=== PATIENT | female | born 1950 | race Caucasian/White ===

== ENCOUNTER 2019-06-23 08:09 | Inpatient (IN) | payer MEDICARE, OTHER ==
[2019-06-23] MEDS ORDERED: NITROGLYCERIN-D5W PMX 50 MG in DEXTROSE/WATER 1 250ML.BAG IV ONE (08:25)
[2019-06-23] MEDS ORDERED: HEPARIN SODIUM,PORCINE 5,000 UNIT/ML 1 ML VIAL IV PRN (08:25)
[2019-06-23] MEDS ORDERED: HEPARIN SOD,PORK IN 0.45% NACL 25,000 UNIT in 0.45% NACL 1 250ML.BAG IV SCH (08:30)
--- NOTE | 2019-06-23 08:37 | ED ---
Chest Pain HPI - General Chief Complaint: Chest Pain Stated Complaint: Chest Pain Time Seen by Provider: 06/23/19 08:10 - History of Present Illness Initial Comments: He patient is a 69-year-old female who is a transfer from [facility]. She called EMS and went in there around 3:30 AM. She was complaining of shortness of breath. Reports that her symptoms are been present for the past several days. She has a history of asthma and COPD. Patient recently quit smoking a few months ago. At [facility] they found the patient had saturations in the 80s and was in congestive heart failure. Denies a previous history of CHF or any coronary disease. 12-lead EKG demonstrated concerning signs for an anterior lateral STEMI. She was given TNK-tPA. She is also started on heparin and nitro drip. Patient was placed on BiPAP for respiratory distress and given 60 mg of Lasix. 4 baby aspirins were also given to the patient. They ordered Levaquin on the patient because of an elevated white blood cell count however it was not administered to the patients. They did call her facility and spoke with Dr. Moreno. He reported that the patient's needed to be accepted by our valet attendant. Patient does arrive and I do contact the on- call valet attendant who is unaware of the patient's transfer. Review the patient's lab studies demonstrate a mag of 1.6, urinalysis shows rare bacteria. Troponin 1.2, sodium 141, potassium 4.4, chloride 104, CO2 22, creatinine 1.3 BNP, 1443, INR 0.9, d-dimer 2.9, platelets 297. Chest x-ray demonstrates findings consistent with early cardiac decompensation superimposed upon COPD. Patient arrives to me and is pain free. Appears comfortable on the BiPAP. Denies any fevers or chills. No nausea or vomiting. There are no alleviating, precipitating or modifying factors - Related Data Home Medications Medication Instructions Recorded Confirmed Bisoprolol Fumarate [Zebeta] 10 mg PO DAILY 06/23/19 06/23/19 Clopidogrel [Plavix] 75 mg PO DAILY 06/23/19 06/23/19 Insulin Aspart Protam & Aspart 30 unit SQ BID 06/23/19 06/23/19 [NovoLOG MIX 70-30 Flexpen] Losartan [Cozaar] 25 mg PO DAILY 06/23/19 06/23/19 Losartan [Cozaar] 50 mg PO BID 06/23/19 06/23/19 cloNIDine HCL [Catapres] 0.1 mg PO BID PRN 06/23/19 06/23/19 hydrALAZINE HCL [Apresoline] 25 mg PO DAILY 06/23/19 06/23/19 Allergies Allergy/AdvReac Type Severity Reaction Status Date / Time latex Allergy Rash/Hives Verified 06/23/19 16:34 Penicillins Allergy Rash/Hives Verified 06/23/19 08:41 Sulfa (Sulfonamide Allergy Swelling Verified 06/23/19 08:41 Antibiotics) Wool Allergy Itching Uncoded 06/23/19 16:34 Review of Systems ROS Statement: Those systems with pertinent positive or pertinent negative responses have been documented in the HPI. ROS Other: All systems not noted in ROS Statement are negative. EKG Findings - EKG Comments: EKG Findings:: EKG demonstrates normal sinus rhythm with ventricular rate of 83. ID interval 160. Distress 106. QTC of 542. There is deep inverted T waves in leads V3 through V6. Appears to be some ST elevation in 2, 3 and aVF. General Exam General appearance: alert, in no apparent distress Head exam: Present: atraumatic, normocephalic, normal inspection Eye exam: Present: normal appearance, PERRL, EOMI. Absent: scleral icterus, conjunctival injection, periorbital swelling ENT exam: Present: normal exam, mucous membranes moist Neck exam: Present: normal inspection. Absent: tenderness, meningismus, lymphadenopathy Respiratory exam: Present: rales, other (on Bipap). Absent: respiratory distress, wheezes, rhonchi, stridor Cardiovascular Exam: Present: regular rate, normal rhythm, normal heart sounds. Absent: systolic murmur, diastolic murmur, rubs, gallop, clicks GI/Abdominal exam: Present: soft, normal bowel sounds. Absent: distended, tenderness, guarding, rebound, rigid Extremities exam: Present: full ROM, normal capillary refill, pedal edema. Absent: tenderness, joint swelling, calf tenderness Back exam: Present: normal inspection Neurological exam: Present: alert, oriented X3, CN II-XII intact Psychiatric exam: Present: normal affect, normal mood Skin exam: Present: warm, dry, intact, normal color. Absent: rash Course Vital Signs 06/23/19 06/23/19 06/23/19 08:19 08:45 08:50 Temperature 97.8 F Pulse Rate 85 78 72 Respiratory 22 18 18 Rate Blood Pressure 153/95 159/89 176/93 O2 Sat by Pulse 98 98 95 Oximetry 06/23/19 06/23/19 06/23/19 09:00 09:05 09:10 Temperature Pulse Rate 78 78 75 Respiratory 18 18 18 Rate Blood Pressure 162/91 154/76 151/80 O2 Sat by Pulse 94 L 95 95 Oximetry 06/23/19 06/23/19 06/23/19 09:14 09:15 09:20 Temperature 98 F Pulse Rate 79 77 Respiratory 18 18 Rate Blood Pressure 159/88 167/100 O2 Sat by Pulse 95 95 Oximetry 06/23/19 06/23/19 06/23/19 09:30 09:35 09:40 Temperature Pulse Rate 75 75 74 Respiratory 18 18 18 Rate Blood Pressure 169/92 173/92 161/101 O2 Sat by Pulse 95 95 95 Oximetry 06/23/19 06/23/19 06/23/19 09:45 09:46 10:03 Temperature Pulse Rate 75 75 75 Respiratory 14 16 18 Rate Blood Pressure 169/95 162/97 175/110 O2 Sat by Pulse 95 95 96 Oximetry Chest Pain MDM - MDM Upon obtaining EMS prehospital report, I called the quality control lab technician at [phone] and they are unaware the patient. The patient is placed into trauma bay 1. I then talked Dr. Mcleod at [phone] and he is unaware of the patient's transfer. The patient is transferred to heparin and nitro drips on our pumps. We did complete a 12-lead EKG. Dr. Mcleod does present to the emergency room at 8:20 AM in order to evaluate the patient and states he will take the patient to [facility]. I did place bridging orders for the patient to go to the ICU. Discussed case with Dr. newman and Dr. Keith. As of 8:45 AM all of the patient's orders are placed in the computer and we are currently still awaiting the valet attendant take her to the catheterization lab Critical Care Time Critical Care Time: Yes Total Critical Care Time: 30 (mins) Disposition Clinical Impression: Chest pain, Congestive heart failure, Dependence on non-invasive ventilation, STEMI (ST elevation myocardial infarction) Disposition: ADMITTED IP TO THIS HOSP Condition: Serious Is patient prescribed a controlled substance at d/c from ED?: No Decision to Admit Reason: Admit from EC Decision Date: 06/23/19 Decision Time: 08:49
[2019-06-23] MEDS ORDERED: NALOXONE 0.4 MG/ML 1 ML VIAL IV PRN (08:53)
--- NOTE | 2019-06-23 09:49 | CONS ---
CONSULTATION Mrs. Llamas is a 69-year-old female who was transferred from [place] emergency room. Patient has a known history of hypertension, hyperlipidemia, chronic tobacco use and peripheral vessel disease who woke up this morning at 3 o'clock was acute dyspnea and chest discomfort. She was evaluated in the emergency room in [place], was found to have ST-segment elevation anteriorly with evidence off QS pattern. She received TN and was transferred to the emergency room at [facility]. She is awake, alert at this time on BiPAP. Denies any chest discomfort at this time. Denies any dizziness or palpitation. She feels that her discomfort is better. She has been having the discomfort on and off recently. She has no prior documented history of cardiac disease, yet she has peripheral disease and underwent stenting of her left lower extremity. She denies any PND, orthopnea. No peripheral edema. Her activity level is limited. She has a history of hypertension, diabetes. She has stopped smoking in March. MEDICATION: At home are not available at this time. REVIEW OF SYSTEMS: RESPIRATORY SYSTEM: She had dyspnea on exertion. She has wheezing and cough. GI SYSTEM: No recent GI bleeding. No peptic ulcer disease. SYSTEM: No dysuria or hematuria. NERVOUS SYSTEM: No history of stroke or seizure. PHYSICAL EXAMINATION: She is a 69-year-old female, alert, oriented, on BiPAP. Heart rate in the 80s. HEAD: Normocephalic. EYES: Sclerae nonicteric. NECK: No bruit. LUNGS: Clear to auscultation anteriorly. HEART: Regular rate and rhythm. S1, S2. No S3. Unable to appreciate murmur. ABDOMEN: Soft, obese, nontender. EXTREMITIES: No edema with decreased distal pulses. LAB DATA: From [place], revealed BUN and creatinine 26 and 1.3. Her NT proBNP is 1443. Troponin of 1.2, hemoglobin of 15.8. Her initial EKG showed ST-segment elevation anteriorly. Her repeat EKG at [facility] showed T-wave inversion in the anterior precordial leads. Her chest x-ray reported from [place] revealed evidence of COPD with early cardiac decompensation. IMPRESSION: 1. Acute anterior myocardial infarction, treated with thrombolytics with symptoms of heart failure. 2. Chronic tobacco use. 3. Hypertension. 4. Diabetes. 5. Peripheral vascular disease with recent percutaneous revascularization of her left lower extremity. 6. Obesity. RECOMMENDATION: From the cardiac standpoint, I would recommend to proceed with cardiac catheterization to assess the patency of her vessels and guide her treatment. The rational behind the procedures, risks, and complication were discussed with the patient who is in full understanding and agreement. Thank you for this consult. Will follow with you. JOHN / PARAG: [id number] /
[2019-06-23 09:53] LABS: Glucose,Whole Blood 338 mg/dL (75-99)
[2019-06-23] MEDS ORDERED: LIDOCAINE 1% INJ 10MG/ML (20 ML MDV) ONE (10:07)
[2019-06-23] MEDS ORDERED: SODIUM CHLORIDE 0.9% 500 ML 500 ML IV ONE (10:28)
[2019-06-23] MEDS ORDERED: SODIUM CHLORIDE 0.9% 1,000 ML IV ONE (10:28)
[2019-06-23] MEDS ORDERED: VERAPAMIL 2.5 MG/ML 2 ML AMP ONE (10:32)
[2019-06-23] MEDS ORDERED: fentaNYL (PF) 50 MCG/ML 2 ML AMP ONE (10:36)
[2019-06-23] MEDS ORDERED: fentaNYL (PF) 50 MCG/ML 2 ML AMP IVP ONE (10:40)
[2019-06-23] MEDS ORDERED: LIDOCAINE 1% INJ 10MG/ML (20 ML MDV) SQ ONE (10:45)
[2019-06-23] MEDS ORDERED: VERAPAMIL SYRINGE (5 MG/10 ML) INTRAARTER ONE (10:46)
[2019-06-23] MEDS ORDERED: NITROGLYCERIN 1000MCG/10ML SYRINGE INTRACORON ONE (10:58)
[2019-06-23] MEDS ORDERED: BIVALIRUDIN 250 MG in SODIUM CHLORIDE 0.9% 50 ML IV ONE (11:05)
[2019-06-23] MEDS ORDERED: BIVALIRUDIN BOLUS 250 MG/50 ML IV ONE (11:05)
[2019-06-23] MEDS ORDERED: CLOPIDOGREL 75 MG TAB ONE (11:15)
[2019-06-23] MEDS ORDERED: CLOPIDOGREL 75 MG TAB PO ONE (11:21)
[2019-06-23] MEDS ORDERED: IOPAMIDOL-370 125ML BTL INJ ONE ×2 (11:23)
[2019-06-23] MEDS ORDERED: ATROPINE SULFATE 0.1 MG/ML 10ML SYRINGE IV PRN (11:35)
[2019-06-23] MEDS ORDERED: RX INFO: IV CONTRAST WAS GIVEN 1 EACH MISC MISCELLANE PRN (11:35)
[2019-06-23] MEDS ORDERED: NITROGLYCERIN SL TABS 0.4 MG TAB SUBLINGUAL PRN (11:35)
[2019-06-23] MEDS ORDERED: MAG HYDROX/AL HYDROX/SIMETH 30 ML CUP PO PRN (11:35)
[2019-06-23] MEDS ORDERED: SODIUM CHLORIDE 0.9% 1,000 ML IV SCH (11:45)
[2019-06-23 12:04] LABS: Glucose,Whole Blood 367 mg/dL (75-99)
[2019-06-23] MEDS ORDERED: INSULIN NPH 300 UNIT/3 ML VIAL SQ ONE (13:00)
[2019-06-23 13:30] LABS: Glucose,Whole Blood 343 mg/dL (75-99)
--- NOTE | 2019-06-23 14:59 | XR ---
EXAMINATION TYPE: XR chest 1V portable DATE OF EXAM: 06/23/2019 COMPARISON: 06/23/2019 INDICATION: Short of breath TECHNIQUE: Single frontal view of the chest is obtained. FINDINGS: The heart size is normal. The pulmonary vasculature is normal. Perihilar and bibasilar infiltrates are present. This is more focal in the right lower lobe. Findings appear somewhat improved from recent comparison. IMPRESSION: 1. Clinical consideration for atypical pulmonary edema is recommended.
[2019-06-23 15:10] LABS: Glucose,Whole Blood 363 mg/dL (75-99)
[2019-06-23] MEDS ORDERED: IPRATROPIUM-ALBUTEROL 3 ML NEB INHALATION PRN (15:29)
--- NOTE | 2019-06-23 15:29 | P.CNPUL ---
History of Present Illness Consult date: 06/23/19 Requesting physician: Vikram Campbell Reason for consult: other (Acute ST elevation myocardial infarction) Chief complaint: Shortness of breath and chest pain History of present illness: This is a 69-year-old female with history of COPD, peripheral vessel occlusive disease, degenerative disc disease of the lumbar spine, [id number] smoker, quit smoking about 3 months ago. Patient is not O2 dependent, she is maintained on bronchodilators in the form of updrafts at home. Patient was seen early this morning at [facility] with sudden onset of dyspnea and chest discomfort. Upon initial evaluation in the ER, patient was found to have ST segment elevation anteriorly. She received TPAfor acute ST elevation myocardial infarction, and arrangements were made to transfer the patient to [facility]. She was seen by cardiology while she was in the ER, and she underwent cardiac catheterization./PTCA. Postoperatively patient was transferred to the intensive care unit, and I was asked to see her on consultation. She is presently on 4 L nasal cannula, she is asymptomatic, denies any chest pain, denies any cough, no wheezing, no fever no chills no hemoptysis. Patient is resting comfortably in the ICU. Initially when she presented to the ER, patient was on BiPAP. Chest x-ray post PTCA showed evidence of pulmonary edema. Patient will be treated as such. And she'll be receiving diuretics for her pulmonary edema, possible ischemic cardiomyopathy and LV dysfunction. Echocardiogram is pending. The cardiac catheterization report is also pending. Review of Systems Constitutional: Denies chills, Denies fever Eyes: denies blurred vision, denies pain Ears, nose, mouth and throat: Denies headache, Denies sore throat, Cardiovascular: As noted in HPI. Respiratory: Denies any cough wheezing shortness of breath at present. Presented initially with chest pain and shortness of breath Gastrointestinal: Denies abdominal pain, Denies diarrhea, Denies nausea, Denies vomiting Genitourinary: Denies dysuria, Denies hematuria Musculoskeletal: Has chronic low back pain Musculoskeletal: Chronic low back pain. Integumentary: Denies pruritus, Denies rash Neurological: Denies numbness, Denies weakness Psychiatric: Denies anxiety, Denies depression Endocrine: Denies fatigue, Denies weight change Past Medical History Past Medical History: Diabetes Mellitus, Hypertension History of Any Multi-Drug Resistant Organisms: None Reported Past Surgical History: Tonsillectomy Additional Past Surgical History / Comment(s): stent in left leg Past Psychological History: No Psychological Hx Reported Smoking Status: Former smoker Past Alcohol Use History: None Reported Past Drug Use History: None Reported Medications and Allergies Home Medications Medication Instructions Recorded Confirmed Type Bisoprolol Fumarate [Zebeta] 10 mg PO DAILY 06/23/19 06/23/19 History Clopidogrel [Plavix] 75 mg PO DAILY 06/23/19 06/23/19 History Insulin Aspart Protam & Aspart 30 unit SQ BID 06/23/19 06/23/19 History [NovoLOG MIX 70-30 Flexpen] Losartan [Cozaar] 25 mg PO DAILY 06/23/19 06/23/19 History Losartan [Cozaar] 50 mg PO BID 06/23/19 06/23/19 History cloNIDine HCL [Catapres] 0.1 mg PO BID PRN 06/23/19 06/23/19 History hydrALAZINE HCL [Apresoline] 25 mg PO DAILY 06/23/19 06/23/19 History Allergies Allergy/AdvReac Type Severity Reaction Status Date / Time Penicillins Allergy Rash/Hives Verified 06/23/19 08:41 Sulfa (Sulfonamide Allergy Swelling Verified 06/23/19 08:41 Antibiotics) Physical Exam Vitals: Vital Signs Temp Pulse Resp BP Pulse Ox 06/23/19 14:00 79 14 139/83 94 L 06/23/19 13:00 71 15 140/88 94 L 06/23/19 12:00 98 F 73 12 149/88 95 06/23/19 10:03 75 18 175/110 96 06/23/19 09:46 75 16 162/97 95 06/23/19 09:45 75 14 169/95 95 06/23/19 09:40 74 18 161/101 95 06/23/19 09:35 75 18 173/92 95 06/23/19 09:30 75 18 169/92 95 06/23/19 09:20 77 18 167/100 95 06/23/19 09:15 79 18 159/88 95 06/23/19 09:10 75 18 151/80 95 06/23/19 09:05 78 18 154/76 95 06/23/19 09:00 78 18 162/91 94 L 06/23/19 08:50 72 18 176/93 95 06/23/19 08:45 78 18 159/89 98 06/23/19 08:19 97.8 F 85 22 153/95 98 Intake and Output 06/23/19 06/23/19 06/23/19 06:59 14:59 22:59 Intake Total 668 Output Total 650 Balance 18 Intake: IV 543 Sodium Chloride 0.9% 1, 225 000 ml @ 75 mls/hr IV . [id number] [facility] Rx#:[id number] Oral 125 Output: Urine 650 Other: Voiding Method Indwelling Catheter Weight 77.564 kg ENERAL EXAM: Alert, pleasant, 69-year-old white female, on few liters nasal cannula, asymptomatic. HEAD: Normocephalic/atraumatic. EYES: Normal reaction of pupils, equal size. Conjunctiva pink, sclera white. NOSE: Clear with pink turbinates. THROAT: No erythema or exudates. NECK: No masses, no JVD, no thyroid enlargement, no adenopathy. CHEST: No chest wall deformity. Symmetrical expansion. Minimal fine crackles a t the bases. No rhonchi and no wheezes.. LUNGS: Equal air entry minimal crackles at the bases. CVS: Regular rate and rhythm, normal S1 and S2, no gallops, no murmurs, no rubs ABDOMEN: Obese, Soft, nontender. No hepatosplenomegaly, normal bowel sounds, no guarding or rigidity. EXTREMITIES: No clubbing, no edema, no cyanosis, 2+ pulses and upper and lower extremities. MUSCULOSKELETAL: Muscle strength and tone normal. SPINE: No scoliosis or deformity SKIN: No rashes CENTRAL NERVOUS SYSTEM: Alert and oriented -3. No focal deficits, tone is normal in all 4 extremities. PSYCHIATRIC: Alert and oriented -3. Appropriate affect. Intact judgment and insight. Results - Laboratory Findings Abnormal lab findings: Abnormal Labs 06/23/19 06/23/19 06/23/19 09:51 11:52 12:48 POC Glucose (mg/dL) 338 H 367 H Troponin I 3.060 H* 06/23/19 06/23/19 13:19 14:59 POC Glucose (mg/dL) 343 H 363 H Troponin I - Diagnostic Findings Chest x-ray: image reviewed (Chest x-ray is consistent with interstitial edema.) Assessment and Plan Assessment: Impression: 1 acute anterior myocardial infarction, initially treated with thrombolytics, and underwent PTCA by Dr. Mcleod. Stents were deployed., Final cardiac catheterization report and procedure is pending. 2 acute pulmonary edema secondary to ischemic cardiomyopathy and LV dysfunction is strongly suspected. 3 suspect moderate severe chronic obstructive pulmonary disease based on her smoking history. 4 chronic tobacco use, patient is at least an [id number] smoker, quit smoking 3 months ago. 5 benign essential hypertension 6 history of diabetes 7 history of peripheral vessel occlusive disease and previous revascularization of left lower extremity 8 obesity. Recommendation: Continue to monitor patient in the ICU. Continue aspirin atorvastatin Plavix nitroglycerin and beta blockers. Continue diuretics patient is presently on Lasix 20 mg IV push every 12 hours. Continue insulin as per protocol. Continue bronchodilators for COPD. Continue to monitor and control blood pressure Resume bronchodilators, no need for Solu-Medrol at this point. Follow-up chest x-ray in a.m., We'll continue to follow. Time with Patient: Greater than 30
[2019-06-23] MEDS: NITROGLYCERIN OINT 1 INCH/GM PACKET TOPICAL SCH ×2 (16:14→23:22)
[2019-06-23] MEDS: INSULIN ASPART (NovoLOG) 100 UNIT/ML VIAL SQ SCH ×4 (17:13→20:59)
[2019-06-23 17:17] LABS: Glucose,Whole Blood 376 mg/dL (75-99)
[2019-06-23 17:30] LABS: Basophils % (A) 0 %; Eosinophils # (A) 0.1 k/uL (0-0.7); Eosinophils % (A) 0 %; HCT 42.7 % (34.0-46.0); HGB 13.5 gm/dL (11.4-16.0); Lymphocytes # (A) 1.4 k/uL (1.0-4.8); Lymphocytes % (A) 9 %; MCH 32.5 pg (25.0-35.0); MCHC 31.7 g/dL (31.0-37.0); MCV 102.4 fL (80.0-100.0); Macrocytosis Slight; Mean Platelet Volume 8.5; Monocytes # (A) 0.4 k/uL (0-1.0); Monocytes % (A) 3 %; Neutrophils # (A) 13.5 k/uL (1.3-7.7); Neutrophils % (A) 88 %; Platelet Count 259 k/uL (150-450); RBC 4.17 m/uL (3.80-5.40); RDW 13.2 % (11.5-15.5); WBC 15.4 k/uL (3.8-10.6)
--- NOTE | 2019-06-23 17:37 | CC ---
CARDIAC CATHETERIZATION REPORT Mrs. Llamas is a 69-year-old female known history of hypertension, hyperlipidemia, diabetes mellitus, chronic tobacco use and peripheral vascular disease, who presented to [facility] with an acute anterior myocardial infarction, received TNK and was transferred to [facility]. On arrival, her breathing was better, but she was on BiPAP. Her EKG showed improvement in the ST elevation. In view of her presentation, recommendation made regarding cardiac catheterization. The procedures, risks and complications were discussed with the patient who is in full understanding and agreement. DESCRIPTION OF PROCEDURE: Patient was brought to [facility] in a fasting semisedated state. After receiving fentanyl and Benadryl and achieving moderate conscious sedated state. Using Xylocaine anesthesia and Seldinger technique, a 6-Slovenian sheath was introduced in the right radial artery. Selective right and left coronary angiography was performed using 5- Slovenian 3 and half bend right Indra catheter and a 6-Slovenian FL 3.5 guiding catheter. Images of the coronary arteries were performed. The 5-Slovenian right Indra was used to cross the aortic valve and left ventricular end-diastolic pressure was performed. Following that, angioplasty and stenting of the LAD was performed. Following the catheter and sheath were removed. Hemostasis was obtained with deployment of a TR band. There was no immediate complication. Patient was returned to her room in stable condition. Of note, the patient received intra-arterial verapamil. FINDING: FLUOROSCOPY: There is calcification involving all the coronary arteries. SELECTIVE CORONARY ANGIOGRAM: 1. LEFT MAIN: This is a short size vessel that bifurcates immediately to left anterior descending artery and left circumflex. Left main coronary artery has no evidence of high-grade stenosis. 2. LEFT ANTERIOR DESCENDING ARTERY: This is a large-sized vessel reaching toward the apex, tapers down distally giving rise to a large diagonal branch. In the proximal left anterior descending artery, at the takeoff of the diagonal branch, there is an 80% stenosis. Then after that, there is a tubular lesion of 80% to 90%. stenosis. The rest of the vessel has intimal disease without any evidence of high- grade stenosis. 3. LEFT CIRCUMFLEX: This is a nondominant vessel giving rise to a large obtuse marginal branch. The left circumflex has diffuse intimal disease of 30% to 40% without critical lesions. 4. RIGHT CORONARY ARTERY: This is a large dominant vessel bifurcating distally to PDA and posterolateral segment branches, calcified. The mid right coronary artery has an an area of stenosis of 50-60 percent at the bifurcation of the PDA and PLV. There is an 80 -90 percent stenosis involving the takeoff of the PDA. The rest of the vessel has no high-grade stenosis. LEFT VENTRICULOGRAM:: Left ventriculogram is not performed. HEMODYNAMICS: There was no gradient across the aortic valve. The left ventricle end-diastolic pressure was 32-36 mmHg. CONCLUSION: 1. Calcified coronary arteries. 2. Critical stenosis involving the LAD and a long segment. 3. Critical stenosis at the distal right coronary artery at the bifurcation of the PDA and PLV. 4. Mild to moderate disease in the left circumflex. 5. Elevated left ventricular end-diastolic pressure. RECOMMENDATION: In view of findings and anatomy, I recommend proceeding with angioplasty and stenting of the LAD. The procedure as well as risks and complication were discussed with the patient who is in full understanding and agreement. JOHN / PARAG: [id number] /
[2019-06-23 17:38] LABS: Calcium 9.4 mg/dL (8.4-10.2); Magnesium 1.4 mg/dL (1.6-2.3); Potassium 4.7 mmol/L (3.5-5.1)
--- NOTE | 2019-06-23 17:40 | PTCA ---
PERCUTANEOUSTRANS CORORONARY ANGIOGRAPHY Mrs. Llamas is a 69-year-old female with known history of hypertension, hyperlipidemia, diabetes mellitus and peripheral vascular disease who presented with evidence of an anterior myocardial infarction, received thrombolytics in [place] and was transferred for further evaluation. She underwent cardiac catheterization, was found to have critical stenosis involving the proximal and mid LAD. In view of that, recommendation was made regarding angioplasty and stenting. The procedure, its risks and complications were discussed with the patient, who was in full understanding and agreement. PROCEDURE: Using the 6-Danish FL3.5 guiding catheter, a 0.014 balanced medium-weight J-wire was advanced across the lesion, positioned distally. Subsequently a 2.75 x 18 mm Xience Shanti stent was deployed, post dilated at 16 atmospheres. After removing the balloon, another 2.75 x 15 mm Xience Shanti stent was deployed proximal to the first one and post dilated at 16 atmospheres. After the last inflation, after appropriate wait, the balloon and the guidewire were withdrawn back into the guiding catheter. Images were obtained and repeated. Those images revealed stable successful stenting. At that point, the guiding catheter, the balloon and the guidewire were removed. The sheath was removed. Hemostasis was obtained with deployment of a TR band. There was no immediate complication. Patient was returned to her room in stable condition. Of note, the patient received Angiomax per protocol and was continued on her Plavix. She had EKG changes as well as headache with the inflation that improved at the end of the procedure. RESULTS: Successful stenting of the proximal and mid LAD with reduction of stenosis from 80% to 0%. RECOMMENDATIONS: Patient will be continued on aspirin, Plavix, beta shawn and statin. Her renal function will be monitored closely. The patient will need to be evaluated regarding the right coronary artery lesion to undergo percutaneous revascularization when she is stabilized from this procedure. Those findings and recommendations were discussed with the patient and her family, who are in full understanding and agreement. Duration of procedure was 32 minutes. MMODL / IJN: [id number] /
[2019-06-23] MEDS ORDERED: Magnesium Replacement Protocol 1 EACH MISC MISCELLANE PRN (19:58)
[2019-06-23 20:43] LABS: Glucose,Whole Blood 348 mg/dL (75-99)
[2019-06-23] MEDS: INSULN ASP PRT/INSULIN ASPART 100 UNIT/ML 10 ML VIAL SQ SCH (20:57)
[2019-06-23] MEDS: ATORVASTATIN 80 MG TAB PO SCH (20:59)
[2019-06-23] MEDS: METOPROLOL TARTRATE 25 MG TAB PO SCH (20:59)
[2019-06-23] MEDS: LOSARTAN 50 MG TAB PO SCH (20:59)
[2019-06-23] MEDS: hydrALAZINE HCL 25 MG TAB PO SCH (20:59)
[2019-06-23] MEDS ORDERED: FUROSEMIDE 10 MG/ML 2 ML VIAL IV SCH (21:00)
[2019-06-23] MEDS: MAGNESIUM SULFATE-D5W PMX 1 GM in DEXTROSE/WATER 1 100ML.BAG IVPB SCH ×3 (21:00→23:22)
[2019-06-23] MEDS ORDERED: ZOLPIDEM 5 MG TAB PO PRN (21:00)
[2019-06-23 22:24] LABS: Hemoglobin A1C 9.8 % (4.0-6.0)
--- NOTE | 2019-06-24 00:24 | P.HPIM ---
History of Present Illness H&P Date: 06/23/19 Chief Complaint: Chest pain History of presenting complaint: This is a 69-year-old patient of Dr. Nagy. Chronic stable medical conditions include diabetes, hypertension, COPD, hypertension, hyperlipidemia, urinary incontinence obesity, patient initially presented [facility]. Patient started having chest pain. Short of breath. Did not feel well. Did not radia te to the neck or arm. A bit short of breath. No dizziness or lightheadedness. Patient found to have ST elevation acute IN. Transferred down here. Taken double the cardiac catheterization lab. Successful stenting to the proximal and mid LAD was done. Postprocedure patient ICU. Laying in bed. Not in distress. Patient states she stopped smoking 3 months ago. Review of systems: GEN.: Tired EYES: None HEENT: None NECK: None RESPIRATORY: Some shortness of breath and wheezing CARDIOVASCULAR: As above GASTROINTESTINAL: None GENITOURINARY: Urinary incontinence MUSCULOSKELETAL: Joint pains LYMPHATICS: None HEMATOLOGICAL: None PSYCHIATRY: None NEUROLOGICAL: None Past medical history to include: GERD, diabetes, COPD, hypertension, hyperlipidemia, urinary incontinence Social history: . Smoked about 2 packs a day for close to 60 years stopped about 3 months ago. No alcohol Family history: Reviewed, noncontributory to presentation Physical examination: VITAL SIGNS: 98, 74, 15, 123/62, 94% on 6 L GENERAL: BMI 31.3, laying in bed a bit tired. EYES: Pupils equal. Conjunctiva normal. HEENT: External appearance of nose and ears normal, oral cavity grossly normal. NECK: JVD not raised; masses not palpable. HEART: First and second heart sounds are normal; no edema. LUNGS: Respiratory rate normal; decreased breath sounds mild wheezing. ABDOMEN: Soft, nontender, liver spleen not palpable, no masses palpable. PSYCH: Alert and oriented x3; mood and affect normal. NEUROLOGICAL: Cranial nerves grossly intact; no facial asymmetry, power and sensation grossly intact. LYMPHATICS: No lymph nodes palpable in the axilla and neck INVESTIGATIONS, reviewed in the clinical context: EKG tracing personally reviewed by me-flipped T waves in anterior leads from here Chest x-ray film personally reviewed by me-cardiomegaly and pulmonary edema White count 15.4 hemoglobin 13.5 bun 37 and creatinine 1.16 Troponin 3.0, HbA1c 9.8 Accu-Cheks noted Assessment: -Acute ST elevation myocardial infarction -Acute pulmonary edema from above -COPD in a ex-smoker -GERD -Essential hypertension -Hyperlipidemia -Chronic urinary stress incontinence -Diabetes mellitus type 2, chronically on insulin, uncontrolled with hypoglycemia Plan: Patient home medications resumed. Patient currently on aspirin and Lipitor IV Lasix and Plavix.. 2-D echo pending. Novolin 70/30 be started. Care was discussed with the patient. Start patient on DuoNeb. And inhaled steroid. Patient was seen by Dr. Mcleod from cardiology. Past Medical History Past Medical History: Diabetes Mellitus, Hypertension History of Any Multi-Drug Resistant Organisms: None Reported Past Surgical History: Tonsillectomy Additional Past Surgical History / Comment(s): stent in left leg Past Anesthesia/Blood Transfusion Reactions: Previous Problems w/ Anesthesia Additional Past Anesthesia/Blood Transfusion Reaction / Comment(s): states "can only take Sodium Penethol" Past Psychological History: No Psychological Hx Reported Smoking Status: Former smoker Past Alcohol Use History: None Reported Past Drug Use History: None Reported Medications and Allergies Home Medications Medication Instructions Recorded Confirmed Type Bisoprolol Fumarate [Zebeta] 10 mg PO DAILY 06/23/19 06/23/19 History Clopidogrel [Plavix] 75 mg PO DAILY 06/23/19 06/23/19 History Insulin Aspart Protam & Aspart 30 unit SQ BID 06/23/19 06/23/19 History [NovoLOG MIX 70-30 Flexpen] Losartan [Cozaar] 25 mg PO DAILY 06/23/19 06/23/19 History Losartan [Cozaar] 50 mg PO BID 06/23/19 06/23/19 History cloNIDine HCL [Catapres] 0.1 mg PO BID PRN 06/23/19 06/23/19 History hydrALAZINE HCL [Apresoline] 25 mg PO DAILY 06/23/19 06/23/19 History Allergies Allergy/AdvReac Type Severity Reaction Status Date / Time latex Allergy Rash/Hives Verified 06/23/19 16:34 Penicillins Allergy Rash/Hives Verified 06/23/19 08:41 Sulfa (Sulfonamide Allergy Swelling Verified 06/23/19 08:41 Antibiotics) Wool Allergy Itching Uncoded 06/23/19 16:34 Physical Exam Vitals: Vital Signs Temp Pulse Resp BP Pulse Ox 06/23/19 23:00 71 12 132/70 94 L 12/05/19 22:00 69 16 143/75 94 L 06/23/19 21:00 77 16 132/66 93 L 06/23/19 20:53 93 L 06/23/19 20:00 98 F 74 15 123/62 94 L 06/23/19 19:41 11 L 06/23/19 19:00 70 11 L 125/60 94 L 06/23/19 18:00 80 12 147/82 94 L 06/23/19 17:00 78 19 147/82 94 L 06/23/19 16:01 98.8 F 77 19 160/86 95 06/23/19 15:33 22 06/23/19 15:00 80 22 148/72 94 L 06/23/19 14:00 79 14 139/83 94 L 06/23/19 13:00 71 15 140/88 94 L 06/23/19 12:00 98 F 73 12 149/88 95 06/23/19 10:03 75 18 175/110 96 06/23/19 09:46 75 16 162/97 95 06/23/19 09:45 75 14 169/95 95 06/23/19 09:40 74 18 161/101 95 06/23/19 09:35 75 18 173/92 95 06/23/19 09:30 75 18 169/92 95 06/23/19 09:20 77 18 167/100 95 06/23/19 09:15 79 18 159/88 95 06/23/19 09:14 98 F 06/23/19 09:10 75 18 151/80 95 06/23/19 09:05 78 18 154/76 95 06/23/19 09:00 78 18 162/91 94 L 06/23/19 08:50 72 18 176/93 95 06/23/19 08:45 78 18 159/89 98 06/23/19 08:19 97.8 F 85 22 153/95 98 Intake and Output 06/23/19 06/23/19 06/24/19 14:59 22:59 06:59 Intake Total 668 890 100 Output Total 650 1025 300 Balance 18 -135 -200 Intake: IV 543 650 100 Magnesium Sulfate-D5w Pmx 200 100 1 gm In Dextrose/Water 1 100ml.bag @ 100 mls/hr IVPB Q1H [facility] Rx#: [id number] Sodium Chloride 0.9% 1, 225 450 0 000 ml @ 50 mls/hr IV . Q20H [facility] Rx#:[id number] Oral 125 240 Output: Urine 650 1025 300 Other: Voiding Method Indwelling Catheter Indwelling Catheter Weight 77.564 kg Results CBC & Chem 7: 06/23/19 17:10 06/23/19 17:10 Labs: Abnormal Lab Results - Last 24 Hours (Table) 06/23/19 06/23/19 06/23/19 Range/Units 09:51 11:52 12:48 WBC (3.8-10.6) k/uL MCV (80.0-100.0) fL Neutrophils # (1.3-7.7) k/uL BUN (7-17) mg/dL Creatinine (0.52-1.04) mg/dL Glucose (74-99) mg/dL POC Glucose (mg/dL) 338 H 367 H (75-99) mg/dL Hemoglobin A1c (4.0-6.0) % Magnesium (1.6-2.3) mg/dL Troponin I 3.060 H* (0.000-0.034) ng/mL 06/23/19 06/23/19 06/23/19 Range/Units 12:48 13:19 14:59 WBC (3.8-10.6) k/uL MCV (80.0-100.0) fL Neutrophils # (1.3-7.7) k/uL BUN (7-17) mg/dL Creatinine (0.52-1.04) mg/dL Glucose (74-99) mg/dL POC Glucose (mg/dL) 343 H 363 H (75-99) mg/dL Hemoglobin A1c 9.8 H (4.0-6.0) % Magnesium (1.6-2.3) mg/dL Troponin I (0.000-0.034) ng/mL 06/23/19 06/23/19 06/23/19 Range/Units 17:07 17:10 17:10 WBC 15.4 H (3.8-10.6) k/uL MCV 102.4 H (80.0-100.0) fL Neutrophils # 13.5 H (1.3-7.7) k/uL BUN (7-17) mg/dL Creatinine (0.52-1.04) mg/dL Glucose (74-99) mg/dL POC Glucose (mg/dL) 376 H (75-99) mg/dL Hemoglobin A1c (4.0-6.0) % Magnesium (1.6-2.3) mg/dL Troponin I 3.710 H* (0.000-0.034) ng/mL 06/23/19 06/23/19 Range/Units 17:10 20:32 WBC (3.8-10.6) k/uL MCV (80.0-100.0) fL Neutrophils # (1.3-7.7) k/uL BUN 37 H (7-17) mg/dL Creatinine 1.16 H (0.52-1.04) mg/dL Glucose 376 H (74-99) mg/dL POC Glucose (mg/dL) 348 H (75-99) mg/dL Hemoglobin A1c (4.0-6.0) % Magnesium 1.4 L (1.6-2.3) mg/dL Troponin I (0.000-0.034) ng/mL Thrombosis Risk Factor Assmnt - Choose All That Apply Each Factor Represents 1 point: Acute IN, Obesity (BMI >25), Swollen legs (current) Each Risk Factor Represents 2 Points: Age 61-74 years Thrombosis Risk Factor Assessment Total Risk Factor Score: 5 Thrombosis Risk Factor Assessment Level: High Risk
[2019-06-24 05:01] LABS: HCT 39.4 % (34.0-46.0); HGB 13.1 gm/dL (11.4-16.0); MCH 33.7 pg (25.0-35.0); MCHC 33.3 g/dL (31.0-37.0); MCV 101.2 fL (80.0-100.0); Macrocytosis Slight; Mean Platelet Volume 9.7; Platelet Count 243 k/uL (150-450); RBC 3.89 m/uL (3.80-5.40); RDW 13.3 % (11.5-15.5); WBC 17.4 k/uL (3.8-10.6)
[2019-06-24 05:14] LABS: Calcium 9.6 mg/dL (8.4-10.2); Magnesium 2.5 mg/dL (1.6-2.3); Potassium 4.4 mmol/L (3.5-5.1)
[2019-06-24 06:54] LABS: Glucose,Whole Blood 246 mg/dL (75-99)
[2019-06-24] MEDS: INSULIN ASPART (NovoLOG) 100 UNIT/ML VIAL SQ SCH ×8 (07:00→20:57)
[2019-06-24] MEDS: ACETAMINOPHEN TAB 325 MG TAB PO PRN ×2 (07:00→19:08)
--- NOTE | 2019-06-24 08:15 | ECHOF ---
Referral Reason:mi MEASUREMENTS -------- HEIGHT: 157.5 cm WEIGHT: 77.6 kg BP: RVIDd: 3.2 cm (< 3.3) IVSd: 1.4 cm (0.6 - 1.1) LVIDd: 4.7 cm (3.9 - 5.3) LVPWd: 1.2 cm (0.6 - 1.1) IVSs: 1.7 cm LVIDs: 2.9 cm LVPWs: 1.8 cm LA Diam: 2.9 cm (2.7 - 3.8) LAESV Index (A-L): 17.92 ml/m Ao Diam: 2.5 cm (2.0 - 3.7) AV Cusp: 1.7 cm (1.5 - 2.6) MV EXCURSION: 17.245 mm (> 18.000) MV EF SLOPE: 82 mm/s (70 - 150) EPSS: 1.1 cm MV E Edmund: 0.74 m/s MV DecT: 164 ms MV A Edmund: 0.70 m/s MV E/A Ratio: 1.06 RAP: 5.00 mmHg RVSP: 47.46 mmHg TAPSE: 21.17 mm FINDINGS -------- Sinus rhythm. This was a technically adequate study. The left ventricular size is normal. There is moderate concentric left ventricular hypertrophy. O verall left ventricular systolic function is moderately impaired with, an EF between 35 - 40 %. Api gonzalo anterior LV wall motion is hypokinetic. Apical lateral LV wall motion is hypokinetic. Apica l inferior LV wall motion is hypokinetic. Apical septum LV wall motion is hypokinetic. The right ventricle is normal in size. Normal LA size by volume 22+/-6 ml/m2. The right atrium is normal in size. Interatrial and interventricular septum intact. There is mild aortic valve sclerosis. The mitral valve leaflets are mildly thickened. Mild mitral annular calcification present. Mild m itral regurgitation is present. Zebe-ot-zvchhysm tricuspid regurgitation present. There is moderate pulmonary hypertension. The r ight ventricular systolic pressure, as measured by Doppler, is 47.46mmHg. Trace/mild (physiologic) pulmonic regurgitation. The aortic root size is normal. Normal inferior vena cava with normal inspiratory collapse consistent with estimated right atrial pre ssure of 5 mmHg. There is no pericardial effusion. CONCLUSIONS -------- 1. Sinus rhythm. 2. This was a technically adequate study. 3. The left ventricular size is normal. 4. There is moderate concentric left ventricular hypertrophy. 5. Overall left ventricular systolic function is moderately impaired with, an EF between 35 - 40 %. 6. Apical anterior LV wall motion is hypokinetic. 7. Apical lateral LV wall motion is hypokinetic. 8. Apical inferior LV wall motion is hypokinetic. 9. Apical septum LV wall motion is hypokinetic. 10. The right ventricle is normal in size. 11. Normal LA size by volume 22+/-6 ml/m2. 12. The right atrium is normal in size. 13. Interatrial and interventricular septum intact. 14. There is mild aortic valve sclerosis. 15. The mitral valve leaflets are mildly thickened. 16. Mild mitral annular calcification present. 17. Mild mitral regurgitation is present. 18. Faga-xc-rxwqovke tricuspid regurgitation present. 19. There is moderate pulmonary hypertension. 20. The right ventricular systolic pressure, as measured by Doppler, is 47.46mmHg. 21. Trace/mild (physiologic) pulmonic regurgitation. 22. The aortic root size is normal. 23. Normal inferior vena cava with normal inspiratory collapse consistent with estimated right atrial pressure of 5 mmHg. 24. There is no pericardial effusion. DROSS SKIMMER: Pauline Prado RDCS
[2019-06-24] MEDS: METOPROLOL TARTRATE 25 MG TAB PO SCH ×2 (08:53→19:51)
[2019-06-24] MEDS: INSULN ASP PRT/INSULIN ASPART 100 UNIT/ML 10 ML VIAL SQ SCH ×3 (08:53→20:57)
[2019-06-24] MEDS: FUROSEMIDE 20 MG TAB PO SCH ×2 (08:53→16:18)
[2019-06-24] MEDS: hydrALAZINE HCL 25 MG TAB PO SCH ×2 (08:53→19:51)
[2019-06-24] MEDS: ASPIRIN 81 MG PO SCH (08:53)
[2019-06-24] MEDS: SPIRONOLACTONE 25 MG TAB PO SCH (08:53)
[2019-06-24] MEDS: CLOPIDOGREL 75 MG TAB PO SCH (08:53)
[2019-06-24] MEDS: LOSARTAN 50 MG TAB PO SCH ×2 (08:53→19:52)
[2019-06-24 09:03] LABS: Glucose,Whole Blood 290 mg/dL (75-99)
--- NOTE | 2019-06-24 10:09 | PN ---
PROGRESS NOTE Mrs Llamas is a 69-year-old female who presented yesterday with an acute anterior myocardial infarction, treated with TNK. Subsequently, underwent cardiac catheterization, was found to have critical stenosis in the mid LAD with critical stenosis in the distal right coronary artery, underwent stenting of the LAD. She is doing well this morning. She has no significant chest pain. Her breathing has been stable. She denies any dizziness or palpitation. She denies any nausea. Hemodynamically, she has been stable. She continues to be on aspirin once a day, Lipitor 80 mg daily, Plavix 75 mg daily, Lasix for 20 mg IV q.12 hours, Cozaar 50 mg twice a day, metoprolol tartrate 25 mg twice a day and nitro paste 1 inch q.8 hours. PHYSICAL EXAMINATION: Blood pressure 133/80 with a heart rate in the 60s. LUNGS: Decreased air exchange, no wheezes. HEART: Regular rate and rhythm. S1, S2. No S3. No rub. ABDOMEN: Soft, nontender, obese. Positive bowel sounds. No organomegaly. EXTREMITIES: No edema. Right radial pulse intact. LAB DATA: Revealed BUN and creatinine 39 and 1.02. Her peak troponin 3.71. Hemoglobin 13.1, white blood cell of 17.4. Her cholesterol is 203, LDL of 106. Her EKG shows T-wave inversion in the lateral precordial leads with evidence of anterior wall myocardial infarction. IMPRESSION: 1. Acute anterior myocardial infarction treated with thrombolytic subsequently stenting of the LAD. 2. Critical stenosis in the distal right coronary artery. 3. History of hypertension. 4. Hyperlipidemia. 5. Diabetes mellitus. 6. Peripheral vascular disease. 7. Chronic tobacco use. RECOMMENDATION: I will obtain echocardiogram with Doppler. I will switch her to oral diuretics. I will increase her level of activity, add spironolactone to her regimen. Patient would require revascularization of right coronary artery, but that depends on her status. That can be done during this admission or subsequent admission. MMODL / IJN: [id number] /
--- NOTE | 2019-06-24 10:11 | XR ---
EXAMINATION TYPE: XR chest 1V portable DATE OF EXAM: 06/24/2019 CLINICAL HISTORY: Difficulty breathing and CHF progress study. TECHNIQUE: Single AP portable frontal view of the chest is obtained. COMPARISON: Chest x-ray from one day earlier FINDINGS: Reticulonodular interstitial changes bilaterally remain present though improved from prior . No pleural effusion or pneumothorax is identified. No new focal airspace opacity. Cardiac silhouett e size is stable and mildly enlarged with atherosclerotic aorta. Overlying EKG leads. Cholecystectomy clips. Osseous structures intact. IMPRESSION: Improving bilateral interstitial edema and/or infiltrates. Suspect some background chroni c parenchymal change. Correlation with older outside x-ray would be beneficial. No new focal infiltra te.
--- NOTE | 2019-06-24 11:49 | P.PN ---
Subjective Progress Note Date: 06/24/19 Principal diagnosis: Acute ST elevation myocardial infarction This is a 69-year-old female with history of COPD, peripheral vessel occlusive disease, degenerative disc disease of the lumbar spine, 15-amaa-zbee smoker, quit smoking about 3 months ago. Patient is not O2 dependent, she is maintained on bronchodilators in the form of updrafts at home. Patient was seen early this morning at [facility] with sudden onset of dyspnea and chest discomfort. Upon initial evaluation in the ER, patient was found to have ST segment elevation anteriorly. She received TPAfor acute ST elevation myocardial infarction, and arrangements were made to transfer the patient to [facility]. She was seen by cardiology while she was in the ER, and she underwent cardiac catheterization./PTCA. Postoperatively patient was transferred to the intensive care unit, and I was asked to see her on consultation. She is presently on 4 L nasal cannula, she is asymptomatic, denies any chest pain, denies any cough, no wheezing, no fever no chills no hemoptysis. Patient is resting comfortably in the ICU. Initially when she presented to the ER, patient was on BiPAP. Chest x-ray post PTCA showed evidence of pulmonary edema. Patient will be treated as such. And she'll be receiving diuretics for her pulmonary edema, possible ischemic cardiomyopathy and LV dysfunction. Echocardiogram is pending. The cardiac catheterization report is also pending. Patient was reevaluated today on 06/24/2019, remains in the ICU, feeling better, no hemodynamic issues or cardiac arrhythmia overnight. Remains on few liters nasal cannula. Chest x-ray showed slight improvement in her bilateral interstitial edema. Remains on Lasix. Labs showed the PEEP cigar of 17.4 hemoglobin 13.1 electrolytes are normal BUN is 39 creatinine is 1.02 Lipid profile was noted. Patient is on multiple cardiac meds, diuretics, bronchodilators, and insulin. No chest pain no cough no wheezing no shortness of breath. No nausea no vomiting no abdominal pain. Echocardiogram showed impaired LV function ejection fraction of 35-40%. Yesterday the patient underwent successful stenting of proximal and mid LAD with reduction of stenosis from 80% to 0%. Patient continues to have a right coronary artery lesion, and plans to undergo again percutaneous revascularization in the near future. Jossy ent was noted to have 80-90% stenosis involving the takeoff of the PDA. Objective - Vital Signs Vital signs: Vital Signs Temp 98 F 06/24/19 08:00 Pulse 69 06/24/19 10:00 Resp 21 06/24/19 10:00 BP 134/70 06/24/19 10:00 Pulse Ox 95 06/24/19 10:00 Intake & Output 06/23/19 06/24/19 06/24/19 18:59 06:59 18:59 Intake Total 1208 975 195 Output Total 1100 1475 255 Balance 108 -500 -60 Weight 77.564 kg 80.9 kg Intake: IV 843 975 75 Magnesium Sulfate-D5w Pmx 300 0 1 gm In Dextrose/Water 1 100ml.bag @ 100 mls/hr IVPB Q1H [facility] Rx#: [id number] Sodium Chloride 0.9% 1, 525 675 75 000 ml @ 50 mls/hr IV . Q20H [facility] Rx#:[id number] Oral 365 120 Output: Urine 1100 1475 255 Other: Voiding Method Indwelling Catheter Indwelling Catheter - Exam GENERAL EXAM: Alert, pleasant, 69-year-old white female, on few liters nasal cannula, asymptomatic. HEAD: Normocephalic/atraumatic. EYES: Normal reaction of pupils, equal size. Conjunctiva pink, sclera white. NOSE: Clear with pink turbinates. THROAT: No erythema or exudates. NECK: No masses, no JVD, no thyroid enlargement, no adenopathy. CHEST: No chest wall deformity. Symmetrical expansion. Minimal fine crackles at the bases. No rhonchi and no wheezes.. LUNGS: Equal air entry minimal crackles at the bases. CVS: Regular rate and rhythm, normal S1 and S2, no gallops, no murmurs, no rubs ABDOMEN: Obese, Soft, nontender. No hepatosplenomegaly, normal bowel sounds, no guarding or rigidity. EXTREMITIES: No clubbing, no edema, no cyanosis, 2+ pulses and upper and lower extremities. MUSCULOSKELETAL: Muscle strength and tone normal. SPINE: No scoliosis or deformity SKIN: No rashes CENTRAL NERVOUS SYSTEM: Alert and oriented -3. No focal deficits, tone is normal in all 4 extremities. PSYCHIATRIC: Alert and oriented -3. Appropriate affect. Intact judgment and insight. - Labs CBC & Chem 7: 06/24/19 04:29 06/24/19 04:29 Labs: Abnormal Lab Results - Last 24 Hours (Table) 06/23/19 06/23/19 06/23/19 Range/Units 11:52 12:48 12:48 WBC (3.8-10.6) k/uL MCV (80.0-100.0) fL Neutrophils # (1.3-7.7) k/uL BUN (7-17) mg/dL Creatinine (0.52-1.04) mg/dL Glucose (74-99) mg/dL POC Glucose (mg/dL) 367 H (75-99) mg/dL Hemoglobin A1c 9.8 H (4.0-6.0) % Magnesium (1.6-2.3) mg/dL Troponin I 3.060 H* (0.000-0.034) ng/mL Triglycerides (<150) mg/dL Cholesterol (<200) mg/dL LDL Cholesterol, Calc (0-99) mg/dL HDL Cholesterol (40-60) mg/dL 06/23/19 06/23/19 06/23/19 Range/Units 13:19 14:59 17:07 WBC (3.8-10.6) k/uL MCV (80.0-100.0) fL Neutrophils # (1.3-7.7) k/uL BUN (7-17) mg/dL Creatinine (0.52-1.04) mg/dL Glucose (74-99) mg/dL POC Glucose (mg/dL) 343 H 363 H 376 H (75-99) mg/dL Hemoglobin A1c (4.0-6.0) % Magnesium (1.6-2.3) mg/dL Troponin I (0.000-0.034) ng/mL Triglycerides (<150) mg/dL Cholesterol (<200) mg/dL LDL Cholesterol, Calc (0-99) mg/dL HDL Cholesterol (40-60) mg/dL 06/23/19 06/23/19 06/23/19 Range/Units 17:10 17:10 17:10 WBC 15.4 H (3.8-10.6) k/uL MCV 102.4 H (80.0-100.0) fL Neutrophils # 13.5 H (1.3-7.7) k/uL BUN 37 H (7-17) mg/dL Creatinine 1.16 H (0.52-1.04) mg/dL Glucose 376 H (74-99) mg/dL POC Glucose (mg/dL) (75-99) mg/dL Hemoglobin A1c (4.0-6.0) % Magnesium 1.4 L (1.6-2.3) mg/dL Troponin I 3.710 H* (0.000-0.034) ng/mL Triglycerides (<150) mg/dL Cholesterol (<200) mg/dL LDL Cholesterol, Calc (0-99) mg/dL HDL Cholesterol (40-60) mg/dL 06/23/19 06/23/19 06/24/19 Range/Units 20:32 22:41 04:29 WBC (3.8-10.6) k/uL MCV (80.0-100.0) fL Neutrophils # (1.3-7.7) k/uL BUN 39 H (7-17) mg/dL Creatinine (0.52-1.04) mg/dL Glucose 245 H (74-99) mg/dL POC Glucose (mg/dL) 348 H (75-99) mg/dL Hemoglobin A1c (4.0-6.0) % Magnesium 2.5 H (1.6-2.3) mg/dL Troponin I 3.250 H* (0.000-0.034) ng/mL Triglycerides 179 H (<150) mg/dL Cholesterol 203 H (<200) mg/dL LDL Cholesterol, Calc 106 H (0-99) mg/dL HDL Cholesterol 61 H (40-60) mg/dL 06/24/19 06/24/19 06/24/19 Range/Units 04:29 06:43 08:52 WBC 17.4 H (3.8-10.6) k/uL MCV 101.2 H (80.0-100.0) fL Neutrophils # (1.3-7.7) k/uL BUN (7-17) mg/dL Creatinine (0.52-1.04) mg/dL Glucose (74-99) mg/dL POC Glucose (mg/dL) 246 H 290 H (75-99) mg/dL Hemoglobin A1c (4.0-6.0) % Magnesium (1.6-2.3) mg/dL Troponin I (0.000-0.034) ng/mL Triglycerides (<150) mg/dL Cholesterol (<200) mg/dL LDL Cholesterol, Calc (0-99) mg/dL HDL Cholesterol (40-60) mg/dL Assessment and Plan Assessment: Impression: 1 acute anterior myocardial infarction, initially treated with thrombolytics, and underwent PTCA by Dr. Mcleod. Stenting of LAD was successfully performed. On 06/23/2019. 2 acute pulmonary edema secondary to ischemic cardiomyopathy and LV dysfunction chest x-ray is improving, but not completely resolved, patient remains on diuretics. 3 suspect moderate severe chronic obstructive pulmonary disease based on her smoking history. 4 chronic tobacco use, patient is at least an [id number] smoker, quit smoking 3 months ago. 5 benign essential hypertension 6 history of diabetes 7 history of peripheral vessel occlusive disease and previous revascularization of left lower extremity 8 obesity. Recommendation:. Continue aspirin atorvastatin Plavix nitroglycerin and beta blockers. Continue diuretics patient is presently on Lasix 20 mg IV push every 12 hours. Continue insulin as per protocol. Continue bronchodilators for COPD. Continue to monitor and control blood pressure Resume bronchodilators, no need for Solu-Medrol at this point. Follow-up chest x-ray in a.m., Patient will be eventually scheduled for percutaneous revascularization of the RCA lesion described in her cardiac catheterization Consider transferring the patient to a cardiac monitored bed in the next 24 hours. We'll continue to follow Time with Patient: Less than 30
[2019-06-24 12:04] LABS: Glucose,Whole Blood 198 mg/dL (75-99)
--- NOTE | 2019-06-24 12:19 | CDI ---
Documentation Clarification Form Date: 06/24/2019 11:50:17 AM From: Damaris Madison RN CCDS Admit Date: 06/23/2019 8:53:00 AM Patient Name: Paola Llamas Visit Number: [id number] Discharge Date: ATTENTION: The Clinical Documentation Specialists (CDI) and [facility] Coding Staff appreciate your assistance in clarifying documentation. Please respond to the clarification below the line at the bottom and electronically sign. The CDI & [facility] Coding staff will review the response and follow-up if needed. Please note: Queries are made part of the Legal Health Record. If you have any questions, please contact the author of this message via ITS. Dr. Vikram Campbell The patient presented with the shortness of breath Per ED imp 06/23/2019 dependence on non-invasive ventilation History/Risk Factors: 69-year-old female presents to ED via EMS as transfer from [facility] for concerning signs of an anterior lateral STEMI Medical history COPD, DM, HTN Tobacco use: Quit 3 months ago CXR 06/23 Clinical consideration for atypical pulmonary edema is recommended CXR 06/24 Improving bilateral interstitial edema and or infiltrates. Clinical Indicators: Vital signs: 06/23 08:19 am on admission 153/95 85 97.8 22 98% bipap Lung/Breathing assessment:06/23 H & P Respiratory rate normal; decreased breath sounds mild wheezing Treatment: 06/23 Breathing tx Duonebs QID PRN; 06/23 Bipap on admission until 06/23 1255 140/88 71 15 94% 6L nasal cannula; 06/24/342 96% venti mask 15 liters fio2 50; 06/24/402 92% 4L nasal cannula 20 RR In your professional opinion, can you please clarify if these findings signify one of the following conditions? * Acute Respiratory Failure POA * Acute Respiratory Distress POA * Other Diagnosis, please specify * Unable to determine Specificity: If known, further specify (if known): With hypercapnia? (pCO2 >50 and pH <7.35) With hypoxia? (pO2 <60 mm Hg or SpO2 <91% on room air) (Last Query Form Revision: March 2019) Acute hypoxic respiratory failure, POA MTDD
--- NOTE | 2019-06-24 12:58 | CDI ---
Documentation Clarification Form Date: 06/24/2019 12:25:51 PM From: Damaris Madison RN CCDS Admit Date: 06/23/2019 8:53:00 AM Patient Name: Paola Llamas Visit Number: [id number] Discharge Date: ATTENTION: The Clinical Documentation Specialists (CDI) and [facility] Coding Staff appreciate your assistance in clarifying documentation. Please respond to the clarification below the line at the bottom and electronically sign. The CDI & [facility] Coding staff will review the response and follow-up if needed. Please note: Queries are made part of the Legal Health Record. If you have any questions, please contact the author of this message via ITS. Dr. Becca Mcleod CHF is documented in the ED impressions 06/23/2019 History/Risk Factors:69-year-old female presents to the ED via EMS as a transfer from [facility] for 12 lead EKG demonstrated concerning signs for an Anterior Lateral Stemi. Clinical Indicators: VS/Pulse OX: 153/95 85 97.8 Axillary 98% Bipap fio2 50 BNP: from ED report 06/23 1443 Echocardiogram Results:06/23/2019 moderate concentric left ventricular hypertrophy; overall left ventricular systolic function is moderately impaired with, an EF between 35% -40% Chest X Ray:06/23 atypical pulmonary edema 06/24 Improving bilateral interstitial edema and/or infiltrates Home Medications Cozaar 25mg po daily Cozaar 50mg po bid; Hydralazine 25mg po daily Treatment: 06/23 Given 60mg Lasix from [facility] 06/23 Lasix 20mg IV; 06/23 Lopressor 25mg po bid; 06/23 Cozaar 50mg po Bid; 06/23 Hydarlazine Hcl 25mg po bid; 06/24 Lasix 20 mg po bid; Spironolatone 25mg po daily; In your professional opinion, can you please clarify the acuity and type of CHF if known? * Acute Systolic Heart Failure: XXX * Acute Systolic & Diastolic Heart Failure: * CHF Ruled Out * Unable to Determine * Other, please specify (Last Revision: October 2017) MTDD
[2019-06-24 17:01] LABS: Glucose,Whole Blood 188 mg/dL (75-99)
--- NOTE | 2019-06-24 17:48 | PN ---
PROGRESS NOTE DATE OF SERVICE: 06/24/2019 This 69-year-old woman who was admitted with acute WC-vnnwqum-nwsbelgsb myocardial infarction underwent cardiac cath and stenting of the proximal and mid LAD with reduction of the stenosis from 80% to 0%. The patient is being closely monitored in the ICU. Dr. Lundberg and Cardiology are following the patient closely. The patient had presented with sudden onset of shortness of breath and VC-amonwvr-yamvkyofo myocardial infarction also. Chest x-ray showed evidence of pulmonary edema. Ischemic cardiomyopathy was also recommended. A 2D echo with Doppler showed ejection fraction about 35% to 40%. Troponin was found to be 3.25. ASSESSMENT: 1. Acute SH-twkqhds-jtkavwdnd myocardial infarction, status post cardiac catheterization and stenting of the left anterior descending coronary artery. 2. Acute pulmonary edema because of congestive heart failure, acute exacerbation, with acute systolic dysfunction, ejection fraction 35% to 40%. 3. Chronic obstructive pulmonary disease. 4. Gastroesophageal reflux disease. 5. Hypertension. 6. Hyperlipidemia. 7. Chronic urinary incontinence. 8. Diabetes mellitus, type 2. 9. Troponin up to 3.250. 10.Increased white count. 11.Obesity with body mass index of 32.6. RECOMMENDATIONS AND DISCUSSION: In this 69-year-old woman who presented with multiple complex medical issues, we will monitor the patient closely, continue the current medications, continue symptomatic treatment. Recommend continuing with diuretics. Continue with the antiplatelet agents. Closely follow with multiple consultants. Guarded prognosis because of multiple complex medical issues. Further recommendations to follow. The patient is being followed by Emily Ramesh in the outpatient setting. We will continue to monitor. MMODL / IJN: [id number] /
[2019-06-24] MEDS: ATORVASTATIN 80 MG TAB PO SCH (19:51)
[2019-06-24 20:52] LABS: Glucose,Whole Blood 207 mg/dL (75-99)
[2019-06-24] MEDS ORDERED: ATORVASTATIN 80 MG TAB PO SCH (21:00)
[2019-06-25 05:15] LABS: Basophils % (A) 0 %; Eosinophils # (A) 0.2 k/uL (0-0.7); Eosinophils % (A) 1 %; HCT 38.7 % (34.0-46.0); HGB 12.6 gm/dL (11.4-16.0); Lymphocytes % (A) 21 %; MCHC 32.6 g/dL (31.0-37.0); MCV 101.3 fL (80.0-100.0); Macrocytosis Slight; Mean Platelet Volume 9.4; Monocytes # (A) 0.8 k/uL (0-1.0); Monocytes % (A) 5 %; Neutrophils % (A) 70 %; Platelet Count 242 k/uL (150-450); RBC 3.82 m/uL (3.80-5.40); RDW 13.3 % (11.5-15.5); WBC 14.3 k/uL (3.8-10.6)
[2019-06-25 05:31] LABS: Calcium 9.2 mg/dL (8.4-10.2)
--- NOTE | 2019-06-25 06:22 | XR ---
EXAMINATION TYPE: XR chest 1V portable DATE OF EXAM: 06/25/2019 HISTORY: SOB. REFERENCE: Previous study dated 06/24/2019. FINDINGS: The heart is mildly enlarged. There are mild, diffuse increased markings. There is some baldo nting of the right CP angle. I could not exclude a small right-sided effusion. IMPRESSION: 1. CARDIOMEGALY. 2. I CANNOT EXCLUDE A SMALL RIGHT EFFUSION. 3. INCREASED MARKINGS, LIKELY CHRONIC.
[2019-06-25] MEDS: INSULIN ASPART (NovoLOG) 100 UNIT/ML VIAL SQ SCH ×8 (06:45→20:58)
[2019-06-25] MEDS: ACETAMINOPHEN TAB 325 MG TAB PO PRN ×3 (06:49→20:10)
[2019-06-25 06:55] LABS: Glucose,Whole Blood 149 mg/dL (75-99)
[2019-06-25] MEDS: ASPIRIN 81 MG PO SCH (08:52)
[2019-06-25] MEDS: SPIRONOLACTONE 25 MG TAB PO SCH (08:52)
[2019-06-25] MEDS: INSULN ASP PRT/INSULIN ASPART 100 UNIT/ML 10 ML VIAL SQ SCH ×3 (08:52→21:03)
[2019-06-25] MEDS: FUROSEMIDE 20 MG TAB PO SCH ×2 (08:52→15:56)
[2019-06-25] MEDS: LOSARTAN 50 MG TAB PO SCH ×2 (08:52→20:10)
[2019-06-25] MEDS: METOPROLOL TARTRATE 25 MG TAB PO SCH ×2 (08:52→20:10)
[2019-06-25] MEDS: CLOPIDOGREL 75 MG TAB PO SCH (08:52)
[2019-06-25] MEDS: hydrALAZINE HCL 25 MG TAB PO SCH ×2 (08:52→20:09)
--- NOTE | 2019-06-25 11:54 | P.PN ---
Subjective Progress Note Date: 06/25/19 Principal diagnosis: Acute ST elevation myocardial infarction This is a 69-year-old female with history of COPD, peripheral vessel occlusive disease, degenerative disc disease of the lumbar spine, 30-mrki-zvit smoker, quit smoking about 3 months ago. Patient is not O2 dependent, she is maintained on bronchodilators in the form of updrafts at home. Patient was seen early this morning at [facility] with sudden onset of dyspnea and chest discomfort. Upon initial evaluation in the ER, patient was found to have ST segment elevation anteriorly. She received TPAfor acute ST elevation myocardial infarction, and arrangements were made to transfer the patient to [facility]. She was seen by cardiology while she was in the ER, and she underwent cardiac catheterization./PTCA. Postoperatively patient was transferred to the intensive care unit, and I was asked to see her on consultation. She is presently on 4 L nasal cannula, she is asymptomatic, denies any chest pain, denies any cough, no wheezing, no fever no chills no hemoptysis. Patient is resting comfortably in the ICU. Initially when she presented to the ER, patient was on BiPAP. Chest x-ray post PTCA showed evidence of pulmonary edema. Patient will be treated as such. And she'll be receiving diuretics for her pulmonary edema, possible ischemic cardiomyopathy and LV dysfunction. Echocardiogram is pending. The cardiac catheterization report is also pending. Patient was reevaluated today on 06/24/2019, remains in the ICU, feeling better, no hemodynamic issues or cardiac arrhythmia overnight. Remains on few liters nasal cannula. Chest x-ray showed slight improvement in her bilateral interstitial edema. Remains on Lasix. Labs showed the PEEP cigar of 17.4 hemoglobin 13.1 electrolytes are normal BUN is 39 creatinine is 1.02 Lipid profile was noted. Patient is on multiple cardiac meds, diuretics, bronchodilators, and insulin. No chest pain no cough no wheezing no shortness of breath. No nausea no vomiting no abdominal pain. Echocardiogram showed impaired LV function ejection fraction of 35-40%. Yesterday the patient underwent successful stenting of proximal and mid LAD with reduction of stenosis from 80% to 0%. Patient continues to have a right coronary artery lesion, and plans to undergo again percutaneous revascularization in the near future. Jossy ent was noted to have 80-90% stenosis involving the takeoff of the PDA. Reevaluated today on 06/25/2019, patient remains in the ICU, she is feeling great. Slight shortness of breath, no cough no wheezing no chest pain no fever no chills no hemoptysis. No hemodynamic issues overnight, and no cardiac arrhythmia. Patient remains on diuretics. She is on few liters nasal cannula. WBC count is 14.3 hemoglobin is 12.6 and a close are normal renal profile is normal. Chest x-ray showed cardiomegaly, increase interstitial markings, there may be a component of mild interstitial edema. Objective - Vital Signs Vital signs: Vital Signs Temp 98.6 F 06/25/19 08:00 Pulse 84 06/25/19 10:00 Resp 10 L 06/25/19 10:00 BP 136/68 06/25/19 10:00 Pulse Ox 93 L 06/25/19 10:00 Intake & Output 06/24/19 06/25/19 06/25/19 18:59 06:59 18:59 Intake Total 655 220 340 Output Total 1320 1025 170 Balance -665 -805 170 Weight 84 kg Intake: IV 75 Magnesium Sulfate-D5w Pmx 0 1 gm In Dextrose/Water 1 100ml.bag @ 100 mls/hr IVPB Q1H [facility] Rx#: [id number] Sodium Chloride 0.9% 1, 75 000 ml @ 50 mls/hr IV . Q20H [facility] Rx#:[id number] Oral 580 220 340 Output: Urine 1320 1025 170 Other: Voiding Method Indwelling Catheter Indwelling Catheter Indwelling Catheter - Exam Physical Exam: Revealed a 69-year-old female in no distress. On few liters nasal cannula. Head: Atraumatic, normocephalic. HEENT:[Neck is supple.] [No neck masses.] [No thyromegaly.] [No JVD.] Chest: [Symmetrical chest expansion, crackles at the bases no rhonchi and no wheezes. Cardiac Exam: [Normal S1 and S2, no S3 gallop, no murmur.] Abdomen: [OB's, Soft, nontender, no megaly, no rebound, no guarding, normal bow el sounds.] Extremities: [No clubbing, trace of bipedal edema, no cyanosis.] Neurological Exam: [No focal neurologic deficit.] Alert and oriented 3 focal deficits. Psychiatric: Normal mood affect and normal mental status examination. Skin: No rashes. Lymphatics: No lymphadenopathy. - Labs CBC & Chem 7: 06/25/19 04:48 06/25/19 04:48 Labs: Abnormal Lab Results - Last 24 Hours (Table) 06/24/19 06/24/19 06/24/19 Range/Units 11:53 16:50 20:41 WBC (3.8-10.6) k/uL MCV (80.0-100.0) fL Neutrophils # (1.3-7.7) k/uL Carbon Dioxide (22-30) mmol/L BUN (7-17) mg/dL Glucose (74-99) mg/dL POC Glucose (mg/dL) 198 H 188 H 207 H (75-99) mg/dL 06/25/19 06/25/19 06/25/19 Range/Units 04:48 04:48 06:44 WBC 14.3 H (3.8-10.6) k/uL MCV 101.3 H (80.0-100.0) fL Neutrophils # 10.0 H (1.3-7.7) k/uL Carbon Dioxide 32 H (22-30) mmol/L BUN 33 H (7-17) mg/dL Glucose 127 H (74-99) mg/dL POC Glucose (mg/dL) 149 H (75-99) mg/dL Assessment and Plan Assessment: Impression: 1 acute anterior myocardial infarction, initially treated with thrombolytics, and underwent PTCA by Dr. Mcleod. Stenting of LAD was successfully performed. On 06/23/2019. 2 acute pulmonary edema secondary to ischemic cardiomyopathy and LV dysfunction chest x-ray is improving, hence we'll continue diuretics. 3 suspect moderate severe chronic obstructive pulmonary disease based on her smoking history. Continue bronchodilators. 4 chronic tobacco use, patient is at least an 88-rhro-wgqm smoker, quit smoking 3 months ago. 5 benign essential hypertension 6 history of diabetes 7 history of peripheral vessel occlusive disease and previous revascularization of left lower extremity 8 obesity. Recommendation:. Continue aspirin atorvastatin Plavix nitroglycerin and beta blockers. Continue diuretics patient is presently on Lasix 20 mg IV push every 12 hours. Continue to monitor her chest x-ray and overall pulmonary status. Continue insulin as per protocol. Continue bronchodilators for COPD. Continue to monitor and control blood pressure Resume bronchodilators, no need for Solu-Medrol at this point. Transferred patient today to a cardiac floor with monitor. We'll continue to follow. Time with Patient: Less than 30
[2019-06-25 12:03] LABS: Glucose,Whole Blood 173 mg/dL (75-99)
--- NOTE | 2019-06-25 12:47 | PN ---
PROGRESS NOTE This patient is status post anterior wall myocardial infarction and stent to the LAD. She is doing well. She is comfortably sitting in the bed. Denies any chest pain, shortness of breath. The patient's clinical panel and the lab tests are reviewed. Blood pressure is 149/83 mmHg. First and second heart sounds are normal. Lungs are clinically clear to auscultation and percussion. The patient's electrolytes are normal. Creatinine is 0.91. The patient's medications are reviewed. We will discontinue the Monge catheter and patient would be ambulated and will be transferred to the selective care unit. MMODL / IJN: [id number] /
[2019-06-25] MEDS ORDERED: ALPRAZolam 0.25 MG TAB PO PRN (15:11)
[2019-06-25] MEDS ORDERED: FUROSEMIDE 10 MG/ML 4 ML VIAL IV STA (15:13)
[2019-06-25] MEDS: PANTOPRAZOLE 40 MG TABLET PO SCH (15:56)
[2019-06-25 16:51] LABS: Glucose,Whole Blood 116 mg/dL (75-99)
--- NOTE | 2019-06-25 17:23 | PN ---
PROGRESS NOTE ADDENDUM: DATE OF SERVICE: 06/24/2019 PAST MEDICAL HISTORY: Reviewed. REVIEW OF SYSTEMS: CARDIOVASCULAR: As mentioned earlier. RESPIRATORY: As mentioned earlier. GI: As mentioned earlier. : No dysuria or retention. NERVOUS SYSTEM: No numbness or weakness. CURRENT MEDICATIONS: Reviewed and they are: 1. Tylenol 325 mg q.6h p.r.n. 2. Maalox. 3. DuoNeb q.i.d. and p.r.n. 4. Xanax. 5. Aspirin. 6. Lipitor. 7. Atropine. 8. Plavix. 9. Lasix. 10.Heparin. 11.Apresoline. 12.NovoLog 70/30. 13.Cozaar. 14.Lopressor. 15.Narcan. 16.Nitrostat. 17.Protonix. 18.Aldactone. 19.Ambien. Doses reviewed. PHYSICAL EXAM: Patient is alert, oriented x3. Pulse is 101, blood pressure 143/65, respirations 16, temperature 98.8, pulse ox 91% on 4 L. HEENT: Conjunctivae normal. Oral mucosa moist. NECK: No jugular venous distention. No lymph node enlargement. CARDIOVASCULAR: S1, S2. RESPIRATORY: Diminished breath sounds at the bases. A few scattered rhonchi and crackles. ABDOMEN: Soft, obese. LEGS: Bilateral leg edema. NERVOUS SYSTEM: No focal deficits. MMODL / IJN: [id number] /
--- NOTE | 2019-06-25 18:08 | PN ---
PROGRESS NOTE DATE OF SERVICE: 06/25/2019. This 69-year-old woman is admitted with ST segment elevation myocardial infarction, had cardiac catheterization and stenting of the LAD. RCA intervention is being planned later according to the staff. The ejection fraction was found to be 35-40 percent indicating acute systolic dysfunction with CHF. The patient is being diuresed at 40 mg p.o. b.i.d. Patient is complaining of generalized edema at this time. The troponin is found to be 3.5. Multiple consultants are following the patient. The patient is monitored in ICU. PAST MEDICAL HISTORY: Reviewed. REVIEW OF SYSTEMS: Cardiovascular system: No angina or palpitations, otherwise as mentioned earlier. Respiratory: As mentioned earlier. GI no nausea or vomiting. : No dysuria or hematuria. CURRENT MEDICATIONS: Reviewed and include: 1. Narcan 0.2 q.2 p.r.n. 2. Nitrostat 0.4 sublingual p.r.n. 3. Protonix 40 mg. 4. Aldactone. 5. Ambien. 6. NovoLog mix 70/30 30 and 10 units. 7. Magnesium. 8. Narcan. 9. Lasix 20 mg p.o. b.i.d. 10.Plavix. 11.Apresoline. Doses and are reviewed. PHYSICAL EXAM: Patient is alert and oriented times three. Pulse is 84. Blood pressure 136/60, respirations 10, temperature 98.1, pulse ox 93% on 2 L. HEENT is conjunctivae normal. Oral mucosa moist. NECK is jugular venous distention at the root of the neck. CARDIOVASCULAR system: Ejection systolic murmur. No S3. No S4. RESPIRATORY SYSTEM: Breath sounds diminished at the bases. A few scattered rhonchi and crackles. ABDOMEN: Soft, obese, nontender. LEGS: Minimal bilateral leg edema. NERVOUS SYSTEM: Higher functions as mentioned earlier. Moves all 4 limbs. No focal motor or sensory deficits. SKIN: No ulcer, rash or bleeding. JOINTS: No active deforming arthropathy. LABS: WBC 14.3 otherwise, hemoglobin 12.6. Sodium 130, potassium 4. ASSESSMENT: 1. Acute ST-segment elevation myocardial infarction status post cardiac catheterization and stenting of the LAD. 2. Acute pulmonary edema with congestive heart failure acute exacerbation with acute systolic dysfunction, ejection fraction 35-40 percent. 3. Chronic obstructive pulmonary disease. 4. Gastroesophageal reflux disease. 5. Hypertension. 6. Hyperlipidemia. 7. Chronic urine incontinence. 8. Diabetes mellitus type 2. 9. Troponin up to 3.250. 10.Increased WBC. 11.Obesity with body mass of 32.6. RECOMMENDATIONS AND DISCUSSION: In this 69-year-old woman who presented with multiple complex medical issues, we will monitor the patient closely, continue the current medications. Extra dose of Lasix. Monitor closely. Chest x-ray. Follow up chest x-ray. Fluid restriction 1200 mL per 24 hours. Two-D echo reviewed. I would also recommend a UA with micro. Elevated white count could be reactive in nature. Medications were reviewed. Discussed with staff. Discussed with the patient. Further recommendations to follow. Closely follow with Cardiology. Prognosis guarded. See orders for details. Continue antiplatelet agents and as well as Lipitor. Lipid panel is also found to be high. MMODL / IJN: [id number] / MTDD
[2019-06-25 18:20] LABS: Appearance,Urine Clear (Clear); Bacteria,Urine Occasional /hpf; Bilirubin,Urine Negative (Negative); Blood,Urine Negative (Negative); Color,Urine Light Yellow; Glucose,Urine (UA) Negative (Negative); Ketones,Urine Negative (Negative); Leukocyte Esterase,Urine Trace (Negative); Nitrite,Urine Positive (Negative); PH, Urine 7.5 (5.0-8.0); Protein,Urine Negative (Negative); RBC,Urine 1 /hpf (0-5); Specific Gravity,Urine 1.008 (1.001-1.035); Urobilinogen,Urine <2.0 mg/dL (<2.0); WBC,Urine 7 /hpf (0-5)
[2019-06-25] MEDS: ATORVASTATIN 80 MG TAB PO SCH (20:09)
[2019-06-25] MEDS: HEPARIN SODIUM,PORCINE 5,000 UNIT/ML 1 ML VIAL SQ SCH (20:10)
[2019-06-25 20:45] LABS: Glucose,Whole Blood 183 mg/dL (75-99)
[2019-06-26 05:07] LABS: Basophils # (A) 0.1 k/uL (0-0.2); Basophils % (A) 0 %; Eosinophils # (A) 0.1 k/uL (0-0.7); Eosinophils % (A) 1 %; HCT 40.8 % (34.0-46.0); HGB 13.3 gm/dL (11.4-16.0); Lymphocytes # (A) 3.1 k/uL (1.0-4.8); Lymphocytes % (A) 21 %; MCH 32.9 pg (25.0-35.0); MCHC 32.7 g/dL (31.0-37.0); MCV 100.7 fL (80.0-100.0); Mean Platelet Volume 9.4; Monocytes # (A) 0.8 k/uL (0-1.0); Monocytes % (A) 6 %; Neutrophils # (A) 10.3 k/uL (1.3-7.7); Neutrophils % (A) 70 %; Platelet Count 278 k/uL (150-450); RBC 4.05 m/uL (3.80-5.40); RDW 13.3 % (11.5-15.5); WBC 14.6 k/uL (3.8-10.6)
[2019-06-26 05:16] LABS: Potassium 3.9 mmol/L (3.5-5.1)
[2019-06-26] MEDS: INSULIN ASPART (NovoLOG) 100 UNIT/ML VIAL SQ SCH ×8 (06:37→20:52)
[2019-06-26] MEDS: PANTOPRAZOLE 40 MG TABLET PO SCH (06:37)
[2019-06-26 06:47] LABS: Glucose,Whole Blood 108 mg/dL (75-99)
--- NOTE | 2019-06-26 06:47 | XR ---
EXAMINATION TYPE: XR chest 1V portable DATE OF EXAM: 06/26/2019 HISTORY: chf. REFERENCE: Previous study dated 06/25/2019. FINDINGS: Heart size upper limits IMPRESSION: ROTATED STUDY DEMONSTRATING NO DEFINITE ACUTE ABNORMALITY.
[2019-06-26] MEDS: FUROSEMIDE 20 MG TAB PO SCH ×2 (09:36→16:48)
[2019-06-26] MEDS: INSULN ASP PRT/INSULIN ASPART 100 UNIT/ML 10 ML VIAL SQ SCH ×3 (09:36→20:59)
[2019-06-26] MEDS: METOPROLOL TARTRATE 25 MG TAB PO SCH ×2 (09:36→21:00)
[2019-06-26] MEDS: ASPIRIN 81 MG PO SCH (09:36)
[2019-06-26] MEDS: hydrALAZINE HCL 25 MG TAB PO SCH ×2 (09:36→21:01)
[2019-06-26] MEDS: CLOPIDOGREL 75 MG TAB PO SCH (09:37)
[2019-06-26] MEDS: HEPARIN SODIUM,PORCINE 5,000 UNIT/ML 1 ML VIAL SQ SCH ×2 (09:37→21:00)
[2019-06-26] MEDS: LOSARTAN 50 MG TAB PO SCH ×2 (09:37→21:00)
[2019-06-26] MEDS: SPIRONOLACTONE 25 MG TAB PO SCH (09:39)
--- NOTE | 2019-06-26 10:55 | P.PN ---
Subjective Progress Note Date: 06/26/19 Principal diagnosis: Acute ST elevation myocardial infarction This is a 69-year-old female with history of COPD, peripheral vessel occlusive disease, degenerative disc disease of the lumbar spine, 18-onqi-jlch smoker, quit smoking about 3 months ago. Patient is not O2 dependent, she is maintained on bronchodilators in the form of updrafts at home. Patient was seen early this morning at [facility] with sudden onset of dyspnea and chest discomfort. Upon initial evaluation in the ER, patient was found to have ST segment elevation anteriorly. She received TPAfor acute ST elevation myocardial infarction, and arrangements were made to transfer the patient to [facility]. She was seen by cardiology while she was in the ER, and she underwent cardiac catheterization./PTCA. Postoperatively patient was transferred to the intensive care unit, and I was asked to see her on consultation. She is presently on 4 L nasal cannula, she is asymptomatic, denies any chest pain, denies any cough, no wheezing, no fever no chills no hemoptysis. Patient is resting comfortably in the ICU. Initially when she presented to the ER, patient was on BiPAP. Chest x-ray post PTCA showed evidence of pulmonary edema. Patient will be treated as such. And she'll be receiving diuretics for her pulmonary edema, possible ischemic cardiomyopathy and LV dysfunction. Echocardiogram is pending. The cardiac catheterization report is also pending. Patient was reevaluated today on 06/24/2019, remains in the ICU, feeling better, no hemodynamic issues or cardiac arrhythmia overnight. Remains on few liters nasal cannula. Chest x-ray showed slight improvement in her bilateral interstitial edema. Remains on Lasix. Labs showed the PEEP cigar of 17.4 hemoglobin 13.1 electrolytes are normal BUN is 39 creatinine is 1.02 Lipid profile was noted. Patient is on multiple cardiac meds, diuretics, bronchodilators, and insulin. No chest pain no cough no wheezing no shortness of breath. No nausea no vomiting no abdominal pain. Echocardiogram showed impaired LV function ejection fraction of 35-40%. Yesterday the patient underwent successful stenting of proximal and mid LAD with reduction of stenosis from 80% to 0%. Patient continues to have a right coronary artery lesion, and plans to undergo again percutaneous revascularization in the near future. Jossy ent was noted to have 80-90% stenosis involving the takeoff of the PDA. Reevaluated today on 06/25/2019, patient remains in the ICU, she is feeling great. Slight shortness of breath, no cough no wheezing no chest pain no fever no chills no hemoptysis. No hemodynamic issues overnight, and no cardiac arrhythmia. Patient remains on diuretics. She is on few liters nasal cannula. WBC count is 14.3 hemoglobin is 12.6 and a close are normal renal profile is normal. Chest x-ray showed cardiomegaly, increase interstitial markings, there may be a component of mild interstitial edema. Reevaluated today on 06/26/2019, patient remains in the ICU, feeling great, no cough no wheezing no shortness of breath. Chest x-ray showed definite improvement in her pulmonary edema. Remains on Lasix. Patient is relatively asymptomatic. Denies any chest pain no fever no chills no hemoptysis. No nausea no vomiting no abdominal pain. WBC count is 14.6 hemoglobin is 13.3 F are normal renal profile is relatively normal BUN is 36 creatinine 1.0. Objective - Vital Signs Vital signs: Vital Signs Temp 97.6 F 06/26/19 08:00 Pulse 84 06/25/19 10:00 Resp 13 06/26/19 08:00 BP 140/70 06/26/19 08:00 Pulse Ox 95 06/26/19 08:00 Intake & Output 06/25/19 06/26/19 06/26/19 18:59 06:59 18:59 Intake Total 560 Output Total 420 250 Balance 140 -250 Weight 84.4 kg Intake: Oral 560 Output: Urine 420 250 Other: Voiding Method Bedside Commode Bedside Commode # Voids 2 2 - Exam Physical Exam: Revealed a 69-year-old female in no distress. On room air at present Head: Atraumatic, normocephalic. HEENT:[Neck is supple.] [No neck masses.] [No thyromegaly.] [No JVD.] Chest: [Symmetrical chest expansion, clear bilaterally no crackles or rhonchi or wheezes Cardiac Exam: [Normal S1 and S2, no S3 gallop, no murmur.] Abdomen: [OB's, Soft, nontender, no megaly, no rebound, no guarding, normal bowel sounds.] Extremities: [No clubbing, trace of bipedal edema, no cyanosis.] Neurological Exam: [No focal neurologic deficit.] Alert and oriented 3 focal deficits. Psychiatric: Normal mood affect and normal mental status examination. Skin: No rashes. Lymphatics: No lymphadenopathy. - Labs CBC & Chem 7: 06/26/19 04:38 06/26/19 04:38 Labs: Abnormal Lab Results - Last 24 Hours (Table) 06/25/19 06/25/19 06/25/19 Range/Units 11:52 16:39 17:00 WBC (3.8-10.6) k/uL MCV (80.0-100.0) fL Neutrophils # (1.3-7.7) k/uL Carbon Dioxide (22-30) mmol/L BUN (7-17) mg/dL POC Glucose (mg/dL) 173 H 116 H (75-99) mg/dL Urine Nitrite Positive H (Negative) Ur Leukocyte Esterase Trace H (Negative) Urine WBC 7 H (0-5) /hpf Urine Bacteria Occasional H (None) /hpf 06/25/19 06/26/19 06/26/19 Range/Units 20:33 04:38 04:38 WBC 14.6 H (3.8-10.6) k/uL MCV 100.7 H (80.0-100.0) fL Neutrophils # 10.3 H (1.3-7.7) k/uL Carbon Dioxide 31 H (22-30) mmol/L BUN 36 H (7-17) mg/dL POC Glucose (mg/dL) 183 H (75-99) mg/dL Urine Nitrite (Negative) Ur Leukocyte Esterase (Negative) Urine WBC (0-5) /hpf Urine Bacteria (None) /hpf 06/26/19 Range/Units 06:36 WBC (3.8-10.6) k/uL MCV (80.0-100.0) fL Neutrophils # (1.3-7.7) k/uL Carbon Dioxide (22-30) mmol/L BUN (7-17) mg/dL POC Glucose (mg/dL) 108 H (75-99) mg/dL Urine Nitrite (Negative) Ur Leukocyte Esterase (Negative) Urine WBC (0-5) /hpf Urine Bacteria (None) /hpf Assessment and Plan Assessment: Impression: 1 acute anterior myocardial infarction, initially treated with thrombolytics, and underwent Stenting of LAD was successfully performed. On 06/23/2019. 2 acute pulmonary edema secondary to ischemic cardiomyopathy and LV dysfunction chest x-ray is improving, hence we'll continue diuretics. 3 suspect moderate severe chronic obstructive pulmonary disease based on her smoking history. Continue bronchodilators. 4 chronic tobacco use, patient is at least an 81-vyaq-rbyn smoker, quit smoking 3 months ago. 5 benign essential hypertension 6 history of diabetes 7 history of peripheral vessel occlusive disease and previous revascularization of left lower extremity 8 obesity. Recommendation:. Continue aspirin atorvastatin Plavix nitroglycerin and beta blockers. Continue diuretics switch Lasix to 20 mg by mouth twice a day. Continue insulin as per protocol. Continue bronchodilators for COPD. Continue to monitor and control blood pressure Resume bronchodilators, no need for Solu-Medrol at this point. Consider transferring the patient to a monitor bed once into available. And possibly discharge planning when clear by cardiology. We'll continue to follow. Time with Patient: Less than 30
[2019-06-26 11:52] LABS: Glucose,Whole Blood 236 mg/dL (75-99)
--- NOTE | 2019-06-26 15:28 | PN ---
PROGRESS NOTE DATE OF SERVICE: 06/26/2019 This 69 -year-old woman was admitted with ST-segment elevation OK infarction, also had CHF acute exacerbation. The patient is on IV diuretics at this time. Most recent chest x-ray reviewed personally by done today showed still some features of CHF. Patient is still mildly short of breath. PAST MEDICAL HISTORY: Reviewed. REVIEW OF SYSTEMS: CARDIOVASCULAR: As mentioned earlier. RESPIRATORY: As mentioned earlier. GI no nausea or vomiting. no dysuria or hematuria. CENTRAL NERVOUS SYSTEM: No numbness or weakness. CURRENT MEDICATIONS: Reviewed and include: 1. Tylenol 320 q.6h p.r.n. 2. Maalox 30 mL q.4 p.r.n. 3. DuoNeb q.i.d. and p.r.n. 4. Xanax 0.5 t.i.d. 5. Aspirin 81 mg. 6. Lipitor 80 mg q.h.s. 7. Atrovent p.r.n. 8. Plavix 75 mg. 9. Lasix 20 mg p.o. b.i.d. 10.Heparin. 11.Apresoline 25 mg b.i.d. 12.NovoLog scale. 13.Cozaar. 14.Lopressor. 15.Narcan. 16.Protonix. 17.Aldactone. 18.Ambien. PHYSICAL EXAM: Patient is alert, oriented x3. Pulse is 90, blood pressure 140/70. Respirations 13, temperature 97.6, pulse ox 94% on room air. HEENT: Conjunctivae normal. Oral mucosa moist. NECK is no jugular venous distention. No carotid bruit. No lymph node enlargement. CARDIOVASCULAR system: S1, S2 muffled. No S3, no S4. RESPIRATORY: Breath sounds diminished in the bases. Bilateral scattered rhonchi and crackles. ABDOMEN: Soft, nontender. No mass palpable. LEGS: No edema. No swelling. NERVOUS SYSTEM: Higher functions as mentioned earlier. Moves all 4 limbs. No focal motor or sensory deficits. LYMPHATICS: No lymph nodes palpable in the neck, axillae or groin. SKIN: No ulcer, no rash and no bleeding. JOINTS: No active deforming arthropathy. LAB STUDIES: WBC 14.6, MCV 1.7. UA noted. ASSESSMENT: 1. Acute ST-segment elevation myocardial infarction status post cardiac catheterization and stenting of the left anterior descending coronary artery. 2. Acute pulmonary edema with congestive heart failure acute exacerbation, acute on chronic systolic dysfunction, ejection fraction 35-40 percent. 3. Chronic obstructive pulmonary disease. 4. Possible asymptomatic bacteriuria. 5. Gastroesophageal reflux disease. 6. Hypertension. 7. Hyperlipidemia. 8. Chronic urinary incontinence. 9. Diabetes mellitus type 2. 10.Troponin up to 3.250. 11.Increased WBC. 12.Obesity with body mass index of 32.6. 13.FULL CODE. RECOMMENDATIONS AND DISCUSSION: This 69-year-old woman who presented with multiple complex medical issues, we will monitor the patient closely, continue the current medications, management and symptomatic treatment. Otherwise, we will continue with IV diuretics. Monitor closely. Fluid and electrolytes balance closely. Continue the antiplatelet agents. Otherwise, continue to monitor. Guarded prognosis. Further recommendations to follow. See orders for details. MMODL / IJN: [id number] /
[2019-06-26 16:42] LABS: Glucose,Whole Blood 107 mg/dL (75-99)
[2019-06-26] MEDS: ACETAMINOPHEN TAB 325 MG TAB PO PRN (19:05)
[2019-06-26 20:24] LABS: Glucose,Whole Blood 86 mg/dL (75-99)
[2019-06-26] MEDS: ATORVASTATIN 80 MG TAB PO SCH (21:00)
[2019-06-27] MEDS: ACETAMINOPHEN TAB 325 MG TAB PO PRN ×2 (03:50→20:10)
[2019-06-27 06:11] LABS: Glucose,Whole Blood 145 mg/dL (75-99)
[2019-06-27] MEDS: INSULIN ASPART (NovoLOG) 100 UNIT/ML VIAL SQ SCH ×8 (06:50→21:08)
[2019-06-27] MEDS: PANTOPRAZOLE 40 MG TABLET PO SCH (06:50)
[2019-06-27 07:06] LABS: Basophils # (A) 0.1 k/uL (0-0.2); Basophils % (A) 0 %; Eosinophils # (A) 0.3 k/uL (0-0.7); Eosinophils % (A) 2 %; HCT 36.7 % (34.0-46.0); HGB 11.9 gm/dL (11.4-16.0); Lymphocytes # (A) 3.6 k/uL (1.0-4.8); Lymphocytes % (A) 29 %; MCH 32.5 pg (25.0-35.0); MCHC 32.4 g/dL (31.0-37.0); MCV 100.4 fL (80.0-100.0); Mean Platelet Volume 8.5; Monocytes # (A) 0.7 k/uL (0-1.0); Monocytes % (A) 5 %; Neutrophils # (A) 7.6 k/uL (1.3-7.7); Neutrophils % (A) 61 %; Platelet Count 235 k/uL (150-450); RBC 3.66 m/uL (3.80-5.40); RDW 13.2 % (11.5-15.5); WBC 12.3 k/uL (3.8-10.6)
[2019-06-27 07:17] LABS: Calcium 8.1 mg/dL (8.4-10.2); Potassium 3.8 mmol/L (3.5-5.1)
[2019-06-27] MEDS: METOPROLOL TARTRATE 25 MG TAB PO SCH ×2 (08:23→20:10)
[2019-06-27] MEDS: CLOPIDOGREL 75 MG TAB PO SCH (08:23)
[2019-06-27] MEDS: SPIRONOLACTONE 25 MG TAB PO SCH (08:23)
[2019-06-27] MEDS: LOSARTAN 50 MG TAB PO SCH ×2 (08:23→20:10)
[2019-06-27] MEDS: FUROSEMIDE 20 MG TAB PO SCH ×2 (08:23→16:44)
[2019-06-27] MEDS: ASPIRIN 81 MG PO SCH ×2 (08:23→15:00)
[2019-06-27] MEDS: INSULN ASP PRT/INSULIN ASPART 100 UNIT/ML 10 ML VIAL SQ SCH ×3 (08:24→21:08)
[2019-06-27] MEDS: HEPARIN SODIUM,PORCINE 5,000 UNIT/ML 1 ML VIAL SQ SCH ×2 (08:26→20:10)
[2019-06-27] MEDS: hydrALAZINE HCL 25 MG TAB PO SCH ×2 (08:26→17:10)
[2019-06-27 11:26] LABS: Glucose,Whole Blood 93 mg/dL (75-99)
--- NOTE | 2019-06-27 13:19 | PN ---
PROGRESS NOTE This patient came with acute anterior wall myocardial infarction and underwent stent to the LAD. The patient is doing better. Denies any chest pain or shortness of breath. The patient's blood pressure is 163/72 mmHg. First and second heart sounds are normal. Lungs are clinically clear to auscultation and percussion. Abdomen is negative. Discussed with the patient and patient would like to proceed with the stent to the RCA tomorrow. I will add amlodipine 5 mg daily and discontinue hydralazine. MMODL / IJN: [id number] /
[2019-06-27 13:41] VITALS: BMI 33.6
--- NOTE | 2019-06-27 14:23 | P.PN ---
Subjective This is a pleasant 69 years old female with past medical history of diabetes mellitus, hypertension, peripheral vascular disease, COPD, degenerative disc disease and low back pain, exudates smoker, quit 3 months ago. Present to [facility] with sudden dyspnea and chest discomfort. Patient was found to have metastatic me, she's been evaluated by cardiology team and underwent coronary angiogram of with stent placement in the LAD, also found to be in acute systolic heart failure with ejection fraction 35-40%, patient also been evaluated by pulmonary team. Patient was placed on a bronchodilator. She is also on insulin with hemoglobin A1c is 9.8%, currently she is on short acting insulin 4 units with meals as well as insulin 70:30 has 40 units in the morning and 30 units in the evening. Patient is on aspirin and Plavix. She states that her breathing is better, she denies chest pain. 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 Patient is counseled using her walker. We'll ask for physical therapy to evaluate her. Patient denies urinary symptoms. No dysuria or change in frequency. Vitas looks stable and she is saturating 97% on room air. She has mild leukocytosis which is improving and today is 12.3 K. Patient is not on antibiotics. Hemoglobin stable. Cardiology team are planning for cardiac angiogram tomorrow with a second stent placement Objective - Vital Signs Vital signs: Vital Signs Temp 98.2 F 06/27/19 04:00 Pulse 75 06/27/19 04:00 Resp 16 06/27/19 04:00 BP 158/77 06/27/19 04:00 Pulse Ox 94 L 06/27/19 04:00 Intake & Output 06/26/19 06/27/19 06/27/19 18:59 06:59 18:59 Intake Total 240 Output Total 200 Balance -200 240 Weight 83.5 kg Intake: Oral 240 Output: Urine 200 Other: Voiding Method Bedside Commode Bedside Commode # Voids 1 1 - Exam GENERAL: The patient is alert and oriented x3, not in any acute distress. Well developed, well nourished. HEENT: Pupils are round and equally reacting to light. EOMI. No scleral icterus. No conjunctival pallor. Normocephalic, atraumatic. No pharyngeal erythema. No thyromegaly. CARDIOVASCULAR: S1 and S2 present. No murmurs, rubs, or gallops. PULMONARY: Chest is clear to auscultation, no wheezing or crackles. ABDOMEN: Soft, nontender, nondistended, normoactive bowel sounds. No palpable organomegaly. MUSCULOSKELETAL: No joint swelling or deformity. EXTREMITIES: No cyanosis, clubbing, or pedal edema. NEUROLOGICAL: Gross neurological examination did not reveal any focal deficits. SKIN: No rashes. no petechiae. - Labs CBC & Chem 7: 06/27/19 05:57 06/27/19 05:57 Labs: Abnormal Lab Results - Last 24 Hours (Table) 06/26/19 06/26/19 06/27/19 Range/Units 11:42 16:41 05:57 WBC 12.3 H (3.8-10.6) k/uL RBC 3.66 L (3.80-5.40) m/uL MCV 100.4 H (80.0-100.0) fL BUN (7-17) mg/dL Glucose (74-99) mg/dL POC Glucose (mg/dL) 236 H 107 H (75-99) mg/dL Calcium (8.4-10.2) mg/dL 06/27/19 06/27/19 Range/Units 05:57 06:10 WBC (3.8-10.6) k/uL RBC (3.80-5.40) m/uL MCV (80.0-100.0) fL BUN 30 H (7-17) mg/dL Glucose 128 H (74-99) mg/dL POC Glucose (mg/dL) 145 H (75-99) mg/dL Calcium 8.1 L (8.4-10.2) mg/dL Assessment and Plan Assessment: None STEMI status post cardiac cath and stent placement in the LAD Acute and chronic systolic congestive heart failure with ejection fraction of 35-40% History of moderate to severe COPD, not in acute exacerbation currently Asymptomatic bacteriuria [place] walker, quit recently about 3 months ago Diabetes mellitus with poor glycemic control and hemoglobin A1c of 9.8% Mild leukocytosis, mostly reactive. Improving without antibiotics. Patient with no signs symptoms of infection Plan: This is a pleasant 69 years old female who presents with none STEMI and CHF. Continue with oral Lasix, continue with aspirin and Plavix and I counseled patient about the importance of adherence to therapy and she verbalized understanding and acceptance. Continue with insulin and monitor sugar. Patient states that she has an appointment with her PCP on July 05. Patient is recommended to follow-up with nonprofit manager for outpatient for poorly controlled diabetes. We'll check postvoid residual. Continue with mathematics technician recommendation, mathematics technician following the patient closely. Cardiology team are planning for cardiac angiogram tomorrow with a second stent placement Labs and medication were reviewed.. Continue same treatment. Continue with symptomatic treatment. Resume home medication. Monitor lytes and vitals. DVT and GI prophylaxis. Further recommendations of the clinical course of the patient DVT prophylaxis: Subcutaneous heparin GI Prophylaxis: PPI PT/OT: Pending Prognosis is guarded
--- NOTE | 2019-06-27 14:25 | P.PN ---
Subjective Progress Note Date: 06/27/19 Principal diagnosis: Acute ST elevated myocardial infarction This is a 69-year-old female with history of COPD, peripheral vessel occlusive disease, degenerative disc disease of the lumbar spine, [id number] smoker, quit smoking about 3 months ago. Patient is not O2 dependent, she is maintained on bronchodilators in the form of updrafts at home. Patient was seen early this morning at [facility] with sudden onset of dyspnea and chest discomfort. Upon initial evaluation in the ER, patient was found to have ST segment elevation anteriorly. She received TPAfor acute ST elevation myocardial infarction, and arrangements were made to transfer the patient to [facility]. She was seen by cardiology while she was in the ER, and she underwent cardiac catheterization./PTCA. Postoperatively patient was transferred to the intensive care unit, and I was asked to see her on consultation. She is presently on 4 L nasal cannula, she is asymptomatic, denies any chest pain, denies any cough, no wheezing, no fever no chills no hemoptysis. Patient is resting comfortably in the ICU. Initially when she presented to the ER, patient was on BiPAP. Chest x-ray post PTCA showed evidence of pulmonary edema. Patient will be treated as such. And she'll be receiving diuretics for her pulmonary edema, possible ischemic cardiomyopathy and LV dysfunction. Echocardiogram is pending. The cardiac catheterization report is also pending. Patient was reevaluated today on 06/24/2019, remains in the ICU, feeling better, no hemodynamic issues or cardiac arrhythmia overnight. Remains on few liters nasal cannula. Chest x-ray showed slight improvement in her bilateral interstitial edema. Remains on Lasix. Labs showed the PEEP cigar of 17.4 hemoglobin 13.1 electrolytes are normal BUN is 39 creatinine is 1.02 Lipid profile was noted. Patient is on multiple cardiac meds, diuretics, bronchodilators, and insulin. No chest pain no cough no wheezing no shortness of breath. No nausea no vomiting no abdominal pain. Echocardiogram showed impaired LV function ejection fraction of 35-40%. Yesterday the patient underwent successful stenting of proximal and mid LAD with reduction of stenosis from 80% to 0%. Patient continues to have a right coronary artery lesion, and plans to undergo again percutaneous revascularization in the near future. Jossy ent was noted to have 80-90% stenosis involving the takeoff of the PDA. Reevaluated today on 06/25/2019, patient remains in the ICU, she is feeling great. Slight shortness of breath, no cough no wheezing no chest pain no fever no chills no hemoptysis. No hemodynamic issues overnight, and no cardiac arrhythmia. Patient remains on diuretics. She is on few liters nasal cannula. WBC count is 14.3 hemoglobin is 12.6 and a close are normal renal profile is normal. Chest x-ray showed cardiomegaly, increase interstitial markings, there may be a component of mild interstitial edema. Reevaluated today on 06/26/2019, patient remains in the ICU, feeling great, no cough no wheezing no shortness of breath. Chest x-ray showed definite improvement in her pulmonary edema. Remains on Lasix. Patient is relatively asymptomatic. Denies any chest pain no fever no chills no hemoptysis. No nausea no vomiting no abdominal pain. WBC count is 14.6 hemoglobin is 13.3 F are normal renal profile is relatively normal BUN is 36 creatinine 1.0. On 06/27/2019 patient seen in follow-up on selective care unit, she is awake and alert, in no acute distress, denies any chest pain, denies any shortness of br eath, room air pulse ox is 95%, she is afebrile. Lung sounds are clear, no cough or congestion. No episodes of chest pain overnight, patient is being followed by cardiology, and she supposed to have possible stenting to her RCA tomorrow. Objective - Vital Signs Vital signs: Vital Signs Temp 98.3 F 06/27/19 11:58 Pulse 75 06/27/19 11:58 Resp 16 06/27/19 11:58 BP 163/72 06/27/19 11:58 Pulse Ox 95 06/27/19 11:58 Intake & Output 06/26/19 06/27/19 06/27/19 18:59 06:59 18:59 Intake Total 240 Output Total 200 Balance -200 240 Weight 83.5 kg 83.5 kg Intake: Oral 240 Output: Urine 200 Other: Voiding Method Bedside Commode Bedside Commode Bedside Commode # Voids 1 1 - Exam GENERAL EXAM: Alert, very pleasant, 69-year-old white female -year-old white female comfortable in no apparent distress. HEAD: Normocephalic/atraumatic. EYES: Normal reaction of pupils, equal size. Conjunctiva pink, sclera white. NOSE: Clear with pink turbinates. THROAT: No erythema or exudates. NECK: No masses, no JVD, no thyroid enlargement, no adenopathy. CHEST: No chest wall deformity. Symmetrical expansion. LUNGS: Equal air entry with no crackles, wheeze, rhonchi or dullness. CVS: Regular rate and rhythm, normal S1 and S2, no gallops, no murmurs, no rubs ABDOMEN: Soft, nontender. No hepatosplenomegaly, normal bowel sounds, no guarding or rigidity. EXTREMITIES: No clubbing, no edema, no cyanosis, 2+ pulses and upper and lower extremities. MUSCULOSKELETAL: Muscle strength and tone normal. SPINE: No scoliosis or deformity SKIN: No rashes CENTRAL NERVOUS SYSTEM: Alert and oriented -3. No focal deficits, tone is normal in all 4 extremities. PSYCHIATRIC: Alert and oriented -3. Appropriate affect. Intact judgment and insight. - Labs CBC & Chem 7: 06/27/19 05:57 06/27/19 05:57 Labs: Abnormal Lab Results - Last 24 Hours (Table) 06/26/19 06/27/19 06/27/19 Range/Units 16:41 05:57 05:57 WBC 12.3 H (3.8-10.6) k/uL RBC 3.66 L (3.80-5.40) m/uL MCV 100.4 H (80.0-100.0) fL BUN 30 H (7-17) mg/dL Glucose 128 H (74-99) mg/dL POC Glucose (mg/dL) 107 H (75-99) mg/dL Calcium 8.1 L (8.4-10.2) mg/dL 06/27/19 Range/Units 06:10 WBC (3.8-10.6) k/uL RBC (3.80-5.40) m/uL MCV (80.0-100.0) fL BUN (7-17) mg/dL Glucose (74-99) mg/dL POC Glucose (mg/dL) 145 H (75-99) mg/dL Calcium (8.4-10.2) mg/dL Assessment and Plan Plan: Assessment: 1 acute anterior myocardial infarction, initially treated with thrombolytics, an d underwent Stenting of LAD was successfully performed. On 06/23/2019. 2 acute pulmonary edema secondary to ischemic cardiomyopathy and LV dysfunction chest x-ray is improving, hence we'll continue diuretics. 3 suspect moderate severe chronic obstructive pulmonary disease based on her smoking history. Continue bronchodilators. 4 chronic tobacco use, patient is at least an [id number] smoker, quit smoking 3 months ago. 5 benign essential hypertension 6 history of diabetes 7 history of peripheral vessel occlusive disease and previous revascularization of left lower extremity 8 obesity. Plan: From pulmonary perspective patient is doing well, no worsening dyspnea, she is on room air, no complaints of chest pain, patient's plan to have RCA stenting tomorrow by cardiology, from pulmonary perspective she is doing well, she's been transitioned to oral Lasix, continue with nebulized bronchodilators. I performed a history & physical examination of the patient and discussed their management with my nurse practitioner, Lore Shore. I reviewed the nurse practitioner's note and agree with the documented findings and plan of care. Lung sounds are positive for clear breath sounds. The findings and the impression was discussed with the patient. I attest to the documentation by the nurse practitioner. Time with Patient: Less than 30
[2019-06-27] MEDS ORDERED: ALPRAZolam 0.25 MG TAB PO PRN (14:54)
[2019-06-27] MEDS ORDERED: NITROGLYCERIN SL TABS 0.4 MG TAB SUBLINGUAL PRN (14:54)
[2019-06-27] MEDS ORDERED: ALPRAZolam 0.5 MG TAB PO PRN (14:54)
[2019-06-27] MEDS ORDERED: SODIUM CHLORIDE 0.9% 1,000 ML in EMPTY BAG 1 BAG IV ONE (14:54)
[2019-06-27] MEDS: ATORVASTATIN 80 MG TAB PO SCH ×2 (15:00→20:10)
[2019-06-27 16:53] LABS: Glucose,Whole Blood 159 mg/dL (75-99)
--- NOTE | 2019-06-27 17:37 | PN ---
PROGRESS NOTE DATE OF SERVICE: 06/26/2019 Mrs. Llamas is status post anterior wall myocardial infarction with stent to the LAD. The patient's medical records were reviewed. The patient denies any chest discomfort or shortness of breath. Discussed with the patient regarding the further management with stent to the right coronary artery. Patient and family will decide. If they want to have it done, we will schedule for Thursday. Blood pressure is 155/70 mmHg. First and second heart sounds are normal. Lungs are clinically clear to auscultation and percussion. Continue the current medications. MMODL / IJN: [id number] /
[2019-06-27 20:38] LABS: Glucose,Whole Blood 227 mg/dL (75-99)
[2019-06-28 01:46] LABS: Glucose,Whole Blood 65 mg/dL (75-99)
[2019-06-28 01:46] LABS: Glucose,Whole Blood 57 mg/dL (75-99)
[2019-06-28 02:16] LABS: Glucose,Whole Blood 108 mg/dL (75-99)
[2019-06-28] MEDS: LOSARTAN 50 MG TAB PO SCH ×2 (05:51→20:34)
[2019-06-28] MEDS: hydrALAZINE HCL 25 MG TAB PO SCH (05:51)
[2019-06-28] MEDS: METOPROLOL TARTRATE 25 MG TAB PO SCH ×2 (05:51→20:34)
[2019-06-28] MEDS: CLOPIDOGREL 75 MG TAB PO SCH (05:52)
[2019-06-28] MEDS ORDERED: ASPIRIN 325 MG TAB PO ONE (06:00)
[2019-06-28] MEDS ORDERED: ATORVASTATIN 80 MG TAB PO ONE (06:00)
[2019-06-28 06:07] LABS: Glucose,Whole Blood 236 mg/dL (75-99)
[2019-06-28 06:35] LABS: Basophils # (A) 0.1 k/uL (0-0.2); Basophils % (A) 0 %; Eosinophils # (A) 0.1 k/uL (0-0.7); Eosinophils % (A) 1 %; HCT 37.8 % (34.0-46.0); HGB 12.6 gm/dL (11.4-16.0); Lymphocytes # (A) 2.8 k/uL (1.0-4.8); Lymphocytes % (A) 20 %; MCH 33.3 pg (25.0-35.0); MCHC 33.2 g/dL (31.0-37.0); MCV 100.2 fL (80.0-100.0); Mean Platelet Volume 9.8; Monocytes # (A) 0.5 k/uL (0-1.0); Monocytes % (A) 4 %; Neutrophils # (A) 10.5 k/uL (1.3-7.7); Neutrophils % (A) 75 %; Platelet Count 233 k/uL (150-450); RBC 3.77 m/uL (3.80-5.40); WBC 14.1 k/uL (3.8-10.6)
[2019-06-28 06:44] LABS: Calcium 8.8 mg/dL (8.4-10.2); Potassium 4.1 mmol/L (3.5-5.1)
[2019-06-28] MEDS ORDERED: fentaNYL (PF) 50 MCG/ML 2 ML AMP ONE (07:21)
[2019-06-28] MEDS ORDERED: LIDOCAINE 1% INJ 10MG/ML (20 ML MDV) ONE (07:21)
[2019-06-28] MEDS ORDERED: VERAPAMIL 2.5 MG/ML 2 ML AMP ONE (07:21)
[2019-06-28] MEDS: INSULIN ASPART (NovoLOG) 100 UNIT/ML VIAL SQ SCH ×8 (07:34→20:35)
[2019-06-28] MEDS: PANTOPRAZOLE 40 MG TABLET PO SCH (07:35)
[2019-06-28] MEDS ORDERED: fentaNYL (PF) 50 MCG/ML 2 ML AMP IV ONE (07:42)
[2019-06-28] MEDS ORDERED: IV FLUID CONTINUATION 550 ML IV ONE (07:43)
[2019-06-28] MEDS ORDERED: LIDOCAINE 1% INJ 10MG/ML (20 ML MDV) SQ ONE (07:46)
[2019-06-28] MEDS ORDERED: VERAPAMIL SYRINGE (5 MG/10 ML) INTRAARTER ONE (07:47)
[2019-06-28] MEDS ORDERED: BIVALIRUDIN BOLUS 250 MG/50 ML IV ONE (07:50)
[2019-06-28] MEDS ORDERED: BIVALIRUDIN 250 MG in SODIUM CHLORIDE 0.9% 50 ML IV ONE (07:50)
[2019-06-28] MEDS ORDERED: MIDAZOLAM 2 MG/2 ML VIAL IVP ONE (08:01)
[2019-06-28] MEDS: NITROGLYCERIN 1000MCG/10ML SYRINGE INTRACORON ONE ×2 (08:10→08:27)
[2019-06-28] MEDS ORDERED: IOPAMIDOL-370 125ML BTL INJ ONE (08:16)
[2019-06-28] MEDS ORDERED: IOPAMIDOL-370 100ML BTL INJ ONE ×2 (08:43→09:00)
[2019-06-28] MEDS ORDERED: ACETAMINOPHEN TAB 325 MG TAB PO STA (09:06)
[2019-06-28] MEDS ORDERED: NITROGLYCERIN SL TABS 0.4 MG TAB SUBLINGUAL PRN (09:13)
[2019-06-28] MEDS ORDERED: MAG HYDROX/AL HYDROX/SIMETH 30 ML CUP PO PRN (09:13)
[2019-06-28] MEDS ORDERED: RX INFO: IV CONTRAST WAS GIVEN 1 EACH MISC MISCELLANE PRN (09:13)
[2019-06-28] MEDS ORDERED: ATROPINE SULFATE 0.1 MG/ML 10ML SYRINGE IV PRN (09:13)
[2019-06-28] MEDS ORDERED: ZOLPIDEM 5 MG TAB PO PRN (09:13)
[2019-06-28] MEDS ORDERED: SODIUM CHLORIDE 0.9% 1,000 ML IV SCH (09:15)
[2019-06-28] MEDS: HEPARIN SODIUM,PORCINE 5,000 UNIT/ML 1 ML VIAL SQ SCH ×2 (09:27→20:34)
[2019-06-28] MEDS: SPIRONOLACTONE 25 MG TAB PO SCH (09:38)
[2019-06-28] MEDS: INSULN ASP PRT/INSULIN ASPART 100 UNIT/ML 10 ML VIAL SQ SCH ×3 (09:42→20:34)
[2019-06-28] MEDS: FUROSEMIDE 20 MG TAB PO SCH (09:59)
--- NOTE | 2019-06-28 10:33 | PTCA ---
PERCUTANEOUSTRANS CORORONARY ANGIOGRAPHY Mrs. Llamas is a 69-year-old female who presented recently with an acute anterior myocardial infarction underwent stenting of the LAD was found to have critical stenosis involving the bifurcation of the PDA as well as significant diffuse disease in the mid RCA. In view of that, recommendation was made regarding angioplasty and stenting. The procedure as well as the risks and the complications were discussed with the patient who is in full understanding and agreement. PROCEDURE: Patient was brought to recyclable products sorter in a fasting semi-sedated state after receiving fentanyl and Benadryl and achieving moderate conscious sedated state. Using Xylocaine anesthesia in the Seldinger technique, a 6-Swedish sheath was introduced in the right radial artery. Attempt to cannulate the right coronary ostium with 6-Swedish FR4 guiding catheter was unsuccessful that catheter was removed and a 6-Swedish AL 0.75 guiding catheter introduced in the system. After cannulating the ostium of the right coronary artery, a 0.014 balanced medium weight J-wire was advanced and positioned in the PLV. Subsequently attempt to advance a BMW wire in the PDA were unsuccessful. That wire was removed and a SuperCross with a 0.014 whisper J-wire was advanced. The wire was exchanged through the SuperCross to a long 0.014 BMW J. After removing the SuperCross, a 2.5 x 12 mm Trek balloon was advanced and one inflation in the PDA were performed. Following that, a 2.5 x 15 mm Xience Shanti stent was deployed, post dilated at 16 atmospheres. Following that, the wire and the PLV was withdrawn and readvanced through the struts of the stent and positioned in the distal PLV and subsequently a 2.5 x 12 mm NC Trek balloon was advanced and multiple inflations maximum of 12 atmospheres were done. Following that the balloon was removed and a 4.0 x 33 mm Xience Shanti stent was deployed proximal to the first one and post dilated at 16 atmospheres. Following that the balloon was removed and a 4.0 x 28 mm Xience Shanti stent was deployed proximal to the last one and post dilated at 18 atmospheres. After removing the balloon, the BMW J- wire was re-advanced in the PLV branch and a 2.75 x 12 mm NC Trek was advanced and one inflation at 10 atmospheres was done. Following that, the balloon was removed and a 2.5 x 12 mm NC Trek balloon was advanced in the PDA one inflation 12 atmospheres were done. Following that the balloon and the guidewire were withdrawn back in the guiding catheter. Images were obtained, repeated. Those images reveal stable successful stenting. At that point, the guiding catheter, the balloon and the guidewire were removed. The sheath was removed. Hemostasis was obtained with deployment of a TR band. There was no immediate complication. Patient was returned to her room in stable condition. Of note, the patient had chest discomfort and EKG changes with the inflation as well as headache with the inflation that resolved at the end of the procedure. RESULTS: 1. Successful stenting of the right PDA bifurcation with reduction of stenosis from 99% to 0%. 2. Successful stenting of a long segment of the mid RCA with reduction of stenosis from 70% to 0%. RECOMMENDATION: Patient will be continued on aspirin, Plavix, beta shawn, AUTUMN inhibitor and statin. The importance of dual antiplatelet treatment were discussed with the patient and her family and they are in full understanding and agreement. MMANNEL / ELIZABETHN: [id number] /
[2019-06-28 11:57] LABS: Glucose,Whole Blood 321 mg/dL (75-99)
--- NOTE | 2019-06-28 13:06 | P.PN ---
Subjective Progress Note Date: 06/28/19 Principal diagnosis: Acute ST segment elevation myocardial infarction This is a 69-year-old female with history of COPD, peripheral vessel occlusive disease, degenerative disc disease of the lumbar spine, [id number] smoker, quit smoking about 3 months ago. Patient is not O2 dependent, she is maintained on bronchodilators in the form of updrafts at home. Patient was seen early this morning at [facility] with sudden onset of dyspnea and chest discomfort. Upon initial evaluation in the ER, patient was found to have ST segment elevation anteriorly. She received TPAfor acute ST elevation myocardial infarction, and arrangements were made to transfer the patient to [facility]. She was seen by cardiology while she was in the ER, and she underwent cardiac catheterization./PTCA. Postoperatively patient was transferred to the intensive care unit, and I was asked to see her on consultation. She is presently on 4 L nasal cannula, she is asymptomatic, denies any chest pain, denies any cough, no wheezing, no fever no chills no hemoptysis. Patient is resting comfortably in the ICU. Initially when she presented to the ER, patient was on BiPAP. Chest x-ray post PTCA showed evidence of pulmonary edema. Patient will be treated as such. And she'll be receiving diuretics for her pulmonary edema, possible ischemic cardiomyopathy and LV dysfunction. Echocardiogram is pending. The cardiac catheterization report is also pending. Patient was reevaluated today on 06/24/2019, remains in the ICU, feeling better, no hemodynamic issues or cardiac arrhythmia overnight. Remains on few liters nasal cannula. Chest x-ray showed slight improvement in her bilateral interstitial edema. Remains on Lasix. Labs showed the PEEP cigar of 17.4 he moglobin 13.1 electrolytes are normal BUN is 39 creatinine is 1.02 Lipid profile was noted. Patient is on multiple cardiac meds, diuretics, bronchodilators, and insulin. No chest pain no cough no wheezing no shortness of breath. No nausea no vomiting no abdominal pain. Echocardiogram showed imp aired LV function ejection fraction of 35-40%. Yesterday the patient underwent successful stenting of proximal and mid LAD with reduction of stenosis from 80% to 0%. Patient continues to have a right coronary artery lesion, and plans to undergo again percutaneous revascularization in the near future. Patient was noted to have 80-90% stenosis involving the takeoff of the PDA. Reevaluated today on 06/25/2019, patient remains in the ICU, she is feeling great. Slight shortness of breath, no cough no wheezing no chest pain no fever no chills no hemoptysis. No hemodynamic issues overnight, and no cardiac arrhythmia. Patient remains on diuretics. She is on few liters nasal cannula. WBC count is 14.3 hemoglobin is 12.6 and a close are normal renal profile is normal. Chest x-ray showed cardiomegaly, increase interstitial markings, there may be a component of mild interstitial edema. Reevaluated today on 06/26/2019, patient remains in the ICU, feeling great, no cough no wheezing no shortness of breath. Chest x-ray showed definite improvement in her pulmonary edema. Remains on Lasix. Patient is relatively asymptomatic. Denies any chest pain no fever no chills no hemoptysis. No n ausea no vomiting no abdominal pain. WBC count is 14.6 hemoglobin is 13.3 F are normal renal profile is relatively normal BUN is 36 creatinine 1.0. On 06/27/2019 patient seen in follow-up on selective care unit, she is awake and alert, in no acute distress, denies any chest pain, denies any shortness of breath, room air pulse ox is 95%, she is afebrile. Lung sounds are clear, no cough or congestion. No episodes of chest pain overnight, patient is being followed by cardiology, and she supposed to have possible stenting to her RCA tomorrow. The patient is seen today 06/28/2019 in follow-up on the selective care unit. She is currently resting comfortably in bed. Awake and alert in no acute distress. She did undergo successful stenting of the right PDA bifurcation as well as stenting of the lung segment of the mid RCA. She is currently pain- free. Maintaining good O2 saturations in the upper 90s on 2 L/m per nasal cannula. Afebrile. Hemodynamically stable. White count 14.1. Hemoglobin 12.6. Creatinine 0.93. She is currently on Plavix and aspirin. Objective - Vital Signs Vital signs: Vital Signs Temp 97.9 F 06/28/19 09:58 Pulse 79 06/28/19 10:58 Resp 18 06/28/19 10:58 BP 140/63 06/28/19 10:58 Pulse Ox 98 06/28/19 10:58 Intake & Output 06/27/19 06/28/19 06/28/19 18:59 06:59 18:59 Intake Total 717 85 397 Balance 717 85 397 Weight 83.5 kg 83.4 kg Intake: IV 85 397 Sodium Chloride 0.9% 1, 85 200 000 ml @ 50 mls/hr IV . Q20H [facility] Rx#:[id number] Oral 717 Other: Voiding Method Bedside Commode # Voids 1 1 - Exam GENERAL EXAM: Alert, very pleasant, 69-year-old female patient. In no acute distress. HEAD: Normocephalic/atraumatic. EYES: Normal reaction of pupils, equal size. Conjunctiva pink, sclera white. NOSE: Clear with pink turbinates. THROAT: No erythema or exudates. NECK: No masses, no JVD, no thyroid enlargement, no adenopathy. CHEST: No chest wall deformity. Symmetrical expansion. LUNGS: Equal air entry with no crackles, wheeze, rhonchi or dullness. CVS: Regular rate and rhythm, normal S1 and S2, no gallops, no murmurs, no rubs ABDOMEN: Soft, nontender. No hepatosplenomegaly, normal bowel sounds, no guarding or rigidity. EXTREMITIES: No clubbing, no edema, no cyanosis, 2+ pulses and upper and lower extremities. MUSCULOSKELETAL: Muscle strength and tone normal. SPINE: No scoliosis or deformity SKIN: No rashes CENTRAL NERVOUS SYSTEM: No focal deficits, tone is normal in all 4 extremities. PSYCHIATRIC: Alert and oriented -3. Appropriate affect. Intact judgment and insight. - Labs CBC & Chem 7: 06/28/19 05:41 06/28/19 05:41 Labs: Abnormal Lab Results - Last 24 Hours (Table) 06/27/19 06/27/19 06/28/19 Range/Units 16:52 20:34 01:30 WBC (3.8-10.6) k/uL RBC (3.80-5.40) m/uL MCV (80.0-100.0) fL Neutrophils # (1.3-7.7) k/uL BUN (7-17) mg/dL Glucose (74-99) mg/dL POC Glucose (mg/dL) 159 H 227 H 57 L (75-99) mg/dL 06/28/19 06/28/19 06/28/19 Range/Units 01:44 02:01 05:41 WBC 14.1 H (3.8-10.6) k/uL RBC 3.77 L (3.80-5.40) m/uL MCV 100.2 H (80.0-100.0) fL Neutrophils # 10.5 H (1.3-7.7) k/uL BUN (7-17) mg/dL Glucose (74-99) mg/dL POC Glucose (mg/dL) 65 L 108 H (75-99) mg/dL 06/28/19 06/28/19 06/28/19 Range/Units 05:41 06:04 11:55 WBC (3.8-10.6) k/uL RBC (3.80-5.40) m/uL MCV (80.0-100.0) fL Neutrophils # (1.3-7.7) k/uL BUN 27 H (7-17) mg/dL Glucose 192 H (74-99) mg/dL POC Glucose (mg/dL) 236 H 321 H (75-99) mg/dL Assessment and Plan Assessment: Assessment: 1 acute anterior myocardial infarction, initially treated with thrombolytics, and underwent Stenting of LAD was successfully performed on 06/23/2019. She went back to the [employer] [facility] and had additional stenting today 06/28/2019 with additional stenting of the right PDA bifurcation and stenting of the lung segment of the mid RCA. 2 acute pulmonary edema secondary to ischemic cardiomyopathy and LV dysfunction chest x-ray is improving, hence we'll continue diuretics. 3 suspect moderate severe chronic obstructive pulmonary disease based on her smoking history. Continue bronchodilators. 4 chronic tobacco use, patient is at least an [id number] smoker, quit smoking 3 months ago. 5 benign essential hypertension 6 history of diabetes 7 history of peripheral vessel occlusive disease and previous revascularization of left lower extremity 8 obesity. Plan: The patient was seen and evaluated by Dr. Haider. She is stable from the pulmonary standpoint. We will see her on an as-needed basis. I, the cosigning physician, performed a history & physical examination of the patient. Lungs sounds are clear. Maintaining good O2 saturations in the 90s on 2 L/m per nasal cannula. I discussed the assessment and plan of care with my nurse practitioner, Alexia Gifford. I attest to the above note as dictated by her.
[2019-06-28] MEDS: ACETAMINOPHEN TAB 325 MG TAB PO PRN ×2 (13:27→18:30)
[2019-06-28] MEDS: hydrALAZINE HCL 50 MG TAB PO SCH ×2 (15:15→22:45)
[2019-06-28 17:22] LABS: Glucose,Whole Blood 226 mg/dL (75-99)
[2019-06-28 20:25] LABS: Glucose,Whole Blood 293 mg/dL (75-99)
--- NOTE | 2019-06-28 21:38 | P.PN ---
Progress Note - Text Progress Note Date: 06/28/19 Chief Complaint: Chest pain History of presenting complaint: This is a 69-year-old patient of Dr. Nagy. Chronic stable medical conditions include diabetes, hypertension, COPD, hypertension, hyperlipidemia, urinary incontinence obesity, patient initially presented [facility]. Patient started having chest pain. Short of breath. Did not feel well. Did not radiate to the neck or arm. A bit short of breath. No dizziness or lightheadedness. Patient found to have ST elevation acute NH. Transferred down here. Taken to the cardiac catheterization lab. Successful stenting to the proximal and mid LAD was done. stopped smoking 3 months ago. June 27 underwent stenting to the right PDA bifurcation and long segment of the mid RCA. Today-status post intervention to the right PDA and mid RCA. Postprocedure laying bed. Symptom-free. Tired. Breathing stable. Review of systems: Was done for constitutional, cardiovascular, GI, pulmonary. relevant finding as above Active Medications Acetaminophen (Tylenol Tab) 325 mg PO Q6HR PRN PRN Reason: Fever and/ or Pain Last Admin: 06/28/19 18:30 Dose: 325 mg Documented by: Al Hydroxide/Mg Hydroxide (Maalox) 30 ml PO Q4HR PRN PRN Reason: Heartburn Al Hydroxide/Mg Hydroxide (Maalox) 30 ml PO Q4HR PRN PRN Reason: Heartburn Albuterol/Ipratropium (Duoneb 0.5 Mg-3 Mg/3 Ml Soln) 3 ml INHALATION RT-QID PRN PRN Reason: Shortness Of Breath Or Wheezing Alprazolam (Xanax) 0.25 mg PO Q6HR PRN PRN Reason: Mild Anxiety Last Admin: 06/28/19 00:10 Dose: 0.25 mg Documented by: Alprazolam (Xanax) 0.5 mg PO Q6HR PRN PRN Reason: Moderate Anxiety Aspirin (Aspirin) 81 mg PO DAILY [facility] Last Admin: 06/27/19 15:00 Dose: Not Given Documented by: Atorvastatin Calcium (Lipitor) 80 mg PO HS [facility] Last Admin: 06/27/19 20:10 Dose: 80 mg Documented by: Atropine Sulfate (Atropine) 0.5 mg IV ONCE PRN PRN Reason: Symptomatic Bradycardia Atropine Sulfate (Atropine) 0.5 mg IV ONCE PRN PRN Reason: Symptomatic Bradycardia Clopidogrel Bisulfate (Plavix) 75 mg PO DAILY [facility] Last Admin: 06/28/19 05:52 Dose: 75 mg Documented by: Furosemide (Lasix) 20 mg PO DAILY [facility] Heparin Sodium (Porcine) (Heparin) 5,000 unit SQ Q12HR [facility] Last Admin: 06/28/19 20:34 Dose: 5,000 unit Documented by: Hydralazine HCl (Apresoline) 50 mg PO TID [facility] Last Admin: 06/28/19 15:15 Dose: 50 mg Documented by: Insulin Aspart (Novolog Mix 70-30 Vial) 30 unit SQ BID [facility] Last Admin: 06/28/19 20:34 Dose: 30 unit Documented by: Insulin Aspart (Novolog) 0 unit SQ ACHS [facility]; Protocol Last Admin: 06/28/19 20:35 Dose: 5 unit Documented by: Insulin Aspart (Novolog) 4 unit SQ ACHS [facility] Last Admin: 06/28/19 20:35 Dose: 4 unit Documented by: Insulin Aspart (Novolog Mix 70-30 Vial) 10 unit SQ AC-LUNCH [facility] Last Admin: 06/28/19 12:05 Dose: 10 unit Documented by: Losartan Potassium (Cozaar) 50 mg PO BID [facility] Last Admin: 06/28/19 20:34 Dose: 50 mg Documented by: Metoprolol Tartrate (Lopressor) 25 mg PO BID [facility] Last Admin: 06/28/19 20:34 Dose: 25 mg Documented by: Miscellaneous Information (Magnesium Per Protocol) 1 each MISCELLANE DAILY PRN; Protocol PRN Reason: Per Protocol Miscellaneous Information (Rx Info: Iv Contrast Was Given) 1 each MISCELLANE D AILY PRN PRN Reason: Per Protocol Stop: 06/30/19 09:13 Naloxone HCl (Narcan) 0.2 mg IV Q2M PRN PRN Reason: Opioid Reversal Nitroglycerin (Nitrostat) 0.4 mg SUBLINGUAL Q5M PRN PRN Reason: Chest Pain Nitroglycerin (Nitrostat) 0.4 mg SUBLINGUAL Q5M PRN PRN Reason: Chest Pain Pantoprazole Sodium (Protonix) 40 mg PO AC-BRKFST [facility] Last Admin: 06/28/19 07:35 Dose: Not Given Documented by: Spironolactone (Aldactone) 25 mg PO DAILY [facility] Last Admin: 06/28/19 09:38 Dose: 25 mg Documented by: Zolpidem Tartrate (Ambien) 5 mg PO HS PRN PRN Reason: Insomnia Zolpidem Tartrate (Ambien) 5 mg PO HS PRN PRN Reason: Insomnia Physical examination: VITAL SIGNS: 98.2, 87, 18, 152/67, 98% on 2 L GENERAL: Laying in bed, tired. EYES: Pupils equal. Conjunctiva normal. HEENT: External appearance of nose and ears normal, oral cavity grossly normal. NECK: JVD not raised; masses not palpable. HEART: First and second heart sounds are normal; no edema. LUNGS: Respiratory rate normal; decreased breath sounds mild wheezing. ABDOMEN: Soft, nontender, liver spleen not palpable, no masses palpable. PSYCH: Alert and oriented x3; mood and affect normal. INVESTIGATIONS, reviewed in the clinical context: White count 14.1 hemoglobin 12.6 creatinine 0.93 Previous testing EKG tracing personally reviewed by me-flipped T waves in anterior leads from here Chest x-ray film personally reviewed by me-cardiomegaly and pulmonary edema White count 15.4 hemoglobin 13.5 bun 37 and creatinine 1.16 Troponin 3.0, HbA1c 9.8 Accu-Cheks noted 2-D echo-moderate concentric left ventricle hypertrophy, EF 35-40%, multiple wall motion abnormalities Assessment: -Acute ST elevation myocardial infarction -Acute congestive heart failure from systolic dysfunction EF 35-40% from coronary artery disease -Hypertensive heart disease -stenting to the proximal and mid LAD was done. June 27 underwent stenting to the right PDA bifurcation and long segment of the mid RCA. -COPD in a ex-smoker -GERD -Essential hypertension -Hyperlipidemia -Chronic urinary stress incontinence -Diabetes mellitus type 2, chronically on insulin, uncontrolled with hyperglycemia - Plan: Continue current medication treatment plan. Care was discussed with the patient. Increase activity when okay by cardiology.
[2019-06-29] MEDS: ACETAMINOPHEN TAB 325 MG TAB PO PRN ×3 (00:35→18:25)
[2019-06-29 06:58] LABS: Calcium 8.9 mg/dL (8.4-10.2); Potassium 3.7 mmol/L (3.5-5.1)
[2019-06-29] MEDS: INSULIN ASPART (NovoLOG) 100 UNIT/ML VIAL SQ SCH ×8 (07:07→20:32)
[2019-06-29] MEDS: PANTOPRAZOLE 40 MG TABLET PO SCH (07:07)
[2019-06-29 07:08] LABS: Glucose,Whole Blood 123 mg/dL (75-99)
[2019-06-29] MEDS: METOPROLOL TARTRATE 25 MG TAB PO SCH ×2 (07:25→20:31)
[2019-06-29] MEDS: INSULN ASP PRT/INSULIN ASPART 100 UNIT/ML 10 ML VIAL SQ SCH ×3 (09:07→20:31)
[2019-06-29] MEDS: hydrALAZINE HCL 50 MG TAB PO SCH ×3 (09:08→23:27)
[2019-06-29] MEDS: HEPARIN SODIUM,PORCINE 5,000 UNIT/ML 1 ML VIAL SQ SCH ×2 (09:08→20:31)
[2019-06-29] MEDS: ASPIRIN 81 MG PO SCH (09:08)
[2019-06-29] MEDS: LOSARTAN 50 MG TAB PO SCH ×2 (09:08→20:32)
[2019-06-29] MEDS: CLOPIDOGREL 75 MG TAB PO SCH (09:08)
[2019-06-29] MEDS: FUROSEMIDE 20 MG TAB PO SCH (09:08)
[2019-06-29] MEDS: SPIRONOLACTONE 25 MG TAB PO SCH (09:08)
[2019-06-29 11:51] LABS: Glucose,Whole Blood 120 mg/dL (75-99)
--- NOTE | 2019-06-29 15:42 | P.PN ---
Subjective Progress Note Date: 06/29/19 This is a 69-year-old female with history of COPD, peripheral vessel occlusive disease, degenerative disc disease of the lumbar spine, [id number] smoker, quit smoking about 3 months ago. Patient is not O2 dependent, she is maintained on bronchodilators in the form of updrafts at home. Patient was seen early this morning at [facility] with sudden onset of dyspnea and chest discomfort. Upon initial evaluation in the ER, patient was found to have ST segment elevation anteriorly. She received TPAfor acute ST elevation myocardial infarction, and arrangements were made to transfer the patient to [facility]. Patient underwent successful stenting of the mid left anterior descending artery and subsequently angioplasty and stenting of the RCA were performed yesterday. Patient was seen and examined this morning, she states that she had a brief episode of chest tightness earlier, that seemed to be relieved with ambulating. I did go back and reexamine the patient later on in the day, symptom free after up ambulating. Hemodynamically she stable. Blood pressure 142/60 with a heart rate in the 70s, 95% on room air. Sodium 141, potassium 3.7, BUN 18 and creatinine 0.8. Objective - Vital Signs Vital signs: Vital Signs Temp 98.0 F 06/29/19 08:00 Pulse 75 06/29/19 12:00 Resp 14 06/29/19 12:00 BP 167/73 06/29/19 12:00 Pulse Ox 95 06/29/19 12:00 Intake & Output 06/28/19 06/29/19 06/29/19 18:59 06:59 18:59 Intake Total 757 480 Balance 757 480 Weight 84.5 kg Intake: IV 397 Sodium Chloride 0.9% 1, 200 000 ml @ 50 mls/hr IV . Q20H [facility] Rx#:[id number] Oral 360 480 Other: Voiding Method Toilet # Voids 1 1 - Exam PHYSICAL EXAMINATION: GENERAL: 69-year-old female in no acute distress at the time of my examination HEENT: Head is atraumatic, normocephalic. Pupils equal, round. Sclera anicteric. Conjunctiva are clear. Mucous membranes of the mouth are moist. Neck is supple. There is no elevated jugular venous pressure. No carotid bruit is heard. HEART EXAMINATION: Heart S1, S2 normal. No murmur or gallop heard. CHEST EXAMINATION: Lungs are clear to auscultation and precussion. No chest wall tenderness is noted on palpation or with deep breathing. ABDOMEN: Soft, nontender. Bowel sounds are heard. No organomegaly noted. EXTREMITIES: 2+ peripheral pulses with no evidence of peripheral edema and no calf tenderness noted. Right radial site clean and dry, good distal pulse. NEUROLOGIC patient is awake, alert and oriented 3 . . - Labs CBC & Chem 7: 06/28/19 05:41 06/29/19 06:05 Labs: Abnormal Lab Results - Last 24 Hours (Table) 06/28/19 06/28/19 06/29/19 Range/Units 17:20 20:24 06:05 BUN 18 H (7-17) mg/dL Glucose 103 H (74-99) mg/dL POC Glucose (mg/dL) 226 H 293 H (75-99) mg/dL 06/29/19 06/29/19 Range/Units 06:58 11:50 BUN (7-17) mg/dL Glucose (74-99) mg/dL POC Glucose (mg/dL) 123 H 120 H (75-99) mg/dL Assessment and Plan Plan: Assessment and plan 1 acute anterior myocardial infarction, initially treated with thrombolytics, and underwent Stenting of LAD was successfully performed on 06/23/2019. She went back to the [facility] and had additional stenting today 06/28/2019 with additional stenting of the right PDA bifurcation and stenting of the lung segment of the mid RCA. 2 acute pulmonary edema secondary to ischemic cardiomyopathy and LV dysfunction 3 suspect moderate severe chronic obstructive pulmonary disease based on her smoking history. 4 chronic tobacco use, patient is at least an [id number] smoker, quit smoking 3 months ago. 5 benign essential hypertension 6 history of diabetes 7 history of peripheral vessel occlusive disease and previous revascularization of left lower extremity 8 obesity. Plan From cardiology's perspective patient may be able to be discharged home today. We'll make her a follow-up appointment in the office post discharge. DNP note has been reviewed, I agree with a documented findings and plan of care. Patient was seen and examined.
[2019-06-29 16:56] LABS: Glucose,Whole Blood 92 mg/dL (75-99)
[2019-06-29 20:20] LABS: Glucose,Whole Blood 254 mg/dL (75-99)
[2019-06-29] MEDS: ATORVASTATIN 80 MG TAB PO SCH (20:31)
[2019-06-30 01:15] LABS: Glucose,Whole Blood 68 mg/dL (75-99)
[2019-06-30 01:34] LABS: Glucose,Whole Blood 104 mg/dL (75-99)
[2019-06-30] MEDS: ACETAMINOPHEN TAB 325 MG TAB PO PRN (01:41)
[2019-06-30 06:53] LABS: Glucose,Whole Blood 144 mg/dL (75-99)
[2019-06-30] MEDS: PANTOPRAZOLE 40 MG TABLET PO SCH (06:56)
[2019-06-30] MEDS: INSULIN ASPART (NovoLOG) 100 UNIT/ML VIAL SQ SCH ×2 (06:56)
[2019-06-30 06:58] VITALS: PULSE 83
[2019-06-30 07:36] VITALS: BP 124/76; RESP 14; TEMP 97.6
[2019-06-30] MEDS: CLOPIDOGREL 75 MG TAB PO SCH (08:36)
[2019-06-30] MEDS: SPIRONOLACTONE 25 MG TAB PO SCH (08:36)
[2019-06-30] MEDS: METOPROLOL TARTRATE 25 MG TAB PO SCH (08:37)
[2019-06-30] MEDS: hydrALAZINE HCL 50 MG TAB PO SCH (08:37)
[2019-06-30] MEDS: LOSARTAN 50 MG TAB PO SCH (08:38)
[2019-06-30] MEDS: INSULN ASP PRT/INSULIN ASPART 100 UNIT/ML 10 ML VIAL SQ SCH (08:38)
[2019-06-30] MEDS: FUROSEMIDE 20 MG TAB PO SCH (08:38)
[2019-06-30] MEDS: ASPIRIN 81 MG PO SCH (08:38)
[2019-06-30] MEDS: HEPARIN SODIUM,PORCINE 5,000 UNIT/ML 1 ML VIAL SQ SCH (08:39)
--- NOTE | 2019-07-03 23:58 | P.DS ---
Providers Date of admission: 06/23/19 08:53 Expected date of discharge: 06/30/19 Attending physician: Vikram Campbell Consults: 06/23/19 08:53 Consult Physician Stat Consulting Provider: Abundio Gregory Consult Reason/Comments: STEMI Do you want consulting provider notified?: Already Contacted 06/23/19 08:56 Consult Physician Stat Consulting Provider: Randell Lundberg Consult Reason/Comments: STEMI, NIVDRF Do you want consulting provider notified?: Already Contacted 06/23/19 11:35 Consult Physician Routine Consulting Provider: [facility] Consult Reason/Comments: Post Interventional patient Do you want consulting provider notified?: Already Contacted 06/28/19 09:13 Consult Physician Routine Consulting Provider: [facility] Consult Reason/Comments: Post Interventional patient Do you want consulting provider notified?: Already Contacted [facility] Course: Chief Complaint: Chest pain Hospital course: This is a 69-year-old patient of Dr. Nagy. Chronic stable medical conditions include diabetes, hypertension, COPD, hypertension, hyperlipidemia, urinary incontinence obesity, patient initially presented [facility]. Patient started having chest pain. Short of breath. Did not feel well. Did not radiate to the neck or arm. A bit short of breath. No dizziness or lightheadedness. Patient found to have ST elevation acute MN. Transferred down here. Taken to the cardiac catheterization lab. Successful stenting to the proximal and mid LAD was done. stopped smoking 3 months ago. June 27 underwent stenting to the right PDA bifurcation and long segment of the mid RCA. Today-doing better. Laying comfortably. No chest pain. No new issues. Consultants: [facility] -Dr. Schuster at all from pulmonary Physical examination: VITAL SIGNS: 98, 73, 16, 143/65, 95% room air GENERAL: Laying in bed, tired. EYES: Pupils equal. Conjunctiva normal. HEENT: External appearance of nose and ears normal, oral cavity grossly normal. NECK: JVD not raised; masses not palpable. HEART: First and second heart sounds are normal; no edema. LUNGS: Respiratory rate normal; decreased breath sounds mild wheezing. ABDOMEN: Soft, nontender, liver spleen not palpable, no masses palpable. PSYCH: Alert and oriented x3; mood and affect normal. INVESTIGATIONS, reviewed in the clinical context: Creatinine 0.89 Previous testing EKG tracing personally reviewed by -harsh T waves in anterior leads from here Chest x-ray film personally reviewed by me-cardiomegaly and pulmonary edema White count 15.4 hemoglobin 13.5 bun 37 and creatinine 1.16 Troponin 3.0, HbA1c 9.8 Accu-Cheks noted 2-D echo-moderate concentric left ventricle hypertrophy, EF 35-40%, multiple wall motion abnormalities Assessment: -Acute ST elevation myocardial infarction -Acute congestive heart failure from systolic dysfunction EF 35-40% from coronary artery disease -Hypertensive heart disease -stenting to the proximal and mid LAD was done. June 27 underwent stenting to the right PDA bifurcation and long segment of the mid RCA. -COPD in a ex-smoker -GERD -Essential hypertension -Hyperlipidemia -Chronic urinary stress incontinence -Diabetes mellitus type 2, chronically on insulin, uncontrolled with hyperglycemia - Disposition: Home Patient Condition at Discharge: Stable Plan - Discharge Summary Discharge Rx Participant: Yes New Discharge Prescriptions: New Spironolactone [Aldactone] 25 mg PO DAILY #30 tab hydrALAZINE HCL [Apresoline] 50 mg PO TID #90 tab Aspirin 81 mg PO DAILY chew Furosemide [Lasix] 20 mg PO DAILY #30 tab Atorvastatin [Lipitor] 80 mg PO HS #30 tab Metoprolol Tartrate [Lopressor] 25 mg PO BID #60 tab Nitroglycerin Sl Tabs [Nitrostat] 0.4 mg SUBLINGUAL Q5M PRN #25 tab PRN Reason: Chest Pain Insuln Asp Prt/Insulin Aspart [NovoLOG MIX 70-30 VIAL] 10 unit SQ AC-LUNCH vial Continue Clopidogrel [Plavix] 75 mg PO DAILY Losartan [Cozaar] 50 mg PO BID Insulin Aspart Protam & Aspart [NovoLOG MIX 70-30 Flexpen] 30 unit SQ BID Discontinued hydrALAZINE HCL [Apresoline] 25 mg PO DAILY cloNIDine HCL [Catapres] 0.1 mg PO BID PRN PRN Reason: SYSTOLIC BP >150 Bisoprolol Fumarate [Zebeta] 10 mg PO DAILY Losartan [Cozaar] 25 mg PO DAILY Discharge Medication List Clopidogrel [Plavix] 75 mg PO DAILY 06/23/19 [History] Insulin Aspart Protam & Aspart [NovoLOG MIX 70-30 Flexpen] 30 unit SQ BID 06/23/19 [History] Losartan [Cozaar] 50 mg PO BID 06/23/19 [History] Aspirin 81 mg PO DAILY chew 06/29/19 [Rx] Atorvastatin [Lipitor] 80 mg PO HS #30 tab 06/29/19 [Rx] Furosemide [Lasix] 20 mg PO DAILY #30 tab 06/29/19 [Rx] Insuln Asp Prt/Insulin Aspart [NovoLOG MIX 70-30 VIAL] 10 unit SQ AC-LUNCH vial 06/29/19 [Rx] Metoprolol Tartrate [Lopressor] 25 mg PO BID #60 tab 06/29/19 [Rx] Nitroglycerin Sl Tabs [Nitrostat] 0.4 mg SUBLINGUAL Q5M PRN #25 tab 06/29/19 [Rx] Spironolactone [Aldactone] 25 mg PO DAILY #30 tab 06/29/19 [Rx] hydrALAZINE HCL [Apresoline] 50 mg PO TID #90 tab 06/29/19 [Rx] Follow up Appointment(s)/Referral(s): Becca Mcleod MD [STAFF PHYSICIAN] - 07/06/19 2:45 pm (Thursday) Curtis Allen MD [REFERRING] - 08/18/19 1:30 pm (Marketing Account Executive, for your uncontrolled diabetes mellitus with hemoglobin A1c of 9.8% ) Christin Ingram NPC [REFERRING] - 07/05/19 10:00 am (Thursday) [facility], [NON-STAFF] - 1-2 Days Patient Instructions/Handouts: Heart Failure (DC), After Radial Heart Catheterization (GEN) Activity/Diet/Wound Care/Special Instructions: CARDIAC CATH 1. Support your puncture site by applying firm, steady pressure whenever you cough, laugh, sneeze or bear down to have a bowel movement (2-day restriction). 2. Watch for any excessive bruising, active bleeding, a firm knot forming under your skin, extreme tenderness and signs of infection (redness, swelling, fever). 3. Shower daily, do not soak puncture in a tub bath, jacuzzi, pool, owens etc. for 1 week. This is to prevent risk of infection. 4. Drink plenty of fluids the day of and day after your procedure to flush contrast dye out of your kidneys. 5. Take all medications as directed. Never stop any new medication without your physicians OK. 6. No driving for 2 days after procedure. 7. 10- pound weight lifting restriction for 1 week. 8. Low sodium/low fat diet. 9. Activity limited until follow up appointment with your presidential helicopter crew chief. In case of any problems, please call [facility], Trevon Caba @ [phone]. CHF 1. Weigh yourself every morning after you urinate. If you gain 2-3 pounds overnight or 5 pounds in one week, call your primary physician for guidance on your medications. Keep a log of your weights. 2. Avoid salt, or foods with hidden salt. Extra salt makes your heart work harder and traps the fluid in your body for longer. 3. Take all of your medications as directed, especially your water pills. NEVER skip a dose. 4. Elevate your legs when you are not up moving around to help with circulation and prevent swelling. 5. Call your physician if you notice any extra swelling in your legs, ankles, feet or abdomen, if you have a new dry cough, if your shortness of breath worsens with activity or at rest, or if you feel more fatigued. Discharge Disposition: HOME WITH HOME HEALTH SERVICES
== END 2019-06-30 09:27 | disposition home health service (06) | DRG 246 ==
LOC: SUPCPDRO 08:09 → EC 08:09 → 2SICU 08:53 → 3SCARD 06-26 15:17
PROVIDERS: ADMIT Hospitalist; ATTEND Hospitalist
PROC: B2111ZZ Fluoroscopy of Multiple Coronary Arteries using Low Osmolar Contrast (ICD-10-PCS; 2019-06-23)
PROC: 4A023N7 Measurement of Cardiac Sampling and Pressure, Left Heart, Percutaneous Approach (ICD-10-PCS; 2019-06-23)
PROC: 5A09457 Assistance with Respiratory Ventilation, 24-96 Consecutive Hours, Continuous Positive Airway Pressure (ICD-10-PCS; 2019-06-23)
PROC: 027035Z Dilation of Coronary Artery, One Artery with Two Drug-eluting Intraluminal Devices, Percutaneous Approach (ICD-10-PCS; principal; 2019-06-23 08:50)
PROC: 027136Z Dilation of Coronary Artery, Two Arteries with Three Drug-eluting Intraluminal Devices, Percutaneous Approach (ICD-10-PCS; 2019-06-28 07:30)
DX: I21.09 ST elevation (STEMI) myocardial infarction involving other coronary artery of anterior wall (principal); I50.23 Acute on chronic systolic (congestive) heart failure; J96.01 Acute respiratory failure with hypoxia; E11.51 Type 2 diabetes mellitus with diabetic peripheral angiopathy without gangrene; E11.649 Type 2 diabetes mellitus with hypoglycemia without coma; E11.65 Type 2 diabetes mellitus with hyperglycemia; E66.9 Obesity, unspecified; E78.5 Hyperlipidemia, unspecified; I11.0 Hypertensive heart disease with heart failure; I25.10 Atherosclerotic heart disease of native coronary artery without angina pectoris; I25.5 Ischemic cardiomyopathy; J44.9 Chronic obstructive pulmonary disease, unspecified; K21.9 Gastro-esophageal reflux disease without esophagitis; F17.200 Nicotine dependence, unspecified, uncomplicated; Z68.32 Body mass index [BMI] 32.0-32.9, adult; Z79.02 Long term (current) use of antithrombotics/antiplatelets; Z79.4 Long term (current) use of insulin; Z79.82 Long term (current) use of aspirin; Z79.899 Other long term (current) drug therapy; Z88.0 Allergy status to penicillin; Z88.2 Allergy status to sulfonamides
CPT/HCPCS: 71045; 80048; 80061; 81001; 83036; 83735; 84484; 85025; 85027; 85347; 93306; 93458; 94660; 96365; 96366; 99291; C1874

== ENCOUNTER 2019-09-20 23:27 | Inpatient (IN) | payer MEDICARE, OTHER ==
[2019-09-20] MEDS ORDERED: METOPROLOL TARTRATE 25 MG TAB PO STA (23:38)
[2019-09-20] MEDS ORDERED: ASPIRIN 81 MG PO STA (23:38)
[2019-09-20] MEDS ORDERED: NITROGLYCERIN SL TABS 0.4 MG TAB SUBLINGUAL PRN (23:38)
[2019-09-20] MEDS ORDERED: MORPHINE SULFATE 2 MG/ML SYRINGE IVP STA (23:38)
[2019-09-20] MEDS ORDERED: MORPHINE SULFATE 4 MG/ML SYRINGE IV PRN (23:38)
[2019-09-20] MEDS ORDERED: SODIUM CHLORIDE 0.9% 1,000 ML IV SCH (23:45)
[2019-09-20] MEDS ORDERED: hydrALAZINE HCL 20 MG/ML 1 ML VIAL IVP PRN (23:48)
--- NOTE | 2019-09-20 23:48 | ED ---
Recheck HPI - General Stated Complaint: High Blood Pressure Time Seen by Provider: 09/20/19 23:33 Source: patient, EMS, RN notes reviewed, old records reviewed Mode of arrival: EMS Limitations: no limitations - History of Present Illness Initial Comments: This is a 69-year-old female DF for evaluation of 2 issues today both chest pain and high blood pressure. Patient is a transfer from [facility] where she presented today for some chest pain occasional headache and was noted to have significantly elevated blood pressure. She hasn't taken her blood pressure medication without difficulty. Patient admits to being at this hospital a few months ago where she had noted STEMI diagnosis with she thinks was 5 stents placed. MD Complaint: other (Patient does have elevated blood pressure although is improved patient was on blood pressure medication and route) -: unknown Returns Today for: other (Patient was seen at outside hospital for chest pain, patient's chest pain is resolved no chest pain currently but occasionally does get some chest pain) Symptoms Since Prior Visit: worsening pain (Patient sent here for worsening pain worsening blood pressure) Context: called for abnormal lab result Associated Symptoms: none Treatments Prior to Arrival: other medications (Patient surgery on blood pressure medications prior to transfer) - Related Data Home Medications Medication Instructions Recorded Confirmed Clopidogrel [Plavix] 75 mg PO DAILY 06/23/19 06/23/19 Insulin Aspart Protam & Aspart 30 unit SQ BID 06/23/19 06/23/19 [NovoLOG MIX 70-30 Flexpen] Losartan [Cozaar] 50 mg PO BID 06/23/19 06/23/19 Previous Rx's Medication Instructions Recorded Aspirin 81 mg PO DAILY chew 06/29/19 Atorvastatin [Lipitor] 80 mg PO HS #30 tab 06/29/19 Furosemide [Lasix] 20 mg PO DAILY #30 tab 06/29/19 Insuln Asp Prt/Insulin Aspart 10 unit SQ AC-LUNCH vial 06/29/19 [NovoLOG MIX 70-30 VIAL] Metoprolol Tartrate [Lopressor] 25 mg PO BID #60 tab 06/29/19 Nitroglycerin Sl Tabs [Nitrostat] 0.4 mg SUBLINGUAL Q5M PRN #25 tab 06/29/19 Spironolactone [Aldactone] 25 mg PO DAILY #30 tab 06/29/19 hydrALAZINE HCL [Apresoline] 50 mg PO TID #90 tab 06/29/19 Allergies Allergy/AdvReac Type Severity Reaction Status Date / Time latex Allergy Rash/Hives Verified 06/23/19 16:34 Penicillins Allergy Rash/Hives Verified 06/23/19 08:41 Sulfa (Sulfonamide Allergy Swelling Verified 06/23/19 08:41 Antibiotics) Wool Allergy Itching Uncoded 06/23/19 16:34 Review of Systems ROS Statement: Those systems with pertinent positive or pertinent negative responses have been documented in the HPI. ROS Other: All systems not noted in ROS Statement are negative. Past Medical History Past Medical History: Diabetes Mellitus, Hypertension History of Any Multi-Drug Resistant Organisms: None Reported Past Surgical History: Cholecystectomy, Tonsillectomy Additional Past Surgical History / Comment(s): stent in left leg, 5 stents placed in jun 2019, back surgery. Past Anesthesia/Blood Transfusion Reactions: Previous Problems w/ Anesthesia Additional Past Anesthesia/Blood Transfusion Reaction / Comment(s): states "can only take Sodium Penethol" Past Psychological History: No Psychological Hx Reported Smoking Status: Former smoker Past Alcohol Use History: None Reported Past Drug Use History: None Reported General Exam Limitations: no limitations General appearance: alert, in no apparent distress Head exam: Present: atraumatic, normocephalic, normal inspection Eye exam: Present: normal appearance, PERRL, EOMI. Absent: scleral icterus, conjunctival injection, periorbital swelling ENT exam: Present: normal exam, mucous membranes moist Neck exam: Present: normal inspection. Absent: tenderness, meningismus, lymphadenopathy Respiratory exam: Present: normal lung sounds bilaterally. Absent: respiratory distress, wheezes, rales, rhonchi, stridor Cardiovascular Exam: Present: regular rate, normal rhythm, normal heart sounds. Absent: systolic murmur, diastolic murmur, rubs, gallop, clicks GI/Abdominal exam: Present: soft, normal bowel sounds. Absent: distended, tenderness, guarding, rebound, rigid Extremities exam: Present: normal inspection, full ROM, normal capillary refill. Absent: tenderness, pedal edema, joint swelling, calf tenderness Back exam: Present: normal inspection Neurological exam: Present: alert, oriented X3, CN II-XII intact Psychiatric exam: Present: normal affect, normal mood Skin exam: Present: warm, dry, intact, normal color. Absent: rash Course Vital Signs 09/20/19 23:35 Temperature 98.3 F Pulse Rate 100 Respiratory 18 Rate Blood Pressure 157/77 O2 Sat by Pulse 97 Oximetry - Reevaluation(s) Reevaluation #1: 09/20/19 23:46 Medical record transferring paperwork are reviewed Reevaluation #2: 09/20/19 23:46 Did speak with transferring physician prior to transfer Reevaluation #3: 09/20/19 23:46 Patient blood pressure significantly improved here in the ER currently 150s over 70s - Consultations Consultation #1: Spoke with [facility] were agreeable for admission Medical Decision Making - Medical Decision Making 69 female DF for evaluation patient presents today for evaluation regards to hypertension and hypertensive urgency history of significant heart disease with stent placement. Patient is to be admitted for evaluation and treatment Disposition Clinical Impression: Chest pain, Hypertensive urgency Disposition: ADMITTED IP TO THIS HOSP Condition: Fair Is patient prescribed a controlled substance at d/c from ED?: No Referrals: Amadou Nagy MD [Primary Care Provider] - 1-2 days
[2019-09-21 06:14] LABS: Glucose,Whole Blood 203 mg/dL (75-99)
[2019-09-21 06:19] LABS: Cholesterol 85 mg/dL (<200); HDL Cholesterol 42 mg/dL (40-60); LDL Cholesterol,Calculated 17 mg/dL (0-99); Triglycerides 130 mg/dL (<150)
[2019-09-21] MEDS ORDERED: ALPRAZolam 0.5 MG TAB PO PRN (08:44)
[2019-09-21] MEDS ORDERED: ATORVASTATIN 80 MG TAB PO STA (08:44)
[2019-09-21] MEDS ORDERED: ASPIRIN 325 MG TAB PO STA (08:44)
[2019-09-21] MEDS ORDERED: SODIUM CHLORIDE 0.9% 1,000 ML in EMPTY BAG 1 BAG IV ONE (08:44)
[2019-09-21] MEDS ORDERED: NITROGLYCERIN SL TABS 0.4 MG TAB SUBLINGUAL PRN (08:44)
[2019-09-21] MEDS ORDERED: ALPRAZolam 0.25 MG TAB PO PRN (08:44)
[2019-09-21] MEDS ORDERED: ASPIRIN 325 MG TAB PO SCH (09:00)
[2019-09-21] MEDS ORDERED: METOPROLOL TARTRATE 50 MG TAB PO SCH (09:00)
--- NOTE | 2019-09-21 09:06 | CONS ---
CONSULTATION Mrs. Llamas is a 69-year-old female who was transferred from [facility] for further cardiac evaluation. The patient has a known history of coronary artery disease, status post anterior wall myocardial infarction in June of 2019. Subsequently, underwent cardiac catheterization and received 2 stents to the mid LAD. She was found to have significant obstructive disease in the right coronary artery, underwent stenting of the distal ostial PDA and the mid RCA. She has been doing relatively well. Yesterday, she was in cardiac rehab and was complaining of headache, a flushing in the face and mild chest discomfort. She was subsequently transferred to . She is pain free at the time of my evaluation. She noted her blood pressure was elevated yesterday. The patient has a prior history of smoking, diabetes, hyperlipidemia, and peripheral vascular disease and prior percutaneous revascularization. She has stopped smoking since March. Patient has intermittent claudication in the past with stenting of her left lower extremity. MEDICATION: Her medications at home included metformin, hydralazine 50 mg 3 times a day, spironolactone, Actos, metoprolol tartrate 25 mg twice a day, Cozaar 50 mg twice a day, insulin, Lasix 20 mg daily, Plavix 75 mg daily, Lipitor 80 mg daily, and aspirin 81 mg daily. REVIEW OF SYSTEMS: RESPIRATORY SYSTEM: She has history of dyspnea on exertion. No recent wheezing or cough. GI SYSTEM: No recent GI bleed. No peptic ulcer disease. SYSTEM: No dysuria or hematuria. NERVOUS SYSTEM: No stroke or seizure. PHYSICAL EXAMINATION: She is a 69-year-old female, alert, oriented, in no apparent distress. Blood pressure 138/50 with the heart rate in the 60s. HEAD: Normocephalic. EYES: Sclerae nonicteric. NECK: Good carotid upstroke. No bruit. No jugular venous distention. LUNGS: Clear to auscultation. HEART: Regular rate and rhythm. S1, S2. No S3 with systolic ejection murmur. No diastolic murmur. No rub. ABDOMEN: Soft, nontender. EXTREMITIES: No significant edema. Decreased distal pulses. LAB DATA: Lab data at [facility] revealed a troponin of 1.7. Her cholesterol is 85, LDL of 17. Her EKG revealed a sinus mechanism, normal axis and intervals, poor R progression with nonspecific ST-T wave changes. Her lab data from [place] showed a troponin 0.018. Magnesium 1.4. Hemoglobin of 12. BUN of 32, creatinine 1.1. IMPRESSION: 1. Non ST-segment elevation myocardial infarction. The patient with stenting of the RCA and to the LAD in June of last year in a setting of an anterior wall myocardial infarction. 2. History of hypertension. 3. Hyperlipidemia. 4. Diabetes mellitus. 5. Prior history of smoking. 6. Peripheral vascular disease. RECOMMENDATION: I will resume her oral medication. I would obtain echocardiogram and Doppler. Patient had a prior history of cardiomyopathy. I will proceed with coronary angiography to further assess her status and guide her treatment. The rationale behind the procedure as well risks and complications were discussed with the patient who is in full understanding and agreement. Thank you for this consult. Will follow with you. JOHN / PARAG: [id number] /
[2019-09-21] MEDS: METOPROLOL TARTRATE 25 MG TAB PO SCH ×2 (09:21→21:43)
[2019-09-21] MEDS: SPIRONOLACTONE 25 MG TAB PO SCH (09:21)
[2019-09-21] MEDS: CLOPIDOGREL 75 MG TAB PO SCH (09:22)
[2019-09-21] MEDS: hydrALAZINE HCL 50 MG TAB PO SCH ×3 (09:22→21:43)
[2019-09-21] MEDS: LOSARTAN 50 MG TAB PO SCH ×2 (09:22→21:43)
[2019-09-21 11:40] LABS: Glucose,Whole Blood 208 mg/dL (75-99)
--- NOTE | 2019-09-21 11:42 | ECHOF ---
Referral Reason:mi MEASUREMENTS -------- HEIGHT: 154.9 cm WEIGHT: 78.9 kg BP: RVIDd: 2.6 cm (< 3.3) IVSd: 1.5 cm (0.6 - 1.1) LVIDd: 4.6 cm (3.9 - 5.3) LVPWd: 1.3 cm (0.6 - 1.1) IVSs: 2.2 cm LVIDs: 2.3 cm LVPWs: 2.2 cm LAESV Index (A-L): 25.16 ml/m Ao Diam: 2.7 cm (2.0 - 3.7) AV Cusp: 1.5 cm (1.5 - 2.6) LA Diam: 3.3 cm (2.7 - 3.8) MV EXCURSION: 12.148 mm (> 18.000) MV EF SLOPE: 58 mm/s (70 - 150) EPSS: 0.5 cm MV E Edmund: 1.28 m/s MV DecT: 232 ms MV A Edmund: 0.73 m/s MV E/A Ratio: 1.75 AV maxP.15 mmHg AV meanP.80 mmHg RAP: 5.00 mmHg RVSP: 12.43 mmHg FINDINGS -------- Sinus rhythm. This was a technically good study. The left ventricular size is normal. There is moderate concentric left ventricular hypertrophy. O verall left ventricular systolic function is normal with, an EF between 55 - 60 %. Normal LAP Grade 1 Diastolic Dysfunction. The right ventricle is normal in size. The left atrial size is normal. Normal LA size by volume 22+/-6 ml/m2. The right atrial size is normal. Aortic valve is trileaflet and is mildly thickened. Peak/mean gradient across the Aortic Valve is 1 4.15mmHg / 8.80mmHg. The mitral valve is normal. The mitral valve leaflets are mildly thickened. Mild mitral regurgita tion is present. The tricuspid valve appears structurally normal. Mild tricuspid regurgitation present. Right vent ricular systolic pressure is normal at < 35 mmHg. There is no pulmonic regurgitation present. The aortic root size is normal. Normal inferior vena cava with normal inspiratory collapse consistent with estimated right atrial pre ssure of 5 mmHg. There is no pericardial effusion. CONCLUSIONS -------- 1. Sinus rhythm. 2. This was a technically good study. 3. The left ventricular size is normal. 4. There is moderate concentric left ventricular hypertrophy. 5. Overall left ventricular systolic function is normal with, an EF between 55 - 60 %. 6. Normal LAP Grade 1 Diastolic Dysfunction. 7. The right ventricle is normal in size. 8. The left atrial size is normal. 9. Normal LA size by volume 22+/-6 ml/m2. 10. The right atrial size is normal. 11. Aortic valve is trileaflet and is mildly thickened. 12. Peak/mean gradient across the Aortic Valve is 14.15mmHg / 8.80mmHg. 13. The mitral valve is normal. 14. The mitral valve leaflets are mildly thickened. 15. Mild mitral regurgitation is present. 16. The tricuspid valve appears structurally normal. 17. Mild tricuspid regurgitation present. 18. Right ventricular systolic pressure is normal at < 35 mmHg. 19. There is no pulmonic regurgitation present. 20. The aortic root size is normal. 21. Normal inferior vena cava with normal inspiratory collapse consistent with estimated right atrial pressure of 5 mmHg. 22. There is no pericardial effusion. RN CAMP: Cecilia Dye RDCS
--- NOTE | 2019-09-21 12:09 | P.HPIM ---
History of Present Illness This is a pleasant 69 years old female with past medical history of diabetes mellitus and hypertension, coronary artery disease status post 2 stents, peripheral vascular disease status post stents in the left lower extremity, she is a patient of Dr. Amadou Nagy, she was transferred from [facility] for chest pain and headache, when she was noted to be hypertensive On the presentation her blood pressure was 137/67, however earlier this morning was 170/60, heart rate 65. At [facility] her sodium was 140, potassium 3.9, creatinine 1.1, AST 34, ALT is 14 slightly elevated, bilirubin is normal 0.3, CK is 195, troponin 0.018 and 0.013, proBNP is 390 which is slightly elevated, doubly BC is 11.7 K, and methylamine 12, platelets 357 EKG showing normal sinus rhythm at 80 bpm, with T- wave inversion in V4-V6 and lead II, 3 and aVF another EKG shows sinus tachycardia at 1:15, UA is no suspicious of infection. INR is 1.0 chest x-ray report showing no parenchymal infiltrate, pneumothorax or pleural effusion by radiologist report On presentation her troponin was elevated 1.7, triglyceride 1:30, glucose 203 Telecommunications Technician already evaluated the patient here and recommended echocardiogram and coronary geography Review of Systems CONSTITUTIONAL: No fever, no malaise, no fatigue. HEENT: No recent visual problems or hearing problems. Denied any sore throat. CARDIOVASCULAR: No orthopnea, PND, no palpitations, no syncope. PULMONARY: No shortness of breath, no cough, no hemoptysis. GASTROINTESTINAL: No diarrhea, no nausea, no vomiting, no abdominal pain. Normoactive bowel sounds. NEUROLOGICAL: No headaches, no weakness, no numbness. HEMATOLOGICAL: Denies any bleeding or petechiae. GENITOURINARY: Denies any burning micturition, frequency, or urgency. MUSCULOSKELETAL/RHEUMATOLOGICAL: Denies any joint pain, swelling, or any muscle pain. ENDOCRINE: Denies any polyuria or polydipsia. Past Medical History Past Medical History: Diabetes Mellitus, Hypertension History of Any Multi-Drug Resistant Organisms: None Reported Past Surgical History: Cholecystectomy, Tonsillectomy Additional Past Surgical History / Comment(s): stent in left leg, 5 stents placed in jun 2019, back surgery. Past Anesthesia/Blood Transfusion Reactions: Previous Problems w/ Anesthesia Additional Past Anesthesia/Blood Transfusion Reaction / Comment(s): states "can only take Sodium Penethol" Past Psychological History: No Psychological Hx Reported Smoking Status: Former smoker Past Alcohol Use History: None Reported Past Drug Use History: None Reported Medications and Allergies Home Medications Medication Instructions Recorded Confirmed Type Clopidogrel [Plavix] 75 mg PO DAILY 06/23/19 09/21/19 History Losartan [Cozaar] 50 mg PO BID 06/23/19 09/21/19 History Aspirin 81 mg PO DAILY chew 06/29/19 09/21/19 Rx Atorvastatin [Lipitor] 80 mg PO HS #30 tab 06/29/19 09/21/19 Rx Furosemide [Lasix] 20 mg PO DAILY #30 tab 06/29/19 09/21/19 Rx Nitroglycerin Sl Tabs [Nitrostat] 0.4 mg SUBLINGUAL Q5M PRN #25 tab 06/29/19 09/21/19 Rx Spironolactone [Aldactone] 25 mg PO DAILY #30 tab 06/29/19 09/21/19 Rx hydrALAZINE HCL [Apresoline] 50 mg PO TID #90 tab 06/29/19 09/21/19 Rx Insuln Asp Prt/Insulin Aspart 10 unit SQ AC-TID 09/21/19 09/21/19 History [NovoLOG MIX 70-30 VIAL] Loratadine [Claritin] 10 mg PO HS 09/21/19 09/21/19 History Metoprolol Tartrate [Lopressor] 25 mg PO BID 09/21/19 09/21/19 History Montelukast Sodium [Singulair] 10 mg PO HS 09/21/19 09/21/19 History Pioglitazone [Actos] 15 mg PO DAILY 09/21/19 09/21/19 History metFORMIN HCL ER [Glucophage Xr] 500 mg PO BID-W/MEALS 09/21/19 09/21/19 History Allergies Allergy/AdvReac Type Severity Reaction Status Date / Time latex Allergy Rash/Hives Verified 09/21/19 08:15 Penicillins Allergy Rash/Hives Verified 09/21/19 08:15 Sulfa (Sulfonamide Allergy Swelling Verified 09/21/19 08:15 Antibiotics) wool Allergy Itching Verified 09/21/19 08:16 Physical Exam Vitals: Vital Signs Temp Pulse Pulse Resp BP BP Pulse Ox 09/21/19 08:00 97.5 F L 65 16 170/60 95 09/21/19 06:49 138/58 09/21/19 04:00 97.6 F 63 16 137/67 100 09/21/19 02:13 94 L 09/21/19 00:30 98.0 F 76 18 161/68 94 L 09/21/19 00:10 91 18 130/72 97 09/20/19 23:35 98.3 F 100 18 157/77 97 Intake and Output 09/20/19 09/21/19 09/21/19 22:59 06:59 14:59 Intake Total 700 Balance 700 Intake: Intake, IV Titration 700 Amount Sodium Chloride 0.9% 1, 700 000 ml @ 100 mls/hr IV . Q10H [place] Rx#:[id number] Other: # Voids 1 Weight 79 kg GENERAL: The patient is alert and oriented x3, not in any acute distress. Well developed, well nourished. HEENT: Pupils are round and equally reacting to light. EOMI. No scleral icterus. No conjunctival pallor. Normocephalic, atraumatic. No pharyngeal erythema. No thyromegaly. CARDIOVASCULAR: S1 and S2 present. No murmurs, rubs, or gallops. PULMONARY: Chest is clear to auscultation, no wheezing or crackles. ABDOMEN: Soft, nontender, nondistended, normoactive bowel sounds. No palpable organomegaly. MUSCULOSKELETAL: No joint swelling or deformity. EXTREMITIES: No cyanosis, clubbing, or pedal edema. NEUROLOGICAL: Gross neurological examination did not reveal any focal deficits. SKIN: No rashes. No petechiae Results Labs: Abnormal Lab Results - Last 24 Hours (Table) 09/21/19 09/21/19 Range/Units 05:51 06:12 POC Glucose (mg/dL) 203 H (75-99) mg/dL Troponin I 1.730 H* (0.000-0.034) ng/mL Thrombosis Risk Factor Assmnt - Choose All That Apply Any of the Below Risk Factors Present?: No Other Risk Factors: Yes Each Risk Factor Represents 2 Points: Age 61-74 years Thrombosis Risk Factor Assessment Total Risk Factor Score: 2 Thrombosis Risk Factor Assessment Level: Low Risk Assessment and Plan Assessment: Chest pain, rule out cardiac causes, with elevated troponin. Hypertensive urgency Diabetes mellitus History ocoronary artery disease status post 2 stents peripheral vascular disease status post stents in the left lower extremity Plan: this is a pleasant 69 years old female who presents with coronary artery disease and elevated troponin and hypertensive urgency, resume her blood pressure medication and keep monitoring. Telecommunications Technician recommended echocardiogram and coronary angiogram today at 1 PM Labs and medication were reviewed.. Continue same treatment. Continue with symptomatic treatment. Resume home medication. Monitor lytes and vitals. DVT and GI prophylaxis. Further recommendations of the clinical course of the patient DVT prophylaxis: Subcutaneous heparin GI Prophylaxis: Pepcid Prognosis is guarded
[2019-09-21] MEDS ORDERED: LIDOCAINE 1% INJ 10MG/ML (20 ML MDV) ONE (14:51)
[2019-09-21] MEDS ORDERED: VERAPAMIL 2.5 MG/ML 2 ML AMP ONE (14:52)
[2019-09-21] MEDS ORDERED: fentaNYL (PF) 50 MCG/ML 2 ML AMP ONE (14:57)
[2019-09-21 14:58] LABS: Glucose,Whole Blood 206 mg/dL (75-99)
[2019-09-21] MEDS ORDERED: LIDOCAINE 1% INJ 10MG/ML (20 ML MDV) SQ ONE (15:00)
[2019-09-21] MEDS ORDERED: IV FLUID CONTINUATION 600 ML IV ONE (15:00)
[2019-09-21] MEDS ORDERED: fentaNYL (PF) 50 MCG/ML 2 ML AMP IV ONE (15:00)
[2019-09-21] MEDS ORDERED: VERAPAMIL SYRINGE (5 MG/10 ML) INTRAARTER ONE (15:02)
[2019-09-21] MEDS ORDERED: MIDAZOLAM 2 MG/2 ML VIAL IV ONE (15:03)
[2019-09-21] MEDS ORDERED: NITROGLYCERIN SL TABS 0.4 MG TAB SUBLINGUAL ONE ×2 (15:05→15:06)
[2019-09-21] MEDS ORDERED: HEPARIN SODIUM 1,000 UN/ML (10ML VL) ONE (15:13)
[2019-09-21] MEDS ORDERED: HEPARIN SODIUM 1,000 UN/ML (10ML VL) IV ONE (15:14)
[2019-09-21] MEDS ORDERED: IOPAMIDOL-370 125ML BTL INJ ONE (15:18)
[2019-09-21] MEDS ORDERED: IOPAMIDOL-370 50ML BTL INJ ONE (15:18)
[2019-09-21] MEDS ORDERED: amLODIPine 5 MG TAB ONE (15:20)
[2019-09-21] MEDS ORDERED: amLODIPine 5 MG TAB PO ONE (15:21)
[2019-09-21] MEDS ORDERED: RX INFO: IV CONTRAST WAS GIVEN 1 EACH MISC MISCELLANE PRN (15:37)
[2019-09-21] MEDS ORDERED: SODIUM CHLORIDE 0.9% 1,000 ML IV SCH (15:45)
[2019-09-21 16:00] LABS: Glucose,Whole Blood 208 mg/dL (75-99)
[2019-09-21] MEDS: PIOGLITAZONE 15 MG TAB PO SCH (16:02)
[2019-09-21] MEDS: INSULN ASP PRT/INSULIN ASPART 100 UNIT/ML 10 ML VIAL SQ SCH ×2 (16:09→17:49)
[2019-09-21] MEDS: ISOSORBIDE MONONITRATE ER 30 MG TAB.ER.24H PO SCH (16:09)
[2019-09-21 17:11] LABS: Glucose,Whole Blood 323 mg/dL (75-99)
--- NOTE | 2019-09-21 18:06 | CC ---
CARDIAC CATHETERIZATION REPORT Mrs. Llamas is a 69-year-old female with known history of coronary artery disease status post anterior myocardial infarction in June of 2019, status post stenting of the LAD and subsequently to the right coronary artery, who presented with an episode of hypertension, cardiac rehab with mild chest discomfort and mild troponin elevation. There was no acute ST-segment changes. In view of that, recommendation made regarding cardiac catheterization. The procedure, as well as risks and complications were discussed with the patient who is in full understanding and agreement. PROCEDURE DETAILS: Patient was brought to the labor relations director in a fasting semi-sedated state after receiving fentanyl and Benadryl and achieving moderate conscious sedated state. Using Xylocaine anesthesia and Seldinger technique, a 6-Ugandan sheath was introduced in the right radial artery. Selective right and left coronary angiography were performed using 5- Ugandan 3 and half bend right and left Indra catheter. Multiple views of the coronary arteries including hemiaxial views were obtained. Following that, 5-Ugandan tight pigtail catheter was introduced in the left ventricle and a 30-degree BARBER view of the left ventricle was obtained. Following that, catheter and sheath were removed. Hemostasis was obtained with deployment of a TR band. There was no immediate complication. Patient was returned to her room in stable condition. Of note, the patient received 4500 units of intravenous heparin as well as intra-arterial verapamil. SELECTIVE CORONARY ANGIOGRAM: LEFT MAIN: This is a nonexisting vessel that bifurcates immediately to 2 ostium of the left circumflex into the LAD. LEFT ANTERIOR DESCENDING CORONARY ARTERY: This vessel is a large-sized vessel reaching toward the apex, tapers down the distal third. The ostium of the LAD has a 20% plaque. There is calcification proximally. The stented segment in the LAD is patent. There is no evidence of in-stent restenosis. It gives rise to a diagonal branch of moderate caliber that has no evidence of high-grade stenosis. LEFT CIRCUMFLEX: This is a nondominant vessel giving rise to a large obtuse marginal branch. The left circumflex has mild intimal disease in the obtuse marginal branch of 30%. There was no evidence of high-grade stenosis. RIGHT CORONARY ARTERY: This is a large dominant vessel bifurcating distally into PDA and posterolateral segment and branches. The stented segment in the mid, distal as well as the PDA are patent. There is a 40% to 50% plaque in the PLV that is a jailed branch. The rest of the vessel has no high-grade stenosis. LEFT VENTRICULOGRAM: Left ventriculogram was performed in 30-degree BARBER view and revealed normal left ventricular size and systolic function. Ejection fraction is 60%. There was no significant mitral regurgitation. HEMODYNAMICS: There was no gradient across the aortic valve. The left ventricular end-diastolic pressure was 16 mmHg. CONCLUSION: 1. Patent stent of the LAD and the right coronary artery. 2. Mild triple-vessel coronary artery disease. 3. Preserved left ventricular size and systolic function. RECOMMENDATIONS: In view of the findings and anatomy, I have recommend continued medical therapy with aggressive coronary risk modifications that has been initiated. Those findings and recommendations were discussed with the patient and her family who are in full understanding and agreement. DURATION OF PROCEDURE: 23 minutes. JOHN / PARAG: [id number] /
[2019-09-21] MEDS ORDERED: ATORVASTATIN 80 MG TAB PO SCH (21:00)
[2019-09-21] MEDS ORDERED: ATORVASTATIN 40 MG TAB PO SCH (21:00)
[2019-09-21] MEDS ORDERED: MONTELUKAST 10 MG TAB PO SCH (21:00)
[2019-09-21 21:39] LABS: Glucose,Whole Blood 278 mg/dL (75-99)
[2019-09-21] MEDS: FAMOTIDINE 20 MG/2 ML VIAL IV SCH (21:43)
[2019-09-21] MEDS: INSULIN ASPART (NovoLOG) 100 UNIT/ML VIAL SQ SCH (22:05)
[2019-09-21 23:38] LABS: Glucose,Whole Blood 260 mg/dL (75-99)
[2019-09-22 06:22] LABS: Glucose,Whole Blood 196 mg/dL (75-99)
[2019-09-22] MEDS: INSULIN ASPART (NovoLOG) 100 UNIT/ML VIAL SQ SCH ×2 (06:37→12:10)
[2019-09-22 06:47] LABS: HCT 33.7 % (34.0-46.0); HGB 10.7 gm/dL (11.4-16.0); MCHC 31.6 g/dL (31.0-37.0); MCV 101.2 fL (80.0-100.0); Platelet Count 309 k/uL (150-450); RBC 3.33 m/uL (3.80-5.40)
[2019-09-22] MEDS: INSULN ASP PRT/INSULIN ASPART 100 UNIT/ML 10 ML VIAL SQ SCH ×2 (07:01→12:10)
[2019-09-22 07:13] LABS: Calcium 9.5 mg/dL (8.4-10.2); Magnesium 1.9 mg/dL (1.6-2.3)
[2019-09-22 07:27] LABS: Potassium 4.1 mmol/L (3.5-5.1)
[2019-09-22] MEDS ORDERED: ASPIRIN 81 MG PO SCH (09:00)
[2019-09-22] MEDS: CLOPIDOGREL 75 MG TAB PO SCH (09:20)
[2019-09-22] MEDS: ISOSORBIDE MONONITRATE ER 30 MG TAB.ER.24H PO SCH (09:20)
[2019-09-22] MEDS: METOPROLOL TARTRATE 25 MG TAB PO SCH (09:20)
[2019-09-22] MEDS: FAMOTIDINE 20 MG/2 ML VIAL IV SCH (09:20)
[2019-09-22] MEDS: SPIRONOLACTONE 25 MG TAB PO SCH (09:20)
[2019-09-22] MEDS: hydrALAZINE HCL 50 MG TAB PO SCH (09:20)
[2019-09-22] MEDS: LOSARTAN 50 MG TAB PO SCH (09:20)
[2019-09-22] MEDS: PIOGLITAZONE 15 MG TAB PO SCH (09:20)
[2019-09-22 10:21] VITALS: RESP 20; TEMP 97.5
--- NOTE | 2019-09-22 10:26 | PN ---
PROGRESS NOTE Mrs. Llamas is a 69-year-old female with a history of coronary artery disease, status post stenting of the LAD and the right coronary artery in June, who presented with elevation of blood pressure and mild troponin elevation. She underwent cardiac catheterization yesterday and it revealed no evidence of significant progression of disease. She is feeling well this morning. Her breathing is stable. She denies any dizziness or palpitation. She denies any nausea. She continued to be on aspirin once a day, Lipitor 40 mg daily, Plavix 75 mg daily, hydralazine 50 mg 3 times a day, losartan 50 mg twice a day, isosorbide mononitrate 30 mg daily, insulin, and spironolactone 25 mg daily. PHYSICAL EXAMINATION: Blood pressure 126/60 with the heart rate in the 70s. LUNGS: Clear. HEART: Regular rate and rhythm. S1, S2. No S3 with systolic murmur. No diastolic murmur. ABDOMEN: Soft, nontender. EXTREMITIES: No edema. Right radial pulse intact. LAB DATA: Lab data revealed BUN and creatinine 17 and 0.85, hemoglobin of 10.7. IMPRESSION: 1. Hypertension under better control. 2. History of coronary artery disease with resolution of the cardiomyopathy. 3. [id number] myocardial infarction with no evidence of progression of disease could be worsened by the hypertension on presentation. 4. Hypertension, under better control. 5. Diabetes. 6. Hyperlipidemia. 7. Prior history of smoking. 8. History of peripheral vascular disease. RECOMMENDATION: From the cardiac standpoint, I will decrease the dose of her hydralazine to 25 mg 3 times a day. Continue rest of her medical regimen. She should be able to be discharged home today and followed as an outpatient. MMODL / IJN: [id number] /
[2019-09-22 11:42] LABS: Glucose,Whole Blood 186 mg/dL (75-99)
[2019-09-22 11:49] VITALS: BP 137/63; PULSE 61
--- NOTE | 2019-09-22 13:16 | CDI ---
Documentation Clarification Form Date: 09/22/2019 12:48:24 PM From: Damaris Madison RN CCDS Admit Date: 09/20/2019 11:40:00 PM Patient Name: Paola Llamas Visit Number: [id number] Discharge Date: ATTENTION: The Clinical Documentation Specialists (CDI) and [facility] Coding Staff appreciate your assistance in clarifying documentation. Please respond to the clarification below the line at the bottom and electronically sign. The CDI & [facility] Coding staff will review the response and follow-up if needed. Please note: Queries are made part of the Legal Health Record. If you have any questions, please contact the author of this message via ITS. Dr. Becca Mcleod Non-ST segment elevation myocardial infarction is documented in the Cardiology Consult on 09/20 History/Risk Factors:69-year-old female presents to ED via EMS as a transfer from [facility] for chest pain, headache, elevated blood pressure, Labs before transfer Troponin 0.018, 0.013 and BNP 390 Clinical Indicators: Your Progress Note 3/5 Non-ST elevation myocardial infarction with no evidence of progression of the disease could be worsened by the hypertension on presentation. Lab findings: 09/20 Troponin 1.730 Your Progress Note / Cardiac catheterization yesterday and it revealed no evidence of significant progression of disease Vital Signs: 3 157/77 100 98.3 18 97% 2L nasal cannula Treatment: 3 Aspirin x1, Lopressor x1, Morphine Iv x1, Nitrostat, Cardiac / Catheterization In your professional opinion, can you please clarify the Non-ST elevation Myocardial Infarction? * Type II NSTEMI (please specify underlying etiology) _htn * NSTEMI Ruled Out * Other, please specify * Unable to determine (Last Revision: October 2017) MTDD
[2019-09-22] MEDS ORDERED: hydrALAZINE HCL 10 MG TAB PO SCH (16:00)
[2019-09-22 18:53] LABS: Hemoglobin A1C 8.3 % (4.0-6.0)
--- NOTE | 2019-09-26 09:02 | CDI ---
Documentation Clarification Form Date: 09/26/19 From: Cintia Stafford CCS Phone: If you have a question about this query, please contact Vero Aguilar, Antisubmarine Weapons Officer at [phone] between 8am and 5pm. Admit Date: 09/20/19 Discharge Date: 09/22/19 Patient Name: Paola Epperson Visit Number: [id number] ATTENTION: The Clinical Documentation Specialists (CDI) and [facility] Coding Staff appreciate your assistance in clarifying documentation. Please respond to the clarification below the line at the bottom and electronically sign. The CDI & [facility] Coding staff will review the response and follow-up if needed. Please note: Queries are made part of the Legal Health Record. If you have any questions, please contact the author of this message via ITS. Dear Dr. Maguire, Cardiomyopathy is documented in the Consult, PN. History/Risk Factors: CAD, HTN, DM, PVD Clinical indicators: Type II [place] Radiology Reports: Echocardiogram: There is moderate concentric left ventricular hypertrophy. Overall left ventricular systolic function is normal with, an EF between 55 - 60 %. Mild mitral regurgitation is present. Mild tricuspid regurgitation present. Treatment: Lasix 20 mg PO daily, Aspirin 325 mg PO daily, Lopressor 50 mg PO BID Consults: Shani In your professional opinion, can you please clarify the type of cardiomyopathy and underlying cause if known? Congenital Dilated Hypertrophic Ischemic Cardiomyopathy resolved Secondary, please indicate underlying cause if known Other, please specify Unable to determine Unable to determine ,refer to sandblaster stone please MTDD
--- NOTE | 2019-09-27 11:25 | P.DS ---
Providers Date of admission: 09/20/19 23:40 Attending physician: Erasmo Waldron Consults: 09/20/19 23:38 Consult Physician Urgent Consulting Provider: Becca Mcloed Consult Reason/Comments: cp Do you want consulting provider notified?: Yes Primary care physician: Amadou Nagy [place] [facility] Course: Diagnoses: None STEMI With cardiac cath on 09/20 showing patent stent of the LAD, and mild triple-vessel disease Hypertensive urgency, better controlled blood pressure upon discharge Diabetes mellitus History ocoronary artery disease status post 2 stents peripheral vascular disease status post stents in the left lower extremity Hospital course: This is a pleasant 69 years old female with past medical history of diabetes mellitus and hypertension, coronary artery disease status post 2 stents, peripheral vascular disease status post stents in the left lower extremity, she is a patient of Dr. Amadou Nagy, she was transferred from [facility] for chest pain and headache, when she was noted to be hypertensive, Her blood pressure is controlled after starting her medication and on the morning of discharge was 139/57. Patient is status post cardiac cath on 09/20 showing patent LAD stent and mild triple-vessel coronary artery disease with preserved ejection fraction at 60%. On the day of discharge patient denies chest pain or dyspnea, no headache, no weakness or numbness, no nausea vomiting, she started in the 12th. No fever Patient was cleared for discharge by cardiology team. On the day of discharge resume her home medication, adjust her blood pressure medication including decreasing the dose of hydralazine from 50 down to 25 mg 3 times a day. Problems and management plan were discussed with the patient and he verbalized understanding and acceptance Patient was found stable and can be discharged home however he needs follow-up as an outpatient. Patient was instructed to follow up with PCP Dr. Amadou Nagy within one week and patient agrees, and with her sugarcane planter Dr. Mcleod on 10/05 and she agrees with the appointments and time Gen: patient is a AAOx3, no distress CVS: S1-S2, RRR, no murmur Lungs: B/L CTA, no wheezing Abdomen: soft, no distention, no tenderness, positive bowel sounds Extremity: no leg edema or induration Time spent more than 35 minutes Patient Condition at Discharge: Fair Plan - Discharge Summary Discharge Rx Participant: No New Discharge Prescriptions: No Action Clopidogrel [Plavix] 75 mg PO DAILY Losartan [Cozaar] 50 mg PO BID Spironolactone [Aldactone] 25 mg PO DAILY #30 tab hydrALAZINE HCL [Apresoline] 50 mg PO TID #90 tab Aspirin 81 mg PO DAILY chew Furosemide [Lasix] 20 mg PO DAILY #30 tab Atorvastatin [Lipitor] 80 mg PO HS #30 tab Nitroglycerin Sl Tabs [Nitrostat] 0.4 mg SUBLINGUAL Q5M PRN #25 tab PRN Reason: Chest Pain Insuln Asp Prt/Insulin Aspart [NovoLOG MIX 70-30 VIAL] 10 unit SQ AC-TID Montelukast Sodium [Singulair] 10 mg PO HS Loratadine [Claritin] 10 mg PO HS Pioglitazone [Actos] 15 mg PO DAILY Metoprolol Tartrate [Lopressor] 25 mg PO BID metFORMIN HCL ER [Glucophage Xr] 500 mg PO BID-W/MEALS Discharge Medication List Clopidogrel [Plavix] 75 mg PO DAILY 06/23/19 [History] Losartan [Cozaar] 50 mg PO BID 06/23/19 [History] Aspirin 81 mg PO DAILY chew 06/29/19 [Rx] Atorvastatin [Lipitor] 80 mg PO HS #30 tab 06/29/19 [Rx] Furosemide [Lasix] 20 mg PO DAILY #30 tab 06/29/19 [Rx] Nitroglycerin Sl Tabs [Nitrostat] 0.4 mg SUBLINGUAL Q5M PRN #25 tab 06/29/19 [Rx ] Spironolactone [Aldactone] 25 mg PO DAILY #30 tab 06/29/19 [Rx] hydrALAZINE HCL [Apresoline] 50 mg PO TID #90 tab 06/29/19 [Rx] Insuln Asp Prt/Insulin Aspart [NovoLOG MIX 70-30 VIAL] 10 unit SQ AC-TID 09/21/19 [History] Loratadine [Claritin] 10 mg PO HS 09/21/19 [History] Metoprolol Tartrate [Lopressor] 25 mg PO BID 09/21/19 [History] Montelukast Sodium [Singulair] 10 mg PO HS 09/21/19 [History] Pioglitazone [Actos] 15 mg PO DAILY 09/21/19 [History] metFORMIN HCL ER [Glucophage Xr] 500 mg PO BID-W/MEALS 09/21/19 [History] Follow up Appointment(s)/Referral(s): Becca Mcleod MD [STAFF PHYSICIAN] - 10/06/19 3:30 pm (Please keep previous appointment. ) Amadou Nagy MD [Primary Care Provider] - 1-2 days Patient Instructions/Handouts: Heart Healthy Diet (DC), After Radial Heart Catheterization (GEN)
--- NOTE | 2019-09-29 11:24 | CDI ---
Documentation Clarification Form Date: 09/29/19 From: Cintia Stafford CCS Phone: If you have a question about this query, please contact Vero Aguilar, Workforce Management Analyst at [phone] between 8am and 5pm. Admit Date: 09/20/19 Discharge Date: 09/22/19 Patient Name: Paola Epperson Visit Number: [id number] ATTENTION: The Clinical Documentation Specialists (CDI) and [facility] Coding Staff appreciate your assistance in clarifying documentation. Please respond to the clarification below the line at the bottom and electronically sign. The CDI & [facility] Coding staff will review the response and follow-up if needed. Please note: Queries are made part of the Legal Health Record. If you have any questions, please contact the author of this message via ITS. Dear Dr. Mcleod, Cardiomyopathy is documented in the Consult, PN. History/Risk Factors: CAD, HTN, DM, PVD Clinical indicators: Type II [place] Radiology Reports: Echocardiogram: There is moderate concentric left ventricular hypertrophy. Overall left ventricular systolic function is normal with, an EF between 55 - 60 %. Mild mitral regurgitation is present. Mild tricuspid regurgitation present. Treatment: Lasix 20 mg PO daily, Aspirin 325 mg PO daily, Lopressor 50 mg PO BID Consults: Shani In your professional opinion, can you please clarify the type of cardiomyopathy and underlying cause if known? Congenital Dilated Hypertrophic Ischemic Cardiomyopathy resolved xxx Secondary, please indicate underlying cause if known Other, please specify Unable to determine MTDD
== END 2019-09-22 13:38 | disposition home or self-care (01) | DRG 282 ==
LOC: EC 23:27 → 3SCARD 23:40
PROVIDERS: ADMIT Hospitalist; ATTEND Hospitalist
PROC: B2111ZZ Fluoroscopy of Multiple Coronary Arteries using Low Osmolar Contrast (ICD-10-PCS; 2019-09-21)
PROC: B2151ZZ Fluoroscopy of Left Heart using Low Osmolar Contrast (ICD-10-PCS; 2019-09-21)
PROC: 4A023N7 Measurement of Cardiac Sampling and Pressure, Left Heart, Percutaneous Approach (ICD-10-PCS; principal; 2019-09-21 11:15)
DX: I16.0 Hypertensive urgency (principal); I21.A1 Myocardial infarction type 2; E11.51 Type 2 diabetes mellitus with diabetic peripheral angiopathy without gangrene; I25.10 Atherosclerotic heart disease of native coronary artery without angina pectoris; R00.0 Tachycardia, unspecified; I10 Essential (primary) hypertension; E78.5 Hyperlipidemia, unspecified; I25.2 Old myocardial infarction; Z79.02 Long term (current) use of antithrombotics/antiplatelets; Z79.4 Long term (current) use of insulin; Z79.899 Other long term (current) drug therapy; Z79.82 Long term (current) use of aspirin; Z91.048 Other nonmedicinal substance allergy status; Z95.5 Presence of coronary angioplasty implant and graft; Z90.49 Acquired absence of other specified parts of digestive tract; Z98.890 Other specified postprocedural states; Z87.891 Personal history of nicotine dependence; Z95.820 Peripheral vascular angioplasty status with implants and grafts; Z91.040 Latex allergy status; Z88.0 Allergy status to penicillin; Z88.2 Allergy status to sulfonamides
CPT/HCPCS: 80048; 80061; 83036; 83735; 84484; 85027; 93306; 93458; 96361; 96374; 99285

== ENCOUNTER 2022-10-17 10:00 | Day surgery (SDC) | payer MEDICARE, OTHER ==
[~2022-10-17 10:00] MED LIST: ALPRAZolam 0.25 MG TAB PO PRN; ALPRAZolam 0.5 MG TAB PO PRN; ASPIRIN 325 MG TAB PO ONE; ATORVASTATIN 80 MG TAB PO ONE; HEPARIN SODIUM,PORCINE 10,000 UNIT in SODIUM CHLORIDE 0.9% 1,000 ML IRRIGATION PRN; HEPARIN SODIUM,PORCINE 2,500 UNIT in SODIUM CHLORIDE 0.9% 250 ML IRRIGATION PRN; NITROGLYCERIN SL TABS 0.4 MG TAB SUBLINGUAL PRN; SODIUM CHLORIDE 0.9% 1,000 ML in EMPTY BAG 1 BAG IV ONE
[2022-10-17] MEDS: SODIUM CHLORIDE 0.9% 1,000 ML in EMPTY BAG 1 BAG IV SCH ×2 (10:30→17:53)
[2022-10-17 10:42] LABS: Glucose,Whole Blood 203 mg/dL (70-110)
[2022-10-17] MEDS ORDERED: INSULIN ASPART (NovoLOG) 100 UNIT/ML VIAL SQ ONE (10:45)
[2022-10-17] MEDS ORDERED: VERAPAMIL 2.5 MG/ML 2 ML AMP ONE (11:47)
[2022-10-17] MEDS ORDERED: HEPARIN SODIUM 1,000 UN/ML (10ML VL) ONE (12:00)
[2022-10-17] MEDS ORDERED: fentaNYL (PF) 50 MCG/ML 2 ML AMP ONE (12:00)
[2022-10-17] MEDS ORDERED: fentaNYL (PF) 50 MCG/1 ML VIAL IVP ONE (12:27)
[2022-10-17] MEDS ORDERED: LIDOCAINE 1% INJ 10MG/ML (30 ML VIAL-PF) SQ ONE (12:31)
[2022-10-17] MEDS ORDERED: VERAPAMIL SYRINGE (5 MG/10 ML) INTRAARTER ONE (12:32)
[2022-10-17] MEDS: HEPARIN SODIUM 1,000 UN/ML (10ML VL) IV ONE ×3 (12:37→14:02)
[2022-10-17] MEDS ORDERED: CLOPIDOGREL 75 MG TAB ONE (12:49)
[2022-10-17] MEDS ORDERED: HEPARIN SODIUM 1,000 UN/ML (10ML VL) IV ONE (12:51)
[2022-10-17] MEDS ORDERED: MIDAZOLAM 2 MG/2 ML VIAL IV ONE (12:52)
[2022-10-17] MEDS ORDERED: CLOPIDOGREL 75 MG TAB PO ONE (12:54)
[2022-10-17] MEDS ORDERED: IOPAMIDOL-370 125ML BTL INJ ONE (13:11)
[2022-10-17] MEDS ORDERED: hydrALAZINE HCL 20 MG/ML 1 ML VIAL ONE (13:16)
[2022-10-17] MEDS ORDERED: hydrALAZINE HCL 20 MG/ML 1 ML VIAL IV ONE (13:20)
[2022-10-17] MEDS ORDERED: amLODIPine 5 MG TAB PO STA (13:24)
[2022-10-17] MEDS ORDERED: IOPAMIDOL-370 100ML BTL INJ ONE ×2 (13:42→13:57)
[2022-10-17] MEDS ORDERED: amLODIPine 5 MG TAB PO ONE (14:03)
[2022-10-17] MEDS ORDERED: MAG HYDROX/AL HYDROX/SIMETH 30 ML CUP PO PRN (14:09)
[2022-10-17] MEDS ORDERED: ATROPINE SULFATE 0.1 MG/ML 10ML SYRINGE IV PRN (14:09)
[2022-10-17] MEDS ORDERED: ZOLPIDEM 5 MG TAB PO PRN (14:09)
[2022-10-17] MEDS ORDERED: RX INFO: IV CONTRAST WAS GIVEN 1 EACH MISC MISCELLANE PRN (14:09)
[2022-10-17] MEDS ORDERED: NITROGLYCERIN SL TABS 0.4 MG TAB SUBLINGUAL PRN (14:09)
[2022-10-17] MEDS ORDERED: SODIUM CHLORIDE 0.9% 1,000 ML in EMPTY BAG 1 BAG IV SCH (14:15)
[2022-10-17] MEDS ORDERED: ACETAMINOPHEN TAB 325 MG TAB PO PRN (14:44)
[2022-10-17] MEDS ORDERED: DEXTROSE 50% SYRINGE 50 ML IVP PRN ×2 (15:43)
[2022-10-17] MEDS: hydrALAZINE HCL 25 MG TAB PO SCH ×2 (16:06→22:57)
[2022-10-17 17:14] LABS: Glucose,Whole Blood 448 mg/dL (70-110)
[2022-10-17] MEDS: INSULN ASP PRT/INSULIN ASPART 100 UNIT/ML 10 ML VIAL SQ SCH (17:41)
[2022-10-17] MEDS: INSULIN ASPART (NovoLOG) 100 UNIT/ML VIAL SQ SCH ×2 (17:43→20:56)
[2022-10-17] MEDS: METOPROLOL TARTRATE 25 MG TAB PO SCH (20:48)
[2022-10-17] MEDS: LOSARTAN 50 MG TAB PO SCH (20:48)
[2022-10-17 20:54] LABS: Glucose,Whole Blood 424 mg/dL (70-110)
[2022-10-17] MEDS ORDERED: ATORVASTATIN 80 MG TAB PO SCH (21:00)
[2022-10-18 06:24] LABS: African American GFR (CKD) 54 (>60 ml/min/1.73 sqM); Anion Gap 11 mmol/L; Blood Urea Nitrogen 38 mg/dL (7-17); Carbon Dioxide 27 mmol/L (22-30); Chloride 99 mmol/L (98-107); Glucose 109 mg/dL (74-99); Non-African American GFR(CKD) 47 (>60 ml/min/1.73 sqM); Sodium 137 mmol/L (137-145)
[2022-10-18] MEDS: INSULIN ASPART (NovoLOG) 100 UNIT/ML VIAL SQ SCH (06:32)
[2022-10-18 06:34] LABS: Glucose,Whole Blood 136 mg/dL (70-110)
[2022-10-18] MEDS: SODIUM CHLORIDE 0.9% 1,000 ML in EMPTY BAG 1 BAG IV SCH (06:34)
[2022-10-18 07:55] VITALS: BP 141/75; PULSE 74; RESP 17; TEMP 97.8
[2022-10-18] MEDS: INSULN ASP PRT/INSULIN ASPART 100 UNIT/ML 10 ML VIAL SQ SCH (08:22)
[2022-10-18] MEDS: LOSARTAN 50 MG TAB PO SCH (08:22)
--- NOTE | 2022-10-18 08:22 | P.PN ---
Subjective Progress Note Date: 10/18/22 PROGRESS NOTE The patient is a 72-year-old female with a known history of CAD who presented with symptoms of progressive dyspnea and had an abnormal MPI. She underwent cardiac catheterization and was found to have critical stenosis involving the PLV ostium. She underwent stenting of the PLV and distal RCA. She's feeling well this morning, she denies any chest discomfort, dizziness or palpitations. She denies any nausea or vomiting. Hemodynamically she is stable. She has no further headache which has been her anginal symptoms. Medications: Aspirin, Plavix 75 g daily, Apresoline 50 mg 3 times a day, Lipitor 80 mg daily, metoprolol 25 mg twice a day, losartan 50 mg twice a day, isosorbide mononitrate 30 mg daily, insulin, Aldactone 25 mg daily, metformin,Jardiance PHYSICAL EXAMINATION: Blood pressure 134/80 heart rate 70 LUNGS: [Clear to auscultation] HEART: [Regular rate and rhythm, S1, S2. No S3. systolic ejection murmur] ABDOMEN: [Soft, nontender, no organomegaly] EXTREMETIES: [No edema, right radial pulse intact] LAB: Sinus mechanism with no acute ST segment changes, BUN 38, creatinine 1.15 IMPRESSION: 1. Status post stenting of the PLV and distal RCA 2. Known history of multivessel disease 3. Hypertension 4. Hyperlipidemia 5. Diabetes mellitus PLAN: 1. Continue present therapy 2. Discharged home today 3. And follow-up in the office next week 4. Depending on her progress further recommendations will be made Objective - Vital Signs Vital signs: Vital Signs Temp 97.8 F 10/18/22 07:00 Pulse 74 10/18/22 07:00 Resp 17 10/18/22 07:00 BP 141/75 10/18/22 07:00 Pulse Ox 100 10/18/22 07:00 FiO2 Intake & Output 10/17/22 10/18/22 10/18/22 18:59 06:59 18:59 Intake Total 325 Balance 325 Weight 81.4 kg Intake: IV 325 Other: # Voids 1 - Labs CBC & Chem 7: 10/18/22 04:47 Labs: Abnormal Lab Results - Last 24 Hours (Table) 10/17/22 10/17/22 10/17/22 Range/Units 10:30 17:11 20:51 BUN (7-17) mg/dL Creatinine (0.52-1.04) mg/dL Glucose (74-99) mg/dL POC Glucose (mg/dL) 203 H 448 H 424 H (70-110) mg/dL 10/18/22 10/18/22 Range/Units 04:47 06:32 BUN 38 H (7-17) mg/dL Creatinine 1.15 H (0.52-1.04) mg/dL Glucose 109 H (74-99) mg/dL POC Glucose (mg/dL) 136 H (70-110) mg/dL
[2022-10-18] MEDS: METOPROLOL TARTRATE 25 MG TAB PO SCH (08:23)
[2022-10-18] MEDS: hydrALAZINE HCL 25 MG TAB PO SCH (08:23)
--- NOTE | 2022-10-18 08:40 | P.CARDCATH ---
Date of Procedure: 10/17/22 Description of Procedure: Cardiac Catheterization: The patient is a 72-year-old female with a history of CAD, multivessel stenting, hypertension, hyperlipidemia and diabetes who presented with symptoms of dyspnea and had an abnormal MPI. Recommendations were made regarding cardiac catheterization, the risks and the complications were discussed with the patient who is in full understanding and agreement. Procedure Description: Patient was brought to cath lab manager in fasting semi-sedated state after receiving Fentanyl and Benadryl achieiving moderate conscious sedated state. Using Xylocaine Anesthesia and Seldinger technique, a 6-[place] sheath was introduced in the right radial artery . Subsequently, selective coronary angiography was performed using a 5-[place]ayan 3.5 bend Indra catheter. Multiple views of the coronary artery including hemiaxial views were obtained. The 5-[place] pigtail catheter was used to cross the aortic valve and LVEDP was calculated. PCI: Attempted to cannulate the right coronary ostium using a 0.75 AL guiding catheter was unsuccessful, that catheter was exchanged to a 6-[place] 4 bend right Indra guiding catheter, after cannulating the right coronary ostium a 0.014 BMW J-wire is positioned in the distal PLV and subsequently another wire 0.014 BMW J was positioned in the distal PDA. A 2.5 x 12 mm Treck was advanced and when inflation and the PLV ostium was performed subsequently a 3.0X12 mm Xience. Stent was deployed and dilated at 16 bob, after removing the balloon and inflation at the bifurcation using the 2.5 x 12 mm balloon was done, subsequently a 3.0 x 12 mm NC Treck was advanced and when inflation at the bifurcation was performed. After removing the balloon a 3.0 x 15 mm Xience joanna point stent was deployed at the bifurcation into the PDA and postdilated with 3.25 x 12 mm NC Treck balloon. After the last inflation and after removing the wire images were obtained that revealed stable successful stenting. Following that, catheter and sheath were removed. Hemostasis was obtained with deployment of TR band . There was no immediate complication. Patient was returned to room in stable condition. Of note, the patient received a total of 8500 units of intravenous heparin as well as intra-arterial verapamil. She received an oral loading dose of clopidogrel and her ACT was monitored. She had headache with the inflation that resolved at the end of the procedure Findings: Fluoroscopy: Calcifications of the coronary arteries was noted Left main: This is a short almost nonexistent vessel that bifurcates into the LAD and left circumflex, the left main has no high-grade stenosis. LAD: This is a large size vessel, reaching to the apex giving rise to a large diagonal branch. The LAD tapers down distally. The stented segment in the LAD is patent with mild in-stent restenosis. The first diagonal branch has a 50-60% stenosis proximally, the rest of the vessel has no high-grade stenosis Left circumflex: This is a nondominant vessel giving rise to a large obtuse marginal branch. The left circumflex extending into the obtuse marginal branch has intimal disease of 50-60% with no progression since 2019 RCA: This is a large dominant vessel, bifurcating into PDA and PLV. The stented segment in the mid and distal RCA are patent. The ostium of the PLV has a 99% stenosis and 70% in the distal right coronary artery prior to the bifurcation Left Ventriculogram: Not performed Hemodynamics: There was no gradient across the aortic valve, LVEDP was 12-16 mmHg Conclusion: 1. Calcified coronary arteries 2. Critical stenosis in the ostium of the PLV 3. Moderate in the diagonal branch and obtuse marginal branch with no progression of disease since 2020 4. Patent stent in the mid RCA and LAD 5. Successful stenting of the distal RCA and the ostium of the PLV with reduction of stenosis from 99% to less than 5% Recommendations: The patient will continue on aspirin and clopidogrel for 6 months without any disruption in addition to aggressive coronary risks modifications. The findings and the recommendations were discussed with the patient and the family and they were in full understanding and agreement. Duration of sedation is 85 minutes.
[2022-10-18] MEDS ORDERED: SPIRONOLACTONE 25 MG TAB PO SCH (09:00)
[2022-10-18] MEDS ORDERED: ISOSORBIDE MONONITRATE ER 30 MG TAB.ER.24H PO SCH (09:00)
[2022-10-18] MEDS ORDERED: DAPAGLIFLOZIN PROPANEDIOL 5 MG TABLET PO SCH (09:00)
[2022-10-18] MEDS ORDERED: CLOPIDOGREL 75 MG TAB PO SCH (09:00)
[2022-10-18] MEDS ORDERED: ASPIRIN 81 MG PO SCH (09:00)
== END 2022-10-18 11:20 | disposition home or self-care (01) ==
LOC: CATHCVL 10:00 → 6NMEDSUR 14:05 → CATHCVL 10-18 11:20
PROVIDERS: ATTEND Internal Medicine Interventional Cardiology
DX: I25.10 Atherosclerotic heart disease of native coronary artery without angina pectoris (principal); E11.9 Type 2 diabetes mellitus without complications; E78.5 Hyperlipidemia, unspecified; I10 Essential (primary) hypertension; I25.119 Atherosclerotic heart disease of native coronary artery with unspecified angina pectoris; Z79.4 Long term (current) use of insulin; Z79.82 Long term (current) use of aspirin; Z79.84 Long term (current) use of oral hypoglycemic drugs; Z79.899 Other long term (current) drug therapy; Z95.5 Presence of coronary angioplasty implant and graft
CPT/HCPCS: 93458; 80048; 83036; J2250; J0360; J2001; J1644; Q9967 ×2; J3010

== ENCOUNTER 2022-12-09 17:36 | Inpatient (IN) | payer MEDICARE, OTHER ==
[2022-12-09] MEDS ORDERED: NITROGLYCERIN SL TABS 0.4 MG TAB SUBLINGUAL PRN ×2 (19:38→22:24)
[2022-12-09] MEDS ORDERED: ASPIRIN 81 MG PO STA (19:38)
--- NOTE | 2022-12-09 19:42 | ED ---
General Adult HPI - General Chief complaint: Recheck/Abnormal Lab/Rx Stated complaint: arm pain Time Seen by Provider: 12/09/22 17:50 Source: patient, family, RN notes reviewed, old records reviewed (Records from [facility]) Mode of arrival: EMS Limitations: no limitations - History of Present Illness Initial comments: Patient is a pleasant 72-year-old female presenting to the emergency Department with left arm pain. Patient did go to [facility] for the symptoms and was diagnosed with non-ST elevation myocardial infarction. Patient states she had similar symptoms years ago also with heart attack. Patient denies ever having chest discomfort. Patient states he may have been a little bit sweaty earlier. No nausea. No dyspnea. Patient currently symptom-free. - Related Data Home Medications Medication Instructions Recorded Confirmed Losartan [Cozaar] 50 mg PO BID 06/23/19 10/15/22 Insuln Asp Prt/Insulin Aspart 35 unit SQ AC-TID 09/21/19 10/15/22 [NovoLOG MIX 70-30 VIAL] Metoprolol Tartrate [Lopressor] 25 mg PO BID 09/21/19 10/15/22 metFORMIN HCL ER [Glucophage XR] 500 mg PO BID-W/MEALS 09/21/19 10/15/22 Empagliflozin [Jardiance] 10 mg PO DAILY 10/15/22 10/15/22 Unk Otc Allergy Med 1 tab PO DAILY 10/15/22 10/15/22 k [employer] 1 tab PO DAILY 10/15/22 10/15/22 hydrALAZINE HCL [Apresoline] 50 mg PO TID 10/15/22 10/15/22 Previous Rx's Medication Instructions Recorded Aspirin 81 mg PO DAILY chew 06/29/19 Atorvastatin [Lipitor] 80 mg PO HS #30 tab 06/29/19 Furosemide [Lasix] 20 mg PO DAILY #30 tab 06/29/19 Nitroglycerin Sl Tabs [Nitrostat] 0.4 mg SUBLINGUAL Q5M PRN #25 tab 06/29/19 Spironolactone [Aldactone] 25 mg PO DAILY #30 tab 06/29/19 Isosorbide Mononitrate ER [Imdur] 30 mg PO DAILY #30 tab.er.24h 09/22/19 Clopidogrel [Plavix] 75 mg PO DAILY #90 tab 10/18/22 Allergies Allergy/AdvReac Type Severity Reaction Status Date / Time latex Allergy Rash/Hives Verified 12/09/22 17:42 Penicillins Allergy Rash/Hives Verified 12/09/22 17:42 Sulfa (Sulfonamide Allergy Swelling Verified 12/09/22 17:42 Antibiotics) wool Allergy Itching Verified 12/09/22 17:42 Review of Systems ROS Statement: Those systems with pertinent positive or pertinent negative responses have been documented in the HPI. ROS Other: All systems not noted in ROS Statement are negative. Constitutional: Denies: fever Eyes: Denies: eye pain ENT: Denies: ear pain Respiratory: Denies: cough Cardiovascular: Reports: as per HPI Endocrine: Denies: fatigue Gastrointestinal: Denies: abdominal pain Genitourinary: Denies: dysuria Musculoskeletal: Denies: back pain Past Medical History Past Medical History: Chest Pain / Angina, COPD, Diabetes Mellitus, Hyperlipidemia, Hypertension, Myocardial Infarction ([place]), Osteoarthritis (OA), Vascular Disorder Additional Past Medical History / Comment(s): SOB with exertion, neuropathy, . arthritis in back and hands, lower leg pain Last Myocardial Infarction Date:: 2018 History of Any Multi-Drug Resistant Organisms: None Reported Past Surgical History: Cholecystectomy, Heart Catheterization With Stent, Hysterectomy, Tonsillectomy Additional Past Surgical History / Comment(s): stent in left leg, 5 stents placed in jun 2019, back surgery. Past Anesthesia/Blood Transfusion Reactions: Previous Problems w/ Anesthesia Additional Past Anesthesia/Blood Transfusion Reaction / Comment(s): states "can only take Sodium Penethol" Date of Last Stent Placement:: 2018 Past Psychological History: No Psychological Hx Reported Smoking Status: Former smoker - Past Family History Mother Additional Family Medical History / Comment(s): nervous break down. General Exam Limitations: no limitations General appearance: alert, in no apparent distress Head exam: Present: normocephalic Eye exam: Present: normal appearance Neck exam: Present: normal inspection Respiratory exam: Present: normal lung sounds bilaterally Cardiovascular Exam: Present: regular rate, normal rhythm, normal heart sounds Expanded Peripheral pulses: 2+: Radial (R), Radial (L), Dorsalis Pedis (R), Dorsalis Pedis (L) GI/Abdominal exam: Present: soft. Absent: tenderness Extremities exam: Present: normal inspection. Absent: pedal edema, calf tenderness Neurological exam: Present: alert Psychiatric exam: Present: normal affect, normal mood Skin exam: Present: normal color Course Vital Signs 12/09/22 17:39 Temperature 98.8 F Pulse Rate 104 H Respiratory 16 Rate Blood Pressure 184/93 O2 Sat by Pulse 93 L Oximetry Medical Decision Making - Medical Decision Making Was pt. sent in by a medical professional or institution (, PA, INFORMATION TECHNOLOGY INTERN, urgent care, hospital, or group home...) When possible be specific @ -Patient was sent from [facility] Did you speak to anyone other than the patient for history (EMS, parent, family, police, friend...)? What history was obtained from this source @ -To family members are present and helps provide history including history of [facility] and previous cardiac history Did you review nursing and triage notes (agree or disagree)? Why? @ -I reviewed and agree with nursing and triage notes Were old charts reviewed (outside hosp., previous admission, EMS record, old EKG, old radiological studies, urgent care reports/EKG's, group home records)? Report findings @ -I did review chart from [facility] Differential Diagnosis (chest pain, altered mental status, abdominal pain women, abdominal pain men, vaginal bleeding, weakness, fever, dyspnea, syncope, headache, dizziness, GI bleed, back pain, seizure, CVA, palpatations, mental health)? @ -Differential Chest Pain: Stable Angina, Unstable Angina, STEMI, NSTEMI Aortic Dissection, Pneumothorax, Musculoskeletal, Esophageal Spasm GERD, Cholecystitis, Pancreatitis, Zoster, this is not meant to be an all-inclusive list. EKG interpreted by me (3pts min.). @ - X-rays interpreted by me (1pt min.). @ - CT interpreted by me (1pt min.). @ -None done U/S interpreted by me (1pt. min.). @ -None done What testing was considered but not performed or refused? (CT, X-rays, U/S, labs)? Why? @ -None What meds were considered but not given or refused? Why? @ -None Did you discuss the management of the patient with other professionals (professionals i.e. , BECKY, INFORMATION TECHNOLOGY INTERN, lab, RT, psych nurse, social media content manager, coiled tubing supervisor, teacher, medical information officer, porter sample case)? Give summary @ -Case was discussed with Dr. Campbell, who will admit covering Dr. Nagy Was smoking cessation discussed for >3mins.? @ -No Was critical care preformed (if so, how long)? @ -31 minutes critical care time Were there social determinants of health that impacted care today? How? (Homelessness, low income, unemployed, alcoholism, drug addiction, transportation, low edu. Level, literacy, decrease access to med. care, prison, rehab)? @ -No Was there de-escalation of care discussed even if they declined (Discuss DNR or withdrawal of care, Hospice)? DNR status @ -No What co-morbidities impacted this encounter? (DM, HTN, Smoking, COPD, CAD, Cancer, CVA, ARF, Chemo, Hep., AIDS, mental health diagnosis, sleep apnea, morbid obesity)? @ -None Was patient admitted / discharged? Hospital course, mention meds given and route, prescriptions, significant lab abnormalities, going to OR and other pertinent info. @ -Patient and family are made aware of results and reviewed report from [facility]. They're also made aware of plan. Heparin will be continued. Patient will be admitted with cardiac consult Undiagnosed new problem with uncertain prognosis? @ -No Drug Therapy requiring intensive monitoring for toxicity (Heparin, Nitro, Insulin, Cardizem)? @ -Patient on heparin drip to need monitoring Were any procedures done? @ -No Diagnosis/symptom? @ -Non-ST elevation myocardial infarction Acute, or Chronic, or Acute on Chronic? @ -Acute Uncomplicated (without systemic symptoms) or Complicated (systemic symptoms)? @ -default Side effects of treatment? @ -No Exacerbation, Progression, or Severe Exacerbation? @ -No Poses a threat to life or bodily function? How? (Chest pain, [place], [place], pneumonia, PE, COPD, DKA, ARF, appy, cholecystitis, CVA, Diverticulitis, Homicidal, Suicidal, threat to staff... and all critical care pts) @ -No Critical Care Time Critical Care Time: Yes Total Critical Care Time: 31 Disposition Clinical Impression: NSTEMI (non-ST elevated myocardial infarction) Disposition: ADMITTED IP TO THIS [facility] Condition: Serious Is patient prescribed a controlled substance at d/c from ED?: No Referrals: Amadou Nagy MD [Primary Care Provider] - 1-2 days Time of Disposition: 19:42
[2022-12-09] MEDS ORDERED: ACETAMINOPHEN TAB 500 MG TAB PO PRN (22:24)
[2022-12-09] MEDS ORDERED: DEXTROSE 50% SYRINGE 50 ML IVP PRN ×2 (22:25)
[2022-12-09] MEDS: HEPARIN SOD,PORK IN 0.45% NACL 25,000 UNIT in 0.45% NACL 1 250ML.BAG IV SCH (22:27)
[2022-12-09] MEDS ORDERED: INSULIN DETEMIR (LEVEMIR) 100 UNIT/ML SYR SQ SCH (22:30)
--- NOTE | 2022-12-09 22:31 | P.HPIM ---
History of Present Illness H&P Date: 12/09/22 Chief Complaint: Left arm pain This is a 72-year-old patient of Dr. Nagy. Chronic stable medical conditions include diabetes, hypertension, COPD, hypertension, hyperlipidemia, urinary incontinence , CAD with stent This patient was transferred in from [facility]. Patient started having a severe headache this morning. More than usual. Pain mainly in the frontal area. Didn't felt a bit funny in the left arm. No chest pain. No much help with Tylenol. Headache lasts about 3-4 hours. Patient has not had a eye tested for a few years. No nausea vomiting. In October of this year patient underwent cardiac catheterization by Dr. moscoso. Was found to have calcified coronary arteries. Underwent successful stenting of the distal RCA and the ostium of the PLV. At [facility] to some troponin positive. Hence patient was sent in town here for further cardiology evaluation. Patient headache since then has resolved. Review of systems: GEN.: Tired EYES: Baseline slight bloody vision HEENT: As above NECK: None RESPIRATORY: CARDIOVASCULAR: As above GASTROINTESTINAL: None GENITOURINARY: Urinary incontinence MUSCULOSKELETAL: Joint pains LYMPHATICS: None HEMATOLOGICAL: None PSYCHIATRY: None NEUROLOGICAL: None Past medical history to include: GERD, diabetes, COPD, hypertension, hyperlipidemia, urinary incontinence, CAD with stent Social history: . Smoked about 2 packs a day for close to 60 years stopped in 2019. No alcohol Physical examination: VITAL SIGNS: 98.8, 104, 16, 180/93, 93% room air GENERAL: BMI 34, sitting up in bed awake but in distress EYES: Pupils equal. Conjunctiva normal. HEENT: External appearance of nose and ears normal, oral cavity grossly normal. NECK: JVD not raised; masses not palpable. HEART: First and second heart sounds are normal; no edema. LUNGS: Respiratory rate normal; decreased breath sounds ABDOMEN: Soft, nontender, liver spleen not palpable, no masses palpable. PSYCH: Alert and oriented x3; mood and affect normal. NEUROLOGICAL: Cranial nerves grossly intact; no facial asymmetry, power and sensation grossly intact. LYMPHATICS: No lymph nodes palpable in the axilla and neck INVESTIGATIONS, reviewed in the clinical context: Blood work from [facility]: White count 10.7 hemoglobin 14.2 platelets 21 sodium 137 potassium 3.9 and 63 creatinine 1.4 sodium 155 Troponin I 0.353, 0.108, less than 0.012 EKG tracing personally reviewed by me-normal sinus rhythm. Nonspecific T and T- wave changes. Assessment and plan: -Acute non-ST elevation myocardial infarction, the patient on CAD. Patient had a stent placed in October Dr. Mcleod IV heparin. Aspirin. Cardiology has been consulted -CAD with prior stents Plavix, aspirin and Lopressor -Hypertensive heart disease -COPD in a ex-smoker Albuterol when necessary -GERD Pepcid when necessary -Essential hypertension Cozaar, Lopressor, hydralazine -Hyperlipidemia Lipitor -Chronic urinary stress incontinence -Diabetes mellitus type 2, chronically on insulin, uncontrolled with hyperglycemia Hold oral hypoglycemic. Follow Accu-Cheks. Levemir 20 units subcu daily at bedtime IV heparin. Home medications resumed. Cardiology has been consulted. 2-D echo. Discussed with patient. Patient to get her eyes and a prescription tested outpatient Past Medical History Past Medical History: Chest Pain / Angina, COPD, Diabetes Mellitus, Hyperlipidemia, Hypertension, Myocardial Infarction ([place]), Osteoarthritis (OA), Vascular Disorder Additional Past Medical History / Comment(s): SOB with exertion, neuropathy, . arthritis in back and hands, lower leg pain Last Myocardial Infarction Date:: 2018 History of Any Multi-Drug Resistant Organisms: None Reported Past Surgical History: Cholecystectomy, Heart Catheterization With Stent, Hysterectomy, Tonsillectomy Additional Past Surgical History / Comment(s): stent in left leg, 5 stents placed in jun 2019, back surgery. Past Anesthesia/Blood Transfusion Reactions: Previous Problems w/ Anesthesia Additional Past Anesthesia/Blood Transfusion Reaction / Comment(s): states "can only take Sodium Penethol" Date of Last Stent Placement:: 2018 Past Psychological History: No Psychological Hx Reported Smoking Status: Former smoker - Past Family History Mother Additional Family Medical History / Comment(s): nervous break down. Medications and Allergies Home Medications Medication Instructions Recorded Confirmed Type Losartan [Cozaar] 50 mg PO BID 06/23/19 12/09/22 History Aspirin 81 mg PO DAILY chew 06/29/19 12/09/22 Rx Furosemide [Lasix] 20 mg PO DAILY #30 tab 06/29/19 12/09/22 Rx Nitroglycerin Sl Tabs [Nitrostat] 0.4 mg SUBLINGUAL Q5M PRN #25 tab 06/29/19 12/09/22 Rx Spironolactone [Aldactone] 25 mg PO DAILY #30 tab 06/29/19 12/09/22 Rx Metoprolol Tartrate [Lopressor] 50 mg PO BID 09/21/19 12/09/22 History metFORMIN HCL ER [Glucophage XR] 1,000 mg PO DAILY 09/21/19 12/09/22 History Isosorbide Mononitrate ER [Imdur] 30 mg PO DAILY #30 tab.er.24h 09/22/19 12/09/22 Rx Clopidogrel [Plavix] 75 mg PO DAILY #90 tab 10/18/22 12/09/22 Rx Acetaminophen Tab [Tylenol Tab] 500 mg PO Q6H PRN 12/09/22 12/09/22 History Atorvastatin [Lipitor] 80 mg PO DAILY 12/09/22 12/09/22 History Empagliflozin [Jardiance] 25 mg PO DAILY 12/09/22 12/09/22 History Insulin NPH Hum/Reg Insulin Hm 35 units SQ AC-TID PRN 12/09/22 12/09/22 History [Novolin 70-30 Flexpen] hydrALAZINE HCL [Apresoline] 50 mg PO BID 12/09/22 12/09/22 History hydroCHLOROthiazide [Hydrodiuril] 25 mg PO DAILY 12/09/22 12/09/22 History Allergies Allergy/AdvReac Type Severity Reaction Status Date / Time latex Allergy Rash/Hives Verified 12/09/22 19:43 Penicillins Allergy Rash/Hives Verified 12/09/22 19:43 Sulfa (Sulfonamide Allergy Swelling Verified 12/09/22 19:43 Antibiotics) wool Allergy Itching Verified 12/09/22 19:43 Physical Exam Vitals: Vital Signs Temp Pulse Resp BP Pulse Ox 12/09/22 17:39 98.8 F 104 H 16 184/93 93 L Intake and Output 12/09/22 12/09/22 12/09/22 06:59 14:59 22:59 Other: Weight 81.647 kg Results Labs: Abnormal Lab Results - Last 24 Hours (Table) 12/09/22 Range/Units 20:55 Troponin I 1.360 H* (0.000-0.034) ng/mL
[2022-12-09 22:45] LABS: Glucose,Whole Blood 219 mg/dL (70-110)
[2022-12-09] MEDS: INSULIN ASPART (NovoLOG) 100 UNIT/ML VIAL SQ SCH (23:00)
[2022-12-09] MEDS: METOPROLOL TARTRATE 50 MG TAB PO SCH (23:01)
[2022-12-09] MEDS: hydrALAZINE HCL 50 MG TAB PO SCH (23:01)
[2022-12-09] MEDS: LOSARTAN 50 MG TAB PO SCH (23:01)
[2022-12-10] MEDS: HEPARIN SOD,PORK IN 0.45% NACL 25,000 UNIT in 0.45% NACL 1 250ML.BAG IV SCH ×2 (03:46→20:56)
[2022-12-10] MEDS: INSULIN ASPART (NovoLOG) 100 UNIT/ML VIAL SQ SCH ×3 (06:01→16:57)
[2022-12-10 06:04] LABS: Glucose,Whole Blood 190 mg/dL (70-110)
[2022-12-10 08:36] LABS: Basophils # (A) 0.1 k/uL (0-0.2); Basophils % (A) 1 %; Eosinophils # (A) 0.1 k/uL (0-0.7); Eosinophils % (A) 1 %; HCT 46.7 % (34.0-46.0); HGB 15.2 gm/dL (11.4-16.0); Lymphocytes # (A) 2.3 k/uL (1.0-4.8); Lymphocytes % (A) 23 %; MCH 32.6 pg (25.0-35.0); MCHC 32.6 g/dL (31.0-37.0); MCV 100.1 fL (80.0-100.0); Mean Platelet Volume 9.4; Monocytes # (A) 0.6 k/uL (0-1.0); Monocytes % (A) 6 %; Neutrophils % (A) 68 %; Platelet Count 292 k/uL (150-450); RBC 4.67 m/uL (3.80-5.40); RDW 13.3 % (11.5-15.5); WBC 10.3 k/uL (3.8-10.6)
[2022-12-10 08:40] LABS: Potassium 4.6 mmol/L (3.5-5.1)
[2022-12-10 08:41] LABS: African American GFR (CKD) 48 (>60 ml/min/1.73 sqM); Anion Gap 11 mmol/L; Blood Urea Nitrogen 51 mg/dL (7-17); Calcium 9.8 mg/dL (8.4-10.2); Carbon Dioxide 25 mmol/L (22-30); Chloride 103 mmol/L (98-107); Glucose 217 mg/dL (74-99); Non-African American GFR(CKD) 42 (>60 ml/min/1.73 sqM); Sodium 139 mmol/L (137-145)
[2022-12-10] MEDS ORDERED: hydroCHLOROthiazide 25 MG TAB PO SCH (09:00)
[2022-12-10] MEDS ORDERED: ASPIRIN 325 MG TAB PO SCH (09:00)
[2022-12-10] MEDS: ASPIRIN 81 MG PO SCH (09:04)
[2022-12-10] MEDS: hydrALAZINE HCL 50 MG TAB PO SCH ×2 (09:05→20:54)
[2022-12-10] MEDS: ISOSORBIDE MONONITRATE ER 30 MG TAB.ER.24H PO SCH (09:05)
[2022-12-10] MEDS: ATORVASTATIN 80 MG TAB PO SCH (09:05)
[2022-12-10] MEDS: LOSARTAN 50 MG TAB PO SCH ×2 (09:05→20:54)
[2022-12-10] MEDS: CLOPIDOGREL 75 MG TAB PO SCH (09:05)
[2022-12-10] MEDS: METOPROLOL TARTRATE 50 MG TAB PO SCH ×2 (09:05→20:54)
[2022-12-10] MEDS: SPIRONOLACTONE 25 MG TAB PO SCH (09:05)
--- NOTE | 2022-12-10 09:10 | P.CRDCN ---
History of Present Illness Consult date: 12/10/22 History of present illness: History of present illness: This is a 72 year old female patient of Dr. Mcleod with past medical history of coronary artery disease with recent cardiac catheterization on 10/18 revealed calcified coronary arteries, critical stenosis in the ostium of the PLB, moderate disease in the diagonal branch and OM branch with no progression since 2019 and patent stent in the mid RCA and LAD. Patient underwent successful stenting of the distal RCA and the ostium of the PLB at that time. Patient has had follow-up in the office. Note the patient is not on a beta shawn and was stable at that time. Patient states that she developed a headache and took some Tylenol which did not help and also had some tingling in her left arm and didn't feel right in general. She denies having any discomfort in her chest. She states with her first myocardial infarction she also had a headache was similar in nature to when she developed. She denies having any left arm discomfort or tingling at this time. She states she has had a little shortness of breath. She has a history of ischemic cardiomyopathy with EF of 35%, diabetes, hypertension, dyslipidemia, peripheral vascular disease, carotid stenosis left. She quit smoking 3 years ago. Patient was initially seen at [facility] transferred to [facility]. Patient was started on a heparin drip and she is found 80 her breakfast this morning. She is agreeable to undergo cardiac catheterization. EKG sinus rhythm with ST depression in inferior lateral leads Troponins were elevated at [facility]. Repeat troponins 1.36 and 1.35. BUN 51 creatinine 1.28. Blood sugar 217. Hemoglobin 15.2, platelet count 292, WBC 10.3. Home cardiac medications: Aspirin 81 mg daily, atorvastatin 80 mg daily, Plavix 75 mg daily, Lasix 20 mg daily, hydralazine 50 mg twice daily, hydrochlorot hiazide 25 mg daily, Imdur 30 mild grams daily, losartan 50 mg twice daily, Lopressor 50 mg twice daily, Nitrostat as needed, spironolactone 25 mg daily, Jardiance 0.5 mg daily Echocardiogram 04/2022 revealed EF of 52%, mild MR, RVSP 41 mmHg. Carotid duplex 10/14/2022 reveals moderate disease in the left ICA Review Of Systems: At the time of my evaluation: Constitutional: No fever, no chills. No weakness, fatigue or lethargy. EENT: No headache. No dizziness. Lungs: No shortness of breath, cough, no sputum production. No wheezing. Cardiovascular: No chest pain, no lower extremity edema. No palpitations. No paroxysmal nocturnal dyspnea. No orthopnea. No lightheadedness or dizziness. No syncopal episodes. Abdominal: No abdominal pain. No nausea, vomiting. No diarrhea. No constip ation. No bloody or tarry stools. Genitourinary: No dysuria.. No urinary retention. Musculoskeletal: No myalgias. No muscle weakness, no frequent falls. No back pain. No neck pain. Integumentary: No wounds. No rash. No unusual bruising. Neurologic: No aphasia. No facial droop. No change in mentation. No head injury. No headache. Physical examination: Gen: This is a 72 year old obese female. She is found sitting in a chair and appears to be in no acute distress. VS: reviewed HEENT: Head is atraumatic, normocephalic. Pupils equal, round. Sclerae is anicteric. LUNGS: Clear to auscultation. No wheezes or rhonchi. No intercostal retractions. HEART: Regular rate and rhythm. 2/6 systolic murmur at the base ABDOMEN: Soft No tenderness. EXTREMITIES: No pedal edema. No calf tenderness. NEUROLOGICAL: Patient is awake, alert and oriented x3. Assessment: Non-ST elevated myocardial infarction with abnormal EKG Headache History of coronary artery disease with most recent stenting of the distal RCA and ostium of the PLV on 10/18/2022 Ischemic cardiomyopathy Hypertension Hyperlipidemia Diabetes Chronic kidney disease stage III Peripheral vascular disease Moderate left ICA stenosis Remote history of tobacco use Plan: Continue patient's home cardiac medications Continue patient on heparin drip Obtain 2-D echocardiogram and Doppler study to assess cardiac structure and function Will discuss case with Dr. Mcleod regarding cardiac catheterization Further recommendations to follow based upon clinical course Thank you kindly for this consultation. Nurse practitioner note has been reviewed, I agree with documented findings and plan of care. Patient was seen and examined. Past Medical History Past Medical History: Chest Pain / Angina, COPD, Diabetes Mellitus, Hyperlipidemia, Hypertension, Myocardial Infarction (DC), Osteoarthritis (OA), Vascular Disorder Additional Past Medical History / Comment(s): SOB with exertion, neuropathy, arthritis in back and hands, lower leg pain Last Myocardial Infarction Date:: 2018 History of Any Multi-Drug Resistant Organisms: None Reported Past Surgical History: Cholecystectomy, Heart Catheterization With Stent, Hysterectomy, Tonsillectomy Additional Past Surgical History / Comment(s): stent in left leg, 5 stents placed in jun 2019, back surgery, 2 stents placed in October 2022 Past Anesthesia/Blood Transfusion Reactions: Previous Problems w/ Anesthesia Additional Past Anesthesia/Blood Transfusion Reaction / Comment(s): states "can only take Sodium Penethol" Date of Last Stent Placement:: 2018 Past Psychological History: No Psychological Hx Reported Smoking Status: Former smoker Past Alcohol Use History: None Reported Additional Past Alcohol Use History / Comment(s): Quit smoking 3 yrs ago, smoked 2 ppd Past Drug Use History: None Reported - Past Family History Mother Additional Family Medical History / Comment(s): nervous break down. Medications and Allergies Home Medications Medication Instructions Recorded Confirmed Type Losartan [Cozaar] 50 mg PO BID 06/23/19 12/09/22 History Aspirin 81 mg PO DAILY chew 06/29/19 12/09/22 Rx Furosemide [Lasix] 20 mg PO DAILY #30 tab 06/29/19 12/09/22 Rx Nitroglycerin Sl Tabs [Nitrostat] 0.4 mg SUBLINGUAL Q5M PRN #25 tab 06/29/19 12/09/22 Rx Spironolactone [Aldactone] 25 mg PO DAILY #30 tab 06/29/19 12/09/22 Rx Metoprolol Tartrate [Lopressor] 50 mg PO BID 09/21/19 12/09/22 History metFORMIN HCL ER [Glucophage XR] 1,000 mg PO DAILY 09/21/19 12/09/22 History Isosorbide Mononitrate ER [Imdur] 30 mg PO DAILY #30 tab.er.24h 09/22/19 12/09/22 Rx Clopidogrel [Plavix] 75 mg PO DAILY #90 tab 10/18/22 12/09/22 Rx Acetaminophen Tab [Tylenol Tab] 500 mg PO Q6H PRN 12/09/22 12/09/22 History Atorvastatin [Lipitor] 80 mg PO DAILY 12/09/22 12/09/22 History Empagliflozin [Jardiance] 25 mg PO DAILY 12/09/22 12/09/22 History Insulin NPH Hum/Reg Insulin Hm 35 units SQ AC-TID PRN 12/09/22 12/09/22 History [Novolin 70-30 Flexpen] hydrALAZINE HCL [Apresoline] 50 mg PO BID 12/09/22 12/09/22 History hydroCHLOROthiazide [Hydrodiuril] 25 mg PO DAILY 12/09/22 12/09/22 History Allergies Allergy/AdvReac Type Severity Reaction Status Date / Time latex Allergy Rash/Hives Verified 12/09/22 19:43 Penicillins Allergy Rash/Hives Verified 12/09/22 19:43 Sulfa (Sulfonamide Allergy Swelling Verified 12/09/22 19:43 Antibiotics) wool Allergy Itching Verified 12/09/22 19:43 Physical Exam Vitals: Vital Signs Temp Pulse Pulse Resp BP BP Pulse Ox 12/10/22 06:08 105/65 12/10/22 03:30 69 20 12/10/22 03:00 97.8 F 69 20 108/69 92 L 12/09/22 23:36 101 H 16 167/81 96 12/09/22 17:39 98.8 F 104 H 16 184/93 93 L Intake and Output 12/09/22 12/10/22 12/10/22 22:59 06:59 14:59 Intake Total 52.093 Balance 52.093 Intake: Intake, IV Titration 52.093 Amount Heparin Sod,Pork in 0.45% 52.093 NaCl 25,000 unit In 0.45 % NaCl 1 250ml.bag @ 12 UNITS/KG/HR 9.798 mls/hr IV .Q24H [facility] Rx#: [id number] Other: Voiding Method Toilet # Voids 1 Weight 81.647 kg 78.8 kg Results 12/10/22 08:03 12/10/22 07:28 Cardiac Enzymes 12/09/22 12/09/22 Range/Units 20:55 23:51 Troponin I 1.360 H* 1.350 H* (0.000-0.034) ng/mL Coagulation 12/09/22 12/10/22 Range/Units 20:49 02:29 APTT 25.9 38.7 H (22.0-30.0) sec Current Medications Generic Name Dose Route Start Last Admin Trade Name Freq PRN Reason Stop Dose Admin Acetaminophen 500 mg 12/09/22 22:24 Acetaminophen Tab 500 Mg Tab PO Q6H PRN Pain or Fever > 100.5 Aspirin 325 mg 12/10/22 09:00 Aspirin 325 Mg Tab PO DAILY [facility] Aspirin 81 mg 12/10/22 09:00 Aspirin 81 Mg PO DAILY [facility] Atorvastatin Calcium 80 mg 12/10/22 09:00 Atorvastatin 80 Mg Tab PO DAILY [facility] Clopidogrel Bisulfate 75 mg 12/10/22 09:00 Clopidogrel 75 Mg Tab PO DAILY [facility] Dapagliflozin 10 mg 12/10/22 09:00 Dapagliflozin Propanediol 10 Mg Tablet PO DAILY [facility] Dextrose/Water 25 ml 12/09/22 22:25 Dextrose 50% Syringe 50 Ml IVP PER PROTOCOL PRN Hypoglycemia Protocol Dextrose/Water 50 ml 12/09/22 22:25 Dextrose 50% Syringe 50 Ml IVP PER PROTOCOL PRN Hypoglycemia Protocol Hydralazine HCl 50 mg 12/09/22 22:30 12/09/22 23:01 Hydralazine Hcl 50 Mg Tab PO 50 mg BID [facility] Administration Hydrochlorothiazide 25 mg 12/10/22 09:00 Hydrochlorothiazide 25 Mg Tab PO DAILY [facility] Heparin Sodium/Sodium Chloride 250 mls @ 9.798 mls/hr 12/09/22 19:45 12/10/22 03:46 25,000 unit/ Sodium Chloride IV 14 units/kg/hr .Q24H [facility] 11.431 mls/hr Administration Protocol 12 UNITS/KG/HR Insulin Aspart 0 unit 12/09/22 22:30 12/10/22 06:01 Insulin Aspart (Novolog) 100 Unit/Ml Vial SQ 3 unit AC-TID [facility] Administration Protocol Insulin Detemir 12 unit 12/09/22 22:30 12/09/22 23:01 Insulin Detemir (Levemir) 100 Unit/Ml Syr SQ 12 unit HS [facility] Administration Isosorbide Mononitrate 30 mg 12/10/22 09:00 Isosorbide Mononitrate Er 30 Mg Tab.Er.24h PO DAILY [facility] Losartan Potassium 50 mg 12/09/22 22:30 12/09/22 23:01 Losartan 50 Mg Tab PO 50 mg BID [facility] Administration Metoprolol Tartrate 50 mg 12/09/22 22:30 12/09/22 23:01 Metoprolol Tartrate 50 Mg Tab PO 50 mg BID [facility] Administration Nitroglycerin 0.4 mg 12/09/22 19:38 Nitroglycerin Sl Tabs 0.4 Mg Tab SUBLINGUAL Q5M PRN Chest Pain Nitroglycerin 0.4 mg 12/09/22 22:24 Nitroglycerin Sl Tabs 0.4 Mg Tab SUBLINGUAL Q5M PRN Chest Pain Spironolactone 25 mg 12/10/22 09:00 Spironolactone 25 Mg Tab PO DAILY [facility] Intake and Output 12/09/22 12/10/22 12/10/22 22:59 06:59 14:59 Intake Total 52.093 Balance 52.093 Intake: Intake, IV Titration 52.093 Amount Heparin Sod,Pork in 0.45% 52.093 NaCl 25,000 unit In 0.45 % NaCl 1 250ml.bag @ 12 UNITS/KG/HR 9.798 mls/hr IV .Q24H [facility] Rx#: [id number] Other: Voiding Method Toilet # Voids 1 Weight 81.647 kg 78.8 kg
[2022-12-10] MEDS ORDERED: ASPIRIN 81 MG PO STA (09:57)
[2022-12-10] MEDS ORDERED: NITROGLYCERIN SL TABS 0.4 MG TAB SUBLINGUAL PRN ×2 (09:57→14:33)
[2022-12-10] MEDS ORDERED: ATORVASTATIN 80 MG TAB PO STA (09:57)
[2022-12-10] MEDS ORDERED: ALPRAZolam 0.5 MG TAB PO PRN ×2 (09:57→14:33)
[2022-12-10] MEDS ORDERED: ALPRAZolam 0.25 MG TAB PO PRN ×2 (09:57→14:33)
--- NOTE | 2022-12-10 11:06 | P.PN ---
Progress Note - Text Progress Note Date: 12/10/22 Chief Complaint: Left arm pain This is a 72-year-old patient of Dr. Nagy. Chronic stable medical conditions include diabetes, hypertension, COPD, hypertension, hyperlipidemia, urinary incontinence , CAD with stent This patient was transferred in from [facility]. Patient started having a severe headache this morning. More than usual. Pain mainly in the frontal area. Didn't felt a bit funny in the left arm. No chest pain. No much help with Tylenol. Headache lasts about 3-4 hours. Patient has not had a eye tested for a few years. No nausea vomiting. In October of this year patient underwent cardiac catheterization by Dr. moscoso. Was found to have calcified coronary arteries. Underwent successful stenting of the distal RCA and the ostium of the PLV. At [facility] to some troponin positive. Hence patient was sent in town here for further cardiology evaluation. Patient headache since then has resolved. Patient ruled in for an acute non-Q wave [place]. IV heparin. December 10: Sitting up in a chair. Tired. No chest pain. IV heparin. Pending decision from cardiology about possible cardiac cath. Active Medications Acetaminophen (Acetaminophen Tab 500 Mg Tab) 500 mg PO Q6H PRN PRN Reason: Pain or Fever > 100.5 Alprazolam (Alprazolam 0.25 Mg Tab) 0.25 mg PO Q6HR PRN PRN Reason: Mild Anxiety Alprazolam (Alprazolam 0.5 Mg Tab) 0.5 mg PO Q6HR PRN PRN Reason: Moderate Anxiety Aspirin (Aspirin 81 Mg) 81 mg PO DAILY [facility] Last Admin: 12/10/22 09:04 Dose: 81 mg Atorvastatin Calcium (Atorvastatin 80 Mg Tab) 80 mg PO DAILY [facility] Last Admin: 12/10/22 09:05 Dose: 80 mg Clopidogrel Bisulfate (Clopidogrel 75 Mg Tab) 75 mg PO DAILY [facility] Last Admin: 12/10/22 09:05 Dose: 75 mg Dapagliflozin (Dapagliflozin Propanediol 10 Mg Tablet) 10 mg PO DAILY [facility] Dextrose/Water (Dextrose 50% Syringe 50 Ml) 25 ml IVP PER PROTOCOL PRN; Protocol PRN Reason: Hypoglycemia Dextrose/Water (Dextrose 50% Syringe 50 Ml) 50 ml IVP PER PROTOCOL PRN; Protocol PRN Reason: Hypoglycemia Hydralazine HCl (Hydralazine Hcl 50 Mg Tab) 50 mg PO BID [facility] Last Admin: 12/10/22 09:05 Dose: 50 mg Hydrochlorothiazide (Hydrochlorothiazide 25 Mg Tab) 25 mg PO DAILY [facility] Last Admin: 12/10/22 09:05 Dose: 25 mg Heparin Sodium/Sodium Chloride (25,000 unit/ Sodium Chloride) 250 mls @ 9.798 mls/hr IV .Q24H [facility]; Protocol Last Admin: 12/10/22 03:46 Dose: 14 units/kg/hr, 11.431 mls/hr Heparin Sodium (Porcine) 10, (000 unit/ Sodium Chloride) 1,001 mls @ 999 mls/hr IRRIGATION ONCE PRN PRN Reason: INTRA-OP Stop: 12/11/22 23:00 Heparin Sodium (Porcine) 2,500 (unit/ Sodium Chloride) 250.5 mls @ 250 mls/hr IRRIGATION ONCE PRN PRN Reason: INTRA-OP Stop: 12/11/22 23:00 Insulin Aspart (Insulin Aspart (Novolog) 100 Unit/Ml Vial) 0 unit SQ AC-TID [facility]; Protocol Last Admin: 12/10/22 06:01 Dose: 3 unit Insulin Detemir (Insulin Detemir (Levemir) 100 Unit/Ml Syr) 12 unit SQ HS [facility] Last Admin: 12/09/22 23:01 Dose: 12 unit Isosorbide Mononitrate (Isosorbide Mononitrate Er 30 Mg Tab.Er.24h) 30 mg PO DAILY [facility] Last Admin: 12/10/22 09:05 Dose: 30 mg Losartan Potassium (Losartan 50 Mg Tab) 50 mg PO BID [facility] Last Admin: 12/10/22 09:05 Dose: 50 mg Metoprolol Tartrate (Metoprolol Tartrate 50 Mg Tab) 50 mg PO BID [facility] Last Admin: 12/10/22 09:05 Dose: 50 mg Nitroglycerin (Nitroglycerin Sl Tabs 0.4 Mg Tab) 0.4 mg SUBLINGUAL Q5M PRN PRN Reason: Chest Pain Nitroglycerin (Nitroglycerin Sl Tabs 0.4 Mg Tab) 0.4 mg SUBLINGUAL Q5M PRN PRN Reason: Chest Pain Nitroglycerin (Nitroglycerin Sl Tabs 0.4 Mg Tab) 0.4 mg SUBLINGUAL Q5M PRN PRN Reason: Chest Pain Spironolactone (Spironolactone 25 Mg Tab) 25 mg PO DAILY [facility] Last Admin: 12/10/22 09:05 Dose: 25 mg Past medical history to include: GERD, diabetes, COPD, hypertension, hyperlipidemia, urinary incontinence, CAD with stent Social history: . Smoked about 2 packs a day for close to 60 years stopped in 2019. No alcohol Physical examination: VITAL SIGNS: 97.5, 78, 18, 11 8 x 72, 91% room air GENERAL: BMI 34, sitting up in a chair, tired EYES: Pupils equal. Conjunctiva normal. HEENT: External appearance of nose and ears normal, oral cavity grossly normal. NECK: JVD not raised; masses not palpable. HEART: First and second heart sounds are normal; no edema. LUNGS: Respiratory rate normal; decreased breath sounds ABDOMEN: Soft, nontender, liver spleen not palpable, no masses palpable. PSYCH: Alert and oriented x3; mood and affect normal. INVESTIGATIONS, reviewed in the clinical context: December 10: White count 10.3 hemoglobin 15.2 platelets 292. Troponin I: 1.3 Blood work from [facility]: White count 10.7 hemoglobin 14.2 platelets 21 sodium 137 potassium 3.9 and 63 creatinine 1.4 sodium 155 Troponin I 0.353, 0.108, less than 0.012 EKG tracing personally reviewed by me-normal sinus rhythm. Nonspecific T and T- wave changes. Assessment and plan: -Acute non-ST elevation myocardial infarction, the patient on CAD. Patient had a stent placed in October Dr. Mcleod IV heparin. Aspirin. Being followed by cardiology -IV heparin monitoring Follow PTT -CAD with prior stents Plavix, aspirin and Lopressor -Hypertensive heart disease -COPD in a ex-smoker Albuterol when necessary -GERD Pepcid when necessary -Essential hypertension Cozaar, Lopressor, hydralazine -Hyperlipidemia Lipitor -Chronic urinary stress incontinence -Diabetes mellitus type 2, chronically on insulin, uncontrolled with hyperglycemia Hold oral hypoglycemic. Follow Accu-Cheks. Increase Levemir 18 from 12 units subcu daily at bedtime Discussed with patient
[2022-12-10 11:20] LABS: Glucose,Whole Blood 286 mg/dL (70-110)
--- NOTE | 2022-12-10 12:01 | CA ---
Transthoracic Echo Report Name: Paola Llamas Age: 72 Gender: F : 1950 Exam Date: 12/10/2022 08:26 Exam Location: [place] [facility] Ht (in): 61 Wt (lb): 173 Ordering Physician: Vikram Campbell MD Attending/Referring Phys: Boat Operator Abhi Soto Procedure CPT: Indications: acute CO Cardiac Hx: Technical Quality: Fair Contrast 1: Total Dose (mL): Contrast 2: Total Dose (mL): MEASUREMENTS (Male / Female) Normal Values 2D ECHO LV Diastolic Diameter PLAX 3.9 cm 4.2 - 5.9 / 3.9 - 5.3 cm LV Systolic Diameter PLAX 2.6 cm IVS Diastolic Thickness 1.5 cm 0.6 - 1.0 / 0.6 - 0.9 cm LVPW Diastolic Thickness 1.0 cm 0.6 - 1.0 / 0.6 - 0.9 cm LV Relative Wall Thickness 0.6 RV Internal Dim ED PLAX 2.1 cm LVOT Diameter 1.8 cm Aortic Root Diameter 2.7 cm LA Systolic Diameter LX 2.3 cm 3.0 - 4.0 / 2.7 - 3.8 cm LV Diastolic Volume MOD BP 27.6 cm??? 67 - 155 / 56 - 104 cm??? LV Systolic Volume MOD BP 10.1 cm??? 22 - 58 / 19 - 49 cm??? LV Ejection Fraction MOD BP 63.5 % >= 55 % LV Diastolic Volume MOD 4C 29.1 cm??? LV Systolic Volume MOD 4C 11.4 cm??? LV Ejection Fraction MOD 4C 60.9 % LV Diastolic Length 4C 5.4 cm LV Systolic Length 4C 4.6 cm LV Diastolic Volume MOD 2C 25.8 cm??? LV Systolic Volume MOD 2C 8.4 cm??? LV Ejection Fraction MOD 2C 67.4 % LV Diastolic Length 2C 5.6 cm LV Systolic Length 2C 5.0 cm LA Volume 24.0 cm??? 18 - 58 / 22 - 52 cm??? DOPPLER Mitral E Point Velocity 111.8 cm/s Mitral A Point Velocity 35.0 cm/s Mitral E to A Ratio 3.2 MV Deceleration Time 155.4 ms MV E' Velocity 6.2 cm/s Mitral E to MV E' Ratio 18.0 TR Peak Velocity 125.8 cm/s TR Peak Gradient 6.3 mmHg FINDINGS Left Ventricle Mild concentric left ventricular hypertrophy. Left ventricular ejection fraction is estimated at 55-60 %. Right Ventricle Normal right ventricular size. Right Atrium Normal right atrial size. Left Atrium Normal left atrial size. Mitral Valve Structurally normal mitral valve. Trace MR. Aortic Valve Mild AV Sclerosis. No aortic valve stenosis or regurgitation. Tricuspid Valve Tricuspid valve not well visualized. No tricuspid regurgitation. Pulmonic Valve Pulmonic valve not well visualized. No pulmonic regurgitation. Pericardium Normal pericardium. Aorta Normal size aortic root and proximal ascending aorta. CONCLUSIONS Normal left ventricular size and systolic function with mild concentric LVH. Mild mitral and tricuspid insufficiency. Aortic valve sclerosis without significant restriction. No pericardial effusion. No pulmonary hypertension Previewed by: Dr. Luisana Downing MD (Electronically Signed) Final Date: 10 Dec 2022 12:00
[2022-12-10] MEDS: DAPAGLIFLOZIN PROPANEDIOL 10 MG TABLET PO SCH (12:12)
[2022-12-10 14:37] VITALS: BMI 32.8
[2022-12-10 16:18] LABS: Glucose,Whole Blood 238 mg/dL (70-110)
[2022-12-10 16:30] LABS: Chol/HDL Ratio 2.31 Ratio; LDL Cholesterol,Calculated 29.6 mg/dL (0.0-131.0)
[2022-12-10 20:14] LABS: Glucose,Whole Blood 233 mg/dL (70-110)
[2022-12-10] MEDS: INSULIN DETEMIR (LEVEMIR) 100 UNIT/ML SYR SQ SCH (20:54)
[2022-12-11] MEDS ORDERED: ATORVASTATIN 80 MG TAB PO ONE (05:00)
[2022-12-11] MEDS ORDERED: ASPIRIN 325 MG TAB PO ONE (05:00)
[2022-12-11 05:22] LABS: Glucose,Whole Blood 185 mg/dL (70-110)
[2022-12-11] MEDS ORDERED: VERAPAMIL 2.5 MG/ML 2 ML AMP ONE (06:03)
[2022-12-11] MEDS ORDERED: IV FLUID CONTINUATION 1,000 ML IV ONE (06:20)
[2022-12-11] MEDS ORDERED: fentaNYL (PF) 50 MCG/ML 2 ML AMP ONE (06:36)
[2022-12-11] MEDS: INSULIN ASPART (NovoLOG) 100 UNIT/ML VIAL SQ SCH ×4 (06:41→17:01)
[2022-12-11] MEDS ORDERED: fentaNYL (PF) 50 MCG/ML 2 ML AMP IV ONE (06:42)
[2022-12-11] MEDS ORDERED: LIDOCAINE 1% INJ 10MG/ML (5 ML VIAL-PF) SQ ONE (06:42)
[2022-12-11] MEDS ORDERED: VERAPAMIL SYRINGE (5 MG/10 ML) INTRAARTER ONE (06:45)
[2022-12-11] MEDS ORDERED: HEPARIN SODIUM 1,000 UN/ML (10ML VL) ONE (06:49)
[2022-12-11] MEDS: MIDAZOLAM 2 MG/2 ML VIAL IV ONE ×2 (06:49→07:22)
[2022-12-11] MEDS: HEPARIN SODIUM 1,000 UN/ML (10ML VL) IV ONE ×2 (06:50→07:02)
[2022-12-11] MEDS ORDERED: HEPARIN SODIUM,PORCINE 2,500 UNIT in SODIUM CHLORIDE 0.9% 250 ML IRRIGATION PRN ×4 (07:00)
[2022-12-11] MEDS ORDERED: HEPARIN SODIUM,PORCINE 10,000 UNIT in SODIUM CHLORIDE 0.9% 1,000 ML IRRIGATION PRN ×4 (07:00)
[2022-12-11] MEDS ORDERED: IOPAMIDOL-370 100ML BTL INJ ONE ×3 (07:23→08:41)
[2022-12-11] MEDS ORDERED: METOPROLOL TARTRATE 5 MG/5 ML VIAL IVP ONE ×2 (07:25→07:30)
[2022-12-11 07:27] LABS: Calcium 8.7 mg/dL (8.4-10.2); Potassium 3.9 mmol/L (3.5-5.1)
[2022-12-11] MEDS ORDERED: CLOPIDOGREL 75 MG TAB ONE (07:40)
[2022-12-11] MEDS ORDERED: CLOPIDOGREL 75 MG TAB PO ONE (07:42)
[2022-12-11] MEDS ORDERED: NITROGLYCERIN 1000MCG/10ML SYRINGE INTRACORON ONE (08:30)
[2022-12-11] MEDS ORDERED: TIROFIBAN BOLUS 12.5MG/250 ML BAG IV ONE (08:40)
[2022-12-11] MEDS ORDERED: TIROFIBAN 12.5MG-250ML NS 250 ML IV ONE (08:41)
[2022-12-11] MEDS ORDERED: MAG HYDROX/AL HYDROX/SIMETH 30 ML CUP PO PRN (08:57)
[2022-12-11] MEDS ORDERED: RX INFO: IV CONTRAST WAS GIVEN 1 EACH MISC MISCELLANE PRN (08:57)
[2022-12-11] MEDS ORDERED: NITROGLYCERIN SL TABS 0.4 MG TAB SUBLINGUAL PRN (08:57)
[2022-12-11] MEDS ORDERED: ZOLPIDEM 5 MG TAB PO PRN (08:57)
[2022-12-11] MEDS ORDERED: ATROPINE SULFATE 0.1 MG/ML 10ML SYRINGE IV PRN (08:57)
[2022-12-11] MEDS ORDERED: TIROFIBAN 12.5MG-250ML NS 250 ML IV SCH (09:00)
--- NOTE | 2022-12-11 09:09 | P.CARDCATH ---
Date of Procedure: 12/11/22 Description of Procedure: Cardiac Catheterization: The patient is a 72-year-old female with known history of hypertension, hyperlipidemia, diabetes mellitus and chronic tobacco use who underwent stenting of the PDA in September 2022. She had prior history of multivessel stenting and presented with headache which is her anginal pain with mild troponin elevation. She was evaluated by Dr. Pandey. Recommendations were made regarding cardiac catheterization, the risks and the complications were discussed with the patient who is in full understanding and agreement. Procedure Description: Patient was brought to [facility] in fasting semi-sedated state after receiving Fentanyl and Benadryl achieiving moderate conscious sedated state. Using Xylocaine Anesthesia and Seldinger technique, a 6-Guatemalan sheath was introduced in the right radial artery . Subsequently, selective coronary angiography was performed using a 5-Guatemalan 3.5 bend Indra catheter. Multiple views of the coronary artery including hemiaxial views were obtained. The right Indra catheter was used to cross the aortic valve and LVEDP was calculated. PCI: 6-Guatemalan FR4 guiding catheter was introduced and after cannulating the right coronary ostium a 0.014 BMW J-wire was positioned in the distal PDA. Cannulating the right PLV was difficult using multiple approach and subsequently was successful using a 0.014 whisper J-wire a fine cross catheter. Subsequent to the wire was exchanged to a BMW J-wire. A 2.5 x 12 mm Treck balloon was advanced and inflation and the PLV at 8 bob was done. Subsequently a 2.5 x 12 mm balloon was advanced to the PDA positioned distally and a 3.0 x 15 mm Xience joanna point stent wouldn't advance in the PDA at the bifurcation and inflated and deployed at 16 bob. The 2.5 x 12 mm balloon was withdrawn to the bifurcation and one inflation at 10 bob was done. Subsequently a 3.0 x 12 mm NC Treck balloon was advanced in the PLV and one inflation at 10 bob was done. Attempt to advanced a balloon into the PDA was unsuccessful at that point the wire was withdrawn and the wire was reintroduced to the distal PDA. A 1.5 x 12 mm mini Treck balloon was advanced and inflation at 10 bob were done subsequently the balloon was removed and a 3.5 x 12 mm NC Treck balloon was advanced and inflation at 10 bob were done. The wire was reintroduced into the PLV but there was inability to advance the balloon. The patient had headache with the inflations that improved at the end of the procedure. She had EKG changes. Her EKG changes improved. Following that, catheter and sheath were removed. Hemostasis was obtained with deployment of TR band . There was no immediate complication. Patient was returned to room in stable condition. Of note, the patient received a total of 7500 units of intravenous heparin as well as intra- arterial verapamil. She was continued on clopidogrel. Her headache was getting better addendum to procedure. Her ACT was monitored. She received Aggrastat. Findings: Fluoroscopy: Calcification was noted Left main: This is a short sized vessel that bifurcated into LAD and left circumflex, left main has no stenosis LAD: The stented segment in the mid LAD is patent. There is a 50-60% stenosis in the first diagonal branch. There is no progression of disease compared to last cardiac catheterization Left circumflex: This is a nondominant vessel giving rest to 2 obtuse marginal branch, has intimal disease but no high-grade stenosis RCA: This is a large dominant vessel pain PDA and PLV. The stented segment in the mid and distal RCA patent. The flow into the PDA is brisk. There is a 99% stenosis at the ostium of the PLV Left Ventriculogram: Not performed Hemodynamics: There was no gradient across the aortic valve, LVEDP was 18-20 mmHg Conclusion: 1. Calcified coronary arteries 2. Moderate disease in the LAD with patent stent 3. Mild disease in the left circumflex 4. Significant stenosis at the ostium of the right PLV 5. Successful stenting of the ostium of the PLV with haziness. Recommendations: The patient will continue on aspirin and Plavix for 12 months. She will continue on Aggrastat for 12 hours. Aggressive coronary risk modification will be continued. The findings and the recommendations were discussed with the patient and the family and they were in full understanding and agreement. Duration of sedation is 114 minutes.
[2022-12-11] MEDS: CLOPIDOGREL 75 MG TAB PO SCH (09:13)
[2022-12-11] MEDS: ASPIRIN 81 MG PO SCH (09:13)
[2022-12-11] MEDS: SPIRONOLACTONE 25 MG TAB PO SCH (09:24)
[2022-12-11] MEDS: DAPAGLIFLOZIN PROPANEDIOL 10 MG TABLET PO SCH (09:24)
[2022-12-11] MEDS: hydrALAZINE HCL 50 MG TAB PO SCH ×2 (09:24→20:24)
[2022-12-11] MEDS: METOPROLOL TARTRATE 50 MG TAB PO SCH ×2 (09:24→20:24)
[2022-12-11] MEDS: ISOSORBIDE MONONITRATE ER 30 MG TAB.ER.24H PO SCH (09:24)
[2022-12-11] MEDS: ATORVASTATIN 80 MG TAB PO SCH (09:24)
[2022-12-11] MEDS: LOSARTAN 50 MG TAB PO SCH ×2 (09:26→20:24)
[2022-12-11 09:33] LABS: Basophils # (A) 0.1 k/uL (0-0.2); Basophils % (A) 1 %; Eosinophils # (A) 0.2 k/uL (0-0.7); Eosinophils % (A) 1 %; HCT 43.9 % (34.0-46.0); Hypochromasia Slight; Lymphocytes # (A) 1.9 k/uL (1.0-4.8); Lymphocytes % (A) 15 %; MCV 103.1 fL (80.0-100.0); Macrocytosis Slight; Monocytes # (A) 0.5 k/uL (0-1.0); Monocytes % (A) 4 %; Neutrophils # (A) 9.7 k/uL (1.3-7.7); Neutrophils % (A) 78 %; Platelet Count 262 k/uL (150-450); RBC 4.25 m/uL (3.80-5.40); WBC 12.4 k/uL (3.8-10.6)
[2022-12-11 11:21] LABS: Glucose,Whole Blood 385 mg/dL (70-110)
--- NOTE | 2022-12-11 12:53 | XR ---
EXAMINATION TYPE: XR chest 2V DATE OF EXAM: 12/11/2022 COMPARISON: 06/26/2019 HISTORY: 72-year-old female low saturations on room air TECHNIQUE: PA and lateral views FINDINGS: Heart normal size. Mild atherosclerotic arch calcifications. Diffuse interstitial density has increas ed. Mild patchy bibasilar densities. No pleural effusion or traci consolidation. IMPRESSION: COPD. Interstitial changes have developed in the interval. Consider bronchitis, asthma, atypical pneu monias, or mild pulmonary vascular congestion.
--- NOTE | 2022-12-11 16:22 | P.PN ---
Progress Note - Text Progress Note Date: 12/11/22 Chief Complaint: Left arm pain This is a 72-year-old patient of Dr. Nagy. Chronic stable medical conditions include diabetes, hypertension, COPD, hypertension, hyperlipidemia, urinary incontinence , CAD with stent This patient was transferred in from [facility]. Patient started having a severe headache this morning. More than usual. Pain mainly in the frontal area. Didn't felt a bit funny in the left arm. No chest pain. No much help with Tylenol. Headache lasts about 3-4 hours. Patient has not had a eye tested for a few years. No nausea vomiting. In October of this year patient underwent cardiac catheterization by Dr. moscoso. Was found to have calcified coronary arteries. Underwent successful stenting of the distal RCA and the ostium of the PLV. At [facility] to some troponin positive. Hence patient was sent in town here for further cardiology evaluation. Patient headache since then has resolved. Patient ruled in for an acute non-Q wave MD. IV heparin. December 10: Sitting up in a chair. Tired. No chest pain. IV heparin. Pending decision from cardiology about possible cardiac cath. December 11: Patient underwent cardiac catheterization this morning. Successful stenting of the ostium of the PLV with haziness. More details and Dr. Mcleod's cath noted. Up in a chair. Tired. Breathing stable. Active Medications Acetaminophen (Acetaminophen Tab 500 Mg Tab) 500 mg PO Q6H PRN PRN Reason: Pain or Fever > 100.5 Al Hydroxide/Mg Hydroxide (Mag Hydrox/Al Hydrox/Simeth 30 Ml Cup) 30 ml PO Q4HR PRN PRN Reason: Heartburn Alprazolam (Alprazolam 0.25 Mg Tab) 0.25 mg PO Q6HR PRN PRN Reason: Mild Anxiety Alprazolam (Alprazolam 0.5 Mg Tab) 0.5 mg PO Q6HR PRN PRN Reason: Moderate Anxiety Alprazolam (Alprazolam 0.25 Mg Tab) 0.25 mg PO Q6HR PRN PRN Reason: Mild Anxiety Alprazolam (Alprazolam 0.5 Mg Tab) 0.5 mg PO Q6HR PRN PRN Reason: Moderate Anxiety Aspirin (Aspirin 81 Mg) 81 mg PO DAILY [facility] Last Admin: 12/11/22 09:13 Dose: Not Given Atorvastatin Calcium (Atorvastatin 80 Mg Tab) 80 mg PO DAILY [facility] Last Admin: 12/11/22 09:24 Dose: 80 mg Atropine Sulfate (Atropine Sulfate 0.1 Mg/Ml 10ml Syringe) 0.5 mg IV ONCE PRN PRN Reason: Symptomatic Bradycardia Clopidogrel Bisulfate (Clopidogrel 75 Mg Tab) 75 mg PO DAILY [facility] Last Admin: 12/11/22 09:13 Dose: Not Given Dapagliflozin (Dapagliflozin Propanediol 10 Mg Tablet) 10 mg PO DAILY [facility] Last Admin: 12/11/22 09:24 Dose: 10 mg Dextrose/Water (Dextrose 50% Syringe 50 Ml) 25 ml IVP PER PROTOCOL PRN; Protocol PRN Reason: Hypoglycemia Dextrose/Water (Dextrose 50% Syringe 50 Ml) 50 ml IVP PER PROTOCOL PRN; Protocol PRN Reason: Hypoglycemia Hydralazine HCl (Hydralazine Hcl 50 Mg Tab) 50 mg PO BID [facility] Last Admin: 12/11/22 09:24 Dose: 50 mg Heparin Sodium/Sodium Chloride (25,000 unit/ Sodium Chloride) 250 mls @ 9.798 mls/hr IV .Q24H [facility]; Protocol Last Admin: 12/10/22 20:56 Dose: 14 units/kg/hr, 11.431 mls/hr Heparin Sodium (Porcine) 10, (000 unit/ Sodium Chloride) 1,001 mls @ 999 mls/hr IRRIGATION ONCE PRN PRN Reason: INTRA-OP Stop: 12/11/22 23:00 Heparin Sodium (Porcine) 2,500 (unit/ Sodium Chloride) 250.5 mls @ 250 mls/hr IRRIGATION ONCE PRN PRN Reason: INTRA-OP Stop: 12/11/22 23:00 Heparin Sodium (Porcine) 10, (000 unit/ Sodium Chloride) 1,001 mls @ 999 mls/hr IRRIGATION ONCE PRN PRN Reason: INTRA-OP Stop: 12/11/22 23:00 Heparin Sodium (Porcine) 2,500 (unit/ Sodium Chloride) 250.5 mls @ 250 mls/hr IRRIGATION ONCE PRN PRN Reason: INTRA-OP Stop: 12/11/22 23:00 Tirofiban/Sodium Chloride (Aggrastat 12.5 Mg/250 Ml Ns) 250 mls @ 7.092 mls/hr IV .Q24H [facility] Stop: 12/11/22 18:00 Last Admin: 12/11/22 09:17 Dose: 7.092 mls/hr Insulin Aspart (Insulin Aspart (Novolog) 100 Unit/Ml Vial) 0 unit SQ AC-TID [facility]; Protocol Last Admin: 12/11/22 11:24 Dose: 10 unit Insulin Detemir (Insulin Detemir (Levemir) 100 Unit/Ml Syr) 18 unit SQ HS [facility] Last Admin: 12/10/22 20:54 Dose: 18 unit Isosorbide Mononitrate (Isosorbide Mononitrate Er 30 Mg Tab.Er.24h) 30 mg PO DAILY [facility] Last Admin: 12/11/22 09:24 Dose: 30 mg Losartan Potassium (Losartan 50 Mg Tab) 50 mg PO BID [facility] Last Admin: 12/11/22 09:26 Dose: 50 mg Metoprolol Tartrate (Metoprolol Tartrate 50 Mg Tab) 50 mg PO BID [facility] Last Admin: 12/11/22 09:24 Dose: 50 mg Miscellaneous Information (Rx Info: Iv Contrast Was Given 1 Each Misc) 1 each MISCELLANE DAILY PRN PRN Reason: Per Protocol Stop: 12/13/22 08:57 Nitroglycerin (Nitroglycerin Sl Tabs 0.4 Mg Tab) 0.4 mg SUBLINGUAL Q5M PRN PRN Reason: Chest Pain Nitroglycerin (Nitroglycerin Sl Tabs 0.4 Mg Tab) 0.4 mg SUBLINGUAL Q5M PRN PRN Reason: Chest Pain Nitroglycerin (Nitroglycerin Sl Tabs 0.4 Mg Tab) 0.4 mg SUBLINGUAL Q5M PRN PRN Reason: Chest Pain Nitroglycerin (Nitroglycerin Sl Tabs 0.4 Mg Tab) 0.4 mg SUBLINGUAL Q5M PRN PRN Reason: Chest Pain Nitroglycerin (Nitroglycerin Sl Tabs 0.4 Mg Tab) 0.4 mg SUBLINGUAL Q5M PRN PRN Reason: Chest Pain Spironolactone (Spironolactone 25 Mg Tab) 25 mg PO DAILY [facility] Last Admin: 12/11/22 09:24 Dose: 25 mg Zolpidem Tartrate (Zolpidem 5 Mg Tab) 5 mg PO HS PRN PRN Reason: Insomnia Past medical history to include: GERD, diabetes, COPD, hypertension, hyperlipidemia, urinary incontinence, CAD with stent Social history: . Smoked about 2 packs a day for close to 60 years stopped in 2019. No alcohol Physical examination: VITAL SIGNS: 98.2, 73, 18, 99.61, 91% on 2 L GENERAL: BMI 34, sitting up in a chair, tired EYES: Pupils equal. Conjunctiva normal. HEENT: External appearance of nose and ears normal, oral cavity grossly normal. NECK: JVD not raised; masses not palpable. HEART: First and second heart sounds are normal; no edema. LUNGS: Respiratory rate normal; decreased breath sounds ABDOMEN: Soft, nontender, liver spleen not palpable, no masses palpable. PSYCH: Alert and oriented x3; mood and affect normal. INVESTIGATIONS, reviewed in the clinical context: December 11: White count 12.4 hemoglobin 14 platelets 262 BUN 52 creatinine 1.45 December 10: White count 10.3 hemoglobin 15.2 platelets 292. Troponin I: 1.3 Blood work from [facility]: White count 10.7 hemoglobin 14.2 platelets 21 sodium 137 potassium 3.9 and 63 creatinine 1.4 sodium 155 Troponin I 0.353, 0.108, less than 0.012 EKG tracing personally reviewed by me-normal sinus rhythm. Nonspecific T and T- wave changes. Previous labs: Creatinine 1.15 in 10/18/2022 Assessment and plan: -Acute non-ST elevation myocardial infarction, the patient on CAD. Successful stenting of the ostium of the PLV with haziness-by Dr. Mcleod -IV heparin monitoring discontinued Follow PTT -CAD with prior stents Plavix, aspirin and Lopressor -Hypertensive heart disease -COPD in a ex-smoker Albuterol when necessary -GERD Pepcid when necessary -Essential hypertension Cozaar, Lopressor, hydralazine -Hyperlipidemia Lipitor -Suspect chronic kidney disease stage III from nephrosclerosis and diabetic nephropathy Creatinine 1.154 and 10/18/2022. -Chronic urinary stress incontinence -Diabetes mellitus type 2, chronically on insulin, uncontrolled with hyperglycemia Hold oral hypoglycemic. Follow Accu-Cheks. Levemir 18 f units subcu daily at bedtime Discussed with patient. Continue current medications. Status post stent placement today. Repeat BMP in the morning.
[2022-12-11 16:29] LABS: Glucose,Whole Blood 285 mg/dL (70-110)
[2022-12-11 19:53] LABS: Glucose,Whole Blood 272 mg/dL (70-110)
[2022-12-11] MEDS: INSULIN DETEMIR (LEVEMIR) 100 UNIT/ML SYR SQ SCH (20:24)
[2022-12-11] MEDS ORDERED: INSULIN ASPART (NovoLOG) 100 UNIT/ML VIAL SQ ONE (21:00)
[2022-12-12 05:52] LABS: Glucose,Whole Blood 219 mg/dL (70-110)
[2022-12-12 08:34] LABS: Basophils # (A) 0.1 k/uL (0-0.2); Basophils % (A) 1 %; Eosinophils # (A) 0.2 k/uL (0-0.7); Eosinophils % (A) 2 %; HCT 34.2 % (34.0-46.0); HGB 10.9 gm/dL (11.4-16.0); Lymphocytes # (A) 2.3 k/uL (1.0-4.8); Lymphocytes % (A) 25 %; MCH 32.8 pg (25.0-35.0); MCHC 31.9 g/dL (31.0-37.0); MCV 102.7 fL (80.0-100.0); Macrocytosis Slight; Mean Platelet Volume 9.2; Monocytes # (A) 0.5 k/uL (0-1.0); Monocytes % (A) 5 %; Neutrophils # (A) 6.1 k/uL (1.3-7.7); Neutrophils % (A) 65 %; Platelet Count 212 k/uL (150-450); RBC 3.34 m/uL (3.80-5.40); RDW 13.4 % (11.5-15.5)
[2022-12-12] MEDS: INSULN ASP PRT/INSULIN ASPART 100 UNIT/ML 10 ML VIAL SQ PRN ×2 (08:35→12:15)
[2022-12-12] MEDS: LOSARTAN 50 MG TAB PO SCH ×2 (08:37→21:39)
[2022-12-12] MEDS: hydrALAZINE HCL 50 MG TAB PO SCH ×2 (08:37→21:39)
[2022-12-12] MEDS: ATORVASTATIN 80 MG TAB PO SCH (08:38)
[2022-12-12] MEDS: FUROSEMIDE 10 MG/ML 2 ML VIAL IV SCH ×2 (08:39→21:38)
[2022-12-12] MEDS: METOPROLOL TARTRATE 50 MG TAB PO SCH ×2 (08:39→21:39)
[2022-12-12] MEDS: ISOSORBIDE MONONITRATE ER 30 MG TAB.ER.24H PO SCH (08:39)
[2022-12-12] MEDS: CLOPIDOGREL 75 MG TAB PO SCH (08:39)
[2022-12-12] MEDS: ASPIRIN 81 MG PO SCH (08:39)
[2022-12-12] MEDS: metFORMIN 500 MG TAB PO SCH ×2 (08:39→21:39)
[2022-12-12] MEDS: SPIRONOLACTONE 25 MG TAB PO SCH (08:39)
[2022-12-12] MEDS: DAPAGLIFLOZIN PROPANEDIOL 10 MG TABLET PO SCH (08:39)
[2022-12-12 08:42] LABS: WBC 9.4 k/uL (3.8-10.6)
[2022-12-12 08:47] LABS: Calcium 8.7 mg/dL (8.4-10.2); Potassium 4.1 mmol/L (3.5-5.1)
[2022-12-12 11:28] LABS: Glucose,Whole Blood 218 mg/dL (70-110)
--- NOTE | 2022-12-12 11:42 | P.PN ---
Progress Note - Text Progress Note Date: 12/12/22 Chief Complaint: Left arm pain This is a 72-year-old patient of Dr. Nagy. Chronic stable medical conditions include diabetes, hypertension, COPD, hypertension, hyperlipidemia, urinary incontinence , CAD with stent This patient was transferred in from [facility]. Patient started having a severe headache this morning. More than usual. Pain mainly in the frontal area. Didn't felt a bit funny in the left arm. No chest pain. No much help with Tylenol. Headache lasts about 3-4 hours. Patient has not had a eye tested for a few years. No nausea vomiting. In October of this year patient underwent cardiac catheterization by Dr. moscoso. Was found to have calcified coronary arteries. Underwent successful stenting of the distal RCA and the ostium of the PLV. At [facility] to some troponin positive. Hence patient was sent in town here for further cardiology evaluation. Patient headache since then has resolved. Patient ruled in for an acute non-Q wave [place]. IV heparin. December 10: Sitting up in a chair. Tired. No chest pain. IV heparin. Pending decision from cardiology about possible cardiac cath. December 11: Patient underwent cardiac catheterization this morning. Successful stenting of the ostium of the PLV with haziness. More details and Dr. Mcleod's cath noted. Up in a chair. Tired. Breathing stable. December 12: Patient is being. Short of breath. Requiring oxygen. Cartilage he felt patient wasn't fluid overload. Given IV Lasix. Creatinine went up from 1.28 from admission to 1.56. Could be contrast-induced nephropathy. Consult nephrology. Discussed with patient. Active Medications Acetaminophen (Acetaminophen Tab 500 Mg Tab) 500 mg PO Q6H PRN PRN Reason: Pain or Fever > 100.5 Al Hydroxide/Mg Hydroxide (Mag Hydrox/Al Hydrox/Simeth 30 Ml Cup) 30 ml PO Q4HR PRN PRN Reason: Heartburn Alprazolam (Alprazolam 0.25 Mg Tab) 0.25 mg PO Q6HR PRN PRN Reason: Mild Anxiety Alprazolam (Alprazolam 0.5 Mg Tab) 0.5 mg PO Q6HR PRN PRN Reason: Moderate Anxiety Aspirin (Aspirin 81 Mg) 81 mg PO DAILY [facility] Last Admin: 12/12/22 08:39 Dose: 81 mg Atorvastatin Calcium (Atorvastatin 80 Mg Tab) 80 mg PO DAILY [facility] BY [facility] Last Admin: 12/12/22 08:38 Dose: 80 mg Atropine Sulfate (Atropine Sulfate 0.1 Mg/Ml 10ml Syringe) 0.5 mg IV ONCE PRN PRN Reason: Symptomatic Bradycardia Clopidogrel Bisulfate (Clopidogrel 75 Mg Tab) 75 mg PO DAILY [facility] Last Admin: 12/12/22 08:39 Dose: 75 mg Dapagliflozin (Dapagliflozin Propanediol 10 Mg Tablet) 10 mg PO DAILY [facility] Last Admin: 12/12/22 08:39 Dose: 10 mg Dextrose/Water (Dextrose 50% Syringe 50 Ml) 25 ml IVP PER PROTOCOL PRN; Protocol PRN Reason: Hypoglycemia Dextrose/Water (Dextrose 50% Syringe 50 Ml) 50 ml IVP PER PROTOCOL PRN; Protocol PRN Reason: Hypoglycemia Furosemide (Furosemide 10 Mg/Ml 2 Ml Vial) 20 mg IV Q12HR REPLACED BY [facility] Last Admin: 12/12/22 08:39 Dose: 20 mg Hydralazine HCl (Hydralazine Hcl 50 Mg Tab) 50 mg PO BID [facility]PLACED BY [facility] Last Admin: 12/12/22 08:37 Dose: Not Given Heparin Sodium/Sodium Chloride (25,000 unit/ Sodium Chloride) 250 mls @ 9.798 mls/hr IV .Q24H REPLACED BY [facility]; Protocol Last Admin: 12/10/22 20:56 Dose: 14 units/kg/hr, 11.431 mls/hr Insulin Aspart (Insuln Asp Prt/Insulin Aspart 100 Unit/Ml 10 Ml Vial) 35 unit SQ AC-TID PRN PRN Reason: HIGH BLOOD SUGAR Last Admin: 12/12/22 08:35 Dose: 35 unit Isosorbide Mononitrate (Isosorbide Mononitrate Er 30 Mg Tab.Er.24h) 30 mg PO DAILY [facility]PL[facility] BY [facility] Last Admin: 12/12/22 08:39 Dose: 30 mg Losartan Potassium (Losartan 50 Mg Tab) 50 mg PO BID REPLACED BY [facility] Last Admin: 12/12/22 08:37 Dose: Not Given Metformin HCl (Metformin 500 Mg Tab) 500 mg PO BID REPLACED BY [facility] Last Admin: 12/12/22 08:39 Dose: 500 mg Metoprolol Tartrate (Metoprolol Tartrate 50 Mg Tab) 50 mg PO BID REPLACED BY [facility] Last Admin: 12/12/22 08:39 Dose: 50 mg Miscellaneous Information (Rx Info: Iv Contrast Was Given 1 Each Misc) 1 each MISCELLANE DAILY PRN PRN Reason: Per Protocol Stop: 12/13/22 08:57 Nitroglycerin (Nitroglycerin Sl Tabs 0.4 Mg Tab) 0.4 mg SUBLINGUAL Q5M PRN PRN Reason: Chest Pain Spironolactone (Spironolactone 25 Mg Tab) 25 mg PO DAILY [facility] Last Admin: 12/12/22 08:39 Dose: 25 mg Zolpidem Tartrate (Zolpidem 5 Mg Tab) 5 mg PO HS PRN PRN Reason: Insomnia Past medical history to include: GERD, diabetes, COPD, hypertension, hyperlipidemia, urinary incontinence, CAD with stent Social history: . Smoked about 2 packs a day for close to 60 years stopped in 2019. No alcohol Physical examination: VITAL SIGNS: 7.6, 77, 16, 102/64, 89% room air GENERAL: BMI 34, sitting up in a chair, EYES: Pupils equal. Conjunctiva normal. HEENT: External appearance of nose and ears normal, oral cavity grossly normal. NECK: JVD not raised; masses not palpable. HEART: First and second heart sounds are normal; no edema. LUNGS: Respiratory rate normal; decreased breath sounds ABDOMEN: Soft, nontender, liver spleen not palpable, no masses palpable. PSYCH: Alert and oriented x3; mood and affect normal. INVESTIGATIONS, reviewed in the clinical context: 2-D echocardiogram: EF 55-60%. December 12: WBC 9.4 hemoglobin 10.9 platelets 212 potassium 4.1 BUN 61 Krishen 1.56 proBNP 3230 December 11: White count 12.4 hemoglobin 14 platelets 262 BUN 52 creatinine 1.45 December 10: White count 10.3 hemoglobin 15.2 platelets 292. Troponin I: 1.3 Blood work from [facility]: White count 10.7 hemoglobin 14.2 platelets 21 sodium 137 potassium 3.9 and 63 creatinine 1.4 sodium 155 Troponin I 0.353, 0.108, less than 0.012 EKG tracing personally reviewed by me-normal sinus rhythm. Nonspecific T and T- wave changes. Previous labs: Creatinine 1.15 in 10/18/2022 Assessment and plan: -Acute non-ST elevation myocardial infarction, the patient on CAD. Successful stenting of the ostium of the PLV with haziness-by Dr. Mcleod -Probable acute congestive heart exacerbation from diastolic dysfunction. EF 50 -60% Lasix 20 mg IV every 12 started by cardiology. -Acute kidney injury suspect contrast-induced nephropathy. RWA. Consult nephrology. -IV heparin monitoring: discontinued Follow PTT -CAD with prior stents Plavix, aspirin and Lopressor -Hypertensive heart disease -COPD in a ex-smoker Albuterol when necessary -GERD Pepcid when necessary -Essential hypertension Cozaar, Lopressor, hydralazine -Hyperlipidemia Lipitor -Suspect chronic kidney disease stage III from nephrosclerosis and diabetic nephropathy Creatinine 1.154 and 10/18/2022. Order UA and renal ultrasound -Chronic urinary stress incontinence -Diabetes mellitus type 2, chronically on insulin, uncontrolled with hyperglycemia Hold oral hypoglycemic. Follow Accu-Cheks. Levemir 18 f units subcu daily at bedtime IV Lasix per cardiology. Follow labs. UA and renal ultrasound. Discussed with patient.
--- NOTE | 2022-12-12 12:57 | US ---
EXAMINATION TYPE: US kidneys/renal and bladder DATE OF EXAM: 12/12/2022 COMPARISON: NONE CLINICAL INDICATION: Female, 72 years old with history of Evaluated for CK D; EXAM MEASUREMENTS: Right Kidney: 9.8 x 3.9 x 3.8 cm Left Kidney: 9.9 x 4.6 x 5.2 cm Right Kidney: No hydronephrosis or masses seen Left Kidney: No hydronephrosis or masses seen Bladder: not seen, inpatient had just voided before exam There is no evidence for hydronephrosis at this point in time. Cortical medullary differentiation is maintained bilaterally. No nephrolithiasis is seen. No masses are identified. Bladder is empty and thus suboptimally evaluated. IMPRESSION: No hydronephrosis is seen bilaterally.
[2022-12-12 14:50] LABS: Appearance,Urine Clear (Clear); Bilirubin,Urine Negative (Negative); Blood,Urine Negative (Negative); Color,Urine Light Yellow; Glucose,Urine (UA) 4+ (Negative); Ketones,Urine Negative (Negative); Leukocyte Esterase,Urine Negative (Negative); Nitrite,Urine Negative (Negative); Protein,Urine Negative (Negative); Specific Gravity,Urine 1.014 (1.001-1.035); Urobilinogen,Urine <2.0 mg/dL (<2.0)
--- NOTE | 2022-12-12 15:48 | P.PN ---
Subjective Progress Note Date: 12/12/22 History of present illness: This is a 72 year old female patient of Dr. Mcleod with past medical history of coronary artery disease with recent cardiac catheterization on 10/18 revealed calcified coronary arteries, critical stenosis in the ostium of the PLB, moderate disease in the diagonal branch and OM branch with no progression since 2019 and patent stent in the mid RCA and LAD. Patient underwent successful stenting of the distal RCA and the ostium of the PLB at that time. Patient has had follow-up in the office. Note the patient is not on a beta shawn and was stable at that time. Patient states that she developed a headache and took some Tylenol which did not help and also had some tingling in her left arm and didn't feel right in general. She denies having any discomfort in her chest. She states with her first myocardial infarction she also had a headache was similar in nature to when she developed. She denies having any left arm discomfort or tingling at this time. She states she has had a little shortness of breath. She has a history of ischemic cardiomyopathy with EF of 35%, diabetes, hypertension, dyslipidemia, peripheral vascular disease, carotid stenosis left. She quit smoking 3 years ago. Patient was initially seen at [facility] transferred to [facility]. Patient was started on a heparin drip and she is found 80 her breakfast this morning. She is agreeable to undergo cardiac catheterization. EKG sinus rhythm with ST depression in inferior lateral leads Troponins were elevated at [facility]. Repeat troponins 1.36 and 1.35. BUN 51 creatinine 1.28. Blood sugar 217. Hemoglobin 15.2, platelet count 292, WBC 10.3. Home cardiac medications: Aspirin 81 mg daily, atorvastatin 80 mg daily, Plavix 75 mg daily, Lasix 20 mg daily, hydralazine 50 mg twice daily, hydrochlorothiazide 25 mg daily, Imdur 30 mild grams daily, losartan 50 mg twice daily, Lopressor 50 mg twice daily, Nitrostat as needed, spironolactone 25 mg daily, Jardiance 0.5 mg daily Echocardiogram 04/2022 revealed EF of 52%, mild MR, RVSP 41 mmHg. Carotid duplex 10/14/2022 reveals moderate disease in the left ICA 12/12 Patient denies VELAZQUEZ, no chest pain, no shortness of breath. She is on Lasix IV bid. Echocardiogram reveals normal LV size and systolic function with mild concentric LVH. Mild mitral and tricuspid insuffiency. Aortic valve sclerosis without significant restriction. No pericardial effusion. No pulmonary HTN. Yesterday, patient underwent cardiac catheterization with Dr. Mcleod which revealed calcified coronary arteries, moderate disease in the LAD with patent stent, mild disease in the left circumflex, significant stenosis at the ostium of the right PLV, successful stenting of the ostium of the PLV with haziness. Physical examination: Gen: This is a 72 year old obese female. She is found sitting in a chair and appears to be in no acute distress. VS: reviewed HEENT: Head is atraumatic, normocephalic. Pupils equal, round. Sclerae is anicteric. LUNGS: Clear to auscultation. No wheezes or rhonchi. No intercostal retractions. HEART: Regular rate and rhythm. 2/6 systolic murmur at the base ABDOMEN: Soft No tenderness. EXTREMITIES: No pedal edema. No calf tenderness. NEUROLOGICAL: Patient is awake, alert and oriented x3. Assessment: Non-ST elevated myocardial infarction s/p stent of the ostium of the PLV. Headache History of coronary artery disease with most recent stenting of the distal RCA and ostium of the PLV on 10/18/2022 Ischemic cardiomyopathy Hypertension Hyperlipidemia Diabetes Chronic kidney disease stage III Peripheral vascular disease Moderate left ICA stenosis Remote history of tobacco use Plan: Continue patient's home cardiac medications Continue IV Lasix one more day. Further recommendations to follow based upon clinical course At time of discharge, patient to follow up with Dr. Mcleod in one week. Nurse practitioner note has been reviewed, I agree with documented findings and plan of care. Patient was seen and examined. Objective - Vital Signs Vital signs: Vital Signs Temp 98 F 12/12/22 04:00 Pulse 59 L 12/12/22 04:00 Resp 18 12/12/22 04:15 BP 105/61 12/12/22 04:00 Pulse Ox 92 L 12/12/22 08:04 FiO2 Intake & Output 12/11/22 12/12/22 12/12/22 18:59 06:59 18:59 Intake Total 570 Balance 570 Weight 78.8 kg Intake: Oral 570 Other: Voiding Method Toilet Toilet # Voids 1 0 - Labs CBC & Chem 7: 12/12/22 07:19 12/12/22 07:19 Labs: Abnormal Lab Results - Last 24 Hours (Table) 12/11/22 12/11/22 12/11/22 Range/Units 09:17 11:18 16:20 WBC 12.4 H (3.8-10.6) k/uL MCV 103.1 H (80.0-100.0) fL Neutrophils # 9.7 H (1.3-7.7) k/uL POC Glucose (mg/dL) 385 H 285 H (70-110) mg/dL 12/11/22 12/12/22 Range/Units 19:52 05:45 WBC (3.8-10.6) k/uL MCV (80.0-100.0) fL Neutrophils # (1.3-7.7) k/uL POC Glucose (mg/dL) 272 H 219 H (70-110) mg/dL
[2022-12-12 16:38] LABS: Glucose,Whole Blood 89 mg/dL (70-110)
[2022-12-12 20:10] LABS: Glucose,Whole Blood 169 mg/dL (70-110)
[2022-12-13 06:17] LABS: Glucose,Whole Blood 137 mg/dL (70-110)
[2022-12-13] MEDS: SPIRONOLACTONE 25 MG TAB PO SCH (08:45)
[2022-12-13] MEDS: FUROSEMIDE 10 MG/ML 2 ML VIAL IV SCH (08:45)
[2022-12-13] MEDS: ATORVASTATIN 80 MG TAB PO SCH (08:45)
[2022-12-13] MEDS: hydrALAZINE HCL 50 MG TAB PO SCH ×2 (08:45→22:14)
[2022-12-13] MEDS: DAPAGLIFLOZIN PROPANEDIOL 10 MG TABLET PO SCH (08:45)
[2022-12-13] MEDS: ISOSORBIDE MONONITRATE ER 30 MG TAB.ER.24H PO SCH (08:45)
[2022-12-13] MEDS: LOSARTAN 50 MG TAB PO SCH ×2 (08:45→22:14)
[2022-12-13] MEDS: CLOPIDOGREL 75 MG TAB PO SCH (08:45)
[2022-12-13] MEDS: metFORMIN 500 MG TAB PO SCH ×2 (08:45→22:15)
[2022-12-13] MEDS: METOPROLOL TARTRATE 50 MG TAB PO SCH ×2 (08:45→22:14)
[2022-12-13] MEDS: ASPIRIN 81 MG PO SCH (08:45)
[2022-12-13 08:48] LABS: Calcium 9.2 mg/dL (8.4-10.2); Potassium 4.4 mmol/L (3.5-5.1)
--- NOTE | 2022-12-13 09:44 | P.NPCON ---
History of Present Illness - Reason for Consult Consult date: 12/13/22 acute renal failure - Chief Complaint Acute AL - History of Present Illness This is a 72-year-old female admitted with acute AL and seen in consultation because of acute kidney injury and chronic kidney disease She was recently stented in October. She came in again with chest pain. And had a cardiac catheterization on 12/11/2022 2 days ago. Currently she is pain-free. No shortness of breath. Feels good and wants to be discharged home. No dizziness nausea vomiting. No sweating. Vital signs are stable blood pressure 108/68, 111/68 slightly low, heart rate in the 60s afebrile Urine output recorded at thousand cc. Her creatinine was 0.85 on 09/22/2019. 1.15 and 10/18/2022 1.28 on admission on 12/10/2022 and went up to 1.56 yesterday and is down to 1.48 this morning. She is known with diabetes coronary artery disease COPD Past Medical History Past Medical History: Chest Pain / Angina, COPD, Diabetes Mellitus, Hyperlipidemia, Hypertension, Myocardial Infarction (AL), Osteoarthritis (OA), Vascular Disorder Additional Past Medical History / Comment(s): SOB with exertion, neuropathy, arthritis in back and hands, lower leg pain Last Myocardial Infarction Date:: 2018 History of Any Multi-Drug Resistant Organisms: None Reported Past Surgical History: Cholecystectomy, Heart Catheterization With Stent, Hysterectomy, Tonsillectomy Additional Past Surgical History / Comment(s): stent in left leg, [address] d in jun 2019, back surgery, 2 stents placed in October 2022 Past Anesthesia/Blood Transfusion Reactions: Previous Problems w/ Anesthesia Additional Past Anesthesia/Blood Transfusion Reaction / Comment(s): states "can only take Sodium Penethol" Date of Last Stent Placement:: 2018 Past Psychological History: No Psychological Hx Reported Smoking Status: Former smoker Past Alcohol Use History: None Reported Additional Past Alcohol Use History / Comment(s): Quit smoking 3 yrs ago, smoked 2 ppd Past Drug Use History: None Reported - Past Family History Mother Additional Family Medical History / Comment(s): nervous break down. Medications and Allergies Home Medications Medication Instructions Recorded Confirmed Type Losartan [Cozaar] 50 mg PO BID 06/23/19 12/09/22 History Aspirin 81 mg PO DAILY chew 06/29/19 12/09/22 Rx Furosemide [Lasix] 20 mg PO DAILY #30 tab 06/29/19 12/09/22 Rx Nitroglycerin Sl Tabs [Nitrostat] 0.4 mg SUBLINGUAL Q5M PRN #25 tab 06/29/19 12/09/22 Rx Spironolactone [Aldactone] 25 mg PO DAILY #30 tab 06/29/19 12/09/22 Rx Metoprolol Tartrate [Lopressor] 50 mg PO BID 09/21/19 12/09/22 History metFORMIN HCL ER [Glucophage XR] 1,000 mg PO DAILY 09/21/19 12/09/22 History Isosorbide Mononitrate ER [Imdur] 30 mg PO DAILY #30 tab.er.24h 09/22/19 12/09/22 Rx Clopidogrel [Plavix] 75 mg PO DAILY #90 tab 10/18/22 12/09/22 Rx Acetaminophen Tab [Tylenol Tab] 500 mg PO Q6H PRN 12/09/22 12/09/22 History Atorvastatin [Lipitor] 80 mg PO DAILY 12/09/22 12/09/22 History Empagliflozin [Jardiance] 25 mg PO DAILY 12/09/22 12/09/22 History Insulin NPH Hum/Reg Insulin Hm 35 units SQ AC-TID PRN 12/09/22 12/09/22 History [Novolin 70-30 Flexpen] hydrALAZINE HCL [Apresoline] 50 mg PO BID 12/09/22 12/09/22 History hydroCHLOROthiazide [Hydrodiuril] 25 mg PO DAILY 12/09/22 12/09/22 History Allergies Allergy/AdvReac Type Severity Reaction Status Date / Time latex Allergy Rash/Hives Verified 12/09/22 19:43 Penicillins Allergy Rash/Hives Verified 12/09/22 19:43 Sulfa (Sulfonamide Allergy Swelling Verified 12/09/22 19:43 Antibiotics) wool Allergy Itching Verified 12/09/22 19:43 Physical Exam Vitals: Vital Signs Temp Pulse Resp BP Pulse Ox 12/13/22 04:00 97.4 F L 62 18 111/68 97 12/13/22 02:00 67 12/12/22 23:21 97.6 F 67 18 108/68 97 12/12/22 19:56 98.4 F 77 16 129/65 97 12/12/22 15:56 74 16 106/61 95 12/12/22 11:18 56 L 15 105/58 89 L Intake and Output 12/12/22 12/13/22 12/13/22 22:59 06:59 14:59 Intake Total 730 0 Output Total 200 200 Balance 530 -200 0 Intake: IV 10 Invasive Line 1 10 Oral 720 0 Output: Urine 200 200 Other: Voiding Method Toilet Toilet Weight 79.6 kg Exams awake alert oriented comfortable on room air. HEENT exam no JVP neck is supple no facial asymmetry Lungs clear to auscultation good air entry Heart sounds unremarkable Abdomen soft nontender slightly protuberant Extremity exam was no edema Neurologically awake alert oriented Results - Lab Results Most recent lab results Calcium 9.2 mg/dL (8.4-10.2) 12/13/22 07:55 12/12/22 07:19 12/13/22 07:55 Assessment and Plan Assessment: Impression 1. Acute kidney injury secondary to acute AL possibly related to cardiac catheterization additionally, resolving with creatinine coming down from 1.56- 1.48 2. Chronic kidney disease, stage IIIB G4 in the 30s, urinalysis proteinuria, etiology therefore is nephrosclerosis no evidence of diabetic nephropathy. right kidney 9.8 (9.9 cm on ultrasound dated 12/12/2022 yesterday. 3. Acute AL status post stent in October 2022 and repeat cardiac cath 12/11/2022, recommendation is for aggressive medical management 4. Hemoglobin went down of from 14-10.9, we will watch for right now.. Recommendation 1. Patient may be discharged but he'll need to be followed up in the office, creatinine is trending down. 2. She is on renal protective medication with Aldactone, as well as losartan which should suffice for right now as she has no proteinuria. 3. Watch for hyperkalemia because of the 2 potassium sparing medications
[2022-12-13 11:31] LABS: Glucose,Whole Blood 293 mg/dL (70-110)
--- NOTE | 2022-12-13 12:21 | P.PN ---
Subjective Progress Note Date: 12/13/22 The patient is a 72-year-old female who follows in the office with Dr. Mcleod. She presented to the emergency room with headache as well as tingling in her left arm. She overall felt unwell, however denies any chest pain or chest pressure. She was ruled in for non-ST elevated myocardial infarction and t herefore was taken for coronary angiogram. She was found to have significant stenosis at the ostium of the right PLV with haziness. Successful stenting by Dr. Mcleod. The patient was interviewed and examined sitting up in her recliner chair. She states that she does get a little dizzy and lightheaded if she stands too abruptly, but otherwise overall feels well. She states she's had improvement in her symptoms since her initial admission. No chest pain or chest pressure overnight. GENERAL: Well-appearing, well-nourished and in no acute distress. NECK: Supple without JVD or thyromegaly. LUNGS: Breath sounds diminished to auscultation bilaterally. Respiration equal and unlabored. No wheezes, rales or rhonchi. HEART: Regular rate and rhythm. Soft systolic murmur. No rubs or gallops. S1 and S2 heard. EXTREMITIES: Normal range of motion, no edema. No clubbing or cyanosis. Peripheral pulses intact and strong. TELEMETRY: Sinus rhythm IMPRESSION: Non-ST elevated myocardial infarction Status post stenting of the ostium of the PLV History of coronary artery disease with recent stenting of the distal RCA and ostium of PLV Ischemic cardiomyopathy Hypertension Hyperlipidemia Diabetes Chronic kidney disease Peripheral vascular disease PLAN: Transition patient to oral diuretics Continue all other cardiac medications Patient may be discharged from the cardiac standpoint I am dictating on behalf of Dr Eleazar Hill's history/physical and assessment/plan. Objective - Vital Signs Vital signs: Vital Signs Temp 97.1 F L 12/13/22 08:00 Pulse 70 12/13/22 08:00 Resp 18 12/13/22 08:00 BP 141/91 12/13/22 08:00 Pulse Ox 95 12/13/22 08:00 FiO2 Intake & Output 12/12/22 12/13/22 12/13/22 18:59 06:59 18:59 Intake Total 830 10 0 Output Total 600 400 Balance 230 -390 0 Weight 79.6 kg Intake: IV 10 Invasive Line 1 10 Oral 830 0 Output: Urine 600 400 Other: Voiding Method Toilet Toilet Toilet # Voids 1 - Labs CBC & Chem 7: 12/12/22 07:19 12/13/22 07:55 Labs: Abnormal Lab Results - Last 24 Hours (Table) 12/12/22 12/12/22 12/13/22 Range/Units 12:59 20:09 06:15 Sodium (137-145) mmol/L BUN (7-17) mg/dL Creatinine (0.52-1.04) mg/dL Glucose (74-99) mg/dL POC Glucose (mg/dL) 169 H 137 H (70-110) mg/dL Urine Glucose (UA) 4+ H (Negative) 12/13/22 12/13/22 Range/Units 07:55 11:29 Sodium 135 L (137-145) mmol/L BUN 59 H (7-17) mg/dL Creatinine 1.48 H (0.52-1.04) mg/dL Glucose 172 H (74-99) mg/dL POC Glucose (mg/dL) 293 H (70-110) mg/dL Urine Glucose (UA) (Negative)
[2022-12-13] MEDS: INSULN ASP PRT/INSULIN ASPART 100 UNIT/ML 10 ML VIAL SQ SCH ×3 (12:25→16:56)
[2022-12-13 12:52] LABS: HCT 35.8 % (34.0-46.0); HGB 11.5 gm/dL (11.4-16.0); Hypochromasia Slight; MCH 33.6 pg (25.0-35.0); MCHC 32.1 g/dL (31.0-37.0); MCV 104.6 fL (80.0-100.0); Macrocytosis Slight; Mean Platelet Volume 9.5; Platelet Count 247 k/uL (150-450); RBC 3.43 m/uL (3.80-5.40); RDW 13.1 % (11.5-15.5); WBC 11.5 k/uL (3.8-10.6)
[2022-12-13 14:40] LABS: Glucose,Whole Blood 337 mg/dL (70-110)
[2022-12-13 16:16] LABS: Glucose,Whole Blood 276 mg/dL (70-110)
--- NOTE | 2022-12-13 17:33 | P.PN ---
Subjective Progress Note Date: 12/13/22 72-year-old patient of Dr. Nagy. Chronic stable medical conditions include diabetes, hypertension, COPD, hypertension, hyperlipidemia, urinary incontinence , CAD with stent This patient was transferred in from [facility]. Patient started having a severe headache this morning. More than usual. Pain mainly in the frontal area. Didn't felt a bit funny in the left arm. No chest pain. No much help with Tylenol. Headache lasts about 3-4 hours. Patient has not had a eye tested for a few years. No nausea vomiting. In October of this year patient underwent cardiac catheterization by Dr. moscoso. Was found to have calcified coronary arteries. Underwent successful stenting of the distal RCA and the ostium of the PLV. At [facility] to some troponin positive. Hence patient was sent in town here for further cardiology evaluation. Patient headache since then has resolved. Patient ruled in for an acute non-Q wave MT. IV heparin. December 10: Sitting up in a chair. Tired. No chest pain. IV heparin. Pending decision from cardiology about possible cardiac cath. December 11: Patient underwent cardiac catheterization this morning. Successful stenting of the ostium of the PLV with haziness. More details and Dr. Mcleod's cath noted. Up in a chair. Tired. Breathing stable. December 12: Patient is being. Short of breath. Requiring oxygen. Cartilage he felt patient wasn't fluid overload. Given IV Lasix. Creatinine went up from 1.28 from admission to 1.56. Could be contrast-induced nephropathy. Consult nephrology. Discussed with patient. Objective - Vital Signs Vital signs: Vital Signs Temp 97.1 F L 12/13/22 08:00 Pulse 66 12/13/22 14:00 Resp 18 12/13/22 14:00 BP 114/63 12/13/22 12:00 Pulse Ox 93 L 12/13/22 12:00 FiO2 Intake & Output 12/12/22 12/13/22 12/13/22 18:59 06:59 18:59 Intake Total 830 10 240 Output Total 600 400 Balance 230 -390 240 Weight 79.6 kg Intake: IV 10 Invasive Line 1 10 Oral 830 240 Output: Urine 600 400 Other: Voiding Method Toilet Toilet Toilet # Voids 1 - Exam PHYSICAL EXAMINATION: GENERAL: The patient is alert and oriented x3, not in any acute distress. Well developed, well nourished. HEENT: Pupils are round and equally reacting to light. EOMI. No scleral icterus. No conjunctival pallor. Normocephalic, atraumatic. No pharyngeal erythema. No thyromegaly. CARDIOVASCULAR: S1 and S2 present. No murmurs, rubs, or gallops. PULMONARY: Chest is clear to auscultation, no wheezing or crackles. ABDOMEN: Soft, nontender, nondistended, normoactive bowel sounds. No palpable organomegaly. MUSCULOSKELETAL: No joint swelling or deformity. EXTREMITIES: No cyanosis, clubbing, or pedal edema. NEUROLOGICAL: Gross neurological examination did not reveal any focal deficits. SKIN: No rashes. - Labs CBC & Chem 7: 12/13/22 07:55 12/13/22 07:55 Labs: Abnormal Lab Results - Last 24 Hours (Table) 12/12/22 12/13/22 12/13/22 Range/Units 20:09 06:15 07:55 WBC (3.8-10.6) k/uL RBC (3.80-5.40) m/uL MCV (80.0-100.0) fL Sodium 135 L (137-145) mmol/L BUN 59 H (7-17) mg/dL Creatinine 1.48 H (0.52-1.04) mg/dL Glucose 172 H (74-99) mg/dL POC Glucose (mg/dL) 169 H 137 H (70-110) mg/dL 12/13/22 12/13/22 12/13/22 Range/Units 07:55 11:29 14:39 WBC 11.5 H (3.8-10.6) k/uL RBC 3.43 L (3.80-5.40) m/uL MCV 104.6 H (80.0-100.0) fL Sodium (137-145) mmol/L BUN (7-17) mg/dL Creatinine (0.52-1.04) mg/dL Glucose (74-99) mg/dL POC Glucose (mg/dL) 293 H 337 H (70-110) mg/dL 12/13/22 Range/Units 16:13 WBC (3.8-10.6) k/uL RBC (3.80-5.40) m/uL MCV (80.0-100.0) fL Sodium (137-145) mmol/L BUN (7-17) mg/dL Creatinine (0.52-1.04) mg/dL Glucose (74-99) mg/dL POC Glucose (mg/dL) 276 H (70-110) mg/dL Assessment and Plan Assessment: 1. Acute non-ST elevation myocardial infarction, the patient on CAD. Successful stenting of the ostium of the PLV with haziness-by Dr. Mcleod 2. Probable acute congestive heart exacerbation from diastolic dysfunction. EF 50-60% Lasix 20 mg IV every 12 started by cardiology. 3. Acute kidney injury suspect contrast-induced nephropathy. RWA. Consult nephrology. -IV heparin monitoring: discontinued Follow PTT 4. CAD with prior stents Plavix, aspirin and Lopressor 5. Hypertensive heart disease 6. COPD in a ex-smoker Albuterol when necessary 7. Essential hypertension Cozaar, Lopressor, hydralazine 8. Hyperlipidemia Lipitor 9. Suspect chronic kidney disease stage III from nephrosclerosis and diabetic nephropathy Creatinine 1.154 and 10/18/2022. Order UA and renal ultrasound 10. Diabetes mellitus type 2, chronically on insulin, uncontrolled with hyperglycemia Hold oral hypoglycemic. Follow Accu-Cheks. Levemir 18 f units subcu daily at bedtime Disposition; patient has a drop in hemoglobin from 14 down to 8.0; we will monitor CBC closely to ensure stability -- Possible discharge in next 24 hours if hemoglobin remains stable
[2022-12-13 19:54] LABS: Glucose,Whole Blood 241 mg/dL (70-110)
[2022-12-14 05:47] LABS: Glucose,Whole Blood 101 mg/dL (70-110)
[2022-12-14] MEDS: INSULN ASP PRT/INSULIN ASPART 100 UNIT/ML 10 ML VIAL SQ SCH ×2 (07:08→12:35)
[2022-12-14 08:32] LABS: HGB 10.6 gm/dL (11.4-16.0); MCH 32.4 pg (25.0-35.0); MCHC 32.2 g/dL (31.0-37.0); MCV 100.7 fL (80.0-100.0); Macrocytosis Slight; Mean Platelet Volume 9.2; Platelet Count 255 k/uL (150-450); RBC 3.28 m/uL (3.80-5.40); RDW 13.3 % (11.5-15.5); WBC 10.1 k/uL (3.8-10.6)
[2022-12-14] MEDS: CLOPIDOGREL 75 MG TAB PO SCH (08:33)
[2022-12-14] MEDS: hydrALAZINE HCL 50 MG TAB PO SCH (08:33)
[2022-12-14] MEDS: DAPAGLIFLOZIN PROPANEDIOL 10 MG TABLET PO SCH (08:34)
[2022-12-14] MEDS: ISOSORBIDE MONONITRATE ER 30 MG TAB.ER.24H PO SCH (08:34)
[2022-12-14] MEDS: LOSARTAN 50 MG TAB PO SCH (08:34)
[2022-12-14] MEDS: ASPIRIN 81 MG PO SCH (08:34)
[2022-12-14] MEDS: METOPROLOL TARTRATE 50 MG TAB PO SCH (08:34)
[2022-12-14] MEDS: ATORVASTATIN 80 MG TAB PO SCH (08:34)
[2022-12-14] MEDS: SPIRONOLACTONE 25 MG TAB PO SCH (08:34)
[2022-12-14] MEDS: metFORMIN 500 MG TAB PO SCH (08:34)
--- NOTE | 2022-12-14 08:48 | P.PN ---
Subjective Progress Note Date: 12/14/22 Principal diagnosis: This is a 72-year-old male seen in consultation because of acute kidney injury after acute UT. Patient also has chronic kidney disease. Recently stented in A pril came in again with chest pain and had another cardiac cath on 12/11/2022. Her creatinine was 0.85 on 09/22/2019, 1.15 on 10/18/2022 and on admission was 1.28 went up to 1.56, post cardiac catheterization and is down to 1.48 as of yesterday. Labs today are pending. This morning she is feeling much better has no complaints at all no chest pain dizziness shortness of breath. Able to walk. She wants to go home Objective - Vital Signs Vital signs: Vital Signs Temp 97.4 F L 12/14/22 04:00 Pulse 70 12/14/22 07:40 Resp 20 12/14/22 07:40 BP 136/67 12/14/22 04:00 Pulse Ox 92 L 12/14/22 05:05 FiO2 Intake & Output 12/13/22 12/14/22 12/14/22 18:59 06:59 18:59 Intake Total 720 Balance 720 Intake: Oral 720 Other: Voiding Method Toilet Toilet Toilet Awake alert oriented HEENT exam no JVP neck is supple Lungs clear to auscultation good air entry Heart sounds unremarkable Abdomen soft nontender Extremity examination was no edema Neurologically awake alert oriented. - Labs CBC & Chem 7: 12/14/22 08:01 12/13/22 07:55 Labs: Abnormal Lab Results - Last 24 Hours (Table) 12/13/22 12/13/22 12/13/22 Range/Units 07:55 07:55 11:29 WBC 11.5 H (3.8-10.6) k/uL RBC 3.43 L (3.80-5.40) m/uL Hgb (11.4-16.0) gm/dL Hct (34.0-46.0) % MCV 104.6 H (80.0-100.0) fL Sodium 135 L (137-145) mmol/L BUN 59 H (7-17) mg/dL Creatinine 1.48 H (0.52-1.04) mg/dL Glucose 172 H (74-99) mg/dL POC Glucose (mg/dL) 293 H (70-110) mg/dL 12/13/22 12/13/22 12/13/22 Range/Units 14:39 16:13 19:44 WBC (3.8-10.6) k/uL RBC (3.80-5.40) m/uL Hgb (11.4-16.0) gm/dL Hct (34.0-46.0) % MCV (80.0-100.0) fL Sodium (137-145) mmol/L BUN (7-17) mg/dL Creatinine (0.52-1.04) mg/dL Glucose (74-99) mg/dL POC Glucose (mg/dL) 337 H 276 H 241 H (70-110) mg/dL 12/14/22 Range/Units 08:01 WBC (3.8-10.6) k/uL RBC 3.28 L (3.80-5.40) m/uL Hgb 10.6 L (11.4-16.0) gm/dL Hct 33.0 L (34.0-46.0) % MCV 100.7 H (80.0-100.0) fL Sodium (137-145) mmol/L BUN (7-17) mg/dL Creatinine (0.52-1.04) mg/dL Glucose (74-99) mg/dL POC Glucose (mg/dL) (70-110) mg/dL Assessment and Plan Assessment: Impression 1. Acute kidney injury secondary to acute UT possibly related to cardiac cat heterization additionally, resolving with creatinine coming down from 1.56-1.48 as of yesterday last today are pending 2. Chronic kidney disease, stage IIIB G4 in the 30s, urinalysis proteinuria, et iology therefore is nephrosclerosis no evidence of diabetic nephropathy. right kidney 9.8 (9.9 cm on ultrasound dated 12/12/2022 yesterday. 3. Acute UT status post stent in October 2022 and repeat cardiac cath 12/11/2022, recommendation is for aggressive medical management 4. Hemoglobin went down of from 14- down to 10.6 this morning, we will watch for right now.. Recommendation 1. Patient may be discharged but he'll need to be followed up in the office, creatinine is trending down. 2. She is on renal protective medication with Aldactone, as well as losartan which should suffice for right now as she has no proteinuria. 3. Watch for hyperkalemia because of the 2 potassium sparing medications
[2022-12-14] MEDS ORDERED: FUROSEMIDE 20 MG TAB PO SCH (09:00)
[2022-12-14 09:34] VITALS: RESP 18; TEMP 97
[2022-12-14 11:35] LABS: Glucose,Whole Blood 89 mg/dL (70-110)
[2022-12-14 12:37] VITALS: BP 107/54; PULSE 60
[2022-12-14 12:59] LABS: Glucose,Whole Blood 161 mg/dL (70-110)
== END 2022-12-14 16:04 | disposition home or self-care (01) | DRG 246 ==
LOC: EC 17:36 → 3SCARD 19:39
PROVIDERS: ADMIT Hospitalist; ATTEND Hospitalist
PROC: 4A023N7 Measurement of Cardiac Sampling and Pressure, Left Heart, Percutaneous Approach (ICD-10-PCS; principal; 2022-12-11 06:30)
PROC: 027034Z Dilation of Coronary Artery, One Artery with Drug-eluting Intraluminal Device, Percutaneous Approach (ICD-10-PCS; principal; 2022-12-11 06:30)
PROC: B2111ZZ Fluoroscopy of Multiple Coronary Arteries using Low Osmolar Contrast (ICD-10-PCS; 2022-12-11 06:30)
DX: I21.4 Non-ST elevation (NSTEMI) myocardial infarction (principal); I50.33 Acute on chronic diastolic (congestive) heart failure; J93.9 Pneumothorax, unspecified; N17.9 Acute kidney failure, unspecified; I13.0 Hypertensive heart and chronic kidney disease with heart failure and stage 1 through stage 4 chronic kidney disease, or unspecified chronic kidney disease; N18.32 Chronic kidney disease, stage 3b; I25.10 Atherosclerotic heart disease of native coronary artery without angina pectoris; Z87.891 Personal history of nicotine dependence; E11.22 Type 2 diabetes mellitus with diabetic chronic kidney disease; E11.51 Type 2 diabetes mellitus with diabetic peripheral angiopathy without gangrene; E11.649 Type 2 diabetes mellitus with hypoglycemia without coma; E78.5 Hyperlipidemia, unspecified; M19.041 Primary osteoarthritis, right hand; F41.9 Anxiety disorder, unspecified; M47.9 Spondylosis, unspecified; J44.9 Chronic obstructive pulmonary disease, unspecified; M19.042 Primary osteoarthritis, left hand; G47.00 Insomnia, unspecified; I25.2 Old myocardial infarction; I25.5 Ischemic cardiomyopathy; I65.22 Occlusion and stenosis of left carotid artery; K21.9 Gastro-esophageal reflux disease without esophagitis; N39.3 Stress incontinence (female) (male); Z95.828 Presence of other vascular implants and grafts; Z79.02 Long term (current) use of antithrombotics/antiplatelets; Z79.4 Long term (current) use of insulin; Z79.82 Long term (current) use of aspirin; Z79.84 Long term (current) use of oral hypoglycemic drugs; Z79.899 Other long term (current) drug therapy; Z95.5 Presence of coronary angioplasty implant and graft; Z28.310 Unvaccinated for COVID-19; Z28.21 Immunization not carried out because of patient refusal; Z88.0 Allergy status to penicillin; Z88.2 Allergy status to sulfonamides; Z91.040 Latex allergy status
CPT/HCPCS: 71046; 76770; 80048; 80061; 81003; 83036; 83880; 84484; 85025; 85027; 85730; 92921; 93005; 93306; 93458; 94760; 96365; 96366; 99291

== ENCOUNTER 2022-12-17 22:19 | Inpatient (IN) | payer MEDICARE, OTHER ==
[2022-12-17] MEDS ORDERED: HEPARIN SODIUM 1,000 UN/ML (10ML VL) IV PRN (22:31)
[2022-12-17] MEDS: HEPARIN SOD,PORK IN 0.45% NACL 25,000 UNIT in 0.45% NACL 1 250ML.BAG IV SCH (23:13)
[2022-12-17 23:38] LABS: Albumin 4.6 g/dL (3.5-5.0); Calcium 10.3 mg/dL (8.4-10.2); Magnesium 2.3 mg/dL (1.6-2.3); Potassium 3.9 mmol/L (3.5-5.1); Total Bilirubin 0.5 mg/dL (0.2-1.3); Total Protein 7.5 g/dL (6.3-8.2)
[2022-12-17 23:54] LABS: Basophils # (A) 0.1 k/uL (0-0.2); Basophils % (A) 1 %; Eosinophils # (A) 0.3 k/uL (0-0.7); Eosinophils % (A) 3 %; HCT 38.6 % (34.0-46.0); HGB 12.6 gm/dL (11.4-16.0); Lymphocytes # (A) 2.7 k/uL (1.0-4.8); Lymphocytes % (A) 24 %; MCH 32.6 pg (25.0-35.0); MCHC 32.7 g/dL (31.0-37.0); MCV 99.7 fL (80.0-100.0); Mean Platelet Volume 9.4; Monocytes # (A) 0.6 k/uL (0-1.0); Monocytes % (A) 5 %; Neutrophils # (A) 7.2 k/uL (1.3-7.7); Neutrophils % (A) 65 %; Platelet Count 386 k/uL (150-450); RBC 3.87 m/uL (3.80-5.40); RDW 13.4 % (11.5-15.5)
[2022-12-17 23:58] LABS: Prothrombin Time 10.5 sec (9.0-12.0)
[2022-12-18 00:08] LABS: Partial Thromboplastin Time 74.9 sec (22.0-30.0)
[2022-12-18] MEDS ORDERED: NALOXONE 0.4 MG/ML 1 ML VIAL IV PRN (00:24)
--- NOTE | 2022-12-18 00:24 | ED ---
General Adult HPI - General Chief complaint: Headache Stated complaint: Hypertension, Headache Time Seen by Provider: 12/17/22 22:21 Source: patient Mode of arrival: EMS Limitations: no limitations - History of Present Illness Initial comments: This is a 72-year-old female who was sent into the emergency Department as a transfer patient from [facility]. The patient was sent in for NSTEMI after the patient was found to have increasing troponin levels. The patient did state that she had a stent placed by Dr. Mcleod last Thursday but she did not have any chest pain. The patient actually presented to the emergency department at the outside facility for a headache. The patient was [facility] troponin levels on a heparin drip. On arrival, the patient was pleasant, without any acute pain or distress noted. The patient denied any chest pain or shortness of breath. The patient was resting in bed comfortable B. - Related Data Home Medications Medication Instructions Recorded Confirmed Losartan [Cozaar] 50 mg PO BID 06/23/19 12/09/22 Metoprolol Tartrate [Lopressor] 50 mg PO BID 09/21/19 12/09/22 metFORMIN HCL ER [Glucophage XR] 1,000 mg PO DAILY 09/21/19 12/09/22 Acetaminophen Tab [Tylenol] 500 mg PO Q6H PRN 12/09/22 12/09/22 Atorvastatin [Lipitor] 80 mg PO DAILY 12/09/22 12/09/22 Empagliflozin [Jardiance] 25 mg PO DAILY 12/09/22 12/09/22 Insulin NPH Hum/Reg Insulin Hm 35 units SQ AC-TID PRN 12/09/22 12/09/22 [Novolin 70-30 Flexpen] hydrALAZINE HCL [Apresoline] 50 mg PO BID 12/09/22 12/09/22 hydroCHLOROthiazide [Hydrodiuril] 25 mg PO DAILY 12/09/22 12/09/22 Previous Rx's Medication Instructions Recorded Aspirin 81 mg PO DAILY chew 06/29/19 Furosemide [Lasix] 20 mg PO DAILY #30 tab 06/29/19 Nitroglycerin Sl Tabs [Nitrostat] 0.4 mg SUBLINGUAL Q5M PRN #25 tab 06/29/19 Spironolactone [Aldactone] 25 mg PO DAILY #30 tab 06/29/19 Isosorbide Mononitrate ER [Imdur] 30 mg PO DAILY #30 tab.er.24h 09/22/19 Clopidogrel [Plavix] 75 mg PO DAILY #90 tab 10/18/22 Allergies Allergy/AdvReac Type Severity Reaction Status Date / Time latex Allergy Rash/Hives Verified 12/09/22 19:43 Penicillins Allergy Rash/Hives Verified 12/09/22 19:43 Sulfa (Sulfonamide Allergy Swelling Verified 12/09/22 19:43 Antibiotics) wool Allergy Itching Verified 12/09/22 19:43 Review of Systems ROS Statement: Those systems with pertinent positive or pertinent negative responses have been documented in the HPI. ROS Other: All systems not noted in ROS Statement are negative. Past Medical History Past Medical History: Chest Pain / Angina, COPD, Diabetes Mellitus, Hyperlipidemia, Hypertension, Myocardial Infarction (CT), Osteoarthritis (OA), Vascular Disorder Additional Past Medical History / Comment(s): SOB with exertion, neuropathy, arthritis in back and hands, lower leg pain Last Myocardial Infarction Date:: 2018 History of Any Multi-Drug Resistant Organisms: None Reported Past Surgical History: Cholecystectomy, Heart Catheterization With Stent, Hysterectomy, Tonsillectomy Additional Past Surgical History / Comment(s): stent in left leg, 5 stents placed in jun 2019, back surgery, 2 stents placed in October 2022 Past Anesthesia/Blood Transfusion Reactions: Previous Problems w/ Anesthesia Additional Past Anesthesia/Blood Transfusion Reaction / Comment(s): states "can only take Sodium Penethol" Date of Last Stent Placement:: 2018 Past Psychological History: No Psychological Hx Reported Smoking Status: Former smoker Past Alcohol Use History: None Reported Past Drug Use History: None Reported - Past Family History Mother Additional Family Medical History / Comment(s): nervous break down. General Exam Limitations: no limitations General appearance: alert, in no apparent distress Head exam: Present: atraumatic, normocephalic, normal inspection Eye exam: Present: normal appearance, PERRL Pupils: Present: normal accommodation ENT exam: Present: normal exam, normal oropharynx, mucous membranes moist Neck exam: Present: normal inspection, full ROM Respiratory exam: Present: normal lung sounds bilaterally Cardiovascular Exam: Present: regular rate, normal rhythm, normal heart sounds GI/Abdominal exam: Present: soft, normal bowel sounds Extremities exam: Present: normal inspection, full ROM Back exam: Present: normal inspection, full ROM Neurological exam: Present: alert, oriented X3, CN II-XII intact Psychiatric exam: Present: normal affect, normal mood Skin exam: Present: warm, dry Course Vital Signs 12/17/22 23:52 Pulse Rate 74 Respiratory 18 Rate Blood Pressure 154/67 O2 Sat by Pulse 94 L Oximetry EKG Findings - EKG Comments: EKG Findings:: An EKG was obtained and was interpreted by myself showing a rate of 77, PA interval 156, QRS duration of 112 and QTC of 491. This EKG showed a normal sinus rhythm with no ST segment elevation or depression noted. Medical Decision Making - Medical Decision Making Was pt. sent in by a medical professional or institution (, BECKY, FRONT OFFICE DIRECTOR, urgent care, hospital, or [facility]...) When possible be specific @ -Yes, transferred from [facility] Emergency Department for NSTEMI Did you speak to anyone other than the patient for history (EMS, parent, family, police, friend...)? What history was obtained from this source @ -No Did you review nursing and triage notes (agree or disagree)? Why? @ -Yes, I reviewed the outside facility emergency department records including laboratory workup and imaging that was performed. Were old charts reviewed (outside hosp., previous admission, EMS record, old EKG, old radiological studies, urgent care reports/EKG's, m[facility]p records)? Report findings @ -No old charts were reviewed Differential Diagnosis (chest pain, altered mental status, abdominal pain women, abdominal pain men, vaginal bleeding, weakness, fever, dyspnea, syncope, headache, dizziness, GI bleed, back pain, seizure, CVA, palpatations, mental health)? @ -NSTEMI,ACS, pneumonia EKG interpreted by me (3pts min.). @ -As above X-rays interpreted by me (1pt min.). @ -None CT interpreted by me (1pt min.). @ -None done U/S interpreted by me (1pt. min.). @ -None done What testing was considered but not performed or refused? (CT, X-rays, U/S, labs)? Why? @ -None What meds were considered but not given or refused? Why? @ -None Did you discuss the management of the patient with other professionals (professionals i.e. , PA, FRONT OFFICE DIRECTOR, lab, RT, psych nurse, nursing home social worker, simulation software engineer, teacher, workers' compensation hearings officer, casey saw operator)? Give summary @ -Yes, admitting physician was contacted regarding admission. Was smoking cessation discussed for >3mins.? @ -No Was critical care preformed (if so, how long)? @ -No Were there social determinants of health that impacted care today? How? (Homelessness, low income, unemployed, alcoholism, drug addiction, transportation, low edu. Level, literacy, decrease access to med. care, mcfp, rehab)? @ -No Was there de-escalation of care discussed even if they declined (Discuss DNR or withdrawal of care, Hospice)? DNR status @ -No What co-morbidities impacted this encounter? (DM, HTN, Smoking, COPD, CAD, Cancer, CVA, ARF, Chemo, Hep., AIDS, mental health diagnosis, sleep apnea, mor bid obesity)? @ -Previous cardiac stenting, hypertension, diabetes Was patient admitted / discharged? Hospital course, mention meds given and route, prescriptions, significant lab abnormalities, going to OR and other pertinent info. @ -The patient was seen and evaluated emergency department. Physical exam, the patient was resting in bed without any acute distress. The patient was arty started on heparin at the outside facility and was continued on this. Laboratory workup was obtained to have a repeat troponin here. Due to the patient's NSTEMI on heparin, the patient will be admitted for further workup and evaluation with cardiology on consult. The patient was agreeable to this plan and was admitted in stable condition. Undiagnosed new problem with uncertain prognosis? @ -No Drug Therapy requiring intensive monitoring for toxicity (Heparin, Nitro, Insulin, Cardizem)? @ -Heparin Were any procedures done? @ -No Diagnosis/symptom? @ -NSTEMI Acute, or Chronic, or Acute on Chronic? @ -Acute Uncomplicated (without systemic symptoms) or Complicated (systemic symptoms)? @ -Complicated Side effects of treatment? @ -No Exacerbation, Progression, or Severe Exacerbation? @ -No Poses a threat to life or bodily function? How? (Chest pain, USA, CT, pneumonia, PE, COPD, DKA, ARF, appy, cholecystitis, CVA, Diverticulitis, Homicidal, Suicidal, threat to staff... and all critical care pts) @ -Yes, continued NSTEMI and ACS can lead to permanent damage and possible . - Lab Data Result diagrams: 12/17/22 22:35 12/17/22 22:35 Lab Results 12/17/22 12/17/22 12/17/22 Range/Units 22:35 22:35 22:35 WBC 11.0 H (3.8-10.6) k/uL RBC 3.87 (3.80-5.40) m/uL Hgb 12.6 (11.4-16.0) gm/dL Hct 38.6 (34.0-46.0) % MCV 99.7 (80.0-100.0) fL MCH 32.6 (25.0-35.0) pg MCHC 32.7 (31.0-37.0) g/dL RDW 13.4 (11.5-15.5) % Plt Count 386 (150-450) k/uL MPV 9.4 Neutrophils % 65 % Lymphocytes % 24 % Monocytes % 5 % Eosinophils % 3 % Basophils % 1 % Neutrophils # 7.2 (1.3-7.7) k/uL Lymphocytes # 2.7 (1.0-4.8) k/uL Monocytes # 0.6 (0-1.0) k/uL Eosinophils # 0.3 (0-0.7) k/uL Basophils # 0.1 (0-0.2) k/uL PT 10.5 (9.0-12.0) sec INR 1.0 (<1.2) APTT 74.9 H (22.0-30.0) sec Sodium 138 (137-145) mmol/L Potassium 3.9 (3.5-5.1) mmol/L Chloride 101 (98-107) mmol/L Carbon Dioxide 24 (22-30) mmol/L Anion Gap 13 mmol/L BUN 47 H (7-17) mg/dL Creatinine 1.32 H (0.52-1.04) mg/dL Est GFR (CKD-EPI)AfAm 46 (>60 ml/min/1.73 sqM) Est GFR (CKD-EPI)NonAf 40 (>60 ml/min/1.73 sqM) Glucose 110 H (74-99) mg/dL Calcium 10.3 H (8.4-10.2) mg/dL Magnesium 2.3 (1.6-2.3) mg/dL Total Bilirubin 0.5 (0.2-1.3) mg/dL AST 52 H (14-36) U/L ALT 26 (4-34) U/L Alkaline Phosphatase 93 (38-126) U/L Total Protein 7.5 (6.3-8.2) g/dL Albumin 4.6 (3.5-5.0) g/dL Disposition Clinical Impression: NSTEMI (non-ST elevated myocardial infarction) Disposition: ADMITTED IP TO THIS [facility] Condition: Stable Is patient prescribed a controlled substance at d/c from ED?: No Referrals: Amadou Nagy MD [Primary Care Provider] - 1-2 days Time of Disposition: 22:40 Decision to Admit Reason: Admit from EC Decision Date: 12/17/22 Decision Time: 22:40
[2022-12-18] MEDS: NITROGLYCERIN-D5W PMX 50 MG in DEXTROSE/WATER 1 250ML.BAG IV SCH (04:08)
[2022-12-18 06:03] LABS: Glucose,Whole Blood 134 mg/dL (70-110)
[2022-12-18 06:25] LABS: Basophils # (A) 0.1 k/uL (0-0.2); Basophils % (A) 1 %; Eosinophils # (A) 0.3 k/uL (0-0.7); Eosinophils % (A) 3 %; HCT 40.4 % (34.0-46.0); HGB 12.8 gm/dL (11.4-16.0); Lymphocytes # (A) 2.2 k/uL (1.0-4.8); Lymphocytes % (A) 19 %; MCH 32.5 pg (25.0-35.0); MCHC 31.7 g/dL (31.0-37.0); MCV 102.5 fL (80.0-100.0); Macrocytosis Slight; Monocytes # (A) 0.7 k/uL (0-1.0); Monocytes % (A) 6 %; Neutrophils % (A) 70 %; Platelet Count 364 k/uL (150-450); RBC 3.94 m/uL (3.80-5.40); RDW 13.4 % (11.5-15.5); WBC 11.5 k/uL (3.8-10.6)
[2022-12-18] MEDS ORDERED: ACETAMINOPHEN TAB 500 MG TAB PO PRN (10:18)
[2022-12-18] MEDS ORDERED: NITROGLYCERIN SL TABS 0.4 MG TAB SUBLINGUAL PRN ×2 (10:18→11:01)
[2022-12-18] MEDS ORDERED: DEXTROSE 50% SYRINGE 50 ML IVP PRN ×2 (10:20)
[2022-12-18] MEDS ORDERED: ALPRAZolam 0.25 MG TAB PO PRN (11:01)
[2022-12-18] MEDS ORDERED: ALPRAZolam 0.5 MG TAB PO PRN (11:01)
--- NOTE | 2022-12-18 11:12 | P.CRDCN ---
History of Present Illness History of present illness: HISTORY OF PRESENT ILLNESS: This is a 72-year-old female with a past medical history significant for very artery disease with previous stenting, hypertension, hyperlipidemia, diabetes, peripheral vascular disease, and former nicotine dependence. Patient follows in the office with Dr. Mcleod. We have been asked to see the patient in consultation for elevated troponins. Patient examined at the bedside. Patient recently underwent cardiac catheterization on 12/11/2022 with PCI of the ostium of the PLV. Patient states yesterday she developed a headache and pain in her left arm which was her symptoms with her previous stenting. She reports feeling nauseated. She denies any shortness of breath or diaphoresis. She states that she took 1 nitro at home it helped the pain. She states by the time she presented to [facility], the pain was resolved. Patient's troponins resulted at 0.1 and 0.679 [facility]. Repeat troponins resulted at 4.570 and 4.380. She was started on IV heparin and IV nitro. * EKG reveals sinus mechanism with no signs of acute ischemia * Laboratory data: WBC 11.5. Hemoglobin 12.8. Platelet count 364. Sodium 138. Potassium 3.9. BUN 47. Creatinine 1.32. * Current home cardiac medications include hydralazine 50 mg twice a day, spironolactone 25 mg daily, metoprolol tartrate 25 mg twice a day, losartan 50 mg twice a day, Imdur 30 mg daily, Lasix 20 mg daily, Plavix 75 mg daily, Lipitor 80 mg daily, aspirin 81 mg daily * Most recent echocardiogram obtained on 12/10/2022 revealing ejection fraction 55-60%, trace MR REVIEW OF SYSTEMS: At the time of my exam: CONSTITUTIONAL: Denies fever or chills. HEENT: Denies blurred vision, vision changes, or eye pain. Denies hemoptysis CARDIOVASCULAR: Denies chest pain. Denies orthopnea. Denies PND. Denies palpitations RESPIRATORY: Denies shortness of breath. GASTROINTESTINAL: Denies abdominal pain. Denies nausea or vomiting. HEMATOLOGIC: Denies bleeding disorders. GENITOURINARY: Denies any blood in urine. SKIN: Denies pruitis. Denies rash. PHYSICAL EXAM: VITAL SIGNS: Reviewed. GENERAL: Well-developed in no acute distress. HEENT: Head is normocephalic. Pupils are equal, round. Sclerae anicteric. Mucous membranes of the mouth are moist. Neck supple. No JVD or thyromegaly LUNGS: Respirations even and unlabored. Lungs essentially clear to auscultation bilaterally. HEART: Regular rate and rhythm. S1 and S2 heard. systolic murmur noted ABDOMEN: Soft. Nondistended. Nontender. EXTREMITIES: Normal range of motion. No clubbing or cyanosis. Peripheral pulses intact. No lower extremity edema NEUROLOGIC: Awake and alert. Oriented x 3. ASSESSMENT: Headache with left arm pain Non-STEMI Coronary artery disease with recent stenting of the ostium of the PLV, 12/11/2022 Hypertension Hyperlipidemia Diabetes Peripheral vascular disease Chronic kidney disease Former nicotine dependence PLAN: Resume home cardiac medications Continue IV heparin and IV Nitro NPO at midnight Patient to undergo cardiac catheterization tomorrow Further recommendations pending patient course Nurse practitioner note has been reviewed by physician. Signing provider agrees with the documented findings, assessment, and plan of care. Past Medical History Past Medical History: Chest Pain / Angina, COPD, Diabetes Mellitus, Hyperlipidemia, Hypertension, Myocardial Infarction (NM), Osteoarthritis (OA), Vascular Disorder Additional Past Medical History / Comment(s): SOB with exertion, neuropathy, arthritis in back and hands, lower leg pain Last Myocardial Infarction Date:: 2018 History of Any Multi-Drug Resistant Organisms: None Reported Past Surgical History: Cholecystectomy, Heart Catheterization With Stent, Hysterectomy, Tonsillectomy Additional Past Surgical History / Comment(s): stent in left leg, 5 stents placed in jun 2019, back surgery, 2 stents placed in October 2022, 2 stents in November 2022 Past Anesthesia/Blood Transfusion Reactions: Previous Problems w/ Anesthesia Additional Past Anesthesia/Blood Transfusion Reaction / Comment(s): states "can only take Sodium Penethol" Date of Last Stent Placement:: 2022 Past Psychological History: No Psychological Hx Reported Smoking Status: Former smoker Past Alcohol Use History: None Reported Additional Past Alcohol Use History / Comment(s): Quit smoking 3 yrs ago, smoked 2 ppd Past Drug Use History: None Reported Additional Drug Use History / Comment(s): cbd gummies used occasionally, pt aware not to use 24 hrs before procedure - Past Family History Mother Additional Family Medical History / Comment(s): nervous break down. Medications and Allergies Home Medications Medication Instructions Recorded Confirmed Type Losartan [Cozaar] 50 mg PO BID 06/23/19 12/18/22 History Aspirin 81 mg PO DAILY chew 06/29/19 12/18/22 Rx Furosemide [Lasix] 20 mg PO DAILY #30 tab 06/29/19 12/18/22 Rx Nitroglycerin Sl Tabs [Nitrostat] 0.4 mg SUBLINGUAL Q5M PRN #25 tab 06/29/19 12/18/22 Rx Spironolactone [Aldactone] 25 mg PO DAILY #30 tab 06/29/19 12/18/22 Rx Metoprolol Tartrate [Lopressor] 25 mg PO BID 09/21/19 12/18/22 History metFORMIN HCL ER [Glucophage XR] 1,000 mg PO DAILY 09/21/19 12/18/22 History Isosorbide Mononitrate ER [Imdur] 30 mg PO DAILY #30 tab.er.24h 09/22/19 12/18/22 Rx Clopidogrel [Plavix] 75 mg PO DAILY #90 tab 10/18/22 12/18/22 Rx Acetaminophen Tab [Tylenol] 500 mg PO Q6H PRN 12/09/22 12/18/22 History Atorvastatin [Lipitor] 80 mg PO DAILY 12/09/22 12/18/22 History Empagliflozin [Jardiance] 25 mg PO DAILY 12/09/22 12/18/22 History Insulin NPH Hum/Reg Insulin Hm 35 units SQ AC-TID PRN 12/09/22 12/18/22 History [Novolin 70-30 Flexpen] hydrALAZINE HCL [Apresoline] 50 mg PO BID 12/09/22 12/18/22 History hydroCHLOROthiazide [Hydrodiuril] 25 mg PO DAILY 12/09/22 12/18/22 History Allergies Allergy/AdvReac Type Severity Reaction Status Date / Time latex Allergy Rash/Hives Verified 12/18/22 08:20 Penicillins Allergy Rash/Hives Verified 12/18/22 08:20 Sulfa (Sulfonamide Allergy Swelling Verified 12/18/22 08:20 Antibiotics) wool Allergy Itching Verified 12/18/22 08:20 Physical Exam Vitals: Vital Signs Temp Pulse Pulse Resp BP BP Pulse Ox 12/18/22 08:00 97.4 F L 85 18 126/73 93 L 06/01/23 06:10 115/68 12/18/22 05:15 83 128/71 94 L 12/18/22 04:55 79 133/72 91 L 12/18/22 04:40 89 126/72 92 L 12/18/22 04:25 73 134/74 92 L 12/18/22 04:10 75 157/82 94 L 12/18/22 04:00 98.3 F 82 18 143/67 94 L 12/18/22 02:50 98.3 F 82 18 143/67 94 L 12/17/22 23:52 74 18 154/67 94 L Intake and Output 12/17/22 12/18/22 12/18/22 22:59 06:59 14:59 Intake Total 115.969 Balance 115.969 Intake: IV 10 Invasive Line 2 10 Intake, IV Titration 105.969 Amount Heparin Sod,Pork in 0.45% 105.969 NaCl 25,000 unit In 0.45 % NaCl 1 250ml.bag @ 18 UNITS/KG/HR 14.288 mls/hr IV .[id number] [facility] Rx#: [id number] Other: Voiding Method Toilet # Voids 1 Weight 79.379 kg 76.7 kg Results 12/18/22 05:45 12/17/22 22:35 Cardiac Enzymes 12/17/22 12/17/22 12/18/22 Range/Units 22:35 22:35 03:22 AST 52 H (14-36) U/L Troponin I 4.570 H* 4.380 H* (0.000-0.034) ng/mL Coagulation 12/17/22 12/18/22 Range/Units 22:35 05:45 PT 10.5 (9.0-12.0) sec APTT 74.9 H 89.4 H (22.0-30.0) sec CBC 12/17/22 12/18/22 Range/Units 22:35 05:45 WBC 11.0 H 11.5 H (3.8-10.6) k/uL RBC 3.87 3.94 (3.80-5.40) m/uL Hgb 12.6 12.8 (11.4-16.0) gm/dL Hct 38.6 40.4 (34.0-46.0) % Plt Count 386 364 (150-450) k/uL Comprehensive Metabolic Panel 12/17/22 Range/Units 22:35 Sodium 138 (137-145) mmol/L Potassium 3.9 (3.5-5.1) mmol/L Chloride 101 (98-107) mmol/L Carbon Dioxide 24 (22-30) mmol/L BUN 47 H (7-17) mg/dL Creatinine 1.32 H (0.52-1.04) mg/dL Glucose 110 H (74-99) mg/dL Calcium 10.3 H (8.4-10.2) mg/dL AST 52 H (14-36) U/L ALT 26 (4-34) U/L Alkaline Phosphatase 93 (38-126) U/L Total Protein 7.5 (6.3-8.2) g/dL Albumin 4.6 (3.5-5.0) g/dL Current Medications Generic Name Dose Route Start Last Admin Trade Name Freq PRN Reason Stop Dose Admin Heparin Sodium (Porcine) 0 unit 12/17/22 22:31 Heparin Sodium 1,000 Un/Ml (10ml Vl) IV PER PROTOCOL PRN Low PTT Protocol Heparin Sodium/Sodium Chloride 250 mls @ 14.288 mls/hr 12/17/22 22:45 12/18/22 06:38 25,000 unit/ Sodium Chloride IV 16 units/kg/hr .[id number] [facility] 12.701 mls/hr Titration Protocol 18 UNITS/KG/HR Nitroglycerin/Dextrose 50 mg/ 250 mls @ 1.5 mls/hr 12/18/22 03:30 12/18/22 04:08 IV Solution IV 5 mcg/min .Q24H [place] 1.5 mls/hr Administration Protocol 5 MCG/MIN Naloxone HCl 0.2 mg 12/18/22 00:24 Naloxone 0.4 Mg/Ml 1 Ml Vial IV Q2M PRN Opioid Reversal Intake and Output 12/17/22 12/18/22 12/18/22 22:59 06:59 14:59 Intake Total 115.969 Balance 115.969 Intake: IV 10 Invasive Line 2 10 Intake, IV Titration 105.969 Amount Heparin Sod,Pork in 0.45% 105.969 NaCl 25,000 unit In 0.45 % NaCl 1 250ml.bag @ 18 UNITS/KG/HR 14.288 mls/hr IV .[id number] [facility] Rx#: [id number] Other: Voiding Method Toilet # Voids 1 Weight 79.379 kg 76.7 kg 12/18/22 05:45 12/17/22 22:35
[2022-12-18 11:49] LABS: Glucose,Whole Blood 335 mg/dL (70-110)
[2022-12-18] MEDS: INSULIN ASPART (NovoLOG) 100 UNIT/ML VIAL SQ SCH ×2 (12:22→16:59)
[2022-12-18] MEDS: INSULIN DETEMIR (LEVEMIR) 100 UNIT/ML SYR SQ SCH (12:22)
[2022-12-18 16:50] LABS: Glucose,Whole Blood 190 mg/dL (70-110)
[2022-12-18] MEDS: HEPARIN SOD,PORK IN 0.45% NACL 25,000 UNIT in 0.45% NACL 1 250ML.BAG IV SCH (17:07)
--- NOTE | 2022-12-18 20:17 | P.HPIM ---
History of Present Illness H&P Date: 12/18/22 Chief Complaint: Left arm pain This is a 72-year-old patient of Dr. Nagy. Chronic stable medical conditions include diabetes, hypertension, COPD, hypertension, hyperlipidemia, urinary incontinence , CAD with stent Was just in the hospital from December 09 through December 14. Presented with some chest pain and headaches. In October of this year patient underwent cardiac catheterization by Dr. Mcleod. Was found to have calcified coronary arteries. Underwent successful stenting of the distal RCA and the ostium of the PLV. Patient referred acute non-Q wave [place]. December 11: cardiac catheterization - Successful stenting of the ostium of the PLV with haziness. Patient now gives presents yesterday starting of headache about 11 AM. Persisting. Also left arm pain. Presented to the ER. No dizziness no lightheadedness. No shortness of breath. Patient will return for acute [place] with the troponin peak at 4.5. Patient IV heparin. Plan for cardiac catheterization. Currently sitting up in a chair eating her meal. Review of systems: GEN.: Tired EYES: Baseline slight bloody vision HEENT: As above NECK: None RESPIRATORY: CARDIOVASCULAR: As above GASTROINTESTINAL: None GENITOURINARY: Urinary incontinence MUSCULOSKELETAL: Joint pains LYMPHATICS: None HEMATOLOGICAL: None PSYCHIATRY: None NEUROLOGICAL: None Past medical history to include: GERD, diabetes, COPD, hypertension, hyperlipidemia, urinary incontinence, CAD with stent Social history: . Smoked about 2 packs a day for close to 60 years stopped in 2019. No alcohol Physical examination: VITAL SIGNS: 97.4, 95, 18, 126/73, 93% room air GENERAL: BMI 31.9, sitting up in a chair, eating EYES: Pupils equal. Conjunctiva normal. HEENT: External appearance of nose and ears normal, oral cavity grossly normal. NECK: JVD not raised; masses not palpable. HEART: First and second heart sounds are normal; no edema. LUNGS: Respiratory rate normal; decreased breath sounds ABDOMEN: Soft, nontender, liver spleen not palpable, no masses palpable. PSYCH: Alert and oriented x3; mood and affect normal. NEUROLOGICAL: Cranial nerves grossly intact; no facial asymmetry, power and sensation grossly intact. LYMPHATICS: No lymph nodes palpable in the axilla and neck INVESTIGATIONS, reviewed in the clinical context: WBC 11.5 hemoglobin 12.8 platelets 364 sodium 138 potassium 3.9 BUN 47 creatinine 1.3 to EKG tracing personally reviewed by me-no sinus rhythm. Flipped T waves in inferolateral leads Previous investigations: 2-D echocardiogram [12/10/2022]: EF 55-60%. December 06: BUN 65 creatinine 1.49 Renal ultrasound: Unremarkable Creatinine 1.15 in 10/18/2022 Assessment and plan: -Acute non-ST elevation myocardial infarction, with known CAD. December 11, Successful stenting of the ostium of the PLV with haziness-by Dr. Mcleod. For further intervention per cardiology -Chronic congestive heart exacerbation from diastolic dysfunction. EF 50-60% Lasix 20 mg and Cozaar -Acute kidney injury suspect contrast-induced nephropathy per recent cardiac catheterization. Better. Creatinine is come down from 1.49-1.3 -IV heparin monitoring: Follow PTT -CAD with prior stents Plavix, aspirin and Lopressor -Hypertensive heart disease -COPD in a ex-smoker Albuterol when necessary -GERD Pepcid when necessary -Essential hypertension Cozaar, Lopressor, hydralazine -Hyperlipidemia Lipitor -Suspect chronic kidney disease stage III from nephrosclerosis and diabetic nephropathy Creatinine 1.154 - 10/18/2022. UA unremarkable. Renal ultrasound unremarkable. -Chronic urinary stress incontinence -Diabetes mellitus type 2, chronically on insulin, uncontrolled with hyperglycemia Hold oral hypoglycemic. Follow Accu-Cheks. Levemir 15 units subcu daily I Discussed with patient. Cardiac catheterization tomorrow. Past Medical History Past Medical History: Chest Pain / Angina, COPD, Diabetes Mellitus, Hyperlipidemia, Hypertension, Myocardial Infarction (OH), Osteoarthritis (OA), Vascular Disorder Additional Past Medical History / Comment(s): SOB with exertion, neuropathy, arthritis in back and hands, lower leg pain Last Myocardial Infarction Date:: 2018 History of Any Multi-Drug Resistant Organisms: None Reported Past Surgical History: Cholecystectomy, Heart Catheterization With Stent, Hysterectomy, Tonsillectomy Additional Past Surgical History / Comment(s): stent in left leg, 5 stents placed in jun 2019, back surgery, 2 stents placed in October 2022, 2 stents in November 2022 Past Anesthesia/Blood Transfusion Reactions: Previous Problems w/ Anesthesia Additional Past Anesthesia/Blood Transfusion Reaction / Comment(s): states "can only take Sodium Penethol" Date of Last Stent Placement:: 2022 Past Psychological History: No Psychological Hx Reported Smoking Status: Former smoker Past Alcohol Use History: None Reported Additional Past Alcohol Use History / Comment(s): Quit smoking 3 yrs ago, smoked 2 ppd Past Drug Use History: None Reported Additional Drug Use History / Comment(s): cbd gummies used occasionally, pt aware not to use 24 hrs before procedure - Past Family History Mother Additional Family Medical History / Comment(s): nervous break down. Medications and Allergies Home Medications Medication Instructions Recorded Confirmed Type Losartan [Cozaar] 50 mg PO BID 06/23/19 12/18/22 History Aspirin 81 mg PO DAILY chew 06/29/19 12/18/22 Rx Furosemide [Lasix] 20 mg PO DAILY #30 tab 06/29/19 12/18/22 Rx Nitroglycerin Sl Tabs [Nitrostat] 0.4 mg SUBLINGUAL Q5M PRN #25 tab 06/29/19 12/18/22 Rx Spironolactone [Aldactone] 25 mg PO DAILY #30 tab 06/29/19 12/18/22 Rx Metoprolol Tartrate [Lopressor] 25 mg PO BID 09/21/19 12/18/22 History metFORMIN HCL ER [Glucophage XR] 1,000 mg PO DAILY 09/21/19 12/18/22 History Isosorbide Mononitrate ER [Imdur] 30 mg PO DAILY #30 tab.er.24h 09/22/19 12/18/22 Rx Clopidogrel [Plavix] 75 mg PO DAILY #90 tab 10/18/22 12/18/22 Rx Acetaminophen Tab [Tylenol] 500 mg PO Q6H PRN 12/09/22 12/18/22 History Atorvastatin [Lipitor] 80 mg PO DAILY 12/09/22 12/18/22 History Empagliflozin [Jardiance] 25 mg PO DAILY 12/09/22 12/18/22 History Insulin NPH Hum/Reg Insulin Hm 35 units SQ AC-TID PRN 12/09/22 12/18/22 History [Novolin 70-30 Flexpen] hydrALAZINE HCL [Apresoline] 50 mg PO BID 12/09/22 12/18/22 History hydroCHLOROthiazide [Hydrodiuril] 25 mg PO DAILY 12/09/22 12/18/22 History Allergies Allergy/AdvReac Type Severity Reaction Status Date / Time latex Allergy Rash/Hives Verified 12/18/22 08:20 Penicillins Allergy Rash/Hives Verified 12/18/22 08:20 Sulfa (Sulfonamide Allergy Swelling Verified 12/18/22 08:20 Antibiotics) wool Allergy Itching Verified 12/18/22 08:20 Physical Exam Vitals: Vital Signs Temp Pulse Pulse Resp BP BP Pulse Ox 12/18/22 09:42 85 12/18/22 08:00 97.4 F L 85 18 126/73 93 L 12/18/22 06:10 115/68 12/18/22 05:15 83 128/71 94 L 12/18/22 04:55 79 133/72 91 L 12/18/22 04:40 89 126/72 92 L 12/18/22 04:25 73 134/74 92 L 12/18/22 04:10 75 157/82 94 L 12/18/22 04:00 98.3 F 82 18 143/67 94 L 12/18/22 02:50 98.3 F 82 18 143/67 94 L 12/17/22 23:52 74 18 154/67 94 L Intake and Output 12/17/22 12/18/22 12/18/22 22:59 06:59 14:59 Intake Total 115.969 10 Balance 115.969 10 Intake: IV 10 10 Invasive Line 2 10 10 Intake, IV Titration 105.969 Amount Heparin Sod,Pork in 0.45% 105.969 NaCl 25,000 unit In 0.45 % NaCl 1 250ml.bag @ 18 UNITS/KG/HR 14.288 mls/hr IV .[id number] [facility] Rx#: [id number] Other: Voiding Method Toilet Toilet # Voids 1 Weight 79.379 kg 76.7 kg Results CBC & Chem 7: 12/18/22 05:45 12/17/22 22:35 Labs: Abnormal Lab Results - Last 24 Hours (Table) 12/17/22 12/17/22 12/17/22 Range/Units 22:35 22:35 22:35 WBC 11.0 H (3.8-10.6) k/uL MCV (80.0-100.0) fL Neutrophils # (1.3-7.7) k/uL APTT (22.0-30.0) sec BUN 47 H (7-17) mg/dL Creatinine 1.32 H (0.52-1.04) mg/dL Glucose 110 H (74-99) mg/dL POC Glucose (mg/dL) (70-110) mg/dL Calcium 10.3 H (8.4-10.2) mg/dL AST 52 H (14-36) U/L Troponin I 4.570 H* (0.000-0.034) ng/mL 12/17/22 12/18/22 12/18/22 Range/Units 22:35 03:22 05:45 WBC (3.8-10.6) k/uL MCV (80.0-100.0) fL Neutrophils # (1.3-7.7) k/uL APTT 74.9 H 89.4 H (22.0-30.0) sec BUN (7-17) mg/dL Creatinine (0.52-1.04) mg/dL Glucose (74-99) mg/dL POC Glucose (mg/dL) (70-110) mg/dL Calcium (8.4-10.2) mg/dL AST (14-36) U/L Troponin I 4.380 H* (0.000-0.034) ng/mL 12/18/22 12/18/22 Range/Units 05:45 06:01 WBC 11.5 H (3.8-10.6) k/uL MCV 102.5 H (80.0-100.0) fL Neutrophils # 8.0 H (1.3-7.7) k/uL APTT (22.0-30.0) sec BUN (7-17) mg/dL Creatinine (0.52-1.04) mg/dL Glucose (74-99) mg/dL POC Glucose (mg/dL) 134 H (70-110) mg/dL Calcium (8.4-10.2) mg/dL AST (14-36) U/L Troponin I (0.000-0.034) ng/mL Thrombosis Risk Factor Assmnt - Choose All That Apply Any of the Below Risk Factors Present?: Yes Each Factor Represents 1 point: Abnormal pulmonary function (COPD), Obesity (BMI >25) Other Risk Factors: Yes Each Risk Factor Represents 2 Points: Age 61-74 years Thrombosis Risk Factor Assessment Total Risk Factor Score: 4 Thrombosis Risk Factor Assessment Level: Moderate Risk
[2022-12-18 20:23] LABS: Glucose,Whole Blood 213 mg/dL (70-110)
[2022-12-18] MEDS: METOPROLOL TARTRATE 25 MG TAB PO SCH (20:47)
[2022-12-18] MEDS: LOSARTAN 50 MG TAB PO SCH (20:47)
[2022-12-18] MEDS: SODIUM CHLORIDE 0.9% 1,000 ML in EMPTY BAG 1 BAG IV SCH (23:15)
[2022-12-19] MEDS: NITROGLYCERIN-D5W PMX 50 MG in DEXTROSE/WATER 1 250ML.BAG IV SCH (04:05)
[2022-12-19] MEDS ORDERED: ATORVASTATIN 80 MG TAB PO ONE (05:00)
[2022-12-19] MEDS ORDERED: ASPIRIN 325 MG TAB PO ONE (05:00)
[2022-12-19] MEDS: ASPIRIN 81 MG PO SCH (05:36)
[2022-12-19 06:08] LABS: Glucose,Whole Blood 175 mg/dL (70-110)
[2022-12-19] MEDS: INSULIN ASPART (NovoLOG) 100 UNIT/ML VIAL SQ SCH ×3 (06:09→17:12)
[2022-12-19] MEDS: CLOPIDOGREL 75 MG TAB PO SCH (06:34)
[2022-12-19] MEDS: LOSARTAN 50 MG TAB PO SCH (06:34)
[2022-12-19] MEDS: METOPROLOL TARTRATE 25 MG TAB PO SCH ×2 (06:34→21:11)
[2022-12-19] MEDS ORDERED: HEPARIN SODIUM,PORCINE 2,500 UNIT in SODIUM CHLORIDE 0.9% 250 ML IRRIGATION PRN (07:00)
[2022-12-19] MEDS ORDERED: HEPARIN SODIUM,PORCINE 10,000 UNIT in SODIUM CHLORIDE 0.9% 1,000 ML IRRIGATION PRN (07:00)
[2022-12-19 07:33] LABS: Calcium 9.7 mg/dL (8.4-10.2)
[2022-12-19 07:36] LABS: Potassium 5.5 mmol/L (3.5-5.1)
[2022-12-19] MEDS ORDERED: VERAPAMIL 2.5 MG/ML 2 ML AMP ONE (08:36)
[2022-12-19] MEDS ORDERED: fentaNYL (PF) 50 MCG/ML 2 ML AMP ONE (08:37)
[2022-12-19] MEDS ORDERED: fentaNYL (PF) 50 MCG/ML 2 ML AMP IVP ONE (09:28)
[2022-12-19] MEDS ORDERED: LIDOCAINE 1% INJ 10MG/ML (20 ML MDV) SQ ONE (09:31)
[2022-12-19] MEDS ORDERED: IV FLUID CONTINUATION 200 ML IV ONE (09:35)
[2022-12-19] MEDS ORDERED: ATROPINE SULFATE 0.1 MG/ML 10ML SYRINGE IVP ONE (09:54)
[2022-12-19] MEDS ORDERED: IOPAMIDOL-370 100ML BTL INJ ONE (10:09)
[2022-12-19] MEDS ORDERED: SODIUM CHLORIDE 0.9% 1,000 ML IV ONE (10:10)
--- NOTE | 2022-12-19 10:19 | P.PCN ---
Date of Procedure: 12/19/22 Description of Procedure: Cardiac catheterization: The patient is a 72-year-old female with a known history of CAD status post recent stenting of the PLV who presented with symptoms consistent with her angina and troponin elevation. Recommendations were made regarding cardiac catheterization, the procedure as well as the risks and the complications were discussed with the patient who was in full agreement and understanding. Procedure: The patient was brought to the labor representative in the fasting and semi-sedate state after receiving fentanyl and Benadryl using micropuncture technique a 7-Serbian sheath was introduced in the right femoral artery. Subsequently a 7-Serbian AL 0.75 guiding catheter was introduced. Was trying to cannulate the right coronary ostium the catheter got twisted in the groin and there were inability to reintroduce the wire. Because of that the sheath and the catheter were removed as a unit and hemostasis was obtained with compression of the right groin. There was no immediate complications. There was no evidence of hematoma or abdominal pain. The patient had a brief episode of vasovagal reaction that resolved. Plan: The patient will be reinitiated on her medication, her symptoms will be observed. Her hemoglobin will be followed. Depending on her progress recommendations will be made regarding undergoing repeat intervention. I discussed those findings with the patient and her family.
[2022-12-19 11:50] LABS: Glucose,Whole Blood 185 mg/dL (70-110)
[2022-12-19] MEDS: HEPARIN SOD,PORK IN 0.45% NACL 25,000 UNIT in 0.45% NACL 1 250ML.BAG IV SCH (11:50)
[2022-12-19] MEDS: INSULIN DETEMIR (LEVEMIR) 100 UNIT/ML SYR SQ SCH (11:58)
[2022-12-19] MEDS: SPIRONOLACTONE 25 MG TAB PO SCH (11:58)
[2022-12-19] MEDS: DAPAGLIFLOZIN PROPANEDIOL 10 MG TABLET PO SCH (11:58)
--- NOTE | 2022-12-19 14:15 | P.PN ---
Progress Note - Text Progress Note Date: 12/19/22 Chief Complaint: Left arm pain This is a 72-year-old patient of Dr. Nagy. Chronic stable medical conditions include diabetes, hypertension, COPD, hypertension, hyperlipidemia, urinary incontinence , CAD with stent Was just in the hospital from December 09 through December 14. Presented with some chest pain and headaches. In October of this year patient underwent cardiac catheterization by Dr. Mcleod. Was found to have calcified coronary arteries. Underwent successful stenting of the distal RCA and the ostium of the PLV. Patient referred acute non-Q wave [place]. December 11: cardiac catheterization - Successful stenting of the ostium of the PLV with haziness. Patient now gives presents yesterday starting of headache about 11 AM. Persisting. Also left arm pain. Presented to the ER. No dizziness no lightheadedness. No shortness of breath. Patient will return for acute NC with the troponin peak at 4.5. Patient IV heparin. Plan for cardiac catheterization. Currently sitting up in a chair eating her meal. December 19: Cardiac catheterization was attempted but had to be abandoned because of difficult access. Patient has a FemoStop in the right groin. No headache. No chest pain. Bedrest. Active Medications Acetaminophen (Acetaminophen Tab 500 Mg Tab) 500 mg PO Q6H PRN PRN Reason: Mild Pain or Fever > 100.5 Alprazolam (Alprazolam 0.25 Mg Tab) 0.25 mg PO Q6HR PRN PRN Reason: Mild Anxiety Alprazolam (Alprazolam 0.5 Mg Tab) 0.5 mg PO Q6HR PRN PRN Reason: Moderate Anxiety Aspirin (Aspirin 81 Mg) 81 mg PO DAILY [facility] Last Admin: 12/19/22 05:36 Dose: Not Given Clopidogrel Bisulfate (Clopidogrel 75 Mg Tab) 75 mg PO DAILY [facility] Last Admin: 12/19/22 06:34 Dose: 75 mg Dapagliflozin (Dapagliflozin Propanediol 10 Mg Tablet) 10 mg PO DAILY [facility] Last Admin: 12/19/22 11:58 Dose: 10 mg Dextrose/Water (Dextrose 50% Syringe 50 Ml) 25 ml IVP PER PROTOCOL PRN; Protocol PRN Reason: Hypoglycemia Dextrose/Water (Dextrose 50% Syringe 50 Ml) 50 ml IVP PER PROTOCOL PRN; Protocol PRN Reason: Hypoglycemia Nitroglycerin/Dextrose 50 mg/ (IV Solution) 250 mls @ 1.5 mls/hr IV .Q24H [facility]; Protocol Last Admin: 12/19/22 04:05 Dose: Not Given Heparin Sodium (Porcine) 10, (000 unit/ Sodium Chloride) 1,001 mls @ 999 mls/hr IRRIGATION ONCE PRN PRN Reason: INTRA-OP Stop: 12/19/22 23:00 Heparin Sodium (Porcine) 2,500 (unit/ Sodium Chloride) 250.5 mls @ 250 mls/hr IRRIGATION ONCE PRN PRN Reason: INTRA-OP Stop: 12/19/22 23:00 Sodium Chloride 1,000 ml/ IV (Solution) 1,000 mls @ 76.7 mls/hr IV .Q13H3M [facility] Last Admin: 12/18/22 23:15 Dose: 76.7 mls/hr Insulin Aspart (Insulin Aspart (Novolog) 100 Unit/Ml Vial) 0 unit SQ AC-TID [facility]; Protocol Last Admin: 12/19/22 11:58 Dose: 2 unit Insulin Detemir (Insulin Detemir (Levemir) 100 Unit/Ml Syr) 15 unit SQ DAILY@0700 [facility] Last Admin: 12/19/22 11:58 Dose: 15 unit Isosorbide Mononitrate (Isosorbide Mononitrate Er 60 Mg Tab.Er.24h) 60 mg PO DAILY [facility] Losartan Potassium (Losartan 50 Mg Tab) 50 mg PO DAILY [facility] Metoprolol Tartrate (Metoprolol Tartrate 25 Mg Tab) 25 mg PO BID [facility] Last Admin: 12/19/22 06:34 Dose: 25 mg Naloxone HCl (Naloxone 0.4 Mg/Ml 1 Ml Vial) 0.2 mg IV Q2M PRN PRN Reason: Opioid Reversal Nitroglycerin (Nitroglycerin Sl Tabs 0.4 Mg Tab) 0.4 mg SUBLINGUAL Q5M PRN PRN Reason: Chest Pain Nitroglycerin (Nitroglycerin Sl Tabs 0.4 Mg Tab) 0.4 mg SUBLINGUAL Q5M PRN PRN Reason: Chest Pain Spironolactone (Spironolactone 25 Mg Tab) 25 mg PO DAILY [facility] Last Admin: 12/19/22 11:58 Dose: 25 mg Past medical history to include: GERD, diabetes, COPD, hypertension, hyperlipidemia, urinary incontinence, CAD with stent Social history: . Smoked about 2 packs a day for close to 60 years stopped in 2019. No alcohol Physical examination: VITAL SIGNS: Afebrile, 62,'s 18, 85/59, 90% room air GENERAL: Laying flat in bed. EYES: Pupils equal. Conjunctiva normal. HEENT: External appearance of nose and ears normal, oral cavity grossly normal. NECK: JVD not raised; masses not palpable. HEART: First and second heart sounds are normal; no edema. LUNGS: Respiratory rate normal; decreased breath sounds ABDOMEN: Soft, nontender, liver spleen not palpable, no masses palpable. Right groin FemoStop PSYCH: Alert and oriented x3; mood and affect normal. INVESTIGATIONS, reviewed in the clinical context: December 19: Sodium 138 potassium 5.5 BUN 45 creatinine 1.26 WBC 11.5 hemoglobin 12.8 platelets 364 sodium 138 potassium 3.9 BUN 47 creatinine 1.3 to EKG tracing personally reviewed by me-no sinus rhythm. Flipped T waves in inferolateral leads Previous investigations: 2-D echocardiogram [12/10/2022]: EF 55-60%. December 06: BUN 65 creatinine 1.49 Renal ultrasound: Unremarkable Creatinine 1.15 in 10/18/2022 Assessment and plan: -Acute non-ST elevation myocardial infarction, with known CAD. December 11, Successful stenting of the ostium of the PLV with haziness-by Dr. Mcleod. December 19: Attempted cardiac catheterization. Technical difficulty abandoned. -Chronic congestive heart exacerbation from diastolic dysfunction. EF 50-60% Lasix 20 mg and Cozaar -Hyperkalemia in the setting of chronic kidney disease. Cozaar added yesterday. At [facility]. Renal diet -Acute kidney injury suspect contrast-induced nephropathy per recent cardiac catheterization. Better. Creatinine is come down from 1.49-1.3 -IV heparin monitoring: Follow PTT -CAD with prior stents Plavix, aspirin and Lopressor -Hypertensive heart disease -COPD in a ex-smoker Albuterol when necessary -GERD Pepcid when necessary -Essential hypertension Cozaar, Lopressor, hydralazine -Hyperlipidemia Lipitor -Suspect chronic kidney disease stage III from nephrosclerosis and diabetic nephropathy Creatinine 1.154 - 10/18/2022. UA unremarkable. Renal ultrasound unremarkable. -Chronic urinary stress incontinence -Diabetes mellitus type 2, chronically on insulin, uncontrolled with hyperglycemia Hold oral hypoglycemic. Follow Accu-Cheks. Levemir 15 units subcu daily I Repeat labs tomorrow. Isma added. Discussed with patient
[2022-12-19 14:51] LABS: HCT 35.4 % (34.0-46.0); HGB 11.3 gm/dL (11.4-16.0); Hypochromasia Slight; MCHC 31.9 g/dL (31.0-37.0); MCV 103.3 fL (80.0-100.0); Macrocytosis Slight; Mean Platelet Volume 8.6; Platelet Count 336 k/uL (150-450); RBC 3.43 m/uL (3.80-5.40); RDW 13.8 % (11.5-15.5); WBC 10.4 k/uL (3.8-10.6)
[2022-12-19 16:36] LABS: Glucose,Whole Blood 177 mg/dL (70-110)
[2022-12-19] MEDS: ISOSORBIDE MONONITRATE ER 60 MG TAB.ER.24H PO SCH (16:59)
[2022-12-19] MEDS: SODIUM CHLORIDE 0.9% 1,000 ML in EMPTY BAG 1 BAG IV SCH (16:59)
[2022-12-19] MEDS: SODIUM ZIRCONIUM CYCLOSILICATE 10 GM PACKET PO SCH ×2 (17:12→21:11)
[2022-12-19 20:27] LABS: Glucose,Whole Blood 248 mg/dL (70-110)
[2022-12-20] MEDS: SODIUM CHLORIDE 0.9% 1,000 ML in EMPTY BAG 1 BAG IV SCH ×3 (00:52→21:28)
[2022-12-20] MEDS: SODIUM ZIRCONIUM CYCLOSILICATE 10 GM PACKET PO SCH ×2 (00:52→08:58)
[2022-12-20] MEDS: NITROGLYCERIN-D5W PMX 50 MG in DEXTROSE/WATER 1 250ML.BAG IV SCH (05:33)
[2022-12-20 05:44] LABS: Basophils % (A) 0 %; Eosinophils # (A) 0.3 k/uL (0-0.7); Eosinophils % (A) 4 %; HCT 32.7 % (34.0-46.0); HGB 10.4 gm/dL (11.4-16.0); Lymphocytes # (A) 2.5 k/uL (1.0-4.8); Lymphocytes % (A) 27 %; MCH 32.2 pg (25.0-35.0); MCHC 31.8 g/dL (31.0-37.0); MCV 101.4 fL (80.0-100.0); Macrocytosis Slight; Mean Platelet Volume 8.8; Monocytes # (A) 0.5 k/uL (0-1.0); Monocytes % (A) 5 %; Neutrophils # (A) 5.8 k/uL (1.3-7.7); Neutrophils % (A) 62 %; Platelet Count 333 k/uL (150-450); RBC 3.23 m/uL (3.80-5.40); RDW 13.9 % (11.5-15.5); WBC 9.3 k/uL (3.8-10.6)
[2022-12-20 05:54] LABS: Calcium 9.1 mg/dL (8.4-10.2); Potassium 3.9 mmol/L (3.5-5.1)
[2022-12-20 06:13] LABS: Glucose,Whole Blood 163 mg/dL (70-110)
[2022-12-20] MEDS: INSULIN ASPART (NovoLOG) 100 UNIT/ML VIAL SQ SCH ×3 (06:38→16:54)
[2022-12-20] MEDS: ASPIRIN 81 MG PO SCH (08:56)
[2022-12-20] MEDS: LOSARTAN 50 MG TAB PO SCH (08:56)
[2022-12-20] MEDS: CLOPIDOGREL 75 MG TAB PO SCH (08:56)
[2022-12-20] MEDS: METOPROLOL TARTRATE 25 MG TAB PO SCH ×2 (08:57→20:33)
[2022-12-20] MEDS: ISOSORBIDE MONONITRATE ER 60 MG TAB.ER.24H PO SCH (08:57)
[2022-12-20 11:53] VITALS: BMI 32.2
[2022-12-20 11:53] LABS: Glucose,Whole Blood 155 mg/dL (70-110)
[2022-12-20] MEDS: INSULIN DETEMIR (LEVEMIR) 100 UNIT/ML SYR SQ SCH (11:59)
[2022-12-20] MEDS: SPIRONOLACTONE 25 MG TAB PO SCH (12:00)
[2022-12-20] MEDS: DAPAGLIFLOZIN PROPANEDIOL 10 MG TABLET PO SCH (12:00)
--- NOTE | 2022-12-20 12:09 | P.PN ---
Subjective Progress Note Date: 12/20/22 History of Present Illness: The patient is a 72-year-old female with a known history of CAD, diabetes, hyp ertension and hyperlipidemia who presented with non-STEMI. The plan was to proceed with coronary angiography and stenting yesterday she twisting of the catheter in the right femoral artery requiring the removal of the introduced sheath. Compression was placed on the right femoral artery. She's feeling well today. She had no further headache which is her anginal pain. She feels well. She denies any dizziness or palpitations. She continues to be in sinus mechanism. Medications: Aspirin, Plavix 75 mg daily, insulin, losartan 50 mg daily, isosorbide mononitrate 60 mg daily, Aldactone 25 mg daily, metoprolol 25 mg twice a day and IV nitroglycerin Physical Examination: 72-year-old female, alert and oriented no apparent distress ,Blood pressure 146/69, Heart rate 7 Head: Normocephalic. Eyes: Sclerae nonicteric. Neck: Good carotid upstroke, no bruit, no jugular venous distention. Lungs: Clear to auscultation. Heart: Regular rate and rhythm, S1-S2, no S3, no rub. Systolic ejection murmur. Abdomen: Soft nontender, positive bowel sounds no organomegaly. Extremities: No edema, intact distal pulses., Right groin no hematoma Labs: Hemoglobin 10.4, BUN 37, creatinine 1. 0.3 Impression: 1. Status post non-STEMI, status post recent stenting of the PLV 2. Hypertension 3. Hyperlipidemia 4. And diabetes mellitus Plan: 1. Stop IV nitroglycerin 2. Increase physical activity 3. If she has further anginal pain proceed with coronary angiography and intervention as indicated 4. I discussed those findings with the patient 5. Depending on her progress further recommendations will be made Objective - Vital Signs Vital signs: Vital Signs Temp 97.0 F L 12/20/22 08:49 Pulse 70 12/20/22 08:50 Resp 18 12/20/22 08:50 BP 146/69 12/20/22 08:49 Pulse Ox 94 L 12/20/22 08:49 FiO2 Intake & Output 12/19/22 12/20/22 12/20/22 18:59 06:59 18:59 Intake Total 466.994 Balance 466.994 Weight 77.4 kg Intake: IV 150 Intake, IV Titration 76.994 Amount Heparin Sod,Pork in 0.45% 76.994 NaCl 25,000 unit In 0.45 % NaCl 1 250ml.bag @ 18 UNITS/KG/HR 14.288 mls/hr IV .[id number] [facility] Rx#: [id number] Oral 240 Other: Voiding Method Toilet Toilet Toilet # Voids 1 - Labs CBC & Chem 7: 12/20/22 05:26 12/20/22 05:26 Labs: Abnormal Lab Results - Last 24 Hours (Table) 12/19/22 12/19/22 12/19/22 Range/Units 14:24 16:33 20:26 RBC 3.43 L (3.80-5.40) m/uL Hgb 11.3 L (11.4-16.0) gm/dL Hct (34.0-46.0) % MCV 103.3 H (80.0-100.0) fL Sodium (137-145) mmol/L Carbon Dioxide (22-30) mmol/L BUN (7-17) mg/dL Creatinine (0.52-1.04) mg/dL Glucose (74-99) mg/dL POC Glucose (mg/dL) 177 H 248 H (70-110) mg/dL 12/20/22 12/20/22 12/20/22 Range/Units 05:26 05:26 06:11 RBC 3.23 L (3.80-5.40) m/uL Hgb 10.4 L (11.4-16.0) gm/dL Hct 32.7 L (34.0-46.0) % MCV 101.4 H (80.0-100.0) fL Sodium 136 L (137-145) mmol/L Carbon Dioxide 21 L (22-30) mmol/L BUN 37 H (7-17) mg/dL Creatinine 1.13 H (0.52-1.04) mg/dL Glucose 159 H (74-99) mg/dL POC Glucose (mg/dL) 163 H (70-110) mg/dL 12/20/22 Range/Units 11:52 RBC (3.80-5.40) m/uL Hgb (11.4-16.0) gm/dL Hct (34.0-46.0) % MCV (80.0-100.0) fL Sodium (137-145) mmol/L Carbon Dioxide (22-30) mmol/L BUN (7-17) mg/dL Creatinine (0.52-1.04) mg/dL Glucose (74-99) mg/dL POC Glucose (mg/dL) 155 H (70-110) mg/dL
--- NOTE | 2022-12-20 15:21 | P.PN ---
Progress Note - Text Progress Note Date: 12/20/22 Chief Complaint: Left arm pain This is a 72-year-old patient of Dr. Nagy. Chronic stable medical conditions include diabetes, hypertension, COPD, hypertension, hyperlipidemia, urinary incontinence , CAD with stent Was just in the hospital from December 09 through December 14. Presented with some chest pain and headaches. In October of this year patient underwent cardiac catheterization by Dr. Mcleod. Was found to have calcified coronary arteries. Underwent successful stenting of the distal RCA and the ostium of the PLV. Patient referred acute non-Q wave VT. December 11: cardiac catheterization - Successful stenting of the ostium of the PLV with haziness. Patient now gives presents yesterday starting of headache about 11 AM. Persisting. Also left arm pain. Presented to the ER. No dizziness no lightheadedness. No shortness of breath. Patient will return for acute VT with the troponin peak at 4.5. Patient IV heparin. Plan for cardiac catheterization. Currently sitting up in a chair eating her meal. December 19: Cardiac catheterization was attempted but had to be abandoned because of difficult access. Patient has a FemoStop in the right groin. No headache. No chest pain. Bedrest. December 20: Up in a chair. No headache no chest pain. On IV nitroglycerin drip since yesterday. Await further input from cardiology. Active Medications Acetaminophen (Acetaminophen Tab 500 Mg Tab) 500 mg PO Q6H PRN PRN Reason: Mild Pain or Fever > 100.5 Alprazolam (Alprazolam 0.25 Mg Tab) 0.25 mg PO Q6HR PRN PRN Reason: Mild Anxiety Alprazolam (Alprazolam 0.5 Mg Tab) 0.5 mg PO Q6HR PRN PRN Reason: Moderate Anxiety Aspirin (Aspirin 81 Mg) 81 mg PO DAILY [facility] Last Admin: 12/20/22 08:56 Dose: 81 mg Clopidogrel Bisulfate (Clopidogrel 75 Mg Tab) 75 mg PO DAILY [facility] Last Admin: 12/20/22 08:56 Dose: 75 mg Dapagliflozin (Dapagliflozin Propanediol 10 Mg Tablet) 10 mg PO DAILY [facility] Last Admin: 12/20/22 12:00 Dose: 10 mg Dextrose/Water (Dextrose 50% Syringe 50 Ml) 25 ml IVP PER PROTOCOL PRN; Protocol PRN Reason: Hypoglycemia Dextrose/Water (Dextrose 50% Syringe 50 Ml) 50 ml IVP PER PROTOCOL PRN; Protocol PRN Reason: Hypoglycemia Sodium Chloride 1,000 ml/ IV (Solution) 1,000 mls @ 76.7 mls/hr IV .Q13H3M [facility] Last Admin: 12/20/22 00:52 Dose: 76.7 mls/hr Insulin Aspart (Insulin Aspart (Novolog) 100 Unit/Ml Vial) 0 unit SQ AC-TID [facility]; Protocol Last Admin: 12/20/22 12:00 Dose: 2 unit Insulin Detemir (Insulin Detemir (Levemir) 100 Unit/Ml Syr) 15 unit SQ DAILY@0700 [facility] Last Admin: 12/20/22 11:59 Dose: 15 unit Isosorbide Mononitrate (Isosorbide Mononitrate Er 60 Mg Tab.Er.24h) 60 mg PO DAILY [facility] Last Admin: 12/20/22 08:57 Dose: 60 mg Losartan Potassium (Losartan 50 Mg Tab) 50 mg PO DAILY [facility] Last Admin: 12/20/22 08:56 Dose: 50 mg Metoprolol Tartrate (Metoprolol Tartrate 25 Mg Tab) 25 mg PO BID [facility] Last Admin: 12/20/22 08:57 Dose: 25 mg Naloxone HCl (Naloxone 0.4 Mg/Ml 1 Ml Vial) 0.2 mg IV Q2M PRN PRN Reason: Opioid Reversal Nitroglycerin (Nitroglycerin Sl Tabs 0.4 Mg Tab) 0.4 mg SUBLINGUAL Q5M PRN PRN Reason: Chest Pain Nitroglycerin (Nitroglycerin Sl Tabs 0.4 Mg Tab) 0.4 mg SUBLINGUAL Q5M PRN PRN Reason: Chest Pain Spironolactone (Spironolactone 25 Mg Tab) 25 mg PO DAILY [facility] Last Admin: 12/20/22 12:00 Dose: 25 mg Past medical history to include: GERD, diabetes, COPD, hypertension, hyperlipidemia, urinary incontinence, CAD with stent Social history: . Smoked about 2 packs a day for close to 60 years stopped in 2019. No alcohol Physical examination: VITAL SIGNS: 97, 970, 18, 146/79, 94% room air GENERAL: Up in a chair EYES: Pupils equal. Conjunctiva normal. HEENT: External appearance of nose and ears normal, oral cavity grossly normal. NECK: JVD not raised; masses not palpable. HEART: First and second heart sounds are normal; no edema. LUNGS: Respiratory rate normal; decreased breath sounds ABDOMEN: Soft, nontender, liver spleen not palpable, no masses palpable. Right groin FemoStop PSYCH: Alert and oriented x3; mood and affect normal. INVESTIGATIONS, reviewed in the clinical context: December 20: WBC 9.3 with globin 10.4 potassium 3.9 BUN 37 creatinine 1.13 December 19: Sodium 138 potassium 5.5 BUN 45 creatinine 1.26 WBC 11.5 hemoglobin 12.8 platelets 364 sodium 138 potassium 3.9 BUN 47 creatinine 1.3 to EKG tracing personally reviewed by me-no sinus rhythm. Flipped T waves in inferolateral leads Previous investigations: 2-D echocardiogram [12/10/2022]: EF 55-60%. December 06: BUN 65 creatinine 1.49 Renal ultrasound: Unremarkable Creatinine 1.15 in 10/18/2022 Assessment and plan: -Acute non-ST elevation myocardial infarction, with known CAD. December 11, Successful stenting of the ostium of the PLV with haziness-by Dr. Mcleod. December 19: Attempted cardiac catheterization. Technical difficulty abandoned. Await further plan as per oncology. -Chronic congestive heart exacerbation from diastolic dysfunction. EF 50-60% Lasix 20 mg and Cozaar -Hyperkalemia in the setting of chronic kidney disease. Cozaar: Better. At [facility]. Renal diet -Acute kidney injury suspect contrast-induced nephropathy per recent cardiac catheterization. Better. Creatinine is come down from 1.49-1.3 -IV heparin monitoring: Follow PTT -CAD with prior stents Plavix, aspirin and Lopressor -Hypertensive heart disease -COPD in a ex-smoker Albuterol when necessary -GERD Pepcid when necessary -Essential hypertension Cozaar, Lopressor, hydralazine -Hyperlipidemia Lipitor -Suspect chronic kidney disease stage III from nephrosclerosis and diabetic nephropathy Creatinine 1.154 - 10/18/2022. UA unremarkable. Renal ultrasound unremarkable. -Chronic urinary stress incontinence -Diabetes mellitus type 2, chronically on insulin, uncontrolled with hyperglycemia Hold oral hypoglycemic. Follow Accu-Cheks. Levemir 15 units subcu daily I Continue current medications. Follow with cardiology.
[2022-12-20 16:28] LABS: Glucose,Whole Blood 263 mg/dL (70-110)
[2022-12-20 20:05] LABS: Glucose,Whole Blood 207 mg/dL (70-110)
[2022-12-21 06:10] LABS: Glucose,Whole Blood 149 mg/dL (70-110)
[2022-12-21] MEDS: INSULIN ASPART (NovoLOG) 100 UNIT/ML VIAL SQ SCH ×3 (06:23→17:25)
[2022-12-21 07:56] LABS: Calcium 9.4 mg/dL (8.4-10.2)
[2022-12-21] MEDS: METOPROLOL TARTRATE 25 MG TAB PO SCH ×2 (10:01→21:25)
[2022-12-21] MEDS: ASPIRIN 81 MG PO SCH (10:01)
[2022-12-21] MEDS: LOSARTAN 50 MG TAB PO SCH (10:01)
[2022-12-21] MEDS: CLOPIDOGREL 75 MG TAB PO SCH (10:01)
[2022-12-21] MEDS: ISOSORBIDE MONONITRATE ER 60 MG TAB.ER.24H PO SCH (10:01)
[2022-12-21 11:35] LABS: Glucose,Whole Blood 203 mg/dL (70-110)
[2022-12-21] MEDS: DAPAGLIFLOZIN PROPANEDIOL 10 MG TABLET PO SCH (12:24)
[2022-12-21] MEDS: SPIRONOLACTONE 25 MG TAB PO SCH (12:24)
[2022-12-21] MEDS: INSULIN DETEMIR (LEVEMIR) 100 UNIT/ML SYR SQ SCH (12:24)
[2022-12-21 12:37] LABS: HCT 31.6 % (34.0-46.0); HGB 10.2 gm/dL (11.4-16.0); Hypochromasia Slight; MCH 33.4 pg (25.0-35.0); MCHC 32.4 g/dL (31.0-37.0); MCV 103.1 fL (80.0-100.0); Macrocytosis Slight; Mean Platelet Volume 8.4; Platelet Count 356 k/uL (150-450); RBC 3.07 m/uL (3.80-5.40); WBC 9.4 k/uL (3.8-10.6)
--- NOTE | 2022-12-21 14:31 | P.PN ---
Progress Note - Text Progress Note Date: 12/21/22 Chief Complaint: Left arm pain This is a 72-year-old patient of Dr. Nagy. Chronic stable medical conditions include diabetes, hypertension, COPD, hypertension, hyperlipidemia, urinary incontinence , CAD with stent Was just in the hospital from December 09 through December 14. Presented with some chest pain and headaches. In October of this year patient underwent cardiac catheterization by Dr. Mcleod. Was found to have calcified coronary arteries. Underwent successful stenting of the distal RCA and the ostium of the PLV. Patient referred acute non-Q wave SC. December 11: cardiac catheterization - Successful stenting of the ostium of the PLV with haziness. Patient now gives presents yesterday starting of headache about 11 AM. Persisting. Also left arm pain. Presented to the ER. No dizziness no lightheadedness. No shortness of breath. Patient will return for acute SC with the troponin peak at 4.5. Patient IV heparin. Plan for cardiac catheterization. Currently sitting up in a chair eating her meal. December 19: Cardiac catheterization was attempted but had to be abandoned because of difficult access. Patient has a FemoStop in the right groin. No headache. No chest pain. Bedrest. December 20: Up in a chair. No headache no chest pain. On IV nitroglycerin drip since yesterday. Await further input from cardiology. December 21: Off nitroglycerin drip. Up in the hallway. No headaches or arm pain. farxiga and Aldactone Was added yesterday. Active Medications Acetaminophen (Acetaminophen Tab 500 Mg Tab) 500 mg PO Q6H PRN PRN Reason: Mild Pain or Fever > 100.5 Alprazolam (Alprazolam 0.25 Mg Tab) 0.25 mg PO Q6HR PRN PRN Reason: Mild Anxiety Alprazolam (Alprazolam 0.5 Mg Tab) 0.5 mg PO Q6HR PRN PRN Reason: Moderate Anxiety Aspirin (Aspirin 81 Mg) 81 mg PO DAILY [facility] Last Admin: 12/21/22 10:01 Dose: 81 mg Clopidogrel Bisulfate (Clopidogrel 75 Mg Tab) 75 mg PO DAILY [facility] Last Admin: 12/21/22 10:01 Dose: 75 mg Dapagliflozin (Dapagliflozin Propanediol 10 Mg Tablet) 10 mg PO DAILY [facility] Last Admin: 12/21/22 12:24 Dose: 10 mg Dextrose/Water (Dextrose 50% Syringe 50 Ml) 25 ml IVP PER PROTOCOL PRN; Protocol PRN Reason: Hypoglycemia Dextrose/Water (Dextrose 50% Syringe 50 Ml) 50 ml IVP PER PROTOCOL PRN; Protocol PRN Reason: Hypoglycemia Sodium Chloride 1,000 ml/ IV (Solution) 1,000 mls @ 76.7 mls/hr IV .Q13H3M [facility] Last Admin: 12/20/22 21:28 Dose: Not Given Insulin Aspart (Insulin Aspart (Novolog) 100 Unit/Ml Vial) 0 unit SQ AC-TID [facility]; Protocol Last Admin: 12/21/22 12:24 Dose: 4 unit Insulin Detemir (Insulin Detemir (Levemir) 100 Unit/Ml Syr) 15 unit SQ DAILY@0700 [facility] Last Admin: 12/21/22 12:24 Dose: 15 unit Isosorbide Mononitrate (Isosorbide Mononitrate Er 60 Mg Tab.Er.24h) 60 mg PO DAILY [facility] Last Admin: 12/21/22 10:01 Dose: 60 mg Losartan Potassium (Losartan 50 Mg Tab) 50 mg PO DAILY [facility] Last Admin: 12/21/22 10:01 Dose: 50 mg Metoprolol Tartrate (Metoprolol Tartrate 25 Mg Tab) 25 mg PO BID [facility] Last Admin: 12/21/22 10:01 Dose: 25 mg Naloxone HCl (Naloxone 0.4 Mg/Ml 1 Ml Vial) 0.2 mg IV Q2M PRN PRN Reason: Opioid Reversal Nitroglycerin (Nitroglycerin Sl Tabs 0.4 Mg Tab) 0.4 mg SUBLINGUAL Q5M PRN PRN Reason: Chest Pain Nitroglycerin (Nitroglycerin Sl Tabs 0.4 Mg Tab) 0.4 mg SUBLINGUAL Q5M PRN PRN Reason: Chest Pain Spironolactone (Spironolactone 25 Mg Tab) 25 mg PO DAILY [facility] Last Admin: 12/21/22 12:24 Dose: 25 mg Past medical history to include: GERD, diabetes, COPD, hypertension, hyperlipidemia, urinary incontinence, CAD with stent Social history: . Smoked about 2 packs a day for close to 60 years stopped in 2019. No alcohol Physical examination: VITAL SIGNS: 97.7, 58, 18, 161/72, 93% room air GENERAL: Up in a chair EYES: Pupils equal. Conjunctiva normal. HEENT: External appearance of nose and ears normal, oral cavity grossly normal. NECK: JVD not raised; masses not palpable. HEART: First and second heart sounds are normal; no edema. LUNGS: Respiratory rate normal; decreased breath sounds ABDOMEN: Soft, nontender, liver spleen not palpable, no masses palpable. Right groin FemoStop PSYCH: Alert and oriented x3; mood and affect normal. INVESTIGATIONS, reviewed in the clinical context: December 21: White count 9.4 hemoglobin 10.2 creatinine 1.04 December 20: WBC 9.3 with globin 10.4 potassium 3.9 BUN 37 creatinine 1.13 December 19: Sodium 138 potassium 5.5 BUN 45 creatinine 1.26 WBC 11.5 hemoglobin 12.8 platelets 364 sodium 138 potassium 3.9 BUN 47 creatinine 1.3 to EKG tracing personally reviewed by me-no sinus rhythm. Flipped T waves in inferolateral leads Previous investigations: 2-D echocardiogram [12/10/2022]: EF 55-60%. December 06: BUN 65 creatinine 1.49 Renal ultrasound: Unremarkable Creatinine 1.15 in 10/18/2022 Assessment and plan: -Acute non-ST elevation myocardial infarction, with known CAD. December 11, Successful stenting of the ostium of the PLV with haziness-by Dr. Mcleod. December 19: Attempted cardiac catheterization. Technical difficulty abandoned. Being followed by cardiology -Chronic congestive heart exacerbation from diastolic dysfunction. EF 50-60% Lasix 20 mg and Cozaar -Hyperkalemia in the setting of chronic kidney disease. Cozaar: Better. At [facility]. Renal diet -Acute kidney injury suspect contrast-induced nephropathy per recent cardiac catheterization. Better. Creatinine is come down from 1.49-1.3 -IV heparin monitoring: Follow PTT -CAD with prior stents Plavix, aspirin and Lopressor -Hypertensive heart disease -COPD in a ex-smoker Albuterol when necessary -GERD Pepcid when necessary -Essential hypertension Cozaar, Lopressor, hydralazine -Hyperlipidemia Lipitor -Suspect chronic kidney disease stage III from nephrosclerosis and diabetic nephropathy Creatinine 1.154 - 10/18/2022. UA unremarkable. Renal ultrasound unremarkable. -Chronic urinary stress incontinence -Diabetes mellitus type 2, chronically on insulin, uncontrolled with hyperglycemia Hold oral hypoglycemic. Follow Accu-Cheks. Levemir 15 units subcu daily I Constipation. Increase activity. Increase Levemir to 20 units
[2022-12-21 16:07] LABS: Glucose,Whole Blood 249 mg/dL (70-110)
--- NOTE | 2022-12-21 16:24 | P.PN ---
Subjective Progress Note Date: 12/21/22 History of Present Illness: The patient is a 72-year-old female with a known history of CAD, diabetes, hyp ertension and hyperlipidemia who presented with non-STEMI. The plan was to proceed with coronary angiography and stenting yesterday she twisting of the catheter in the right femoral artery requiring the removal of the introduced sheath. Compression was placed on the right femoral artery. She's feeling well today. She had no further headache which is her anginal pain. She feels well. She denies any dizziness or palpitations. She continues to be in sinus mechanism. December 21: The patient feels well this morning, she denies any chest discomfort, dizziness or palpitations. She has no headache. She has been ambulating without difficulties. She denies any nausea or vomiting. She continues to be in sinus mechanism. Medications: Aspirin, Plavix 75 mg daily, insulin, losartan 50 mg daily, i sosorbide mononitrate 60 mg daily, Aldactone 25 mg daily, metoprolol 25 mg twice a day Physical Examination: 72-year-old female, alert and oriented no apparent distress ,Blood pressure 126/70, Heart rate 63, her blood pressure was elevated earlier Head: Normocephalic. Eyes: Sclerae nonicteric. Neck: Good carotid upstroke, no bruit, no jugular venous distention. Lungs: Clear to auscultation. Heart: Regular rate and rhythm, S1-S2, no S3, no rub. Systolic ejection murmur. Abdomen: Soft nontender, positive bowel sounds no organomegaly. Extremities: No edema, intact distal pulses., Labs: Hemoglobin 10.2, BUN 27, creatinine 1.04 Impression: 1. Status post non-STEMI, status post recent stenting of the PLV 2. Hypertension 3. Hyperlipidemia 4. And diabetes mellitus Plan: 1. Increase activity 2. If she remains stable probable DC home tomorrow 3. If she has further symptoms of angina proceed with repeat coronary angiography Objective - Vital Signs Vital signs: Vital Signs Temp 97.5 F L 12/21/22 15:56 Pulse 63 12/21/22 15:56 Resp 18 12/21/22 15:56 BP 126/75 12/21/22 15:56 Pulse Ox 91 L 12/21/22 15:56 FiO2 Intake & Output 12/20/22 12/21/22 12/21/22 18:59 06:59 18:59 Intake Total 1270 0 Balance 1270 0 Weight 77.4 kg Intake: IV 250 Sodium Chloride 0.9% 1, 250 000 ml In Empty Bag 1 bag @ 1 ML/KG/HR 76.7 mls/hr IV .Q13H3M [facility] Rx#: [id number] Oral 1020 0 Other: Voiding Method Toilet Toilet Toilet # Voids 1 1 - Labs CBC & Chem 7: 12/21/22 12:16 12/21/22 06:55 Labs: Abnormal Lab Results - Last 24 Hours (Table) 12/20/22 12/20/22 12/21/22 Range/Units 16:26 20:04 06:09 RBC (3.80-5.40) m/uL Hgb (11.4-16.0) gm/dL Hct (34.0-46.0) % MCV (80.0-100.0) fL BUN (7-17) mg/dL Glucose (74-99) mg/dL POC Glucose (mg/dL) 263 H 207 H 149 H (70-110) mg/dL 12/21/22 12/21/22 12/21/22 Range/Units 06:55 11:34 12:16 RBC 3.07 L (3.80-5.40) m/uL Hgb 10.2 L (11.4-16.0) gm/dL Hct 31.6 L (34.0-46.0) % MCV 103.1 H (80.0-100.0) fL BUN 27 H (7-17) mg/dL Glucose 133 H (74-99) mg/dL POC Glucose (mg/dL) 203 H (70-110) mg/dL 12/21/22 Range/Units 16:06 RBC (3.80-5.40) m/uL Hgb (11.4-16.0) gm/dL Hct (34.0-46.0) % MCV (80.0-100.0) fL BUN (7-17) mg/dL Glucose (74-99) mg/dL POC Glucose (mg/dL) 249 H (70-110) mg/dL
[2022-12-21 20:05] LABS: Glucose,Whole Blood 235 mg/dL (70-110)
[2022-12-22 06:07] LABS: Glucose,Whole Blood 159 mg/dL (70-110)
[2022-12-22] MEDS: SODIUM CHLORIDE 0.9% 1,000 ML in EMPTY BAG 1 BAG IV SCH (06:28)
[2022-12-22] MEDS: INSULIN ASPART (NovoLOG) 100 UNIT/ML VIAL SQ SCH ×2 (06:41→12:18)
[2022-12-22] MEDS ORDERED: INSULIN DETEMIR (LEVEMIR) 100 UNIT/ML SYR SQ SCH (07:00)
[2022-12-22 08:17] VITALS: BP 128/77; PULSE 65; RESP 18; TEMP 97.5
[2022-12-22] MEDS: LOSARTAN 50 MG TAB PO SCH (08:17)
[2022-12-22] MEDS: DAPAGLIFLOZIN PROPANEDIOL 10 MG TABLET PO SCH (08:17)
[2022-12-22] MEDS: METOPROLOL TARTRATE 25 MG TAB PO SCH (08:17)
[2022-12-22] MEDS: ISOSORBIDE MONONITRATE ER 60 MG TAB.ER.24H PO SCH (08:18)
[2022-12-22] MEDS: ASPIRIN 81 MG PO SCH (08:18)
[2022-12-22] MEDS: CLOPIDOGREL 75 MG TAB PO SCH (08:18)
[2022-12-22] MEDS: SPIRONOLACTONE 25 MG TAB PO SCH (08:18)
--- NOTE | 2022-12-22 10:59 | P.PN ---
Subjective History of Present Illness: The patient is a 72-year-old female with a known history of CAD, diabetes, hypertension and hyperlipidemia who presented with non-STEMI. The plan was to proceed with coronary angiography and stenting yesterday she twisting of the catheter in the right femoral artery requiring the removal of the introduced sheath. Compression was placed on the right femoral artery. She's feeling well today. She had no further headache which is her anginal pain. She feels well. She denies any dizziness or palpitations. She continues to be in sinus mechanism. December 21: The patient feels well this morning, she denies any chest discomfort, dizziness or palpitations. She has no headache. She has been ambulating without difficu lties. She denies any nausea or vomiting. She continues to be in sinus mechanism. Medications: Aspirin, Plavix 75 mg daily, insulin, losartan 50 mg daily, isosorbide mononitrate 60 mg daily, Aldactone 25 mg daily, metoprolol 25 mg twice a day 12/22 Patient seen and examined. Patient denies any further chest pain or pressure or headaches which are usually her angina. Blood pressure stable in the 120s. She states she was able walk the halls without any difficulty and without any shortness breath. She does have mild femoral tenderness however no significant hematoma. Physical Examination: Vitals reviewed Head: Normocephalic. Eyes: Sclerae nonicteric. Neck: Good carotid upstroke, no bruit, no jugular venous distention. Lungs: Clear to auscultation. Heart: Regular rate and rhythm, S1-S2, no S3, no rub. Systolic ejection murmur. Abdomen: Soft nontender, positive bowel sounds no organomegaly. Extremities: No edema, intact distal pulses., Impression: 1. Status post non-STEMI, status post recent stenting of the PLV 2. Hypertension 3. Hyperlipidemia 4. Diabetes mellitus Plan: Hemoglobin has been stable with issues with vascular access and catheter twisted and unable to finish catheterization. She appears to be stable however and without significant angina and therefore reasonable for discharge home today with outpatient follow-up. May consider future intervention from a left femoral approach. Follow-up as outpatient in next 1 week. Objective - Vital Signs Vital signs: Vital Signs Temp 97.5 F L 12/22/22 08:00 Pulse 65 12/22/22 08:00 Resp 18 12/22/22 08:00 BP 128/77 12/22/22 08:00 Pulse Ox 92 L 12/22/22 08:00 FiO2 Intake & Output 12/21/22 12/22/22 12/22/22 18:59 06:59 18:59 Intake Total 120 Balance 120 Intake: Oral 120 Other: Voiding Method Toilet Toilet # Voids 1 1 - Labs CBC & Chem 7: 12/21/22 12:16 12/21/22 06:55 Labs: Abnormal Lab Results - Last 24 Hours (Table) 12/21/22 12/21/22 12/21/22 Range/Units 11:34 12:16 16:06 RBC 3.07 L (3.80-5.40) m/uL Hgb 10.2 L (11.4-16.0) gm/dL Hct 31.6 L (34.0-46.0) % MCV 103.1 H (80.0-100.0) fL POC Glucose (mg/dL) 203 H 249 H (70-110) mg/dL 12/21/22 12/22/22 Range/Units 20:04 06:06 RBC (3.80-5.40) m/uL Hgb (11.4-16.0) gm/dL Hct (34.0-46.0) % MCV (80.0-100.0) fL POC Glucose (mg/dL) 235 H 159 H (70-110) mg/dL
[2022-12-22 12:16] LABS: Glucose,Whole Blood 194 mg/dL (70-110)
--- NOTE | 2022-12-22 20:22 | P.DS ---
Providers Date of admission: 12/18/22 00:24 Expected date of discharge: 12/22/22 Attending physician: Vikram Campbell Consults: 12/18/22 00:24 Consult Physician Routine Consulting Provider: [facility] Consult Reason/Comments: NSTEMI Do you want consulting provider notified?: Yes, Notify in am Primary care physician: [facility] Course: Chief Complaint: Left arm pain This is a 72-year-old patient of Dr. Nagy. Chronic stable medical conditions include diabetes, hypertension, COPD, hypertension, hyperlipidemia, urinary incontinence , CAD with stent Was just in the hospital from December 09 through December 14. Presented with some chest pain and headaches. In October of this year patient underwent cardiac catheterization by Dr. Mcleod. Was found to have calcified coronary arteries. Underwent successful stenting of the distal RCA and the ostium of the PLV. Patient referred acute non-Q wave HI. December 11: cardiac catheterization - Successful stenting of the ostium of the PLV with haziness. Patient now gives presents yesterday starting of headache about 11 AM. Persisting. Also left arm pain. Presented to the ER. No dizziness no lightheadedness. No shortness of breath. Patient will return for acute HI with the troponin peak at 4.5. Patient IV heparin. Plan for cardiac catheterization. Currently sitting up in a chair eating her meal. December 19: Cardiac catheterization was attempted but had to be abandoned because of difficult access. Patient has a FemoStop in the right groin. No headache. No chest pain. Bedrest. December 20: Up in a chair. No headache no chest pain. On IV nitroglycerin drip since yesterday. Await further input from cardiology. December 21: Off nitroglycerin drip. Up in the hallway. No headaches or arm pain. farxiga and Aldactone Was added yesterday. December 22: Patient up and about. No headache no chest pain. Cleared by Dr. Austin to go home. 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 Past medical history to include: GERD, diabetes, COPD, hypertension, hyperlipidemia, urinary incontinence, CAD with stent Social history: . Smoked about 2 packs a day for close to 60 years stopped in 2019. No alcohol Physical examination: VITAL SIGNS: He 7.5, 65, 18, 128/77, 92% room air GENERAL: Up in a chair EYES: Pupils equal. Conjunctiva normal. HEENT: External appearance of nose and ears normal, oral cavity grossly normal. NECK: JVD not raised; masses not palpable. HEART: First and second heart sounds are normal; no edema. LUNGS: Respiratory rate normal; decreased breath sounds ABDOMEN: Soft, nontender, liver spleen not palpable, no masses palpable. Right groin FemoStop PSYCH: Alert and oriented x3; mood and affect normal. INVESTIGATIONS, reviewed in the clinical context: December 21: White count 9.4 hemoglobin 10.2 creatinine 1.04 December 20: WBC 9.3 with globin 10.4 potassium 3.9 BUN 37 creatinine 1.13 December 19: Sodium 138 potassium 5.5 BUN 45 creatinine 1.26 WBC 11.5 hemoglobin 12.8 platelets 364 sodium 138 potassium 3.9 BUN 47 creatinine 1.3 to EKG tracing personally reviewed by me-no sinus rhythm. Flipped T waves in inferolateral leads Previous investigations: 2-D echocardiogram [12/10/2022]: EF 55-60%. December 06: BUN 65 creatinine 1.49 Renal ultrasound: Unremarkable Creatinine 1.15 in 10/18/2022 Assessment and plan: -Acute non-ST elevation myocardial infarction, with known CAD. December 11, Successful stenting of the ostium of the PLV with haziness-by Dr. Mcleod. December 19: Attempted cardiac catheterization. Technical difficulty abandoned. To be followed medically. -Chronic congestive heart exacerbation from diastolic dysfunction. EF 50-60% Lasix 20 mg and Cozaar -Hyperkalemia in the setting of chronic kidney disease. Cozaar: Better. At [facility]. Renal diet -Acute kidney injury suspect contrast-induced nephropathy per recent cardiac catheterization. Better. Creatinine is come down from 1.49- now down to 1.04 -CAD with prior stents Plavix, aspirin and Lopressor -Hypertensive heart disease -COPD in a ex-smoker Albuterol when necessary -GERD Pepcid when necessary -Essential hypertension Cozaar, Lopressor, hydralazine -Hyperlipidemia Lipitor -Suspect chronic kidney disease stage III from nephrosclerosis and diabetic nephropathy Creatinine 1.154 - 10/18/2022. UA unremarkable. Renal ultrasound unremarkable. -Chronic urinary stress incontinence -Diabetes mellitus type 2, chronically on insulin, uncontrolled with hyperglycemia Resume home dose of insulin I Disposition: Home Plan - Discharge Summary Discharge Rx Participant: No New Discharge Prescriptions: Continue Losartan [Cozaar] 50 mg PO BID Spironolactone [Aldactone] 25 mg PO DAILY #30 tab Aspirin 81 mg PO DAILY chew Nitroglycerin Sl Tabs [Nitrostat] 0.4 mg SUBLINGUAL Q5M PRN #25 tab PRN Reason: Chest Pain Metoprolol Tartrate [Lopressor] 25 mg PO BID metFORMIN HCL ER [Glucophage XR] 1,000 mg PO DAILY Isosorbide Mononitrate ER [Imdur] 30 mg PO DAILY #30 tab.er.24h Clopidogrel [Plavix] 75 mg PO DAILY #90 tab Atorvastatin [Lipitor] 80 mg PO DAILY Insulin NPH Hum/Reg Insulin Hm [Novolin 70-30 Flexpen] 35 units SQ AC-TID PRN PRN Reason: HIGH BLOOD SUGAR Empagliflozin [Jardiance] 25 mg PO DAILY Acetaminophen Tab [Tylenol] 500 mg PO Q6H PRN PRN Reason: Pain Or Fever > 100.5 Discontinued hydrALAZINE HCL [Apresoline] 50 mg PO BID hydroCHLOROthiazide [Hydrodiuril] 25 mg PO DAILY No Action Furosemide [Lasix] 20 mg PO DAILY #30 tab Discharge Medication List Losartan [Cozaar] 50 mg PO BID 06/23/19 [History] Aspirin 81 mg PO DAILY chew 06/29/19 [Rx] Furosemide [Lasix] 20 mg PO DAILY #30 tab 06/29/19 [Rx] Nitroglycerin Sl Tabs [Nitrostat] 0.4 mg SUBLINGUAL Q5M PRN #25 tab 06/29/19 [Rx] Spironolactone [Aldactone] 25 mg PO DAILY #30 tab 06/29/19 [Rx] Metoprolol Tartrate [Lopressor] 25 mg PO BID 09/21/19 [History] metFORMIN HCL ER [Glucophage XR] 1,000 mg PO DAILY 09/21/19 [History] Isosorbide Mononitrate ER [Imdur] 30 mg PO DAILY #30 tab.er.24h 09/22/19 [Rx] Clopidogrel [Plavix] 75 mg PO DAILY #90 tab 10/18/22 [Rx] Acetaminophen Tab [Tylenol] 500 mg PO Q6H PRN 12/09/22 [History] Atorvastatin [Lipitor] 80 mg PO DAILY 12/09/22 [History] Empagliflozin [Jardiance] 25 mg PO DAILY 12/09/22 [History] Insulin NPH Hum/Reg Insulin Hm [Novolin 70-30 Flexpen] 35 units SQ AC-TID PRN 12/09/22 [History] Follow up Appointment(s)/Referral(s): Becca Mcleod MD [STAFF PHYSICIAN] - 1 Week Amadou Nagy MD [Primary Care Provider] - 1-2 days Patient Instructions/Handouts: Heart Attack (DC) Discharge Disposition: HOME SELF-CARE
== END 2022-12-22 14:38 | disposition home or self-care (01) | DRG 281 ==
LOC: EC 22:19 → 3SCARD 12-18 00:24
PROVIDERS: ADMIT Hospitalist; ATTEND Hospitalist
PROC: 049 Lower Arteries, Drainage (ICD-10-PCS; principal; 2022-12-19 09:00)
DX: I21.4 Non-ST elevation (NSTEMI) myocardial infarction (principal); I13.0 Hypertensive heart and chronic kidney disease with heart failure and stage 1 through stage 4 chronic kidney disease, or unspecified chronic kidney disease; N17.9 Acute kidney failure, unspecified; I50.32 Chronic diastolic (congestive) heart failure; E11.22 Type 2 diabetes mellitus with diabetic chronic kidney disease; E11.65 Type 2 diabetes mellitus with hyperglycemia; N18.30 Chronic kidney disease, stage 3 unspecified; Z87.891 Personal history of nicotine dependence; Z79.4 Long term (current) use of insulin; Z79.84 Long term (current) use of oral hypoglycemic drugs; F41.9 Anxiety disorder, unspecified; K59.00 Constipation, unspecified; N39.3 Stress incontinence (female) (male); E87.5 Hyperkalemia; E78.5 Hyperlipidemia, unspecified; E11.51 Type 2 diabetes mellitus with diabetic peripheral angiopathy without gangrene; T50.8X5A Adverse effect of diagnostic agents, initial encounter; Z28.310 Unvaccinated for COVID-19; Z28.21 Immunization not carried out because of patient refusal; K21.9 Gastro-esophageal reflux disease without esophagitis; J44.9 Chronic obstructive pulmonary disease, unspecified; Z95.820 Peripheral vascular angioplasty status with implants and grafts; Z53.09 Procedure and treatment not carried out because of other contraindication; M19.90 Unspecified osteoarthritis, unspecified site; Z79.82 Long term (current) use of aspirin; Z79.02 Long term (current) use of antithrombotics/antiplatelets; Z79.899 Other long term (current) drug therapy; Z95.5 Presence of coronary angioplasty implant and graft; Z88.0 Allergy status to penicillin; Z88.2 Allergy status to sulfonamides; Z91.040 Latex allergy status
CPT/HCPCS: 36415; 80048; 80053; 83036; 83735; 84484; 85025; 85027; 85610; 85730; 93005; 96365; 96366; 99285